=== PATIENT | female | born 1985 | race African-American/Black ===

== ENCOUNTER → 2020-10-03 08:51 | Outpatient (BNVA) | payer OTHER, SELFPAY | PROVIDERS: PCP Pediatrics; Visit Provider Surgery | DX: E66.01 Morbid (severe) obesity due to excess calories (principal); Z68.43 Body mass index [BMI] 50.0-59.9, adult | CPT/HCPCS: 99202 ==

== ENCOUNTER → 2020-10-14 08:06 | Outpatient (BNVA) | payer OTHER, SELFPAY | PROVIDERS: Visit Provider Surgery ==

== ENCOUNTER → 2020-10-30 08:14 | Outpatient (BNVA) | payer OTHER, SELFPAY | PROVIDERS: Visit Provider Dietitian, Registered | DX: E66.01 Morbid (severe) obesity due to excess calories (principal) | CPT/HCPCS: 97802 ==

== ENCOUNTER 2021-09-09 05:29 | Inpatient (IN) | payer OTHER, SELFPAY ==
[2021-09-09 06:00] VITALS: BMI 55.5
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
--- NOTE | 2021-09-09 09:20 | P.CONHOSP_ITS ---
History of Present Illness Data of Consult Service Date: 09/09/21 Primary Care Provider: Unknown Physician HPI Reason for consult: routine medical H&P This is a 36 yo F who is admitted to . Patient is seen and examined with psychology professor present. Pt denies any physical complaints at this time. PMH Denies PSH Wrist surgery for cyst Tonsillectomy as a 4 year old FH DM, CAD, CKD in mother SH Drinks at social events -- every few months; no tobacco or alcohol use [facility] Medical History (Updated 09/09/21 @ 09:25 by Oscar Mesa MD) Back pain Family History Mother Chronic kidney disease Accelerated hypertension Pulmonary hypertension CHF (congestive heart failure) Coronary heart disease Father No problems noted. Brother Leukemia Brother No problems noted. Daughter No problems noted. Surgical History Hx of removal of cyst Social History (Updated 10/03/20 @ 09:38 by Gayathri Arellano MD) Household Members: Family Household Members Other:: MOTHER AND DAUGHTER Housing: House Housing Other:: APARTMENT IN MOTHER'S BASEMENT Do you presently have visiting nurse or other home services: No Alcohol intake: current Alcohol intake frequency: a few times a month Patient Tobacco Use Status: Never used Tobacco Use of substances other than those prescribed or required for medical reasons: Yes Substance Use Type: Marijuana Substance Use Frequency: Occasionally Last Used Substance Other:: 08/18/2021 Currently Displaying Signs/Symptoms of Drug Intoxication Withdrawal: No Any prior treatment program specific to substance use: No Have you been hit, kicked, punched, or otherwise hurt by someone within the past year? If so, by whom?: No Do you feel safe in your current relationship?: No Current Relationship Is there a partner from a previous relationship who is making you feel unsafe now?: No Are you made to feel afraid or neglected: No Advance Directives: No Advance Directives Information Provided: No (declined) Advance Directives on File: No Do you have thoughts of harming others: None Do you have a plan to hurt others: No Plan Recently lost weight without trying: No Eating poorly because of decreased appetite: No Nutrition Risks: No Nutritional Risk Patient : No : No Poor oral hygiene: No Meds Allergies Allergy/AdvReac Type Severity Reaction Status Date / Time No Known Allergies Allergy Verified 10/14/20 11:17 Active Medications: Current Medications Diphenhydramine HCl (Diphenhydramine Hcl 25 Mg Tablet) 50 mg PO Q4H PRN PRN Reason: agitation Haloperidol (Haloperidol 5 Mg Tablet) 5 mg PO Q4H PRN PRN Reason: agitation Hydroxyzine HCl (Hydroxyzine Hcl 25 Mg Tablet) 25 mg PO TID PRN PRN Reason: mild anxiety Ibuprofen (Ibuprofen 600 Mg Tablet) 600 mg PO Q8H PRN PRN Reason: Pain, Mild (Pain Scale 1-3) Lorazepam (Lorazepam 1 Mg Tablet) 2 mg PO Q4H PRN PRN Reason: agitation Nicotine Polacrilex (Nicotine Polacrilex Lozenge 4 Mg Lozenge) 4 mg BUCCAL Q2H PRN PRN Reason: Nicotine Cravings Home Medications Medication Instructions Recorded Confirmed Last Taken Type methocarbamol 500 mg tablet 1,000 mg PO Q8H 09/24/20 10/14/20 Unknown History naproxen 500 mg tablet 500 mg PO BID 09/24/20 10/14/20 Unknown History tramadol 100 mg tablet 100 mg PO Q4H PRN pain 10/03/20 10/14/20 Unknown History Physical Exam Vital Signs and Narrative: Vital Signs: BMI result Body Mass Index 55.5 Const: Other: General - no acute distress, appears comfortable Cardiovascular - regular rate and rhythm, S1-S2 Lungs - normal respiratory effort, clear to auscultation bilaterally, no wheezing Abdomen - soft, nontender, no rebound or guarding Extremities - no edema bilaterally Neuro - awake and alert, no focal deficits; cn2-12 intact b/l Assessment and Plan (1) Routine medical exam: Status: Acute Plan This is a 36 yo F who endorses no significant PMH and is admitted to . Medical consult requested for routine medical H&P. Pt appears to be medically stable at this time. Will sign off. Please reconsult PRN.
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
[2021-09-09 19:30] VITALS: BP 132/67; PULSE 83; RESP 16; TEMP 36.2; O2SAT 98
[2021-09-09] MEDS: Melatonin 3 MG TABLET 9 MG PO (20:34)
[2021-09-09] MEDS: Docusate Sodium 100 MG CAPSULE PO (20:34)
[2021-09-09] MEDS: LORazepam 1 MG TABLET 2 MG PO (20:34)
[2021-09-09] MEDS: QUEtiapine Fumarate 200 MG TABLET PO (20:34)
[2021-09-09] MEDS: cloNIDine HCL 0.1 MG TABLET PO (20:34)
[2021-09-09] MEDS: Magnesium Hydrox/Alum Hydrox 30 ML ORAL.SUSP PO (21:46)
[2021-09-10] MEDS: Omeprazole 20 MG CAPSULE.DR PO (05:15)
[2021-09-10 08:30] VITALS: BP 126/62; PULSE 82; RESP 18; TEMP 37.1; O2SAT 100
[2021-09-10] MEDS: QUEtiapine Fumarate 200 MG TABLET PO ×2 (08:50→21:11)
[2021-09-10] MEDS: Docusate Sodium 100 MG CAPSULE PO ×2 (08:50→21:11)
[2021-09-10] MEDS: cloNIDine HCL 0.1 MG TABLET PO ×2 (08:50→21:11)
--- NOTE | 2021-09-10 18:36 | P.PNPSI_ITS ---
Subjective Subjective Date of Service: 09/10/21 Reason For Visit: Unspecified bipolar disorder Subjective Notes: Conditional Voluntary Healthcare Proxy: No Guardianship: No Medical Problems Affecting Mental Status: No Interim History: Pt discussed needing housing resources as she anticipates homelessness when mother moves. Discussed concerns about taking vitamins to manage higher testosterone levels, however, all vitamins are open at home and we will not be able to provide them due to this-pt understanding of this-discussed her regime SST, Thermal Slim, CLA, Vitex Teas and their efficacy. Reports current regime to be without SE and titrating well with appropriate sx mgt and no excess sedation. Medication Compliance: Yes Side effects from medications: No Attending Groups: Yes Review of Systems Acute medical concerns: No Medical Review of Systems: unchanged Review of Systems Psychiatric: Reports anxiety and Reports other (worry about housing) Mental Status Exam Mental Status Exam Patient Appearance: Appropriate Patient Orientation: Person, Place, Time and Situation Level of Consciousness: Alert Patient Behavior: Appropriate, Talkative, Cooperative and Good Eye Contact Mood Description: Apprehensive Affect Description: Constricted Patient Cognition Impaired: No Ability to Follow Directions: Good Speech Pattern: Spontaneous Speech Memory Description: Intact and Episodic Impaired Hallucinations: None Thought Process: Distracted and Goal Oriented Thought Content: positive for [place], positive for Circumstantial, positive for Goal Oriented, positive for Suicidal Ideation (denies) and positive for Homi cidal Ideation (denies) Depressive Symptoms: Increased Anxiety Judgement: Good Diagnostics Vital Signs (24Hr): Vital Signs - 24 hr 09/09/21 19:30 09/10/21 08:30 Temperature 97.2 F 98.7 F Pulse Rate 83 82 Respiratory Rate 16 18 Blood Pressure 132/67 126/62 Pulse Oximetry 98 100 Oxygen Delivery Method Room Air Room Air BMI result Body Mass Index 55.5 Labs Results: 09/11/21 07:55 Medications Medications Current Medications Acetaminophen (Acetaminophen 325 Mg Tablet) 650 mg PO Q6H PRN PRN Reason: Headache/Pain Mild Scale (1-3) Al Hydroxide/Mg Hydroxide (Magnesium Hydrox/Alum Hydrox 30 Ml Oral.Susp) 30 ml PO Q4H PRN PRN Reason: gerd sx Last Admin: 09/09/21 21:46 Dose: 30 ml Al Hydroxide/Mg Hydroxide (Magnesium Hydrox/Alum Hydrox 30 Ml Oral.Susp) 30 ml PO Q6H PRN PRN Reason: Heartburn/Nausea Calcium Carbonate (Calcium Carbonate 750 Mg Tab.Chew) 750 mg PO Q4H PRN PRN Reason: GI distress Clonidine HCl (Clonidine Hcl 0.1 Mg Tablet) 0.1 mg PO BID [facility]; Protocol Last Admin: 09/10/21 08:50 Dose: 0.1 mg Cyanocobalamin (Cyanocobalamin (Vitamin B-12) 100 Mcg Tablet) 100 mcg PO DAILY [facility] Diphenhydramine HCl (Diphenhydramine Hcl 25 Mg Tablet) 50 mg PO Q4H PRN PRN Reason: agitation Docusate Sodium (Docusate Sodium 100 Mg Capsule) 100 mg PO BID [facility] Last Admin: 09/10/21 08:50 Dose: 100 mg Haloperidol (Haloperidol 5 Mg Tablet) 5 mg PO Q4H PRN PRN Reason: agitation Hydroxyzine HCl (Hydroxyzine Hcl 25 Mg Tablet) 25 mg PO TID PRN PRN Reason: mild anxiety Hydroxyzine HCl (Hydroxyzine Hcl 25 Mg Tablet) 25 mg PO BEDTIME PRN PRN Reason: Anxiety Ibuprofen (Ibuprofen 600 Mg Tablet) 600 mg PO Q8H PRN PRN Reason: Pain, Mild (Pain Scale 1-3) Lorazepam (Lorazepam 1 Mg Tablet) 2 mg PO Q4H PRN PRN Reason: agitation Last Admin: 09/09/21 20:34 Dose: 2 mg Magnesium Hydroxide (Milk Of Magnesia 30 Ml Oral.Susp) 30 ml PO DAILY PRN PRN Reason: Constipation Melatonin (Melatonin 3 Mg Tablet) 9 mg PO BEDTIME [facility] Last Admin: 09/09/21 20:34 Dose: 9 mg Multivitamins/Vitamin C (Multivitamin Tablet) 1 tab PO DAILY [facility] Nicotine Polacrilex (Nicotine Polacrilex Lozenge 4 Mg Lozenge) 4 mg BUCCAL Q2H PRN PRN Reason: Nicotine Cravings Omeprazole (Omeprazole 20 Mg Capsule.Dr) 20 mg PO DAILY@0630 [facility] Last Admin: 09/10/21 05:15 Dose: 20 mg Psyllium Hydrophilic Mucilloid (Psyllium Seed 3.4 Gm Powd.Pack) 3.4 gm PO DAILY PRN PRN Reason: Constipation Last Admin: 09/09/21 20:39 Dose: 3.4 gm Quetiapine Fumarate (Quetiapine Fumarate 200 Mg Tablet) 200 mg PO BID [facility] Last Admin: 09/10/21 08:50 Dose: 200 mg Trazodone HCl (Trazodone Hcl 50 Mg Tablet) 50 mg PO BEDTIME PRN PRN Reason: Insomnia Allergies Allergies Allergy/AdvReac Type Severity Reaction Status Date / Time No Known Allergies Allergy Verified 10/14/20 11:17 Assessment & Plan Assessment & Plan (1) Bipolar disorder: Status: Acute Code(s): F31.9 - Bipolar disorder, unspecified Plan 36 yo female, mother of a 12 yo daughter with a history of bipolar disorder reports difficulty maintaining medication compliance due to inability to obtain refills. Pt reports being treated in June 2021 and establishing a stable regime which has been effective. Recently she has had difficulty obtaining refills, has had to cut back dosing and had breakthrough symptoms which brought her back to the ER for admission for lability of mood with psychotic symptoms. Discussed with pt referrals and a plan of coverage to bridge her to her appointments which she agrees with. Plan: Continue Clonidine, Seroquel XR, Melatonin, Hydroxyzine, Melatonin Discharge planning. 09/10/21: Continue current plan. I spent minutes with the patient and/or on the patient floor today, greater than?50% of which was spent counseling/coordinating care. Patient educated on: therapeutic strategies and other Informed Consent: understands and further education needed Reason for contiued inpatient stay Substantial Risk for: rapid decompensation
[2021-09-10] MEDS: Milk of Magnesia 30 ML ORAL.SUSP PO (21:10)
[2021-09-10] MEDS: Melatonin 3 MG TABLET 9 MG PO (21:11)
[2021-09-10 21:20] VITALS: BP 133/93; PULSE 91; RESP 18; TEMP 37.1
[2021-09-11 06:00] VITALS: BP 118/73; PULSE 84; RESP 16; TEMP 36.3; O2SAT 99
[2021-09-11] MEDS: Omeprazole 20 MG CAPSULE.DR PO (06:59)
[2021-09-11 08:36] LABS: Alanine Aminotransferase 27 U/L (0-31); Alkaline Phosphatase 91 U/L (39-117); Anion Gap 12 (12-20); Aspartate Amino Transferase 22 U/L (5-31); Bilirubin Total 0.5 mg/dL (0.0-1.0); Blood Urea Nitrogen 9 mg/dL (9-16); Calcium 9.4 mg/dL (8.4-10.2); Carbon Dioxide 28 mmol/L (22-29); Chloride 103 mmol/L (96-108); Cholesterol 215 mg/dL; Creatinine Clr Calc Pharmacy 153.5; Estimated Glomerular Filt Rate > 60; Glucose Fasting 108 mg/dL (60-99); HDL Cholesterol 43 mg/dL; LDL Cholesterol Calculated 140 mg/dl; Potassium 4.2 mmol/L (3.3-5.1); Sodium 139 mmol/L (135-145); Total Protein 6.9 g/dL (6.5-8.0); Triglycerides 162 mg/dL
[2021-09-11] MEDS: Multivitamin TABLET 1 TAB PO (09:03)
[2021-09-11] MEDS: cloNIDine HCL 0.1 MG TABLET PO ×2 (09:03→20:36)
[2021-09-11] MEDS: Docusate Sodium 100 MG CAPSULE PO (09:03)
[2021-09-11] MEDS: Cyanocobalamin (Vitamin B-12) 100 MCG TABLET PO (09:03)
[2021-09-11] MEDS: QUEtiapine Fumarate 200 MG TABLET PO ×2 (09:03→20:33)
[2021-09-11] MEDS: Magnesium Citrate 300 ML SOLUTION PO (14:18)
--- NOTE | 2021-09-11 16:27 | P.PNPSI_ITS ---
Subjective Subjective Date of Service: 09/11/21 Reason For Visit: Unspecified bipolar disorder Subjective Notes: Conditional Voluntary Healthcare Proxy: No Guardianship: No Medical Problems Affecting Mental Status: No Interim History: Pt reporting sx of constipation-will trial Magnesium Citrate x 1 and increase Colace to 200 mg bid. Discussed housing resources and concerns about transportation to [facility]. Review of PT-1 and housing resources/supports available in community. Medication Compliance: Yes Side effects from medications: No Attending Groups: Yes Review of Systems Acute medical concerns: No Medical Review of Systems: unchanged Review of Systems Psychiatric: Reports anxiety and Reports other (worry about housing) Mental Status Exam Mental Status Exam Patient Appearance: Appropriate Patient Orientation: Person, Place, Time and Situation Level of Consciousness: Alert Patient Behavior: Appropriate, Talkative, Cooperative and Good Eye Contact Mood Description: Apprehensive Affect Description: Constricted Patient Cognition Impaired: No Ability to Follow Directions: Good Speech Pattern: Spontaneous Speech Memory Description: Intact and Episodic Impaired Hallucinations: None Thought Process: Distracted and Goal Oriented Thought Content: positive for [place], positive for Circumstantial, positive for Goal Oriented, positive for Suicidal Ideation (denies) and positive for Homicidal Ideation (denies) Depressive Symptoms: Increased Anxiety Judgement: Good Diagnostics Vital Signs (24Hr): Vital Signs - 24 hr 09/10/21 21:20 09/11/21 06:00 Temperature 98.7 F 97.4 F Pulse Rate 91 84 Respiratory Rate 18 16 Blood Pressure 133/93 H 118/73 Pulse Oximetry 99 Oxygen Delivery Method Room Air BMI result Body Mass Index 55.5 Labs Results: 09/11/21 07:55 Labs: Laboratory Results - last 48 hr 09/11/21 07:55 Sodium 139 Potassium 4.2 Chloride 103 Carbon Dioxide 28 Anion Gap 12 BUN 9 Creatinine 0.88 Estim Creat Clear Calc 153.5 Estimated GFR > 60 Fasting Glucose 108 H Calcium 9.4 Total Bilirubin 0.5 AST 22 ALT 27 Alkaline Phosphatase 91 Total Protein 6.9 Albumin 4.0 Triglycerides 162 Cholesterol 215 LDL Cholesterol, Calc 140 HDL Cholesterol 43 Medications Medications Current Medications Acetaminophen (Acetaminophen 325 Mg Tablet) 650 mg PO Q6H PRN PRN Reason: Headache/Pain Mild Scale (1-3) Al Hydroxide/Mg Hydroxide (Magnesium Hydrox/Alum Hydrox 30 Ml Oral.Susp) 30 ml PO Q4H PRN PRN Reason: gerd sx Last Admin: 09/09/21 21:46 Dose: 30 ml Al Hydroxide/Mg Hydroxide (Magnesium Hydrox/Alum Hydrox 30 Ml Oral.Susp) 30 ml PO Q6H PRN PRN Reason: Heartburn/Nausea Calcium Carbonate (Calcium Carbonate 750 Mg Tab.Chew) 750 mg PO Q4H PRN PRN Reason: GI distress Clonidine HCl (Clonidine Hcl 0.1 Mg Tablet) 0.1 mg PO BID [facility]; Protocol Last Admin: 09/11/21 09:03 Dose: 0.1 mg Cyanocobalamin (Cyanocobalamin (Vitamin B-12) 100 Mcg Tablet) 100 mcg PO DAILY [facility] Last Admin: 09/11/21 09:03 Dose: 100 mcg Diphenhydramine HCl (Diphenhydramine Hcl 25 Mg Tablet) 50 mg PO Q4H PRN PRN Reason: agitation Docusate Sodium (Docusate Sodium 100 Mg Capsule) 200 mg PO BID [facility] Haloperidol (Haloperidol 5 Mg Tablet) 5 mg PO Q4H PRN PRN Reason: agitation Hydroxyzine HCl (Hydroxyzine Hcl 25 Mg Tablet) 25 mg PO TID PRN PRN Reason: mild anxiety Hydroxyzine HCl (Hydroxyzine Hcl 25 Mg Tablet) 25 mg PO BEDTIME PRN PRN Reason: Anxiety Ibuprofen (Ibuprofen 600 Mg Tablet) 600 mg PO Q8H PRN PRN Reason: Pain, Mild (Pain Scale 1-3) Lorazepam (Lorazepam 1 Mg Tablet) 2 mg PO Q4H PRN PRN Reason: agitation Last Admin: 09/09/21 20:34 Dose: 2 mg Magnesium Hydroxide (Milk Of Magnesia 30 Ml Oral.Susp) 30 ml PO DAILY PRN PRN Reason: Constipation Last Admin: 09/10/21 21:10 Dose: 30 ml Melatonin (Melatonin 3 Mg Tablet) 9 mg PO BEDTIME [facility] Last Admin: 09/10/21 21:11 Dose: 9 mg Multivitamins/Vitamin C (Multivitamin Tablet) 1 tab PO DAILY [facility] Last Admin: 09/11/21 09:03 Dose: 1 tab Nicotine Polacrilex (Nicotine Polacrilex Lozenge 4 Mg Lozenge) 4 mg BUCCAL Q2H PRN PRN Reason: Nicotine Cravings Omeprazole (Omeprazole 20 Mg Capsule.Dr) 20 mg PO DAILY@0630 [facility] Last Admin: 09/11/21 06:59 Dose: 20 mg Psyllium Hydrophilic Mucilloid (Psyllium Seed 3.4 Gm Powd.Pack) 3.4 gm PO DAILY PRN PRN Reason: Constipation Last Admin: 09/10/21 21:10 Dose: 3.4 gm Quetiapine Fumarate (Quetiapine Fumarate 200 Mg Tablet) 200 mg PO BID [facility] Last Admin: 09/11/21 09:03 Dose: 200 mg Trazodone HCl (Trazodone Hcl 50 Mg Tablet) 50 mg PO BEDTIME PRN PRN Reason: Insomnia Allergies Allergies Allergy/AdvReac Type Severity Reaction Status Date / Time No Known Allergies Allergy Verified 10/14/20 11:17 Assessment & Plan Assessment & Plan (1) Bipolar disorder: Status: Acute Code(s): F31.9 - Bipolar disorder, unspecified Plan 36 yo female, mother of a 12 yo daughter with a history of bipolar disorder reports difficulty maintaining medication compliance due to inability to obtain refills. Pt reports being treated in June 2021 and establishing a stable regime which has been effective. Recently she has had difficulty obtaining refills, has had to cut back dosing and had breakthrough symptoms which brought her back to the ER for admission for lability of mood with psychotic symptoms. Discussed with pt referrals and a plan of coverage to bridge her to her appointments which she agrees with. Plan: Continue Clonidine, Seroquel XR, Melatonin, Hydroxyzine, Melatonin Discharge planning. 09/11/21- Continue current plan-Discharge planning as medicines are re- established and pt is able to identify next steps in need to secure housing and supports. I spent minutes with the patient and/or on the patient floor today, greater than?50% of which was spent counseling/coordinating care. Patient educated on: therapeutic strategies Informed Consent: understands and further education needed Reason for contiued inpatient stay Substantial Risk for: inability to function and rapid decompensation
[2021-09-11] MEDS: Milk of Magnesia 30 ML ORAL.SUSP PO (20:33)
[2021-09-11] MEDS: Docusate Sodium 100 MG CAPSULE 200 MG PO (20:35)
[2021-09-11] MEDS: Melatonin 3 MG TABLET 9 MG PO (20:35)
[2021-09-11 20:41] VITALS: BP 147/87; PULSE 98; RESP 18; TEMP 36.8; O2SAT 96
[2021-09-12 09:45] VITALS: BP 120/71; PULSE 100; RESP 16; TEMP 36.6; O2SAT 97
[2021-09-12] MEDS: Multivitamin TABLET 1 TAB PO (09:47)
[2021-09-12] MEDS: Omeprazole 20 MG CAPSULE.DR PO (09:47)
[2021-09-12] MEDS: cloNIDine HCL 0.1 MG TABLET PO ×2 (09:47→21:18)
[2021-09-12] MEDS: Cyanocobalamin (Vitamin B-12) 100 MCG TABLET PO (09:48)
[2021-09-12] MEDS: QUEtiapine Fumarate 200 MG TABLET PO ×2 (09:48→21:21)
[2021-09-12] MEDS: Docusate Sodium 100 MG CAPSULE 200 MG PO ×2 (09:48→21:18)
--- NOTE | 2021-09-12 17:26 | P.PNPSI_ITS ---
Subjective Subjective Date of Service: 09/12/21 Reason For Visit: Unspecified bipolar disorder Interim History: Patient reports that she is doing overall well and says she is pretty good. . She said she is sleeping well and does not feel groggy in the morning. She denies any SI, HI or AVH. Patient has no complaints and no requests. Reports she is tolerating Seroquel. Mental Status Exam Mental Status Exam Narrative: Pt is alert and oriented; behavior is cooperative, friendly and calm; patient is not in distress; dressed in casual attire, hair in shower cap, adequate hygiene; mood is described as pretty good and affect congruent; eye contact appropriate; Speech is normal rate, volume and prosody and not pressured; no psychomotor agitation/retardation present; thought process is organized and goal directed; Thought content is on tx; otherwise pertinent to relevant topics and without any delusional content, paranoid ideations or grandiosity; denies any SI/HI. There is no evidence of perceptual disturbance. Patients insight and judgment appear intact. Diagnostics Vital Signs (24Hr): Vital Signs - 24 hr 09/11/21 20:41 09/12/21 09:45 Temperature 98.3 F 97.9 F Pulse Rate 98 100 Respiratory Rate 18 16 Blood Pressure 147/87 H 120/71 Pulse Oximetry 96 97 Oxygen Delivery Method Room Air Room Air BMI result Body Mass Index 55.5 Labs Results: 09/11/21 07:55 Labs: Laboratory Results - last 48 hr 09/11/21 07:55 Sodium 139 Potassium 4.2 Chloride 103 Carbon Dioxide 28 Anion Gap 12 BUN 9 Creatinine 0.88 Estim Creat Clear Calc 153.5 Estimated GFR > 60 Fasting Glucose 108 H Calcium 9.4 Total Bilirubin 0.5 AST 22 ALT 27 Alkaline Phosphatase 91 Total Protein 6.9 Albumin 4.0 Triglycerides 162 Cholesterol 215 LDL Cholesterol, Calc 140 HDL Cholesterol 43 Medications Medications Current Medications Acetaminophen (Acetaminophen 325 Mg Tablet) 650 mg PO Q6H PRN PRN Reason: Headache/Pain Mild Scale (1-3) Al Hydroxide/Mg Hydroxide (Magnesium Hydrox/Alum Hydrox 30 Ml Oral.Susp) 30 ml PO Q4H PRN PRN Reason: gerd sx Last Admin: 09/09/21 21:46 Dose: 30 ml Al Hydroxide/Mg Hydroxide (Magnesium Hydrox/Alum Hydrox 30 Ml Oral.Susp) 30 ml PO Q6H PRN PRN Reason: Heartburn/Nausea Calcium Carbonate (Calcium Carbonate 750 Mg Tab.Chew) 750 mg PO Q4H PRN PRN Reason: GI distress Clonidine HCl (Clonidine Hcl 0.1 Mg Tablet) 0.1 mg PO BID [facility]; Protocol Last Admin: 09/12/21 09:47 Dose: 0.1 mg Cyanocobalamin (Cyanocobalamin (Vitamin B-12) 100 Mcg Tablet) 100 mcg PO DAILY [facility] Last Admin: 09/12/21 09:48 Dose: 100 mcg Diphenhydramine HCl (Diphenhydramine Hcl 25 Mg Tablet) 50 mg PO Q4H PRN PRN Reason: agitation Docusate Sodium (Docusate Sodium 100 Mg Capsule) 200 mg PO BID [facility] Last Admin: 09/12/21 09:48 Dose: 200 mg Haloperidol (Haloperidol 5 Mg Tablet) 5 mg PO Q4H PRN PRN Reason: agitation Hydroxyzine HCl (Hydroxyzine Hcl 25 Mg Tablet) 25 mg PO TID PRN PRN Reason: mild anxiety Hydroxyzine HCl (Hydroxyzine Hcl 25 Mg Tablet) 25 mg PO BEDTIME PRN PRN Reason: Anxiety Ibuprofen (Ibuprofen 600 Mg Tablet) 600 mg PO Q8H PRN PRN Reason: Pain, Mild (Pain Scale 1-3) Lorazepam (Lorazepam 1 Mg Tablet) 2 mg PO Q4H PRN PRN Reason: agitation Last Admin: 09/09/21 20:34 Dose: 2 mg Magnesium Hydroxide (Milk Of Magnesia 30 Ml Oral.Susp) 30 ml PO DAILY PRN PRN Reason: Constipation Last Admin: 09/11/21 20:33 Dose: 30 ml Melatonin (Melatonin 3 Mg Tablet) 9 mg PO BEDTIME [facility] Last Admin: 09/11/21 20:35 Dose: 9 mg Multivitamins/Vitamin C (Multivitamin Tablet) 1 tab PO DAILY [facility] Last Admin: 09/12/21 09:47 Dose: 1 tab Nicotine Polacrilex (Nicotine Polacrilex Lozenge 4 Mg Lozenge) 4 mg BUCCAL Q2H PRN PRN Reason: Nicotine Cravings Omeprazole (Omeprazole 20 Mg Capsule.Dr) 20 mg PO DAILY@0630 [facility] Last Admin: 09/12/21 09:47 Dose: 20 mg Psyllium Hydrophilic Mucilloid (Psyllium Seed 3.4 Gm Powd.Pack) 3.4 gm PO DAILY PRN PRN Reason: Constipation Last Admin: 09/11/21 20:33 Dose: 3.4 gm Quetiapine Fumarate (Quetiapine Fumarate 200 Mg Tablet) 200 mg PO BID [facility] Last Admin: 09/12/21 09:48 Dose: 200 mg Trazodone HCl (Trazodone Hcl 50 Mg Tablet) 50 mg PO BEDTIME PRN PRN Reason: Insomnia Allergies Allergies Allergy/AdvReac Type Severity Reaction Status Date / Time No Known Allergies Allergy Verified 10/14/20 11:17 Assessment & Plan Assessment & Plan (1) Bipolar disorder: Status: Acute Code(s): F31.9 - Bipolar disorder, unspecified Plan 36 yo female, mother of a 12 yo daughter with a history of bipolar disorder reports difficulty maintaining medication compliance due to inability to obtain refills. Pt reports being treated in June 2021 and establishing a stable regime which has been effective. Recently she has had difficulty obtaining refills, has had to cut back dosing and had breakthrough symptoms which brought her back to the ER for admission for lability of mood with psychotic symptoms. Discussed with pt referrals and a plan of coverage to bridge her to her appointments which she agrees with. Plan: Continue Clonidine, Seroquel XR, Melatonin, Hydroxyzine, Melatonin Discharge planning. 09/11/21- Continue current plan-Discharge planning as medicines are re- established and pt is able to identify next steps in need to secure housing and supports. 09/12/21 pretty good no changes I spent minutes with the patient and/or on the patient floor today, greater than?50% of which was spent counseling/coordinating care. Patient educated on: medication risk/benefits Informed Consent: understands Reason for contiued inpatient stay Substantial Risk for: med/psych decompensation
[2021-09-12 18:00] VITALS: BP 153/81; PULSE 86; RESP 18; TEMP 36.6; O2SAT 98
[2021-09-12] MEDS: hydrOXYzine HCL 25 MG TABLET PO (19:26)
[2021-09-12] MEDS: Melatonin 3 MG TABLET 9 MG PO (21:18)
[2021-09-12] MEDS: Milk of Magnesia 30 ML ORAL.SUSP PO (21:22)
[2021-09-13] MEDS: HaloperidoL 5 MG TABLET PO (01:38)
[2021-09-13] MEDS: LORazepam 1 MG TABLET 2 MG PO (01:38)
[2021-09-13 06:00] VITALS: BP 112/72; PULSE 83; RESP 14; TEMP 37.1; O2SAT 98
[2021-09-13] MEDS: Omeprazole 20 MG CAPSULE.DR PO (06:41)
[2021-09-13] MEDS: Docusate Sodium 100 MG CAPSULE 200 MG PO ×2 (08:05→21:48)
[2021-09-13 08:06] VITALS: BP 125/62; PULSE 85
[2021-09-13] MEDS: Cyanocobalamin (Vitamin B-12) 100 MCG TABLET PO (08:06)
[2021-09-13] MEDS: Multivitamin TABLET 1 TAB PO (08:06)
[2021-09-13] MEDS: cloNIDine HCL 0.1 MG TABLET PO ×2 (08:06→21:48)
[2021-09-13] MEDS: QUEtiapine Fumarate 200 MG TABLET PO ×2 (08:06→21:48)
[2021-09-13 18:00] VITALS: BP 130/90; PULSE 96; RESP 18; TEMP 36.3; O2SAT 100
[2021-09-13] MEDS: Melatonin 3 MG TABLET 9 MG PO (21:49)
[2021-09-14] MEDS: Omeprazole 20 MG CAPSULE.DR PO (05:42)
[2021-09-14 06:00] VITALS: BP 129/79; PULSE 94; RESP 18; TEMP 36.6; O2SAT 100
[2021-09-14] MEDS: QUEtiapine Fumarate 200 MG TABLET PO (08:31)
[2021-09-14] MEDS: Multivitamin TABLET 1 TAB PO (08:31)
[2021-09-14] MEDS: Docusate Sodium 100 MG CAPSULE 200 MG PO (08:31)
[2021-09-14] MEDS: Cyanocobalamin (Vitamin B-12) 100 MCG TABLET PO (08:31)
[2021-09-14] MEDS: cloNIDine HCL 0.1 MG TABLET PO (08:31)
[2021-09-14 08:32] VITALS: BP 148/98; PULSE 80
--- NOTE | 2021-09-14 11:22 | HO.PSYCHPN ---
Subjective Subjective Date of Service: 09/13/21 Reason For Visit: Unspecified bipolar disorder Interim History: Late entry note for patient seen on 09/13 Patient continues to report that she is doing well. She did have some trouble sleeping last night thinking maybe she was a little anxious. She did not want to change medication regimen but would talk to primary provider when she returns on Tuesday. Mental Status Exam Mental Status Exam Narrative: Pt is alert and oriented; behavior is cooperative, friendly and calm; patient is not in distress; dressed in casual attire, hair in shower cap, adequate hygiene; mood is described as good and affect congruent; eye contact appropriate; Speech is normal rate, volume and prosody and not pressured; no psychomotor agitation/retardation present; thought process is organized and goal directed; Thought content is on tx; otherwise pertinent to relevant topics and without any delusional content, paranoid ideations or grandiosity; denies any SI/HI. There is no evidence of perceptual disturbance. Patients insight and judgment appear intact. Diagnostics Vital Signs (24Hr): Vital Signs - 24 hr 09/13/21 18:00 09/14/21 06:00 09/14/21 08:32 Temperature 97.3 F 97.9 F Pulse Rate 96 94 80 Respiratory Rate 18 18 Blood Pressure 130/90 H 129/79 148/98 H Pulse Oximetry 100 100 Oxygen Delivery Method Room Air BMI result Body Mass Index 55.5 Labs Results: 09/11/21 07:55 Medications Medications Current Medications Acetaminophen (Acetaminophen 325 Mg Tablet) 650 mg PO Q6H PRN PRN Reason: Headache/Pain Mild Scale (1-3) Al Hydroxide/Mg Hydroxide (Magnesium Hydrox/Alum Hydrox 30 Ml Oral.Susp) 30 ml PO Q4H PRN PRN Reason: gerd sx Last Admin: 09/09/21 21:46 Dose: 30 ml Al Hydroxide/Mg Hydroxide (Magnesium Hydrox/Alum Hydrox 30 Ml Oral.Susp) 30 ml PO Q6H PRN PRN Reason: Heartburn/Nausea Calcium Carbonate (Calcium Carbonate 750 Mg Tab.Chew) 750 mg PO Q4H PRN PRN Reason: GI distress Clonidine HCl (Clonidine Hcl 0.1 Mg Tablet) 0.1 mg PO BID [facility]; Protocol Last Admin: 09/14/21 08:31 Dose: 0.1 mg Cyanocobalamin (Cyanocobalamin (Vitamin B-12) 100 Mcg Tablet) 100 mcg PO DAILY [facility] Last Admin: 09/14/21 08:31 Dose: 100 mcg Docusate Sodium (Docusate Sodium 100 Mg Capsule) 200 mg PO BID [facility] Last Admin: 09/14/21 08:31 Dose: 200 mg Hydroxyzine HCl (Hydroxyzine Hcl 25 Mg Tablet) 25 mg PO TID PRN PRN Reason: mild anxiety Last Admin: 09/12/21 19:26 Dose: 25 mg Hydroxyzine HCl (Hydroxyzine Hcl 25 Mg Tablet) 25 mg PO BEDTIME PRN PRN Reason: Anxiety Ibuprofen (Ibuprofen 600 Mg Tablet) 600 mg PO Q8H PRN PRN Reason: Pain, Mild (Pain Scale 1-3) Magnesium Hydroxide (Milk Of Magnesia 30 Ml Oral.Susp) 30 ml PO DAILY PRN PRN Reason: Constipation Last Admin: 09/12/21 21:22 Dose: 30 ml Melatonin (Melatonin 3 Mg Tablet) 9 mg PO BEDTIME [facility] Last Admin: 09/13/21 21:49 Dose: 9 mg Multivitamins/Vitamin C (Multivitamin Tablet) 1 tab PO DAILY [facility] Last Admin: 09/14/21 08:31 Dose: 1 tab Nicotine Polacrilex (Nicotine Polacrilex Lozenge 4 Mg Lozenge) 4 mg BUCCAL Q2H PRN PRN Reason: Nicotine Cravings Omeprazole (Omeprazole 20 Mg Capsule.Dr) 20 mg PO DAILY@0630 [facility] Last Admin: 09/14/21 05:42 Dose: 20 mg Psyllium Hydrophilic Mucilloid (Psyllium Seed 3.4 Gm Powd.Pack) 3.4 gm PO DAILY PRN PRN Reason: Constipation Last Admin: 09/13/21 21:50 Dose: 3.4 gm Quetiapine Fumarate (Quetiapine Fumarate 200 Mg Tablet) 200 mg PO BID [facility] Last Admin: 09/14/21 08:31 Dose: 200 mg Trazodone HCl (Trazodone Hcl 50 Mg Tablet) 50 mg PO BEDTIME PRN PRN Reason: Insomnia Allergies Allergies Allergy/AdvReac Type Severity Reaction Status Date / Time No Known Allergies Allergy Verified 10/14/20 11:17 Assessment & Plan Assessment & Plan (1) Bipolar disorder: Status: Acute Code(s): F31.9 - Bipolar disorder, unspecified Plan 36 yo female, mother of a 12 yo daughter with a history of bipolar disorder reports difficulty maintaining medication compliance due to inability to obtain refills. Pt reports being treated in June 2021 and establishing a stable regime which has been effective. Recently she has had difficulty obtaining refills, has had to cut back dosing and had breakthrough symptoms which brought her back to the ER for admission for lability of mood with psychotic symptoms. Discussed with pt referrals and a plan of coverage to bridge her to her appointments which she agrees with. Plan: Continue Clonidine, Seroquel XR, Melatonin, Hydroxyzine, Melatonin Discharge planning. 09/11/21- Continue current plan-Discharge planning as medicines are re-established and pt is able to identify next steps in need to secure housing and supports. 09/12/21 pretty good no changes 09/13/21 no changes I spent minutes with the patient and/or on the patient floor today, greater than?50% of which was spent counseling/coordinating care. Patient educated on: medication risk/benefits Informed Consent: understands Reason for contiued inpatient stay Substantial Risk for: other (seems stable; defer to primary team)
--- NOTE | 2021-09-14 17:04 | P.DS_ITS ---
DS: Providers Provider Date of Service: 09/14/21 Date of admission: 09/09/21 05:29 Date of discharge: 09/14/21 Primary care physician: Unknown Physician Admitting clinician: Shelley Rubio Attending physician on admission: Noe Bradshaw Consults: 09/09/21 02:53 Consult to Hospitalist Routine Consulting Provider: Hospitalist Reason For Exam: admission physical Attending physician on discharge: Noe Bradshaw Discharging clinician: Shelley Rubio DS: Diagnosis Discharge Diagnosis (1) Bipolar disorder: Status: Acute DS: Medications Discharge Medications Home Medications: Previous Rx's Medication Instructions Recorded aluminum-magnesium hydroxide 200 30 ml PO Q4H PRN gerd sx #3,000 mL 09/14/21 mg-200 mg/5 mL oral suspension clonidine HCl 0.1 mg tablet 0.1 mg PO BID #60 tabs 09/14/21 cyanocobalamin (vitamin B-12) 100 100 mcg PO DAILY #30 tabs 09/14/21 mcg tablet (Vitamin B-12) docusate sodium 100 mg capsule 200 mg PO BID #120 caps 09/14/21 hydroxyzine HCl 50 mg tablet 50 mg PO TID PRN anxiety #60 tabs 09/14/21 melatonin 3 mg tablet 9 mg PO BEDTIME #90 tabs 09/14/21 multivitamin (Daily-Kevin) 1 tab PO DAILY #30 tabs 09/14/21 nicotine (polacrilex) 4 mg buccal 4 mg buccal Q2H PRN Nicotine 09/14/21 lozenge Cravings #60 ea omeprazole 20 mg capsule,delayed 20 mg PO DAILY@0630 #30 caps 09/14/21 release psyllium husk (aspartame) 3.4 gram 3.4 g PO DAILY PRN Constipation #1 09/14/21 oral powder packet (Metamucil ea Fiber Singles) quetiapine 200 mg tablet 200 mg PO BID #60 tabs 09/14/21 Mental Status Exam Mental Status Exam Narrative: Pt is alert and oriented; behavior is cooperative, friendly and calm; patient is not in distress; dressed in casual attire, hair in shower cap, adequate hygiene; mood is described as good and affect congruent; eye contact appropriate; Speech is normal rate, volume and prosody and not pressured; no psychomotor agitation/retardation present; thought process is organized and goal directed; Thought content is on tx; otherwise pertinent to relevant topics and without any delusional content, paranoid ideations or grandiosity; denies any SI/HI. There is no evidence of perceptual disturbance. Patients insight and judgment appear intact. Data Data Completed and Pending Completed studies during hospitalization [Text1]: 09/11/21 07:55 Sodium 139 Potassium 4.2 Chloride 103 Carbon Dioxide 28 Anion Gap 12 BUN 9 Creatinine 0.88 Estim Creat Clear Calc 153.5 Estimated GFR > 60 Fasting Glucose 108 H Calcium 9.4 Total Bilirubin 0.5 AST 22 ALT 27 Alkaline Phosphatase 91 Total Protein 6.9 Albumin 4.0 Triglycerides 162 Cholesterol 215 LDL Cholesterol, Calc 140 HDL Cholesterol 43 DS: Summary Hospital Course Hospital Course: Admission to adult psychiatry for exacerbation of symptoms of bipolar disorder. Shelly informed the team of having a stable medication regime and being denied out patient refill requests. As a result, she needed to ration her medications and became unstable. Out patient regime was re-started and Shelly was stabilized on this regime without adverse effects. She utilized the milieu for assistance and was well-engaged and participatory throughout her stay. Outpatient appointments were arranged and [facility] will work with her until this appointment to continue her current regime. Time spent discussing smoking cessation with patient: 3 to 10 minutes Status at Discharge Functional status at discharge: independent ambulation Overall status at discharge: patient is back to baseline Time Spent with Patient Time attestation: Total time spent providing and/or coordinating discharge services: 35 Time spent: Greater than 30 minutes Discharge Plan Discharge Patient Disposition: Home, Self-Care Discharge Diagnosis: Bipolar Disorder Referrals: Dr. Jenny Thompson [Other] - 09/15/21 2:15 pm (New Patient Appt 09/15/21 at 2:15pm.) Community Support Program (CSP): [facility] [Other] - 1 Week (CSP is to help identify and apply for housing resources/financial assistance. Your social work administrator will call you tomorrow with intake appointment.) Therapy & Psychiatry: [facility] ([facility]) [Other] - 1 Week (Your social work administrator will call you with therapy and psych appointments tomorrow. Psych appointments will be virtual and you will be emailed instructions to download the eden they use as well as another email with a link to join the appointment. ) Discharge Medications: New multivitamin [Daily-Kevin] Tablet 1 tab PO DAILY Qty: 30 0RF clonidine HCl 0.1 mg Tablet 0.1 mg PO BID Qty: 60 0RF Protocol: Hold for SBP< HOLD for SBP < : 90 cyanocobalamin (vitamin B-12) [Vitamin B-12] 100 mcg Tablet 100 mcg PO DAILY Qty: 30 0RF quetiapine 200 mg Tablet 200 mg PO BID Qty: 60 0RF melatonin 3 mg Tablet 9 mg PO BEDTIME Qty: 90 0RF docusate sodium 100 mg Capsule 200 mg PO BID Qty: 120 0RF omeprazole 20 mg Capsule,Delayed Release(Dr/Ec) 20 mg PO DAILY@0630 Qty: 30 0RF nicotine (polacrilex) 4 mg Lozenge 4 mg buccal Q2H PRN (Reason: Nicotine Cravings) Qty: 60 0RF Metamucil Fiber Singles 3.4 gram Powder In Packet 3.4 g PO DAILY PRN (Reason: Constipation) Qty: 1 0RF hydroxyzine HCl 50 mg tablet 50 mg PO TID PRN (Reason: anxiety) Qty: 60 0RF aluminum-magnesium hydroxide 200-200 mg/5 mL Suspension 30 ml PO Q4H PRN (Reason: gerd sx) Qty: 3000 0RF quetiapine [Seroquel XR] 400 mg tablet extended release 24 hr 400 mg PO BEDTIME Qty: 30 0RF Discontinued methocarbamol 500 mg tablet 1,000 mg PO Q8H naproxen 500 mg tablet 500 mg PO BID tramadol 100 mg tablet 100 mg PO Q4H PRN (Reason: pain) Rx Instructions: DNExceed 4 doses/24h Discharge Orders: Discharge Order (Routine); Ordered 09/14/21 Ordered By: Shelley Rubio Activity on Discharge: As tolerated Stand Alone Forms: Patient Portal Discharge page, Community Support Care Plan Goals: Work on maintaining stable moods and safe behaviors Take medications as directed Practice the coping skills you have learned while in the hospital Follow up with out patient providers Connect with others to discuss thoughts and feelings Health Concerns: Bipolar Disorder Plan of Treatment: As noted in care plan goals Call [phone] with medication questions prior to your out patient appointment if needed. Assessment: stable mood non-psychotic non-suicidal Discharge Date/Time: 09/14/21 14:36
== END 2021-09-14 14:36 | disposition home or self-care (01) | DRG 753 ==
PROVIDERS: Admitting Provider Psychiatry & Neurology Psychiatry; Visit Provider Clinical Nurse Specialist Psychiatric/Mental Health, Adult
DX: F31.9 Bipolar disorder, unspecified (principal); Z68.43 Body mass index [BMI] 50.0-59.9, adult; E66.01 Morbid (severe) obesity due to excess calories; Z91.14 Patient's other noncompliance with medication regimen; Z79.899 Other long term (current) drug therapy
CPT/HCPCS: 36415; 80053; 80061

== ENCOUNTER 2023-03-05 01:15 | Inpatient (IN) | payer OTHER, SELFPAY ==
--- OUTSIDE RECORDS SUMMARY | 2023-03-05 01:18 | XMS_ITS | Continuity of Care Document ---
Author Name Unknown Organization [facility] Address [address] [place] [address]- Care Team Providers Care Head Mechanic Name Role Phone Magdi DYE WORKER, Latasha F Primary Care Physician Encounter [facility] Date(s): 09/02/21 - 10/02/[address] [address]- Allergies, Adverse Reactions, Alerts No Known Allergies Immunizations Given and Recorded Vaccine Date Status Refusal Reason SARS-CoV-2 (COVID-19) mRNA BNT-162b2 vac 01/14/21 Recorded SARS-CoV-2 (COVID-19) mRNA BNT-162b2 vac 11/25/20 Recorded influenza virus vaccine, inactivated 12/08/19 Osvaldo rded influenza virus vaccine, inactivated 11/29/18 Osvaldo rded influenza virus vaccine, inactivated 12/06/08 Osvaldo rded tetanus/diphtheria/pertussis, acel(Tdap) 01/03/09 Recorded Meningococcal Conjugate Vaccine 03/25/06 Recorded tetanus-diphtheria toxoids (Td) 02/15/02 Recorded Poliovirus Vaccine, Inactivated 02/15/02 Recorded Poliovirus Vaccine, Inactivated 01/15/93 Recorded Poliovirus Vaccine, Inactivated 01/16/88 Recorded Measles/Mumps/Rubella Virus Vaccine 01/15/93 Recor ded Measles/Mumps/Rubella Virus Vaccine 01/16/88 Recor ded Medications cloNIDine 0.1 mg oral tablet 0.1 mg, 1, tablet, By Mouth, 2 times a day, # 14 tablet, Refills 0, Tot. Refills 0, Maintenance, 08/19/21 13:05:00 EDT, Route to Pharmacy Electronically, [facility], Partial fill upon patient request if the prescription is for a schedule... Start Date: 08/19/21 Stop Date: 08/26/21 Status: Ordered cloNIDine 0.1 mg oral tablet 0.1 mg, 1, tablet, By Mouth, 2 times a day, # 6 tablet, Refills 0, Tot. Refills 0, Maintenance, 09/22/21 9:39:00 EDT, Route to Pharmacy Electronically, [facility], Partial fill upon patient request if the prescription is for a schedule I... Start Date: 09/22/21 Stop Date: 09/25/21 Status: Ordered cloNIDine 0.1 mg oral tablet 0.1 mg, 1, tablet, By Mouth, 2 times a day, Take 1 tablet (=0.1mg), 2 times a day, # 60 tablet, Refills 0, Tot. Refills 0, Maintenance, 07/08/21 8:23:00 EDT, Route to Pharmacy Electronically, [facility] [id number], Partial yesica... Start Date: 07/08/21 Stop Date: 08/07/21 Status: Ordered cloNIDine 0.1 mg oral tablet 0.1 mg, 1, tablet, By Mouth, 2 times a day, # 20 tablet, Refills 0, Tot. Refills 0, Maintenance, 09/06/21 12:22:00 EDT, Print Requisition, Partial fill upon patient request if the prescription is fora schedule II opioid drug. Start Date: 09/06/21 Stop Date: 09/16/21 Status: Ordered Colace sodium 100 mg oral capsule 100 mg, 1, capsule, By Mouth, 2 times a day, PRN, # 60 capsule, Refills 0, Tot. Refills 0, Maintenance, for constipation, 07/08/21 8:28:00 EDT, Route to Pharmacy Electronically, [place], [place] - [id number], 173, cm, 07/07/21 22:02:0... Start Date: 07/08/21 Stop Date: 08/07/21 Status: Ordered Colace sodium 100 mg oral capsule 100 mg, 1, capsule, By Mouth, 2 times a day, PRN, # 20 capsule, Refills 0, Tot. Refills 0, Maintenance, for constipation, 09/05/21 20:27:00 EDT, Print Requisition, Partial fill upon patient request if the prescription is for a schedule II opioid drug. Start Date: 09/05/21 Status: Ordered hydrOXYzine pamoate 50 mg oral capsule = 50 mg, By Mouth, 2 times a day, PRN Anxiety, take 1 capsule (=50mg), up to 2 times a day, as needed for anxiety, # 60 capsule, 0 Refills, Maintenance, 07/08/21 8:23:00 EDT, Capsule, [place], [place] - [phone], Partial fill upon p... Start Date: 07/08/21 Stop Date: 08/07/21 Status: Ordered QUEtiapine 400 mg oral tablet, extended release 400 mg, 1, tablet, By Mouth, Daily, # 10 tablet, Refills 0, Tot. Refills 0, Maintenance, 09/06/21 12:22:00 EDT, Print Requisition, Partial fill upon patient request if the prescription is for a schedule II opioid drug. Start Date: 09/06/21 Stop Date: 09/16/21 Status: Ordered SEROquel XR 400 mg oral tablet, extended release 400 mg, 1, tablet, By Mouth, Daily, # 7 tablet, Refills 0, Tot. Refills 0, Maintenance, 08/19/21 13:05:00 EDT, Route to Pharmacy Electronically, [facility], Partial fill upon patient request if the prescription is for a schedule II opioi... Start Date: 08/19/21 Stop Date: 08/26/21 Status: Ordered SEROquel XR 400 mg oral tablet, extended release 400 mg, 1, tablet, By Mouth, Daily in PM, please provide financial waiver for copay, # 7 tablet, Refills 0, Tot. Refills 0, Maintenance, 09/22/21 9:39:00 EDT, Route to Pharmacy Electronically, [facility], Partial fill upon patient reques... Start Date: 09/22/21 Stop Date: 09/29/21 Status: Ordered SEROquel XR 400 mg oral tablet, extended release 400 mg, 1, tablet, By Mouth, Daily at bedtime, Take 1 tablet (=400mg) daily at bedtime, # 30 tablet, Refills 0, Tot. Refills 0, Maintenance, 07/08/21 8:22:00 EDT, Route to Pharmacy Electronically, [facility] - [place], [place] - [phone]... Start Date: 07/08/21 Stop Date: 08/07/21 Status: Ordered Problem List Condition Effective Dates Status Health Status Inform ant Severe obesity(Confirmed) Active Social History Social History Type Response Tobacco Interested in cessat ion: No. No, Other: rarely. Sex
--- OUTSIDE RECORDS SUMMARY | 2023-03-05 01:18 | XMS_ITS | Continuity of Care Document ---
Author Name Unknown Organization [facility] ter Address [address] [place] [address]- Care Team Providers Care Manga Artist Name Role Phone Magdi LOZADA, Latasha Elizondo Primary Care Physician [phone] [place] [facility] [place] 09/05/21 - 09/06/[address] [address]- Encounter Diagnosis Bipolar disorder(Final) - 09/05/21 Discharge Disposition: A-D/C Home Attending Physician: Tylor Guzman MD Admitting Physician: Tylor Guzman MD Referring Physician: Not on Staff, Referring MD Allergies, Adverse Reactions, Alerts No Known Allergies [...] 08/19/21 13:05:00 EDT, Route to Pharmacy Electronically, [facility], Partial fill upon patient request if the prescription is for a schedule... Start Date: 08/19/21 Stop Date: 08/26/21 Status: Ordered cloNIDine 0.1 mg oral tablet 0.1 mg, 1, tablet, By Mouth, 2 times a day, Take 1 tablet (=0.1mg), 2 times a day, # 60 tablet, Refills 0, Tot. Refills 0, Maintenance, 07/08/21 8:23:00 EDT, Route to Pharmacy Electronically, [facility] [id number], Partial yesica... Start Date: 07/08/21 Stop Date: [...] 07/08/21 8:28:00 EDT, Route to Pharmacy Electronically, [facility] [id number], 173, cm, 07/07/21 22:02:0... Start Date: 07/08/21 [...] 0 Refills, Maintenance, 07/08/21 8:23:00 EDT, Capsule, [facility] [id number], Partial fill upon p... Start Date: 07/08/21 [...] 08/19/21 13:05:00 EDT, Route to Pharmacy Electronically, [facility] 3, Partial fill upon patient request [...] 07/08/21 8:22:00 EDT, Route to Pharmacy Electronically, [facility] [id number], Partia... Start Date: 07/08/21 Stop Date: 08/07/21 Status: Ordered Problem List Condition Effective Dates Status Health Status Inform ant Severe obesity(Confirmed) Active Vital Signs Most recent to oldest [Reference Range]: 1 2 3 Oxygen Saturation [94-100 %] 97 % (09/06/21 12:56 AM) 98 % (09/05/21 7:58 PM) 99 % (09/05/21 4:12 PM) Pulse Rate [55-90 bpm] 77 bpm (09/06/21 12:56 AM) 70 bpm (09/05/21 7:58 PM) 74 bpm (09/05/21 4:12 PM) Blood Pressure [90-138/55-84 mm Hg] 116/63mm Hg (09/06/21 1:01 AM) 142/86mm Hg *H* (09/05/21 7:58 PM) 130/81mm Hg (09/05/21 4:12 PM) Respiratory Rate [16-30 br/min] 19 br/min (09/06/21 12:56 AM) 16 br/min (09/05/21 7:58 PM) 18 br/min (09/05/21 4:12 PM) Temperature [96.8-100.4 DegF] 98.1 DegF (09/06/21 12:56 AM) 97.8 DegF (09/05/21 7:58 PM) 97.9 DegF (09/05/21 4:12 PM) Mode of Delivery (Oxygen) Room air (09/06/21 12:56 AM) Room air (09/05/21 7:58 PM) Room air (09/05/21 4:12 PM) Blood pressure sites Arm, right (09/06/21 1:01 AM) Arm, right (09/05/21 7:58 PM) Arm, right (09/05/21 4:12 PM) Temperature Route Oral (09/06/21 12:56 AM) Oral (09/05/21 7:58 PM) Oral (09/05/21 4:12 PM) Social History Social History Type Response Tobacco Interested in cessat ion: No. No, Other: rarely. Sex
--- OUTSIDE RECORDS SUMMARY | 2023-03-05 01:18 | XMS_ITS | Continuity of Care Document ---
Author Name Unknown Organization [facility] ter Address [address] [place] [address]- Care Team Providers Care Locomotive Mechanic Apprentice Name Role Phone Vera Babcock MD Primary Care Physician [phone] [place] [facility] [place](s[place] 05/12/22 - 05/13/[address] [address]- Discharge Disposition: Transfer to [facility] Facility Attending Physician: Emiliana Cazares MD Admitting Physician: Emiliana Cazares MD Referring Physician: Not on Staff, Referring MD Allergies, Adverse Reactions, Alerts No Known Allergies Immunizations Given and Recorded Vaccine Date Status Refusal Reason tetanus/diphtheria/pertussis, acel(Tdap) 03/26/22 Given tetanus/diphtheria/pertussis, acel(Tdap) 01/03/09 Recorded [id number] 12y+ bivalent booster vax 03/26/22 Given influenza virus vaccine, inactivated 03/26/22 Give n influenza virus vaccine, inactivated 12/08/19 Osvaldo rded influenza virus vaccine, inactivated 11/29/18 Osvaldo rded influenza virus vaccine, inactivated 12/06/08 Osvaldo rded SARS-CoV-2 mRNA ([id number]) vax 08/05/21 Recorded SARS-CoV-2 (COVID-19) mRNA BNT-162b2 vac 01/14/21 Recorded SARS-CoV-2 (COVID-19) mRNA BNT-162b2 vac 11/25/20 Recorded Meningococcal Conjugate Vaccine 03/25/06 Recorded tetanus-diphtheria toxoids (Td) 02/15/02 Recorded Poliovirus Vaccine, Inactivated 02/15/02 Recorded Poliovirus Vaccine, Inactivated 01/15/93 Recorded Poliovirus Vaccine, Inactivated 01/16/88 Recorded Measles/Mumps/Rubella Virus Vaccine 01/15/93 Recor ded Measles/Mumps/Rubella Virus Vaccine 01/16/88 Recor ded Medications cloNIDine 0.1 mg oral tablet 0.1 mg, 1, tablet, By Mouth, 2 times a day, # 180 tablet, Refills 0, Maintenance, 05/12/22 23:10:00EST, Partial fill upon patient request if the prescription is for a schedule II opioid drug. Start Date: 05/12/22 Status: Ordered cloNIDine 0.1 mg oral tablet 0.1 mg, By Mouth, 2 times a day, # 60 each, Refills 11, Tot. Refills 11, Maintenance, 03/26/22 14:44:00 EST, Route to Pharmacy Electronically, [facility] [id number], Partial fill upon patient request if the prescription is for... Start Date: 03/26/22 Stop Date: 03/21/23 Status: Ordered cyanocobalamin 50 mcg oral tablet 1 tablet = 50 mcg, By Mouth, Daily, # 30 tablet, 5 Refills, Maintenance, 03/26/22 14:48:00 EST, Tablet, [facility] [id number], Partial fill upon patient request if the prescription is for a schedule II opioid drug., 173, cm, 1... Start Date: 03/26/22 Stop Date: 09/22/22 Status: Ordered docusate sodium 100 mg oral capsule 1 capsule = 100 mg, By Mouth, 2 times a day, PRN as needed for constipation, # 20 capsule, 0 Refills, Maintenance, 05/12/22 23:10:00 EST, Capsule, Partial fill upon patient request if the prescription is for a schedule II opioid drug. Start Date: 05/12/22 Status: Ordered docusate sodium 100 mg oral capsule 1 capsule = 100 mg, By Mouth, 2 times a day, # 60 capsule, 5 Refills, Maintenance, 03/26/22 14:46:00 EST, [facility] [id number], Partial fill upon patient request if the prescription is for a schedule II opioid drug., 173, cm,... Start Date: 03/26/22 Stop Date: 09/22/22 Status: Ordered folic acid 0.8 mg oral tablet 1 tablet = 0.8 mg, By Mouth, Daily, # 30 tablet, 11 Refills, Maintenance, 03/26/22 14:47:00 EST, Tablet, [facility] [id number], Partial fill upon patient request if the prescription is for a schedule II opioid drug., 173, cm,... Start Date: 03/26/22 Stop Date: 03/21/23 Status: Ordered hydrOXYzine pamoate 50 mg oral capsule 1 capsule = 50 mg, By Mouth, 4 times a day, PRN for anxiety, for 30 days, # 50 capsule, 3 Refills, Acute 07/24/22 14:44:00 EDT, 03/26/22 14:44:00 EST, Capsule, [facility] [id number], deliver, 173, cm, 03/26/22 13:47:00 EST, He... Start Date: 03/26/22 Stop Date: 07/24/22 Status: Ordered multivitamin Multiple Vitamins oral tablet 1 tablet, By Mouth, Daily, # 30 tablet, 11 Refills, Maintenance, 03/26/22 14:47:00 EST, Tablet, [facility] [id number], Partial fill upon patient request if the prescription is for a schedule II opioid drug., 1 tablet By Mouth... Start Date: 03/26/22 Stop Date: 03/21/23 Status: Ordered omeprazole 20 mg oral delayed release tablet 1 tablet = 20 mg, By Mouth, Daily, # 30 tablet, 5 Refills, Maintenance, 03/26/22 14:47:00 EST, CR Tablet, [facility] [id number], Partial fill upon patient request if the prescription is for a schedule II opioid drug., 173, cm,... Start Date: 03/26/22 Stop Date: 09/22/22 Status: Ordered omeprazole 20 mg oral enteric coated capsule 1 capsule = 20 mg, By Mouth, Daily, # 30 capsule, 0 Refills, Maintenance, 05/12/22 23:10:00 EST, ECCapsule, Partial fill upon patient request if the prescription is for a schedule II opioid drug. Start Date: 05/12/22 Status: Ordered QUEtiapine 400 mg oral tablet, extended release 400 mg, 1, tablet, By Mouth, Daily in PM, # 30 tablet, Refills 0, Maintenance, 05/12/22 21:48:00 EST, Partial fill upon patient request if the prescription is for a schedule II opioid drug. Start Date: 05/12/22 Status: Ordered SEROquel XR 400 mg oral tablet, extended release 400 mg, 1, tablet, By Mouth, Daily in PM, # 30 tablet, Refills 11, Tot. Refills 11, Maintenance, 03/26/22 14:48:00 EST, Route to Pharmacy Electronically, [facility] [place] - [id number], needs the extended release formulation. regular r... Start Date: 03/26/22 Stop Date: 03/21/23 Status: Ordered Problem List Condition Confirmation Course Effective Dates Status Health St [facility] Informant Bipolar disorder Confirmed Active [facility] health care coordinator Hugo Hamilton [phone] Confirmed Active PTSD (post-traumatic stress disorder) Confirmed Active Severe obesity Confirmed Active Vital Signs Most recent to oldest [Reference Range]: 1 2 3 Height 175 cm (05/13/22 2:47 PM) 175 cm (05/12/22 8:09 PM) Weight 170.9 kg (05/13/22 2:47 PM) 170.9 kg (05/12/22 8:09 PM) Oxygen Saturation [94-100 %] 99 % (05/13/22 2:47 PM) 98 % (05/12/22 11:18 PM) 97 % (05/12/22 8:09 PM) Pulse Rate [55-90 bpm] 84 bpm (05/13/22 2:47 PM) 90 bpm (05/12/22 11:18 PM) 98 bpm *H* (05/12/22 8:09 PM) Body Mass Index [18.5-24.99 kg/m2] 55.8 kg/m2 *>HHI* (05/13/22 2:47 PM) Blood Pressure [90-138/55-84 mm Hg] 150/96mm Hg *H* (05/13/22 2:47 PM) 122/66mm Hg (05/12/22 11:18 PM) 154/106mm Hg *H* (05/12/22 8:09 PM) Respiratory Rate [16-30 br/min] 18 br/min (05/13/22 2:47 PM) 18 br/min (05/12/22 11:18 PM) 20 br/min (05/12/22 8:09 PM) Temperature [96.8-100.4 DegF] 98 DegF (05/12/22 11:18 PM) 98.8 DegF (05/12/22 8:09 PM) Mode of Delivery (Oxygen) Room air (05/13/22 2:47 PM) Room air (05/12/22 11:18 PM) Room air (05/12/22 8:09 PM) Blood pressure sites Arm, right (05/13/22 2:47 PM) Arm, right (05/12/22 8:09 PM) Temperature Route Oral (05/12/22 11:18 PM) Oral (05/12/22 8:09 PM) Dry Weight 170.9 kg (05/13/22 2:47 PM) 170.9 kg (05/12/22 8:09 PM) Weight Obtained Via Patient/family state d (05/12/22 8:09 PM) Dry Weight Obtained Via Patient/family s tated (05/12/22 8:09 PM) Social History Social History Type Response Tobacco Use: 4 or less cigar ettes(less than 1/4 pack)/day in last 30 days. Other: rarely. Sex Patient Care team information Care Team Personnel Name: Jayne Vee RN Position: [facility] RN Member Role: Primary Care Nurse Name: Ruthy Valdes RN Position: [facility] RN Member Role: Primary Care Nurse Name: Jojo Cazares RN Position: [facility] RN Member Role: Primary Care Nurse Name: Vera Babcock MD Position: [facility] Primary Care Physician Member Role: PCP Address: Address: [address] [place] [address]- Name: *[facility], ED Attending Position: [facility] ED Attendings Patient Name: Emiliana Cazares MD Position: [facility] ED Medicine MD Member Role: Admitting Physician Address: Address: [address] [place] [address]- Name: Jesse Cronin RN Position: [facility] ED RN W/OE and Tasks Member Role: Patient Care Provider Care Team Related Persons Name: SKYE EFLDER Address: home [address] [place] [address] Name: LALA HILLS Address: home [address] [place] [id number] Name: KERI BROTHERS Address: home [address] [place] [id number]
--- OUTSIDE RECORDS SUMMARY | 2023-03-05 01:18 | XMS_ITS | Continuity of Care Document ---
Author Name Unknown Organization [facility] Address [address] [place] [address]- Care Team Providers Care Game Advisor Name Role Phone Magdi FEEDER OPERATOR AUTOMATIC, Latasha F Primary Care Physician [phone] Encounter [facility] Date(s): 09/17/21 - 10/17/[address] [address]- Allergies, Adverse Reactions, Alerts No Known Allergies [...] 08/19/21 13:05:00 EDT, Route to Pharmacy Electronically, [facility], Partial fill upon patient request if the prescription is for a schedule... Start Date: 08/19/21 Stop Date: 08/26/21 Status: Ordered cloNIDine 0.1 mg oral tablet 0.1 mg, 1, tablet, By Mouth, 2 times a day, # 6 tablet, Refills 0, Tot. Refills 0, Maintenance, 09/22/21 9:39:00 EDT, Route to Pharmacy Electronically, [facility] 3, Partial fill upon patient request if the prescription is for a schedule I... Start Date: 09/22/21 Stop Date: 09/25/21 Status: Ordered cloNIDine 0.1 mg oral tablet 0.1 mg, 1, tablet, By Mouth, 2 times a day, Take 1 tablet (=0.1mg), 2 times a day, # 60 tablet, Refills 0, Tot. Refills 0, Maintenance, 07/08/21 8:23:00 EDT, Route to Pharmacy Electronically, [facility] [id number], Partial yesica... Start Date: 07/08/21 Stop Date: [...] 07/08/21 8:28:00 EDT, Route to Pharmacy Electronically, [place], [place] - [id number], 173, cm, 07/07/21 22:02:0... Start Date: 07/08/21 [...] 0 Refills, Maintenance, 07/08/21 8:23:00 EDT, Capsule, [place], [place] - [id number], Partial fill upon p... Start Date: 07/08/21 [...] 08/19/21 13:05:00 EDT, Route to Pharmacy Electronically, [facility], Partial fill upon patient [...] 09/22/21 9:39:00 EDT, Route to Pharmacy Electronically, [facility], Partial fill upon patient reques... Start Date: 09/22/21 Stop Date: 09/29/21 Status: Ordered SEROquel XR 400 mg oral tablet, extended release 400 mg, 1, tablet, By Mouth, Daily at bedtime, Take 1 tablet (=400mg) daily at bedtime, # 30 tablet, Refills 0, Tot. Refills 0, Maintenance, 07/08/21 8:22:00 EDT, Route to Pharmacy Electronically, [facility] [place] [place] - [id number], Danuta.Yesica. Start Date: 07/08/21 Stop Date: 08/07/21 Status: Ordered Problem List Condition Effective Dates Status Health Status Inform ant [facility] Car e coordinator Hugo Hamilton [phone](Confirmed) Active Severe obesity(Confirmed) Active Social History Social History Type Response Tobacco Interested in cessat ion: No. No, Other: rarely. Sex
--- OUTSIDE RECORDS SUMMARY | 2023-03-05 01:18 | XMS_ITS | Continuity of Care Document ---
Author Name Unknown Organization [facility] Address [address] [place] [address]- Care Team Providers Care Weatherization Operations Manager Name Role Phone Magdi LOZADA, Latasha F Primary Care Physician [phone] [facility] [place] Date(s): 09/03/21 - 10/15/[address] [address]- Attending Physician: Not on Staff, Attending MD Allergies, Adverse Reactions, Alerts No Known [...] 08/19/21 13:05:00 EDT, Route to Pharmacy Electronically, [facility], Partial fill upon patient request if the prescription is for a schedule... Start Date: 08/19/21 Stop Date: 08/26/21 Status: Ordered cloNIDine 0.1 mg oral tablet 0.1 mg, 1, tablet, By Mouth, 2 times a day, # 6 tablet, Refills 0, Tot. Refills 0, Maintenance, 09/22/21 9:39:00 EDT, Route to Pharmacy Electronically, [facility] 3, Partial fill upon patient request if the prescription is for a schedule I... Start Date: 09/22/21 Stop Date: 09/25/21 Status: Ordered cloNIDine 0.1 mg oral tablet 0.1 mg, 1, tablet, By Mouth, 2 times a day, Take 1 tablet (=0.1mg), 2 times a day, # 60 tablet, Refills 0, Tot. Refills 0, Maintenance, 07/08/21 8:23:00 EDT, Route to Pharmacy Electronically, [place], [place] - [id number], Partial yesica... Start Date: 07/08/21 Stop Date: [...] 07/08/21 8:28:00 EDT, Route to Pharmacy Electronically, [place], [place] - [id number], 173, cm, 07/07/21 22:02:0... Start Date: 07/08/21 [...] 0 Refills, Maintenance, 07/08/21 8:23:00 EDT, Capsule, [place], [place] - [id number], Partial fill upon p... Start Date: 07/08/21 [...] 08/19/21 13:05:00 EDT, Route to Pharmacy Electronically, [facility], Partial fill upon patient request if the prescription is for a schedule II opioi... Start Date: 08/19/21 Stop Date: 08/26/21 Status: Ordered SEROquel XR 400 mg oral tablet, extended release 400 mg, 1, tablet, By Mouth, Daily in PM, please provide financial waiver for copay, # 7 tablet, Refills 0, Tot. Refills 0, Maintenance, 09/22/21 9:39:00 EDT, Route to Pharmacy Electronically, [facility], Partial fill upon patient reques... Start Date: 09/22/21 Stop Date: 09/29/21 Status: Ordered SEROquel XR 400 mg oral tablet, extended release 400 mg, 1, tablet, By Mouth, Daily at bedtime, Take 1 tablet (=400mg) daily at bedtime, # 30 tablet, Refills 0, Tot. Refills 0, Maintenance, 07/08/21 8:22:00 EDT, Route to Pharmacy Electronically, [facility] [place], [place] - [id number], Danuta... Start Date: 07/08/21 Stop Date: 08/07/21 Status: Ordered Problem List Condition Effective Dates Status Health Status Inform ant [facility] care partners Car e coordinator Hugo Hamilton [phone](Confirmed) Active Severe obesity(Confirmed) Active Social History Social History Type Response Tobacco Interested in cessat ion: No. No, Other: rarely. Sex
--- OUTSIDE RECORDS SUMMARY | 2023-03-05 01:18 | XMS_ITS | Continuity of Care Document ---
Author Name Unknown Organization [facility] ter Address [address] [place] [address]- Care Team Providers Care Dump Grader Name Role Phone Magdi LOZADA, Latasha Elizondo Primary Care Physician [phone] [place] [facility] [place]): [place]20[place] - 06/26/[address] [address]- Encounter Diagnosis Paranoia(Final) - 06/26/21 Schizophrenia(Final) - 06/26/21 Discharge Disposition: A-D/C Home Attending Physician: Campbell Gold MD Admitting Physician: Campbell Gold MD Referring Physician: Not on Staff, Referring MD Allergies, Adverse Reactions, Alerts No Known Allergies Medications albuterol CFC free 90 mcg/inh inhalation aerosol 1 puffs, Inhalation, 4 times a day, PRN for wheezing, # 25 Gm, 0 Refills, Maintenance, 06/19/14 14:16:03, Aerosol Start Date: 06/19/14 Status: Ordered Cane See Instructions, # 1 units, Maintenance, use as directed by ED staff, 04/14/14 15:19:19, Compound Start Date: 04/14/14 Status: Ordered Colace sodium 100 mg oral capsule 1 capsule = 100 mg, By Mouth, 2 times a day, PRN for constipation, # 20 capsule, 0 Refills, Maintenance, 04/14/14 15:09:14, Capsule Start Date: 04/14/14 Status: Ordered Naprosyn 500 mg oral tablet 1 tablet = 500 mg, By Mouth, 2 times a day, PRN Pain, # 20 tablet, 0 Refills, Maintenance, 147:52:05, Tablet Start Date: 03/01/14 Status: Ordered Cedar 325 mg-5 mg oral tablet 1 tablet, By Mouth, Every 6 hours, PRN for pain, # 6 tablet, 0 Refills, Maintenance, 03/01/14 7:52:15, Tablet Start Date: 03/01/14 Status: Ordered Percocet-5/325 325 mg-5 mg oral tablet 1 tablet, By Mouth, Every 4 hours, PRN for pain, # 15 tablet, 0 Refills, Maintenance, 04/14/14 15:09:07, Tablet Start Date: 04/14/14 Status: Ordered prednisone 20 mg oral tablet 2 tablet = 40 mg, By Mouth, Daily, # 10 tablet, 0 Refills, Maintenance, 06/19/14 14:12:06, Tablet Start Date: 06/19/14 Status: Ordered SEROquel 50 mg oral tablet 1 tablet = 50 mg, By Mouth, 2 times a day, # 60 tablet, 0 Refills, Maintenance, 06/26/21 16:44:00 EDT, Tablet, [place], [place] - [id number], Partial fill upon patient request if theprescription is for a schedule II opioid drug., 173... Start Date: 06/26/21 Status: Ordered Splint See Instructions, # 1 units, Maintenance, use as needed as directed, 04/14/14 15:09:01, Compound Start Date: 04/14/14 Status: Ordered Results Radiology Reports * Exam Date Time Procedure Performing Provider Status 06/21/21 10:15 AM Knee 1 or 2 Views Right Casie Hoffman; Auth (Verified) Notes: (Knee 1 or 2 Views Right) Reason For Exam: with Pain;Trauma RESULT: Knee 1 or 2 Views Right Knee 1 or 2 Views Right, views Refer to EMR; Hx of Present Illness: Pt from home w anxiety and psychosis. Pt reports she has been off her meds since December. States they are giving me things that I don't need and don't make me feel good . Pt states they're trying to kill me . Pt drank last night, denies other drugs; Reason: Trauma; with Pain; Clinical Question(s): Fracture; Order Comment: Called RN multiple times to bring pat TECHNIQUE: AP and crosstable lateral views. COMPARISON: 01/15/2021 FINDINGS: There is no evidence of acute or healing fracture, dislocation or bone lesion. The lateral joint space measures 7 mm and the medial joint space measures 5 mm, unchanged from prior, without significant narrowing of the medial compartment. Tiny lateral compartment spurring is again noted. No significant patellofemoral arthritis is evident. Small enthesophyte anterior upper patellar pole. No osteochondral defects or intra-articular loose bodies. No evidence of joint effusion. IMPRESSION: No acute findings. Minimal spurring lateral compartment again noted. WSN: [id number] Ordering Physician: Trinidad Lanza Dictated By: Elmer Egan MD Dictated Date/Time: 06/21/21 10:27 a Reviewed By: Elmer Egan MD Signed By: Elmer Egan MD Signed Date/Time: 06/21/21 10:27 am Transcribed By: RADHA Transcribed Date/Time: 06/21/21 10:25 am Vital Signs Most recent to oldest [Reference Range]: 1 2 3 Oxygen Saturation [94-100 %] 99 % (06/26/21 5:04 PM) 97 % (06/26/21 3:01 AM) 96 % (06/25/21 9:22 PM) Pulse Rate [55-90 bpm] 80 bpm (06/26/21 5:04 PM) 87 bpm (06/26/21 3:51 PM) 94 bpm *H* (06/26/21 3:01 AM) Blood Pressure [90-138/55-84 mm Hg] 130/84mm Hg (06/26/21 5:04 PM) 130/85mm Hg (06/26/21 3:51 PM) 142/88mm Hg *H* (06/26/21 3:01 AM) Respiratory Rate [16-30 br/min] 16 br/min (06/26/21 5:04 PM) 16 br/min (06/26/21 3:51 PM) 18 br/min (06/26/21 3:01 AM) Temperature [96.8-100.4 DegF] 98.6 DegF (06/26/21 5:04 PM) 98.1 DegF (06/26/21 3:51 PM) 98.4 DegF (06/26/21 3:01 AM) Liters per Minute 0 L/min (06/20/21 11:53 AM) Mode of Delivery (Oxygen) Room air (06/26/21 5:04 PM) Room air (06/26/21 3:51 PM) Room air (06/26/21 3:01 AM) Blood pressure sites Arm, left (06/26/21 5:04 PM) Arm, right (06/26/21 3:51 PM) Arm, right (06/26/21 3:01 AM) Temperature Route Oral (06/26/21 5:04 PM) Oral (06/26/21 3:51 PM) Oral (06/26/21 3:01 AM) Social History Social History Type Response Smoking Status Never smoker entered on: 03/01/14 Sex Female
--- OUTSIDE RECORDS SUMMARY | 2023-03-05 01:18 | XMS_ITS | Continuity of Care Document ---
Author Name Unknown Organization [facility] ter Address [address] [place] [phone]- Care Team Providers Care Marketing Underwriter Name Role Phone Thalia Machado MD Primary Care Phys[place] [facility] [place] 12/19/[address] [address]- Encounter Diagnosis Homicidal ideation(Final) - 12/12/21 Discharge Disposition: A-D/C Home Attending Physician: Leigha Lopez MD Admitting Physician: Leigha Lopez MD Referring Physician: Not on Staff, Referring [...] Measles/Mumps/Rubella Virus Vaccine 01/16/88 Recor ded Medications aluminum hydroxide/magnesium hydroxide/simethicone 200 mg-200 mg-25 mg oral tablet, chewable 1 tablet, Chew, 4 times a day, PRN for control of stomach acid, # 40 tablet, 0 Refills, Acute 12/25/21 0:00:00 EDT, 12/19/21 14:56:00 EDT, Chew Tablet, [facility] #[id number], Partial fill upon patient request if the prescription is for a schedul... Start Date: 12/19/21 Stop Date: 12/25/21 Status: Ordered cloNIDine 0.1 mg oral tablet 0.1 mg, 1, tablet, By Mouth, 2 times a day, # 14 tablet, Refills 0, Tot. Refills 0, Maintenance, 08/19/21 13:05:00 EDT, Route to Pharmacy Electronically, [facility], Partial fill upon patient request if the prescription is for a schedule... Start Date: 08/19/21 Stop Date: 08/26/21 Status: Ordered cloNIDine 0.1 mg oral tablet 0.1 mg, 1, tablet, By Mouth, 2 times a day, # 6 tablet, Refills 0, Tot. Refills 0, Maintenance, 09/22/21 9:39:00 EDT, Route to Pharmacy Electronically, [facility] 3, Partial fill upon patient request if the prescription is for a schedule I... Start Date: 09/22/21 Stop Date: 09/25/21 Status: Ordered cloNIDine 0.1 mg oral tablet 0.1 mg, 1, tablet, By Mouth, 2 times a day, # 20 tablet, Refills 0, Tot. Refills 0, Maintenance, 11/06/21 17:21:00 EDT, Route to Pharmacy Electronically, [facility] [id number], Partial fill upon patient request if the prescrip... Start Date: 11/06/21 Stop Date: 11/16/21 Status: Ordered cloNIDine 0.1 mg oral tablet 0.1 mg, 1, tablet, By Mouth, 2 times a day, Take 1 tablet (=0.1mg), 2 times a day, # 60 tablet, Refills 0, Tot. Refills 0, Maintenance, 07/08/21 8:23:00 EDT, Route to Pharmacy Electronically, [facility] [id number], Partial yesica... Start Date: 07/08/21 Stop Date: 08/07/21 Status: Ordered Colace sodium 100 mg oral capsule 100 mg, 1, capsule, By Mouth, 2 times a day, PRN, # 60 capsule, Refills 0, Tot. Refills 0, Maintenance, for constipation, 11/06/21 17:21:00 EDT, Route to Pharmacy Electronically, [facility] [phone], 173, cm, 11/06/21 14:25:... Start Date: 11/06/21 Stop Date: 12/06/21 Status: Ordered Colace sodium 100 mg oral capsule 100 mg, 1, capsule, By Mouth, 2 times a day, PRN, # 20 capsule, Refills 0, Tot. Refills 0, Maintenance, for constipation, 09/05/21 20:27:00 EDT, Print Requisition, Partial fill upon patient request if the prescription is for a schedule II opioid drug. Start Date: 09/05/21 Status: Ordered Doculase 100 mg oral capsule 1 capsule = 100 mg, By Mouth, 2 times a day, PRN for constipation, # 20 capsule, 0 Refills, Maintenance, 12/19/21 14:58:00 EDT, Capsule, [facility] #[id number], Partial fill upon patient requestif the prescription is for a schedule II opioid law... Start Date: 12/19/21 Status: Ordered hydrOXYzine pamoate 50 mg oral capsule 1 capsule = 50 mg, By Mouth, 4 times a day, PRN for anxiety, # 40 tablet, 0 Refills, Acute 220:00:00 EDT, 12/19/21 14:48:00 EDT, Capsule, [facility] #[id number], Partial fill upon patientrequest if the prescription is for a schedule II op... Start Date: 12/19/21 Stop Date: 12/28/21 Status: Ordered hydrOXYzine pamoate 50 mg oral capsule = 50 mg, By Mouth, 2 times a day, PRN Anxiety, take 1 capsule (=50mg), up to 2 times a day, as needed for anxiety, # 60 capsule, 0 Refills, Maintenance, 11/06/21 17:21:00 EDT, Capsule, [facility] [phone], Partial fill upon... Start Date: 11/06/21 Stop Date: 12/06/21 Status: Ordered Metamucil 3.4 gm/5.2 gm oral powder for reconstitution = 1.7 Gm, By Mouth, 3 times a day, PRN as needed for constipation, # 283 Gm, 0 Refills, Acute 12/25/21 0:00:00 EDT, 12/19/21 14:57:00 EDT, REC Powder, [facility] #[id number], Partial fill upon patient request if the prescription is for a schedule... Start Date: 12/19/21 Stop Date: 12/25/21 Status: Ordered multivitamin Multiple Vitamins oral tablet 1 tablet, By Mouth, Daily, # 30 tablet, 0 Refills, Maintenance, 12/19/21 14:58:00 EDT, Tablet, [facility] #[id number], Partial fill upon patient request if the prescription is for a schedule II opioid drug., 1 tablet By Mouth Daily, 173, cm, 10/26... Start Date: 12/19/21 Status: Ordered omeprazole 20 mg oral delayed release tablet 1 tablet = 20 mg, By Mouth, Daily, # 30 tablet, 0 Refills, Maintenance, 12/19/21 14:51:00 EDT, CR Tablet, [facility] #[id number], Partial fill upon patient request if the prescription is for a schedule II opioid drug., 173, cm, 11/06/21 14:25:00... Start Date: 12/19/21 Status: Ordered Paxlovid 150 mg-100 mg oral tablet See Instructions, GFR > 60: 300mg nirmatrelvir (two 150mg tablets) with 100 mg ritonavir (one tablet). All 3 tablets taken together twice daily for 5 days, with or without food. Dispense 30 tablets, # 1 pack/packet, 0 Refills, Maintenance, 11/07/21... Start Date: 11/07/21 Status: Ordered QUEtiapine 400 mg oral tablet, extended release 400 mg, 1, tablet, By Mouth, Daily, # 10 tablet, Refills 0, Tot. Refills 0, Maintenance, 09/06/21 12:22:00 EDT, Print Requisition, Partial fill upon patient request if the prescription is for a schedule II opioid drug. Start Date: 09/06/21 Stop Date: 09/16/21 Status: Ordered SEROquel 50 mg oral tablet 1 tablet = 50 mg, By Mouth, 3 times a day, PRN Insomnia, # 30 tablet, 0 Refills, Maintenance, 12/19/21 14:46:00 EDT, [facility] #[id number], Partial fill upon patient request if the prescriptionis for a schedule II opioid drug., 173, cm, ... Start Date: 12/19/21 Status: Ordered SEROquel XR 400 mg oral tablet, extended release 400 mg, 1, tablet, By Mouth, Daily, # 7 tablet, Refills 0, Tot. Refills 0, Maintenance, 08/19/21 13:05:00 EDT, Route to Pharmacy Electronically, [facility], Partial fill upon patient request if the prescription is for a schedule II opioi... Start Date: 08/19/21 Stop Date: 08/26/21 Status: Ordered SEROquel XR 400 mg oral tablet, extended release 400 mg, 1, tablet, By Mouth, Daily in PM, please provide financial waiver for copay, # 7 tablet, Refills 0, Tot. Refills 0, Maintenance, 09/22/21 9:39:00 EDT, Route to Pharmacy Electronically, [facility] 3, Partial fill upon patient reques... Start Date: 09/22/21 Stop Date: 09/29/21 Status: Ordered SEROquel XR 400 mg oral tablet, extended release 400 mg, 1, tablet, By Mouth, Daily in PM, # 30 tablet, Refills 0, Tot. Refills 0, Maintenance, 12/19/21 14:45:00 EDT, Route to Pharmacy Electronically, [facility] #[id number], Partial fill upon patient request if the prescription is for a schedul... Start Date: 12/19/21 Status: Ordered SEROquel XR 400 mg oral tablet, extended release 400 mg, 1, tablet, By Mouth, Daily in PM, # 30 tablet, Refills 0, Tot. Refills 0, Maintenance, 11/06/21 17:23:00 EDT, Route to Pharmacy Electronically, [place], [place] - [phone],Partial fill upon patient request if the prescripti... Start Date: 11/06/21 Status: Ordered SEROquel XR 400 mg oral tablet, extended release 400 mg, 1, tablet, By Mouth, Daily at bedtime, Take 1 tablet (=400mg) daily at bedtime, # 30 tablet, Refills 0, Tot. Refills 0, Maintenance, 07/08/21 8:22:00 EDT, Route to Pharmacy Electronically, [place], [place] - [id number], Danuta... Start Date: 07/08/21 Stop Date: 08/07/21 Status: Ordered Vitamin B12 50 mcg oral tablet 1 tablet = 50 mcg, By Mouth, Daily, # 30 tablet, 0 Refills, Maintenance, 12/19/21 14:58:00 EDT, Tablet, [facility] #[id number], Partial fill upon patient request if the prescription is for a schedule II opioid drug., 173, cm, 11/06/21 14:25:00 ED... Start Date: 12/19/21 Status: Ordered Problem List Condition Effective Dates Status Health Status Inform replaced by [facility] e coordinator Hugo Hamilton [phone](Confirmed) Active Severe obesity(Confirmed) Active Vital Signs Most recent to oldest [Reference Range]: 1 2 3 Oxygen Saturation [94-100 %] 100 % (12/19/21 2:04 PM) 100 % (12/18/21 9:29 PM) 99 % (12/18/21 2:56 PM) Pulse Rate [55-90 bpm] 84 bpm (12/19/21 2:04 PM) 98 bpm *H* (12/18/21 9:29 PM) 102 bpm *H* (12/18/21 2:56 PM) Blood Pressure [90-138/55-84 mm Hg] 149/69mm Hg *H* (12/19/21 2:04 PM) 135/84mm Hg (12/18/21 9:29 PM) 148/86mm Hg *H* (12/18/21 2:56 PM) Respiratory Rate [16-30 br/min] 18 br/min (12/19/21 2:04 PM) 17 br/min (12/18/21 9:29 PM) 16 br/min (12/18/21 2:56 PM) Temperature [96.8-100.4 DegF] 98.5 DegF (12/19/21 2:04 PM) 98.6 DegF (12/18/21 9:29 PM) 98.0 DegF (12/18/21 2:56 PM) Mode of Delivery (Oxygen) Room air (12/19/21 2:04 PM) Room air (12/18/21 9:29 PM) Room air (12/18/21 2:56 PM) Blood pressure sites Arm, right (12/19/21 2:04 PM) Arm, right (12/18/21 9:29 PM) Arm, right (12/18/21 2:56 PM) Temperature Route Oral (12/19/21 2:04 PM) Oral (12/18/21 9:29 PM) Oral (12/18/21 2:56 PM) Social History Social History Type Response Tobacco Interested in cessat ion: No. No, Other: rarely. Sex Care Team Personnel Name: Thalia Machado MD Address: [address] [place] [id number]
--- OUTSIDE RECORDS SUMMARY | 2023-03-05 01:18 | XMS_ITS | Continuity of Care Document ---
Author Name Unknown Organization [facility] ter Address [address] [place] [address]- Care Team Providers Care Global Account Director Name Role Phone Thalia Machado MD Primary Care Physician [place] [facility] [place] - 11/06/[address] [address]- Encounter Diagnosis Depression(Final) - 11/06/21 Discharge Disposition: A-D/C Home Attending Physician: Cheo Callaway MD Admitting Physician: Cheo Callaway MD Referring Physician: Not on Staff, Referring [...] 08/19/21 13:05:00 EDT, Route to Pharmacy Electronically, [facility] 3, Partial fill upon patient request if the prescription is for a schedule... Start Date: 08/19/21 Stop Date: 08/26/21 Status: Ordered cloNIDine 0.1 mg oral tablet 0.1 mg, 1, tablet, By Mouth, 2 times a day, # 6 tablet, Refills 0, Tot. Refills 0, Maintenance, 09/22/21 9:39:00 EDT, Route to Pharmacy Electronically, [facility] 3, Partial fill upon patient request if the prescription is for a schedule I... Start Date: 09/22/21 Stop Date: 09/25/21 Status: Ordered cloNIDine 0.1 mg oral tablet 0.1 mg, 1, tablet, By Mouth, 2 times a day, # 20 tablet, Refills 0, Tot. Refills 0, Maintenance, 11/06/21 17:21:00 EDT, Route to Pharmacy Electronically, [facility] [phone], Partial fill upon patient request if the prescrip... Start Date: 11/06/21 Stop Date: 11/16/21 Status: Ordered cloNIDine 0.1 mg oral tablet 0.1 mg, 1, tablet, By Mouth, 2 times a day, Take 1 tablet (=0.1mg), 2 times a day, # 60 tablet, Refills 0, Tot. Refills 0, Maintenance, 07/08/21 8:23:00 EDT, Route to Pharmacy Electronically, [facility] [id number], Partial yesica... Start Date: 07/08/21 Stop Date: 08/07/21 Status: Ordered Colace sodium 100 mg oral capsule 100 mg, 1, capsule, By Mouth, 2 times a day, PRN, # 60 capsule, Refills 0, Tot. Refills 0, Maintenance, for constipation, 11/06/21 17:21:00 EDT, Route to Pharmacy Electronically, [facility] [id number], 173, cm, 11/06/21 14:25:... Start Date: 11/06/21 [...] 0 Refills, Maintenance, 11/06/21 17:21:00 EDT, Capsule, [facility] [place] [place] - [id number], Partial fill upon... Start Date: 11/06/21 Stop Date: 12/06/21 Status: Ordered QUEtiapine 400 mg oral tablet, [...] 08/19/21 13:05:00 EDT, Route to Pharmacy Electronically, [facility] 3, Partial fill upon patient request if the prescription is for a schedule II opioi... Start Date: 08/19/21 Stop Date: 08/26/21 Status: Ordered SEROquel XR 400 mg oral tablet, extended release 400 mg, 1, tablet, By Mouth, Daily in PM, please provide financial waiver for copay, # 7 tablet, Refills 0, Tot. Refills 0, Maintenance, 09/22/21 9:39:00 EDT, Route to Pharmacy Electronically, [facility] 3, Partial fill upon patient reques... Start Date: 09/22/21 Stop Date: 09/29/21 Status: Ordered SEROquel XR 400 mg oral tablet, extended release 400 mg, 1, tablet, By Mouth, Daily in PM, # 30 tablet, Refills 0, Tot. Refills 0, Maintenance, 11/06/21 17:23:00 EDT, Route to Pharmacy Electronically, [place], [place] - [id number],Partial fill upon patient request if the prescripti... Start Date: 11/06/21 Status: Ordered SEROquel XR 400 mg oral tablet, extended release 400 mg, 1, tablet, By Mouth, Daily at bedtime, Take 1 tablet (=400mg) daily at bedtime, # 30 tablet, Refills 0, Tot. Refills 0, Maintenance, 07/08/21 8:22:00 EDT, Route to Pharmacy Electronically, [place], [place] - [id number], Partia... Start Date: 07/08/21 Stop Date: 08/07/21 Status: Ordered Problem List Condition Effective Dates Status Health Status Inform [facility] e coordinator Hugo Hamilton [phone](Confirmed) Active Severe obesity(Confirmed) Active Vital Signs Most recent to oldest [Reference Range]: 1 2 Height 173 cm (11/06/21 2:25 PM) 173 cm (11/06/21 1:30 PM) Weight 147 kg (11/06/21 1:30 PM) Oxygen Saturation [94-100 %] 97 % (11/06/21 6:00 PM) 98 % (11/06/21 2:25 PM) Pulse Rate [55-90 bpm] 88 bpm (11/06/21 6:00 PM) 91 bpm *H* (11/06/21 2:25 PM) Blood Pressure [90-138/55-84 mm Hg] 127/ 88mm Hg (11/06/21 6:00 PM) 135/90mm Hg (11/06/21 2:25 PM) Respiratory Rate [16-30 br/min] 16 br/mi n (11/06/21 6:00 PM) 18 br/min (11/06/21 2:25 PM) Temperature [96.8-100.4 DegF] 97.7 DegF (11/06/21 6:00 PM) 97.6 DegF (11/06/21 2:25 PM) Temperature Route Oral (11/06/21 6:00 PM) Oral (11/06/21 2:25 PM) Dry Weight 147 kg (11/06/21 1:30 PM) Social History Social History Type Response Tobacco Interested in cessat ion: No. No, Other: rarely. Sex
--- OUTSIDE RECORDS SUMMARY | 2023-03-05 01:18 | XMS_ITS | Continuity of Care Document ---
Author Name Unknown Organization [facility] Address [address] [place] [address]- Care Team Providers Care Hospice Clinical Supervisor Name Role Phone Vera Babcock MD Primary Care Physician Encounter [facility] Date(s): 10/12/22 - 11/11/[address] [address]- Allergies, Adverse Reactions, Alerts No Known Allergies Immunizations Given and Recorded Vaccine Date Status Refusal Reason tetanus/diphtheria/pertussis, acel(Tdap) 03/26/22 Given tetanus/diphtheria/pertussis, acel(Tdap) 01/03/09 Recorded [id number] 12y+ bivalent booster vax 03/26/22 Given influenza virus vaccine, inactivated 03/26/22 Give n influenza virus vaccine, inactivated 12/08/19 Osvaldo rded influenza virus vaccine, inactivated 11/29/18 Osvaldo rded influenza virus vaccine, inactivated 12/06/08 Osvaldo rded SARS-CoV-2 mRNA ([id number]) vax 08/05/21 Recorded SARS-CoV-2 (COVID-19) mRNA BNT-162b2 vac 01/14/21 Recorded SARS-CoV-2 (COVID-19) mRNA BNT-162b2 vac 11/25/20 Recorded Meningococcal Conjugate Vaccine 03/25/06 Recorded tetanus-diphtheria toxoids (Td) 02/15/02 Recorded Poliovirus Vaccine, Inactivated 02/15/02 Recorded Poliovirus Vaccine, Inactivated 01/15/93 Recorded Poliovirus Vaccine, Inactivated 01/16/88 Recorded Measles/Mumps/Rubella Virus Vaccine 01/15/93 Recor ded Measles/Mumps/Rubella Virus Vaccine 01/16/88 Recor ded Medications amLODIPine 5 mg oral tablet 1 tablet = 5 mg, By Mouth, Daily, # 30 tablet, 5 Refills, Maintenance, 06/28/22 10:57:00 EDT, [facility] [id number], Partial fill upon patient request if the prescription is for a schedule II opioid drug., 175, cm, 06/28/22 10... Start Date: 06/28/22 Stop Date: 12/25/22 Status: Ordered ARIPiprazole 15 mg oral tablet Refills 0, Maintenance, 06/28/22 10:58:00 EDT, Partial fill upon patient request if the prescription is for a schedule II opioid drug. Start Date: 06/28/22 Status: Ordered cloNIDine 0.1 mg oral tablet [...] 03/26/22 14:44:00 EST, Route to Pharmacy Electronically, [facility] [id number], Partial fill upon patient request if the prescription is for... Start Date: 03/26/22 Stop Date: 03/21/23 Status: Ordered cyanocobalamin (vit B-12) 100 mcg tablet cyanocobalamin (vit B-12) 100 mcg tablet, 0.5, tablet, By Mouth, Daily, # 15 tablet, 5 Refills, Maintenance, 06/28/22 13:21:00 EDT, 175, cm, 06/28/22 10:32:00 EDT, Height, 170.9, kg, 05/13/22 14:47:00 EST, Dry Weight Start Date: 06/28/22 Status: Ordered cyanocobalamin 50 mcg oral tablet 1 tablet = 50 mcg, By Mouth, Daily, # 30 tablet, 5 Refills, Maintenance, 03/26/22 14:48:00 EST, Tablet, [facility] [id number], Partial fill upon patient request if the prescription is for a schedule II opioid drug., 173, cm, 1... Start Date: 03/26/22 Stop Date: 09/22/22 Status: Ordered docusate sodium 100 mg oral capsule See Instructions, TAKE 1 CAPSULE BY MOUTH two (2) times a day, # 60 each, 5 Refills, Maintenance, 10/05/22 2:04:00 EDT, [facility], 175, cm, 07/02/22 15:31:00 EDT, Height, 170.9, kg, 05/13/22 14:47:00 EST, Dry Weight Start Date: 10/05/22 Status: Ordered folic acid 0.8 mg oral tablet 1 tablet = 0.8 mg, By Mouth, Daily, # 30 tablet, 11 Refills, Maintenance, 03/26/22 14:47:00 EST, Tablet, [facility], [place] - [id number], Partial fill upon patient request if the prescription is for a schedule II opioid drug., 173, cm,... Start Date: 03/26/22 Stop Date: 03/21/23 Status: Ordered hydrochlorothiazide 25 mg oral tablet 25 mg, 1, tablet, By Mouth, Daily, # 30 tablet, Refills 5, Tot. Refills 5, Maintenance, 06/28/22 10:57:00 EDT, Route to Pharmacy Electronically, [facility], [facility] [id number], Partial fill upon patient request if the prescription is f... Start Date: 06/28/22 Stop Date: 12/25/22 Status: Ordered hydrOXYzine pamoate 50 mg oral capsule 1 capsule, By Mouth, 4 times a day, PRN NEEDED FOR ANXIETY, # 50 each, 3 Refills, Maintenance, 07/28/22 13:05:00 EDT, [facility], 175, cm, 07/02/22 15:31:00 EDT, Height, 170.9, kg, 05/13/22 14:47:00 EST, Dry Weight Start Date: 07/28/22 Status: Ordered MetFORMIN (Eqv-Glucophage XR) 500 mg oral tablet, extended release 1 tablet = 500 mg, By Mouth, Daily, # 90 tablet, 3 Refills, Maintenance, 06/28/22 10:51:00 EDT, [facility], [facility] [id number], Partial fill upon patient request if the prescription is for a schedule II opioid drug., 175, cm, 06/28/22... Start Date: 06/28/22 Stop Date: 06/23/23 Status: Ordered multivitamin Multiple Vitamins oral tablet 1 tablet, By Mouth, Daily, # 30 tablet, 11 Refills, Maintenance, 03/26/22 14:47:00 EST, Tablet, [facility], [place] - [id number], Partial fill upon patient request if the prescription is for a schedule II opioid drug., 1 tablet By Mouth... Start Date: 03/26/22 Stop Date: 03/21/23 Status: Ordered omeprazole 20 mg oral enteric coated capsule See Instructions, TAKE 1 CAPSULE BY MOUTH ONCE DAILY, # 30 capsule, 5 Refills, Maintenance, 10/05/22 2:04:00 EDT, [facility], 175, cm, 07/02/22 15:31:00 EDT, Height, 170.9, kg, 05/13/22 14:47:00EST, Dry Weight Start Date: 10/05/22 Status: Ordered QUEtiapine 400 mg oral tablet, [...] 03/26/22 14:48:00 EST, Route to Pharmacy Electronically, [facility], [facility] [id number], needs the extended release formulation. regular r... Start Date: 03/26/22 Stop Date: 03/21/23 Status: Ordered Problem List Condition Confirmation Course Effective Dates Status Health St [facility] Informant Bipolar disorder Confirmed Active [facility] [employer] promotion coordinator Hugo Hamilton [phone] Confirmed Active PTSD (post-traumatic stress disorder) Confirmed Active Severe obesity Confirmed Active Social History Social History Type Response Tobacco Use: 4 or less cigar ettes(less than 1/4 pack)/day in last 30 days. Other: rarely. Sex Patient Care team information Care Team Personnel Name: Jayne Vee RN Position: [facility] RN Member Role: Primary Care Nurse Name: Jojo Cazares RN Position: [facility] RN Member Role: Primary Care Nurse Name: Vera Babcock MD Position: [facility] Physician - Primary Care Member Role: PCP Address: Address: [address] [place] [address]- [place] Care Team Related Persons Name: SKYE FELDER Address: home [address] [place] [address] Name: LALA HILLS Address: home [address] [place] [id number] Name: KERI BROTHERS Address: home [address] [place] [address]
--- OUTSIDE RECORDS SUMMARY | 2023-03-05 01:18 | XMS_ITS | Continuity of Care Document ---
Author Name Unknown Organization [facility] ter Address [address] [place] [address]- Care Team Providers Care Cyber Security Analyst Name Role Phone Thalia Machado MD Primary Care Physician [place] [facility] [place] - 11/17/[address] [address]- Encounter Diagnosis Agitation(Final) - 11/17/21 Discharge Disposition: A-D/C Home Attending Physician: Tylor [...] 08/19/21 13:05:00 EDT, Route to Pharmacy Electronically, [facility], Partial fill upon patient request if the prescription is for a schedule... Start Date: 08/19/21 Stop Date: 08/26/21 Status: Ordered cloNIDine 0.1 mg oral tablet 0.1 mg, 1, tablet, By Mouth, 2 times a day, # 6 tablet, Refills 0, Tot. Refills 0, Maintenance, 09/22/21 9:39:00 EDT, Route to Pharmacy Electronically, [facility], Partial fill upon patient request if the prescription is for a schedule I... Start Date: 09/22/21 Stop Date: 09/25/21 Status: Ordered cloNIDine 0.1 mg oral tablet 0.1 mg, 1, tablet, By Mouth, 2 times a day, # 20 tablet, Refills 0, Tot. Refills 0, Maintenance, 11/06/21 17:21:00 EDT, Route to Pharmacy Electronically, [facility] [id number], Partial fill upon patient request if the prescrip... Start Date: 11/06/21 Stop Date: 11/16/21 Status: Ordered cloNIDine 0.1 mg oral tablet 0.1 mg, 1, tablet, By Mouth, 2 times a day, Take 1 tablet (=0.1mg), 2 times a day, # 60 tablet, Refills 0, Tot. Refills 0, Maintenance, 07/08/21 8:23:00 EDT, Route to Pharmacy Electronically, [facility] [id number], Partial yesica... Start Date: 07/08/21 Stop Date: 08/07/21 Status: Ordered Colace sodium 100 mg oral capsule 100 mg, 1, capsule, By Mouth, 2 times a day, PRN, # 60 capsule, Refills 0, Tot. Refills 0, Maintenance, for constipation, 11/06/21 17:21:00 EDT, Route to Pharmacy Electronically, [facility] [id number], 173, cm, 11/06/21 14:25:... Start Date: 11/06/21 [...] 0 Refills, Maintenance, 11/06/21 17:21:00 EDT, Capsule, [facility] [place] - [id number], Partial fill upon... Start Date: 11/06/21 Stop Date: 12/06/21 Status: Ordered Paxlovid 150 mg-100 mg oral [...] 08/19/21 13:05:00 EDT, Route to Pharmacy Electronically, [facility], Partial fill upon patient request if the prescription is for a schedule II opioi... Start Date: 08/19/21 Stop Date: 08/26/21 Status: Ordered SEROquel XR 400 mg oral tablet, extended release 400 mg, 1, tablet, By Mouth, Daily in PM, please provide financial waiver for copay, # 7 tablet, Refills 0, Tot. Refills 0, Maintenance, 09/22/21 9:39:00 EDT, Route to Pharmacy Electronically, [facility], Partial fill upon patient reques... Start Date: 09/22/21 Stop Date: 09/29/21 Status: Ordered SEROquel XR 400 mg oral tablet, extended release 400 mg, 1, tablet, By Mouth, Daily in PM, # 30 tablet, Refills 0, Tot. Refills 0, Maintenance, 11/06/21 17:23:00 EDT, Route to Pharmacy Electronically, [facility] [id number],Partial fill upon patient request if the prescripti... Start Date: 11/06/21 Status: Ordered SEROquel XR 400 mg oral tablet, extended release 400 mg, 1, tablet, By Mouth, Daily at bedtime, Take 1 tablet (=400mg) daily at bedtime, # 30 tablet, Refills 0, Tot. Refills 0, Maintenance, 07/08/21 8:22:00 EDT, Route to Pharmacy Electronically, [place], [place] - [id number], Partia... Start Date: 07/08/21 Stop Date: 08/07/21 Status: Ordered Problem List Condition Effective Dates Status Health Status Inform count includes the [facility] Car e coordinator Hugo Hamilton [phone](Confirmed) Active Severe obesity(Confirmed) Active Vital Signs Most recent to oldest [Reference Range]: 1 2 Oxygen Saturation [94-100 %] 98 % (11/17/21 5:11 AM) 100 % (11/16/21 11:23 PM) Pulse Rate [55-90 bpm] 78 bpm (11/17/21 5:11 AM) 94 bpm *H* (11/16/21 11:23 PM) Blood Pressure [90-138/55-84 mm Hg] 157/ 87mm Hg *H* (11/17/21 5:11 AM) 140/98mm Hg *H* (11/16/21 11:23 PM) Respiratory Rate [16-30 br/min] 18 br/mi n (11/17/21 5:11 AM) 16 br/min (11/16/21 11:23 PM) Temperature [96.8-100.4 DegF] 98.4 DegF (11/17/21 5:11 AM) 98.5 DegF (11/16/21 11:23 PM) Mode of Delivery (Oxygen) Room air (11/17/21 5:11 AM) Room air (11/16/21 11:23 PM) Blood pressure sites Arm, left (11/17/21 5:11 AM) Arm, left (11/16/21 11:23 PM) Temperature Route Oral (11/17/21 5:11 AM) Oral (11/16/21 11:23 PM) Social History Social History Type Response Tobacco Interested in cessat ion: No. No, Other: rarely. Sex
--- OUTSIDE RECORDS SUMMARY | 2023-03-05 01:18 | XMS_ITS | Continuity of Care Document ---
Author Name Unknown Organization [facility] Address [address] [place] [address]- Care Team Providers Care Lumber Sales Supervisor Name Role Phone Magdi LOZADA, Latasha F Primary Care Physician Encounter [facility] [place] Date(s): 09/14/21 - 10/22/[address] [address]- Attending Physician: Skylar Rangel MD Admitting Physician: Skylar Rangel MD Allergies, Adverse Reactions, Alerts No Known [...] 08/19/21 13:05:00 EDT, Route to Pharmacy Electronically, [facility], Partial fill upon patient request if the prescription is for a schedule... Start Date: 08/19/21 Stop Date: 08/26/21 Status: Ordered cloNIDine 0.1 mg oral tablet 0.1 mg, 1, tablet, By Mouth, 2 times a day, # 6 tablet, Refills 0, Tot. Refills 0, Maintenance, 09/22/21 9:39:00 EDT, Route to Pharmacy Electronically, [facility] 3, Partial fill upon patient request if the prescription is for a schedule I... Start Date: 09/22/21 Stop Date: 09/25/21 Status: Ordered cloNIDine 0.1 mg oral tablet 0.1 mg, 1, tablet, By Mouth, 2 times a day, Take 1 tablet (=0.1mg), 2 times a day, # 60 tablet, Refills 0, Tot. Refills 0, Maintenance, 07/08/21 8:23:00 EDT, Route to Pharmacy Electronically, [facility] [id number], Partial yesica... Start Date: 07/08/21 Stop Date: [...] 07/08/21 8:28:00 EDT, Route to Pharmacy Electronically, [facility] [id number], 173, cm, 07/07/21 22:02:0... Start Date: 07/08/21 [...] 0 Refills, Maintenance, 07/08/21 8:23:00 EDT, Capsule, [place], [place] - [id number], Partial fill upon p... Start Date: 07/08/21 [...] 08/19/21 13:05:00 EDT, Route to Pharmacy Electronically, [facility], Partial fill upon patient request if the prescription is for a schedule II opioi... Start Date: 08/19/21 Stop Date: 08/26/21 Status: Ordered SEROquel XR 400 mg oral tablet, extended release 400 mg, 1, tablet, By Mouth, Daily in PM, please provide financial waiver for copay, # 7 tablet, Refills 0, Tot. Refills 0, Maintenance, 09/22/21 9:39:00 EDT, Route to Pharmacy Electronically, [facility], Partial fill upon patient reques... Start Date: 09/22/21 Stop Date: 09/29/21 Status: Ordered SEROquel XR 400 mg oral tablet, extended release 400 mg, 1, tablet, By Mouth, Daily at bedtime, Take 1 tablet (=400mg) daily at bedtime, # 30 tablet, Refills 0, Tot. Refills 0, Maintenance, 07/08/21 8:22:00 EDT, Route to Pharmacy Electronically, [facility] [place], [place] - [id number], Danuta... Start Date: 07/08/21 Stop Date: 08/07/21 Status: Ordered Problem List Condition Effective Dates Status Health Status Inform ant [facility] Car e coordinator Hugo Hamilton [phone](Confirmed) Active Severe obesity(Confirmed) Active Social History Social History Type Response Tobacco Interested in cessat ion: No. No, Other: rarely. Sex
--- OUTSIDE RECORDS SUMMARY | 2023-03-05 01:18 | XMS_ITS | Continuity of Care Document ---
Author Name Unknown Organization [facility] Address [address] [place] [address]- Care Team Providers Care Professional Fighter Name Role Phone Vera Babcock MD Primary Care Physician Encounter [facility] Date(s): 05/26/22 - 07/08/[address] [address]- Attending Physician: Not on Staff, Attending MD Allergies, Adverse Reactions, Alerts No Known Allergies Immunizations Given and Recorded Vaccine Date Status Refusal Reason tetanus/diphtheria/pertussis, acel(Tdap) 03/26/22 Given tetanus/diphtheria/pertussis, acel(Tdap) 01/03/09 Recorded [id number] 12y+ bivalent booster vax 03/26/22 Given influenza virus vaccine, inactivated 03/26/22 Give n influenza virus vaccine, inactivated 12/08/19 Osvaldo rded influenza virus vaccine, inactivated 11/29/18 Osvaldo rded influenza virus vaccine, inactivated 12/06/08 Osvaldo rded SARS-CoV-2 mRNA ([id number]) vax 08/05/21 Recorded SARS-CoV-2 (COVID-19) mRNA [id number]-[id number] [...] tablet, 5 Refills, Maintenance, 06/28/22 10:57:00 EDT, [place] [id number], Partial fill upon patient request if the [...] 03/26/22 14:44:00 EST, Route to Pharmacy Electronically, [place] [id number], Partial fill upon patient request if the [...] 5 Refills, Maintenance, 03/26/22 14:48:00 EST, Tablet, [place] [id number], Partial fill upon patient request if the [...] capsule, 5 Refills, Maintenance, 03/26/22 14:46:00 EST, [facility] [id number], Partial fill upon patient request if the prescription is for a schedule II opioid drug., 173, cm,... Start Date: 03/26/22 Stop Date: 09/22/22 Status: Ordered folic acid 0.8 mg oral tablet 1 tablet = 0.8 mg, By Mouth, Daily, # 30 tablet, 11 Refills, Maintenance, 03/26/22 14:47:00 EST, Tablet, [facility], [facility] [id number], Partial fill upon patient request if the prescription is for a schedule II opioid drug., 173, cm,... Start Date: 03/26/22 Stop Date: 03/21/23 Status: Ordered hydrochlorothiazide 25 mg oral tablet 25 mg, 1, tablet, By Mouth, Daily, # 30 tablet, Refills 5, Tot. Refills 5, Maintenance, 06/28/22 10:57:00 EDT, Route to Pharmacy Electronically, [facility], [facility] [id number], Partial fill upon patient request if the prescription is f... Start Date: 06/28/22 Stop Date: 12/25/22 Status: Ordered hydrOXYzine pamoate 50 mg oral capsule 1 capsule = 50 mg, By Mouth, 4 times a day, PRN for anxiety, for 30 days, # 50 capsule, 3 Refills, Acute 07/24/22 14:44:00 EDT, 03/26/22 14:44:00 EST, Capsule, [facility] [id number], deliver, 173, cm, 03/26/22 13:47:00 EST, He... Start Date: 03/26/22 Stop Date: 07/24/22 Status: Ordered MetFORMIN (Eqv-Glucophage XR) 500 mg oral tablet, extended release 1 tablet = 500 mg, By Mouth, Daily, # 90 tablet, 3 Refills, Maintenance, 06/28/22 10:51:00 EDT, [facility] [id number], Partial fill upon patient request if the prescription is for a schedule II opioid drug., 175, cm, 06/28/22... Start Date: 06/28/22 Stop Date: 06/23/23 Status: Ordered multivitamin Multiple Vitamins oral tablet 1 tablet, By Mouth, Daily, # 30 tablet, 11 Refills, Maintenance, 03/26/22 14:47:00 EST, Tablet, [facility] [id number], Partial fill upon patient request if the prescription is for a schedule II opioid drug., 1 tablet By Mouth... Start Date: 03/26/22 Stop Date: 03/21/23 Status: Ordered omeprazole 20 mg oral delayed release tablet 1 tablet = 20 mg, By Mouth, Daily, # 30 tablet, 5 Refills, Maintenance, 03/26/22 14:47:00 EST, CR Tablet, [facility] [id number], Partial fill upon patient request if the [...] 03/26/22 14:48:00 EST, Route to Pharmacy Electronically, [facility] [place] [place] - [id number], needs the extended release formulation. regular r... Start Date: 03/26/22 Stop Date: 03/21/23 Status: Ordered Problem List Condition Confirmation Course Effective Dates Status Health [facility] Informant Bipolar disorder Confirmed Active [facility] substance abuse prevention coordinator Hugo Hamilton [phone] Confirmed Active PTSD (post-traumatic stress disorder) Confirmed Active Severe obesity Confirmed Active Social History Social History Type Response Tobacco Use: 4 or less cigar ettes(less than 1/4 pack)/day in last 30 days. Other: rarely. Sex Patient Care team information Care Team Personnel Name: Jayne Vee RN Position: [facility] RN Member Role: Primary Care Nurse Name: Ruthy Valdes RN Position: [facility] RN Member Role: Primary Care Nurse Name: Jojo Cazares RN Position: [facility] RN Member Role: Primary Care Nurse Name: Vera Babcock MD Position: [facility] Primary Care Physician Member Role: PCP Address: Address: [address] [place] [address]- Care Team Related Persons Name: SKYE FELDER Address: home [address] [place] [address] Name: LALA HILLS Address: home [address] [place] [id number] Name: KERI BROTHERS Address: home [address] [place] [address]
--- OUTSIDE RECORDS SUMMARY | 2023-03-05 01:18 | XMS_ITS | Continuity of Care Document ---
Author Name Unknown Organization [facility] ter Address [address] [place] [address]- Care Team Providers Care Telephone Triage Nurse Name Role Phone Not on Staff, PCP Primary Care Physician Unavail able Encounter [facility] Date(s): 08/16/21 - 08/16/[address] [address]- Discharge Disposition: A-D/C Walkout Attending Physician: Not on Staff, Attending MD Admitting Physician: Not on Staff, Admitting MD Referring Physician: Not on Staff, Referring [...] 07/08/21 8:23:00 EDT, Route to Pharmacy Electronically, [facility] [id number], Partial yesica... Start Date: 07/08/21 Stop Date: 08/07/21 Status: Ordered Colace sodium 100 mg oral capsule 100 mg, 1, capsule, By Mouth, 2 times a day, PRN, # 60 capsule, Refills 0, Tot. Refills 0, Maintenance, for constipation, 07/08/21 8:28:00 EDT, Route to Pharmacy Electronically, [facility] [id number], 173, cm, 07/07/21 22:02:0... Start Date: 07/08/21 Stop Date: 08/07/21 Status: Ordered hydrOXYzine pamoate 50 mg oral capsule = 50 mg, By Mouth, 2 times a day, PRN Anxiety, take 1 capsule (=50mg), up to 2 times a day, as needed for anxiety, # 60 capsule, 0 Refills, Maintenance, 07/08/21 8:23:00 EDT, Capsule, [facility] [id number], Partial fill upon p... Start Date: 07/08/21 Stop Date: 08/07/21 Status: Ordered SEROquel XR 400 mg oral tablet, extended release 400 mg, 1, tablet, By Mouth, Daily at bedtime, Take 1 tablet (=400mg) daily at bedtime, # 30 tablet, Refills 0, Tot. Refills 0, Maintenance, 07/08/21 8:22:00 EDT, Route to Pharmacy Electronically, [facility] [id number], Partia... Start Date: 07/08/21 Stop Date: 08/07/21 Status: Ordered Problem List Condition Effective Dates Status Health Status Inform ant Severe obesity(Confirmed) Active Vital Signs Most recent to oldest [Reference Range]: 1 Oxygen Saturation [94-100 %] 99 % (08/16/21 1:54 PM) Pulse Rate [55-90 bpm] 98 bpm *H* (08/16/21 1:54 PM) Respiratory Rate [16-30 br/min] 18 br/mi n (08/16/21 1:54 PM) Mode of Delivery (Oxygen) Room air (08/16/21 1:54 PM) Social History Social History Type Response Tobacco Interested in cessat ion: No. No, Other: rarely. Sex
--- OUTSIDE RECORDS SUMMARY | 2023-03-05 01:18 | XMS_ITS | Continuity of Care Document ---
Author Name Unknown Organization [facility] ter Address [address] [place] [address]- Care Team Providers Care Head Of History Name Role Phone Not on Staff, PCP Primary Care Physician Unavail able Encounter [facility] Date(s): 09/20/21 - 09/20/[address] [address]- Encounter Diagnosis Medication refill(Final) - 09/20/21 Discharge Disposition: A-D/C Home Attending Physician: Jarrod Kwong MD Admitting Physician: Jarrod Kwong MD Referring Physician: Not on Staff, Referring [...] 08/19/21 13:05:00 EDT, Route to Pharmacy Electronically, [facility], Partial fill upon patient request if the prescription is for a schedule... Start Date: 08/19/21 Stop Date: 08/26/21 Status: Ordered cloNIDine 0.1 mg oral tablet 0.1 mg, 1, tablet, By Mouth, 2 times a day, Take 1 tablet (=0.1mg), 2 times a day, # 60 tablet, Refills 0, Tot. Refills 0, Maintenance, 07/08/21 8:23:00 EDT, Route to Pharmacy Electronically, [facility] [id number], Partial yesica... Start Date: 07/08/21 Stop Date: 08/07/21 Status: Ordered cloNIDine 0.1 mg oral tablet 0.1 mg, 1, tablet, By Mouth, 2 times a day, # 6 tablet, Refills 0, Tot. Refills 0, Maintenance, 09/20/21 12:57:00 EDT, Route to Pharmacy Electronically, [facility] [id number], Partial fill upon patient request if the prescript... Start Date: 09/20/21 Stop Date: 09/23/21 Status: Ordered cloNIDine 0.1 mg oral tablet [...] 07/08/21 8:28:00 EDT, Route to Pharmacy Electronically, [facility] [id number], 173, cm, 07/07/21 22:02:0... Start Date: 07/08/21 [...] drug. Start Date: 09/05/21 Status: Ordered hydrOXYzine hydrochloride 50 mg oral tablet 1 tablet = 50 mg, By Mouth, Daily at bedtime, for 3 days, # 3 tablet, 0 Refills, Acute 09/23/21 12:58:00 EDT, 09/20/21 12:58:00 EDT, Tablet, [place], [place] - [id number], Partial fill upon patient request if the prescription is for a... Start Date: 09/20/21 Stop Date: 09/23/21 Status: Ordered hydrOXYzine pamoate 50 mg oral capsule = 50 mg, By Mouth, 2 times a day, PRN Anxiety, take 1 capsule (=50mg), up to 2 times a day, as needed for anxiety, # 60 capsule, 0 Refills, Maintenance, 07/08/21 8:23:00 EDT, Capsule, [place], [place] - [id number], Partial fill upon p... Start Date: 07/08/21 [...] 08/19/21 13:05:00 EDT, Route to Pharmacy Electronically, [facility] 3, Partial fill upon patient request [...] 07/08/21 8:22:00 EDT, Route to Pharmacy Electronically, [facility] [id number], Partia... Start Date: 07/08/21 Stop Date: 08/07/21 Status: Ordered SEROquel XR 400 mg oral tablet, extended release 400 mg, 1, tablet, By Mouth, Daily in PM, # 7 tablet, Refills 0, Tot. Refills 0, Maintenance, 09/20/21 12:57:00 EDT, Route to Pharmacy Electronically, [place], [place] - [id number], Partial fill upon patient request if the prescriptio... Start Date: 09/20/21 Stop Date: 09/27/21 Status: Ordered Problem List Condition Effective Dates Status Health Status Inform ant Severe obesity(Confirmed) Active Vital Signs Most recent to oldest [Reference Range]: 1 2 Oxygen Saturation [94-100 %] 98 % (09/20/21 4:27 PM) 100 % (09/20/21 10:37 AM) Pulse Rate [55-90 bpm] 113 bpm *H* (09/20/21 4:27 PM) 109 bpm *H* (09/20/21 10:37 AM) Blood Pressure [90-138/55-84 mm Hg] 108/ 84mm Hg (09/20/21 4:27 PM) 134/56mm Hg (09/20/21 10:37 AM) Respiratory Rate [16-30 br/min] 18 br/mi n (09/20/21 4:27 PM) 18 br/min (09/20/21 10:37 AM) Temperature [96.8-100.4 DegF] 98.1 DegF (09/20/21 4:27 PM) 98.6 DegF (09/20/21 10:37 AM) Mode of Delivery (Oxygen) Room air (09/20/21 4:27 PM) Room air (09/20/21 10:37 AM) Blood pressure sites Arm, right (09/20/21 4:27 PM) Arm, right (09/20/21 10:37 AM) Temperature Route Oral (09/20/21 4:27 PM) Oral (09/20/21 10:37 AM) Social History Social History Type Response Tobacco Interested in cessat ion: No. No, Other: rarely. Sex
--- OUTSIDE RECORDS SUMMARY | 2023-03-05 01:18 | XMS_ITS | Continuity of Care Document ---
Author Name Unknown Organization [facility] Address [address] [place] [address]- Care Team Providers Care Geothermal Operating Engineer Name Role Phone Yoko JENKINS, Vera Primary Care Physician Encounter [facility] Date(s): 01/05/23 - 02/04/[address] [address]- Allergies, Adverse Reactions, Alerts No Known Allergies Immunizations Given and Recorded Vaccine Date Status Refusal Reason tetanus/diphtheria/pertussis, acel(Tdap) 03/26/22 Given tetanus/diphtheria/pertussis, acel(Tdap) 01/03/09 Recorded [id number] 12y+ bivalent booster vax 03/26/22 Given influenza virus vaccine, inactivated 03/26/22 Give n influenza virus vaccine, inactivated 12/08/19 Osvaldo rded influenza virus vaccine, inactivated 11/29/18 Osvaldo rded influenza virus vaccine, inactivated 12/06/08 Osvaldo rded SARS-CoV-2 mRNA ([id number]) vax 08/05/21 Recorded SARS-CoV-2 (COVID-19) mRNA BNT-162b2 vac 01/14/21 Recorded SARS-CoV-2 (COVID-19) mRNA BNT-162b2 vac 11/25/20 Recorded Meningococcal Conjugate Vaccine 03/25/06 Recorded tetanus-diphtheria toxoids (Td) 02/15/02 Recorded Poliovirus Vaccine, Inactivated 02/15/02 Recorded Poliovirus Vaccine, Inactivated 01/15/93 Recorded Poliovirus Vaccine, Inactivated 01/16/88 Recorded Measles/Mumps/Rubella Virus Vaccine 01/15/93 Recor ded Measles/Mumps/Rubella Virus Vaccine 01/16/88 Recor ded Medications amLODIPine 5 mg oral tablet See Instructions, TAKE 1 TABLET BY MOUTH ONCE DAILY, # 30 tablet, 5 Refills, Maintenance, 01/05/23 10:03:00 EDT, [place], [place] - [id number], 175, cm, 12/09/22 13:29:00 EDT, Height, 161.2, kg, 11/26/22 13:41:00 EDT, Dry Weight Start Date: 01/05/23 Status: Ordered ARIPiprazole 15 mg oral tablet [...] 03/26/22 14:44:00 EST, Route to Pharmacy Electronically, [place], [place] - [id number], Partial fill upon patient request if the prescription is for... Start Date: 03/26/22 Stop Date: 03/21/23 Status: Ordered cyanocobalamin (vit B-12) 100 mcg tablet cyanocobalamin (vit B-12) 100 mcg tablet, 0.5, tablet, By Mouth, Daily, # 15 tablet, 5 Refills, Maintenance, 06/28/22 13:21:00 EDT, 175, cm, 06/28/22 10:32:00 EDT, Height, 170.9, kg, 05/13/22 14:47:00 EST, Dry Weight Start Date: 06/28/22 Status: Ordered cyanocobalamin (vit B-12) 100 mcg tablet cyanocobalamin (vit B-12) 100 mcg tablet, 0.5, tablet, By Mouth, Daily, # 15 tablet, 5 Refills, Maintenance, 01/06/23 8:34:00 EDT, 175, cm, 12/09/22 13:29:00 EDT, Height, 161.2, kg, 11/26/22 13:41:00EDT, Dry Weight Start Date: 01/06/23 Status: Ordered cyanocobalamin 50 mcg oral tablet 1 tablet = 50 mcg, By Mouth, Daily, # 30 tablet, 5 Refills, Maintenance, 03/26/22 14:48:00 EST, Tablet, [facility], [facility] [id number], Partial fill upon patient request if the prescription is for a schedule II opioid drug., 173, cm, 1... Start Date: 03/26/22 Stop Date: 09/22/22 Status: Ordered docusate sodium 100 mg oral capsule See Instructions, TAKE 1 CAPSULE BY MOUTH two (2) times a day, # 60 each, 5 Refills, Maintenance, 10/05/22 2:04:00 EDT, [facility], 175, cm, 07/02/22 15:31:00 EDT, Height, 170.9, kg, 05/13/22 14:47:00 EST, Dry Weight Start Date: 10/05/22 Status: Ordered folic acid 0.8 mg oral tablet 1 tablet = 0.8 mg, By Mouth, Daily, # 30 tablet, 11 Refills, Maintenance, 03/26/22 14:47:00 EST, Tablet, [facility], [facility] [id number], Partial fill upon patient request if the prescription is for a schedule II opioid drug., 173, cm,... Start Date: 03/26/22 Stop Date: 03/21/23 Status: Ordered hydrochlorothiazide 25 mg oral tablet See Instructions, TAKE 1 TABLET BY MOUTH ONCE DAILY, # 30 tablet, Refills 5, Tot. Refills 5, Maintenance, 01/05/23 10:03:00 EDT, Instructions Replace Required Details, Route to Pharmacy Electronically, [facility], [facility] [id number], 1... Start Date: 01/05/23 Status: Ordered hydrOXYzine pamoate 50 mg oral capsule 1 capsule, By Mouth, 4 times a day, PRN NEEDED FOR ANXIETY, # 50 each, 3 Refills, Maintenance, 07/28/22 13:05:00 EDT, [facility], 175, cm, 07/02/22 15:31:00 EDT, Height, 170.9, kg, 05/13/22 14:47:00 EST, Dry Weight Start Date: 07/28/22 Status: Ordered MetFORMIN (Eqv-Glucophage XR) 500 mg oral tablet, extended release 1 tablet = 500 mg, By Mouth, Daily, # 90 tablet, 3 Refills, Maintenance, 06/28/22 10:51:00 EDT, [facility] [id number], Partial fill upon patient request if the prescription is for a schedule II opioid drug., 175, cm, 06/28/22... Start Date: 06/28/22 Stop Date: 06/23/23 Status: Ordered multivitamin Multiple Vitamins oral tablet 1 tablet, By Mouth, Daily, # 30 tablet, 11 Refills, Maintenance, 03/26/22 14:47:00 EST, Tablet, [facility] [id number], Partial fill upon patient request if the prescription is for a schedule II opioid drug., 1 tablet By Mouth... Start Date: 03/26/22 Stop Date: 03/21/23 Status: Ordered omeprazole 20 mg oral enteric coated capsule See Instructions, TAKE 1 CAPSULE BY MOUTH ONCE DAILY, # 30 capsule, 5 Refills, Maintenance, 10/05/22 2:04:00 EDT, [facility], 175, cm, 07/02/22 15:31:00 EDT, Height, 170.9, [...] 03/26/22 14:48:00 EST, Route to Pharmacy Electronically, [facility] [place], [place] - [id number], needs the extended release formulation. regular r... Start Date: 03/26/22 Stop Date: 03/21/23 Status: Ordered Problem List Condition Confirmation Course Effective Dates Status Health [facility] Informant ASCUS HPV+/ neg 16/18/45 1 Confirmed Active Bipolar disorder Confirmed Active [facility] online program coordinator Hugo Hamilton [phone] Confirmed Active PTSD (post-traumatic stress disorder) Confirmed Active Severe obesity Confirmed Active 1Unable to fully visualize cervix with speculum available. Unable to complete colposcopy procedure. will refer to [facility] Social History Social History Type Response Tobacco Use: 4 or less cigar ettes(less than 1/4 pack)/day in last 30 days. Other: rarely. Sex Patient Care team information Care Team Personnel Name: Jayne Vee RN Position: [facility] RN Member Role: Primary Care Nurse Name: Jojo Cazares RN Position: [facility] RN Member Role: Primary Care Nurse Name: Vera Babcock MD Position: [facility] Physician - Primary Care Member Role: PCP Address: Address: [address] [place] [address]- Care Team Related Persons Name: SKYE FELDER Address: [address] [place] [address] Name: LALA HILLS Address: home [address] [place] [id number] Name: KERI BROTHERS Address: home [address] [place] [id number]
--- OUTSIDE RECORDS SUMMARY | 2023-03-05 01:18 | XMS_ITS | Continuity of Care Document ---
Author Name Unknown Organization [facility] Address [address] [place] [address]- Care Team Providers Care Roll Finisher Name Role Phone Not on Staff, PCP Primary Care Physician Unavail able Encounter [facility] Date(s): 01/28/22 - 03/17/[address] [address]- Attending Physician: Not on Staff, Attending MD [...] 13:05:00 EDT, Route to Pharmacy Electronically, [facility], Partial fill upon patient request if the prescription is for a schedule... Start Date: 08/19/21 Stop Date: 08/26/21 Status: Ordered cloNIDine 0.1 mg oral tablet 0.1 mg, 1, tablet, By Mouth, 2 times a day, # 6 tablet, Refills 0, Tot. Refills 0, Maintenance, 09/22/21 9:39:00 EDT, Route to Pharmacy Electronically, [facility], Partial fill upon patient request if the prescription is for a schedule I... Start Date: 09/22/21 Stop Date: 09/25/21 Status: Ordered cloNIDine 0.1 mg oral tablet 0.1 mg, 1, tablet, By Mouth, 2 times a day, # 30 tablet, Refills 0, Tot. Refills 0, Maintenance, 03/09/22 20:08:00 EST, Route to Pharmacy Electronically, [facility] #[id number], Partial fill upon patient request if the prescription is for a sched... Start Date: 03/09/22 Status: Ordered cloNIDine 0.1 mg oral tablet 0.1 mg, 1, tablet, By Mouth, 2 times a day, # 20 tablet, Refills 0, Tot. Refills 0, Maintenance, 11/06/21 17:21:00 EDT, Route to Pharmacy Electronically, [facility] [id number], Partial fill upon patient request if the prescrip... Start Date: 11/06/21 Stop Date: 11/16/21 Status: Ordered cloNIDine 0.1 mg oral tablet 0.1 mg, 1, tablet, By Mouth, 2 times a day, Take 1 tablet (=0.1mg), 2 times a day, # 60 tablet, Refills 0, Tot. Refills 0, Maintenance, 07/08/21 8:23:00 EDT, Route to Pharmacy Electronically, [facility] [id number], Partial yesica... Start Date: 07/08/21 Stop Date: 08/07/21 Status: Ordered Colace sodium 100 mg oral capsule 100 mg, 1, capsule, By Mouth, 2 times a day, PRN, # 60 capsule, Refills 0, Tot. Refills 0, Maintenance, for constipation, 11/06/21 17:21:00 EDT, Route to Pharmacy Electronically, [place], [place] - [id number], 173, cm, 11/06/21 14:25:... Start Date: 11/06/21 [...] 0 Refills, Maintenance, 12/19/21 14:58:00 EDT, Capsule, [facility] #[id number], Partial fill upon patient requestif the prescription is for a schedule II opioid law... Start Date: 12/19/21 Status: Ordered docusate sodium 100 mg oral tablet 2 tablet = 200 mg, By Mouth, 2 times a day, PRN for constipation, # 60 tablet, 0 Refills, Maintenance, 03/09/22 19:41:00 EST, Tablet, [facility] #[id number], Partial fill upon patient request ifthe prescription is for a schedule II opioid drug.,... Start Date: 03/09/22 Status: Ordered folic acid 0.8 mg oral tablet 1 tablet = 0.8 mg, By Mouth, Daily, # 100 tablet, 0 Refills, Maintenance, 03/09/22 19:40:00 EST, Tablet, [facility] #[id number], Partial fill upon patient request if the prescription is for a schedule II opioid drug., 173, cm, 03/09/22 17:57:00 E... Start Date: 03/09/22 Status: Ordered hydrOXYzine pamoate 50 mg oral capsule = 50 mg, By Mouth, 2 times a day, PRN Anxiety, take 1 capsule (=50mg), up to 2 times a day, as needed for anxiety, # 60 capsule, 0 Refills, Maintenance, 11/06/21 17:21:00 EDT, Capsule, [facility] [id number], Partial fill upon... Start Date: 11/06/21 Stop Date: 12/06/21 Status: Ordered multivitamin Multiple Vitamins oral capsule 1 capsule, By Mouth, Daily, # 90 capsule, 0 Refills, Maintenance, 03/09/22 19:41:00 EST, Capsule, [facility] #[id number], Partial fill upon patient request if the prescription is for a schedule II opioid drug., 1 capsule By Mouth Daily, 173, cm,... Start Date: 03/09/22 Status: Ordered multivitamin Multiple Vitamins oral tablet 1 tablet, By Mouth, Daily, # 30 tablet, 0 Refills, Maintenance, 12/19/21 14:58:00 EDT, Tablet, [facility] #[id number], Partial fill upon patient request if the prescription is for a schedule II opioid drug., 1 tablet By Mouth Daily, 173, cm, 10/26... Start Date: 12/19/21 Status: Ordered omeprazole 20 mg oral delayed release tablet 1 tablet = 20 mg, By Mouth, Daily, # 30 tablet, 0 Refills, Maintenance, 03/09/22 20:09:00 EST, [facility] #[id number], Partial fill upon patient request if the prescription is for a schedule II opioid drug., 173, cm, 03/09/22 17:57:00 EST, Height... Start Date: 03/09/22 Status: Ordered omeprazole 20 mg oral delayed release tablet 1 tablet = 20 mg, By Mouth, Daily, # 30 tablet, 0 Refills, Maintenance, 12/19/21 14:51:00 EDT, CR Tablet, [facility] #[id number], Partial fill upon patient request if the [...] tablet, 0 Refills, Maintenance, 12/19/21 14:46:00 EDT, [facility] #[id number], Partial fill upon patient request if the prescriptionis for a schedule II opioid drug., 173, cm, ... Start Date: 12/19/21 Status: Ordered SEROquel XR 400 mg oral tablet, extended release 400 mg, 1, tablet, By Mouth, Daily, # 7 tablet, Refills 0, Tot. Refills 0, Maintenance, 08/19/21 13:05:00 EDT, Route to Pharmacy Electronically, [facility], Partial fill upon patient request [...] 9:39:00 EDT, Route to Pharmacy Electronically, [facility], Partial fill upon patient reques... Start Date: 09/22/21 Stop Date: 09/29/21 Status: Ordered SEROquel XR 400 mg oral tablet, extended release 400 mg, 1, tablet, By Mouth, Daily in PM, # 30 tablet, Refills 0, Tot. Refills 0, Maintenance, 03/09/22 19:40:00 EST, Route to Pharmacy Electronically, [facility] #[id number], Partial fill upon patient request if the prescription is for a schedul... Start Date: 03/09/22 Status: Ordered SEROquel XR 400 mg oral tablet, extended release 400 mg, 1, tablet, By Mouth, Daily in PM, # 30 tablet, Refills 0, Tot. Refills 0, Maintenance, 12/19/21 14:45:00 EDT, Route to Pharmacy Electronically, [facility] #[id number], Partial fill upon patient request if the prescription is for a schedul... Start Date: 12/19/21 Status: Ordered SEROquel XR 400 mg oral tablet, extended release 400 mg, 1, tablet, By Mouth, Daily in PM, # 30 tablet, Refills 0, Tot. Refills 0, Maintenance, 11/06/21 17:23:00 EDT, Route to Pharmacy Electronically, [place], [place] - [id number],Partial fill upon patient request if the prescripti... Start Date: 11/06/21 Status: Ordered SEROquel XR 400 mg oral tablet, extended release 400 mg, 1, tablet, By Mouth, Daily at bedtime, Take 1 tablet (=400mg) daily at bedtime, # 30 tablet, Refills 0, Tot. Refills 0, Maintenance, 07/08/21 8:22:00 EDT, Route to Pharmacy Electronically, [place], [place] - [id number], Partia... Start Date: 07/08/21 Stop Date: 08/07/21 Status: Ordered Vistaril pamoate 50 mg oral capsule 1 capsule = 50 mg, By Mouth, 4 times a day, PRN for anxiety, # 40 capsule, 0 Refills, Acute 03/26/22 15:00:00 EST, 03/09/22 19:40:00 EST, Capsule, [facility] #[id number], Partial fill upon patient request if the prescription is for a schedule II... Start Date: 03/09/22 Stop Date: 03/26/22 Status: Ordered Vitamin B12 50 mcg oral tablet 1 tablet = 50 mcg, By Mouth, Daily, # 30 tablet, 0 Refills, Maintenance, 12/19/21 14:58:00 EDT, Tablet, [facility] #[id number], Partial fill upon patient request if the prescription is for a schedule II opioid drug., 173, cm, 11/06/21 14:25:00 ED... Start Date: 12/19/21 Status: Ordered Problem List Condition Confirmation Course Effective Dates Status Health [facility] Informant [facility] import coordinator Hugo Hamilton [phone] Confirmed Active Severe obesity Confirmed Active Social History Social History Type Response Tobacco Interested in cessat ion: No. No, Other: rarely. Sex Patient Care team information Care Team Personnel Name: Jayne Vee RN Position: [facility] RN Member Role: Primary Care Nurse Name: Not on Staff, PCP Position: [facility] Physician (General Medicine) Member Role: PCP Name: Lyric Marquez RN Position: [facility] RN Member Role: Primary Care Nurse Name: Ruthy Valdes RN Position: [facility] RN Member Role: Primary Care Nurse Name: Jojo Cazares RN Position: [facility] RN Member Role: Primary Care Nurse Care Team Related Persons Name: FELDERSKYE Address: [address] [place] [address] Name: LALA HILLS Address: home [address] [place] [id number]
--- OUTSIDE RECORDS SUMMARY | 2023-03-05 01:18 | XMS_ITS | Continuity of Care Document ---
Author Name Unknown Organization [facility] Address [address] [place] [address]- Care Team Providers Care Mine Car Dispatcher Name Role Phone Not on Staff, PCP Primary Care Physician Unavail able Encounter [facility] Date(s): 11/11/21 - 12/11/[address] [address]- Allergies, Adverse Reactions, Alerts No Known Allergies [...] 08/19/21 13:05:00 EDT, Route to Pharmacy Electronically, [facility], Partial fill upon patient request if the prescription is for a schedule... Start Date: 08/19/21 Stop Date: 08/26/21 Status: Ordered cloNIDine 0.1 mg oral tablet 0.1 mg, 1, tablet, By Mouth, 2 times a day, # 6 tablet, Refills 0, Tot. Refills 0, Maintenance, 09/22/21 9:39:00 EDT, Route to Pharmacy Electronically, [facility], Partial fill upon patient request if the prescription is for a schedule I... Start Date: 09/22/21 Stop Date: 09/25/21 Status: Ordered cloNIDine 0.1 mg oral tablet 0.1 mg, 1, tablet, By Mouth, 2 times a day, # 20 tablet, Refills 0, Tot. Refills 0, Maintenance, 11/06/21 17:21:00 EDT, Route to Pharmacy Electronically, [facility] [id number], Partial fill upon patient request if the prescrip... Start Date: 11/06/21 Stop Date: 11/16/21 Status: Ordered cloNIDine 0.1 mg oral tablet 0.1 mg, 1, tablet, By Mouth, 2 times a day, Take 1 tablet (=0.1mg), 2 times a day, # 60 tablet, Refills 0, Tot. Refills 0, Maintenance, 07/08/21 8:23:00 EDT, Route to Pharmacy Electronically, [facility] [id number], Partial yesica... Start Date: 07/08/21 Stop Date: 08/07/21 Status: Ordered Colace sodium 100 mg oral capsule 100 mg, 1, capsule, By Mouth, 2 times a day, PRN, # 60 capsule, Refills 0, Tot. Refills 0, Maintenance, for constipation, 11/06/21 17:21:00 EDT, Route to Pharmacy Electronically, [facility] [id number], 173, cm, 11/06/21 14:25:... Start Date: 11/06/21 [...] 0 Refills, Maintenance, 11/06/21 17:21:00 EDT, Capsule, [place], [place] - [id number], Partial fill upon... Start Date: 11/06/21 Stop [...] 08/19/21 13:05:00 EDT, Route to Pharmacy Electronically, [facility], Partial fill upon patient request if the prescription is for a schedule II opioi... Start Date: 08/19/21 Stop Date: 08/26/21 Status: Ordered SEROquel XR 400 mg oral tablet, extended release 400 mg, 1, tablet, By Mouth, Daily in PM, please provide financial waiver for copay, # 7 tablet, Refills 0, Tot. Refills 0, Maintenance, 09/22/21 9:39:00 EDT, Route to Pharmacy Electronically, [facility], Partial fill upon patient reques... Start Date: 09/22/21 Stop Date: 09/29/21 Status: Ordered SEROquel XR 400 mg oral tablet, extended release 400 mg, 1, tablet, By Mouth, Daily in PM, # 30 tablet, Refills 0, Tot. Refills 0, Maintenance, 11/06/21 17:23:00 EDT, Route to Pharmacy Electronically, [facility] [id number],Partial fill upon patient request if the prescripti... Start Date: 11/06/21 Status: Ordered SEROquel XR 400 mg oral tablet, extended release 400 mg, 1, tablet, By Mouth, Daily at bedtime, Take 1 tablet (=400mg) daily at bedtime, # 30 tablet, Refills 0, Tot. Refills 0, Maintenance, 07/08/21 8:22:00 EDT, Route to Pharmacy Electronically, [facility] [id number], Partia... Start Date: 07/08/21 Stop Date: 08/07/21 Status: Ordered Problem List Condition Effective Dates Status Health Status Inform [facility] [employer] Car e coordinator Hugo Hamilton [phone](Confirmed) Active Severe obesity(Confirmed) Active Social History Social History Type Response Tobacco Interested in cessat ion: No. No, Other: rarely. Sex Care Team Personnel Name: Not on Staff, PCP
--- OUTSIDE RECORDS SUMMARY | 2023-03-05 01:18 | XMS_ITS | Continuity of Care Document ---
Author Name Unknown Organization [facility] Address [address] [place] [address]- Care Team Providers Care Car Rental Clerk Name Role Phone Not on Staff, PCP Primary Care Physician Unavail able Encounter [facility] Date(s): 03/07/21 - 03/14/[address] [facility] [address] [place] [address]- Attending Physician: Mary Guillen DO Allergies, Adverse Reactions, Alerts Substance Reaction Severity Status NKA Active Medications albuterol CFC free 90 mcg/inh inhalation [...] 147:52:05, Tablet Start Date: 03/01/14 Status: Ordered [place] 325 mg-5 mg oral tablet 1 tablet, [...] 14:12:06, Tablet Start Date: 06/19/14 Status: Ordered Splint See Instructions, # 1 units, Maintenance, use as needed as directed, 04/14/14 15:09:01, Compound Start Date: 04/14/14 Status: Ordered Social History Social History Type Response Smoking Status Never smoker entered on: 03/01/14 Sex Female
--- OUTSIDE RECORDS SUMMARY | 2023-03-05 01:18 | XMS_ITS | Continuity of Care Document ---
Author Name Unknown Organization [facility] Address [address] [place] [address]- Care Team Providers Care Application Security Architect Name Role Phone Not on Staff, PCP Primary Care Physician Unavail able [facility] Date[facility]): 12/22/21 - 01/21/[address] [address]- Allergies, Adverse Reactions, Alerts No Known Allergies [...] 08/19/21 13:05:00 EDT, Route to Pharmacy Electronically, [facility], Partial fill upon patient request if the prescription is for a schedule... Start Date: 08/19/21 Stop Date: 08/26/21 Status: Ordered cloNIDine 0.1 mg oral tablet 0.1 mg, 1, tablet, By Mouth, 2 times a day, # 6 tablet, Refills 0, Tot. Refills 0, Maintenance, 09/22/21 9:39:00 EDT, Route to Pharmacy Electronically, [facility], Partial fill upon patient request if the prescription is for a schedule I... Start Date: 09/22/21 Stop Date: 09/25/21 Status: Ordered cloNIDine 0.1 mg oral tablet 0.1 mg, 1, tablet, By Mouth, 2 times a day, # 20 tablet, Refills 0, Tot. Refills 0, Maintenance, 11/06/21 17:21:00 EDT, Route to Pharmacy Electronically, [facility] [id number], Partial fill upon patient request if the prescrip... Start Date: 11/06/21 Stop Date: 11/16/21 Status: Ordered cloNIDine 0.1 mg oral tablet 0.1 mg, 1, tablet, By Mouth, 2 times a day, Take 1 tablet (=0.1mg), 2 times a day, # 60 tablet, Refills 0, Tot. Refills 0, Maintenance, 07/08/21 8:23:00 EDT, Route to Pharmacy Electronically, [facility] [id number], Partial yesica... Start Date: 07/08/21 Stop Date: 08/07/21 Status: Ordered Colace sodium 100 mg oral capsule 100 mg, 1, capsule, By Mouth, 2 times a day, PRN, # 60 capsule, Refills 0, Tot. Refills 0, Maintenance, for constipation, 11/06/21 17:21:00 EDT, Route to Pharmacy Electronically, [facility] [id number], 173, cm, 11/06/21 14:25:... Start Date: 11/06/21 [...] 0 Refills, Maintenance, 12/19/21 14:58:00 EDT, Capsule, [facility] #[id number], Partial fill upon patient requestif the prescription is for a schedule II opioid law... Start Date: 12/19/21 Status: Ordered hydrOXYzine pamoate 50 mg oral capsule = 50 mg, By Mouth, 2 times a day, PRN Anxiety, take 1 capsule (=50mg), up to 2 times a day, as needed for anxiety, # 60 capsule, 0 Refills, Maintenance, 11/06/21 17:21:00 EDT, Capsule, [place], [place] - [id number], Partial fill upon... Start Date: 11/06/21 Stop Date: 12/06/21 Status: Ordered multivitamin Multiple Vitamins oral tablet 1 tablet, By Mouth, Daily, # 30 tablet, 0 Refills, Maintenance, 12/19/21 14:58:00 EDT, Tablet, [facility] #[id number], Partial fill upon patient request if the prescription is for a schedule II opioid drug., 1 tablet By Mouth Daily, 173, cm, 10/26... Start Date: 12/19/21 Status: Ordered omeprazole 20 mg oral delayed release tablet 1 tablet = 20 mg, By Mouth, Daily, # 30 tablet, 0 Refills, Maintenance, 12/19/21 14:51:00 EDT, CR Tablet, [facility] #[id number], Partial fill upon patient request if the [...] tablet, 0 Refills, Maintenance, 12/19/21 14:46:00 EDT, [facility] #[id number], Partial fill upon patient request if the prescriptionis for a schedule II opioid drug., 173, cm, ... Start Date: 12/19/21 Status: Ordered SEROquel XR 400 mg oral tablet, extended release 400 mg, 1, tablet, By Mouth, Daily, # 7 tablet, Refills 0, Tot. Refills 0, Maintenance, 08/19/21 13:05:00 EDT, Route to Pharmacy Electronically, [facility], Partial fill upon [...] 09/22/21 9:39:00 EDT, Route to Pharmacy Electronically, [facility], Partial fill upon patient reques... Start Date: 09/22/21 Stop Date: 09/29/21 Status: Ordered SEROquel XR 400 mg oral tablet, extended release 400 mg, 1, tablet, By Mouth, Daily in PM, # 30 tablet, Refills 0, Tot. Refills 0, Maintenance, 12/19/21 14:45:00 EDT, Route to Pharmacy Electronically, [facility] #[id number], Partial fill upon patient request if the prescription is for a schedul... Start Date: 12/19/21 Status: Ordered SEROquel XR 400 mg oral tablet, extended release 400 mg, 1, tablet, By Mouth, Daily in PM, # 30 tablet, Refills 0, Tot. Refills 0, Maintenance, 11/06/21 17:23:00 EDT, Route to Pharmacy Electronically, [place], [place] - [id number],Partial fill upon patient request if the prescripti... Start Date: 11/06/21 Status: Ordered SEROquel XR 400 mg oral tablet, extended release 400 mg, 1, tablet, By Mouth, Daily at bedtime, Take 1 tablet (=400mg) daily at bedtime, # 30 tablet, Refills 0, Tot. Refills 0, Maintenance, 07/08/21 8:22:00 EDT, Route to Pharmacy Electronically, [facility] [id number], [place]... Start Date: 07/08/21 Stop Date: 08/07/21 Status: Ordered Vitamin B12 50 mcg oral tablet 1 tablet = 50 mcg, By Mouth, Daily, # 30 tablet, 0 Refills, Maintenance, 12/19/21 14:58:00 EDT, Tablet, [facility] #[id number], Partial fill upon patient request if the prescription is for a schedule II opioid drug., 173, cm, 11/06/21 14:25:00 ED... Start Date: 12/19/21 Status: Ordered Problem List Condition Confirmation Course Effective Dates Status [facility] Informant [facility] phlebotomy coordinator Hugo Alfonso [phone] Confirmed Active Severe obesity Confirmed Active Social History Social History Type Response Tobacco Interested in cessat ion: No. No, Other: rarely. Sex Patient Care team information Personnel Name: Not on Staff, PCP
--- OUTSIDE RECORDS SUMMARY | 2023-03-05 01:18 | XMS_ITS | Continuity of Care Document ---
Author Name Unknown Organization [facility] Address [address] [place] [address]- Care Team Providers Care Air Grinder Name Role Phone Yoko JENKINS, Vera Primary Care Physician [facility] Date(s): 10/27/22 - 11/26/[address] [address]- Allergies, Adverse Reactions, Alerts No Known Allergies Immunizations Given and Recorded Vaccine Date Status Refusal Reason tetanus/diphtheria/pertussis, acel(Tdap) 03/26/22 Given tetanus/diphtheria/pertussis, acel(Tdap) 01/03/09 Recorded [id number] 12y+ bivalent booster vax 03/26/22 Given influenza virus vaccine, inactivated 03/26/22 Give n influenza virus vaccine, inactivated 12/08/19 Osvaldo rded influenza virus vaccine, inactivated 11/29/18 Osvaldo rded influenza virus vaccine, inactivated 12/06/08 Osvaldo rded SARS-CoV-2 mRNA ([id number]) vax 08/05/21 Recorded SARS-CoV-2 (COVID-19) mRNA BNT-162b2 [...] tablet, 5 Refills, Maintenance, 06/28/22 10:57:00 EDT, [place], [place] - [id number], Partial fill upon patient request if the [...] 03/26/22 14:44:00 EST, Route to Pharmacy Electronically, [place], [place] - [id number], Partial fill upon patient request if the [...] 5 Refills, Maintenance, 03/26/22 14:48:00 EST, Tablet, [place], [place] - [id number], Partial fill upon patient request if the prescription is for a schedule II opioid drug., 173, cm, 1... Start Date: 03/26/22 Stop Date: 09/22/22 Status: Ordered docusate sodium 100 mg oral capsule See Instructions, TAKE 1 CAPSULE BY MOUTH two (2) times a day, # 60 each, 5 Refills, Maintenance, 10/05/22 2:04:00 EDT, [facility], 175, cm, 07/02/22 15:31:00 EDT, Height, 170.9, kg, 05/13/22 14:47:00 EST, Dry Weight Start Date: 10/05/22 Status: Ordered folic acid 0.8 mg oral tablet 1 tablet = 0.8 mg, By Mouth, Daily, # 30 tablet, 11 Refills, Maintenance, 03/26/22 14:47:00 EST, Tablet, [place], [place] - [id number], Partial fill upon patient request if the prescription is for a schedule II opioid drug., 173, cm,... Start Date: 03/26/22 Stop Date: 03/21/23 Status: Ordered hydrochlorothiazide 25 mg oral tablet 25 mg, 1, tablet, By Mouth, Daily, # 30 tablet, Refills 5, Tot. Refills 5, Maintenance, 06/28/22 10:57:00 EDT, Route to Pharmacy Electronically, [facility], [place] - [id number], Partial fill upon patient request if the prescription is f... Start Date: 06/28/22 Stop Date: 12/25/22 Status: Ordered hydrOXYzine pamoate 50 mg oral capsule 1 capsule, By Mouth, 4 times a day, PRN NEEDED FOR ANXIETY, # 50 each, 3 Refills, Maintenance, 07/28/22 13:05:00 EDT, [facility], 175, cm, 07/02/22 15:31:00 EDT, Height, 170.9, kg, 05/13/22 14:47:00 EST, Dry Weight Start Date: 07/28/22 Status: Ordered MetFORMIN (Eqv-Glucophage XR) 500 mg oral tablet, extended release 1 tablet = 500 mg, By Mouth, Daily, # 90 tablet, 3 Refills, Maintenance, 06/28/22 10:51:00 EDT, [facility], [place] - [id number], Partial fill upon patient request if the prescription is for a schedule II opioid drug., 175, cm, 06/28/22... Start Date: 06/28/22 Stop Date: 06/23/23 Status: Ordered multivitamin Multiple Vitamins oral tablet 1 tablet, By Mouth, Daily, # 30 tablet, 11 Refills, Maintenance, 03/26/22 14:47:00 EST, Tablet, [place], [place] - [id number], Partial fill upon patient request if the prescription is for a schedule II opioid drug., 1 tablet By Mouth... Start Date: 03/26/22 Stop Date: 03/21/23 Status: Ordered omeprazole 20 mg oral enteric coated capsule See Instructions, TAKE 1 CAPSULE BY MOUTH ONCE DAILY, # 30 capsule, 5 Refills, Maintenance, 10/05/22 2:04:00 EDT, [facility], 175, cm, 07/02/22 15:31:00 EDT, Height, [...] 03/26/22 14:48:00 EST, Route to Pharmacy Electronically, [place], [place] - [id number], needs the extended release formulation. regular r... Start Date: 03/26/22 Stop Date: 03/21/23 Status: Ordered Problem List Condition Confirmation Course Effective Dates Status Health [facility] Informant Bipolar disorder Confirmed Active [facility] film sound coordinator Hugo Hamilton [phone] Confirmed Active PTSD (post-traumatic stress disorder) Confirmed Active Severe obesity Confirmed Active Social History Social History Type Response Tobacco Use: 4 or less cigar ettes(less than 1/4 pack)/day in last 30 days. Other: rarely. Sex Patient Care team information Care Team Personnel Name: aJyne Vee RN Position: [facility] RN Member Role: Primary Care Nurse Name: Jojo Cazares RN Position: [facility] RN Member Role: Primary Care Nurse Name: Vera Babcock MD Position: [facility] Physician - Primary Care Member Role: PCP Address: Address: [address] [place] [address]- [place] Care Team Related Persons Name: SKYE FELDER Address: [address] [place] [address] Name: LALA HILLS Address: home [address] [place] [address] Name: KERI BROTHERS Address: home [address] [place] [address]
--- OUTSIDE RECORDS SUMMARY | 2023-03-05 01:19 | XMS_ITS | Continuity of Care Document ---
Author Name Unknown Organization [facility] Address [address] [place] [address]- Care Team Providers Care Sole Cementer Name Role Phone Vera Babcock MD Primary Care Physician [facility] Date[facility]s): 05/17/22 - 06/16/[address] [address]- Allergies, Adverse Reactions, Alerts No Known Allergies Immunizations Given and Recorded Vaccine Date Status Refusal Reason tetanus/diphtheria/pertussis, acel(Tdap) 03/26/22 Given tetanus/diphtheria/pertussis, acel(Tdap) 01/03/09 Recorded [id number] 12y+ bivalent booster vax 03/26/22 Given influenza virus vaccine, inactivated 03/26/22 Give n influenza virus vaccine, inactivated 12/08/19 Osvaldo rded influenza virus vaccine, inactivated 11/29/18 Osvaldo rded influenza virus vaccine, inactivated 12/06/08 Osvaldo rded SARS-CoV-2 mRNA ([id number]) vax 08/05/21 Recorded SARS-CoV-2 (COVID-19) mRNA BNT-162b2 [...] 14:44:00 EST, Route to Pharmacy Electronically, [place] [id number], Partial fill upon patient request if the prescription is for... Start Date: 03/26/22 Stop Date: 03/21/23 Status: Ordered cyanocobalamin 50 mcg oral tablet 1 tablet = 50 mcg, By Mouth, Daily, # 30 tablet, 5 Refills, Maintenance, 03/26/22 14:48:00 EST, Tablet, [place] [id number], Partial fill upon patient request if the [...] 5 Refills, Maintenance, 03/26/22 14:46:00 EST, [place] [id number], Partial fill upon patient request if the prescription is for a schedule II opioid drug., 173, cm,... Start Date: 03/26/22 Stop Date: 09/22/22 Status: Ordered folic acid 0.8 mg oral tablet 1 tablet = 0.8 mg, By Mouth, Daily, # 30 tablet, 11 Refills, Maintenance, 03/26/22 14:47:00 EST, Tablet, [place] [id number], Partial fill upon patient request if the prescription is for a schedule II opioid drug., 173, cm,... Start Date: 03/26/22 Stop Date: 03/21/23 Status: Ordered hydrOXYzine pamoate 50 mg oral capsule 1 capsule = 50 mg, By Mouth, 4 times a day, PRN for anxiety, for 30 days, # 50 capsule, 3 Refills, Acute 07/24/22 14:44:00 EDT, 03/26/22 14:44:00 EST, Capsule, [facility], [facility] [id number], deliver, 173, cm, 03/26/22 13:47:00 EST, He... Start Date: 03/26/22 Stop Date: 07/24/22 Status: Ordered multivitamin Multiple Vitamins oral tablet 1 tablet, By Mouth, Daily, # 30 tablet, 11 Refills, Maintenance, 03/26/22 14:47:00 EST, Tablet, [place] [id number], Partial fill upon patient request if the prescription is for a schedule II opioid drug., 1 tablet By Mouth... Start Date: 03/26/22 Stop Date: 03/21/23 Status: Ordered omeprazole 20 mg oral delayed release tablet 1 tablet = 20 mg, By Mouth, Daily, # 30 tablet, 5 Refills, Maintenance, 03/26/22 14:47:00 EST, CR Tablet, [place] [id number], Partial fill upon patient request if the [...] 03/26/22 14:48:00 EST, Route to Pharmacy Electronically, [facility] [place] [place] - [id number], needs the extended release formulation. regular r... Start Date: 03/26/22 Stop Date: 03/21/23 Status: Ordered Problem List Condition Confirmation Course Effective Dates Status Health [facility] Informant Bipolar disorder Confirmed Active [facility] maintenance coordinator Hugo Hamilton [phone] Confirmed Active PTSD (post-traumatic stress disorder) Confirmed Active Severe obesity Confirmed Active Social History Social History Type Response Tobacco Use: 4 or less cigar ettes(less than 1/4 pack)/day in last 30 days. Other: rarely. Sex Patient Care team information Care Team Personnel Name: Jayne Vee RN Position: [facility] RN Member Role: Primary Care Nurse Name: Ruthy Valdes RN Position: [facility] RN Member Role: Primary Care Nurse Name: Jojo Cazares RN Position: [facility] RN Member Role: Primary Care Nurse Name: Vera Babcock MD Position: [facility] Primary Care Physician Member Role: PCP Address: Address: [address] [place] [address]- Care Team Related Persons Name: SKYE FELDER Address: home [address] [place] [address] Name: LALA HILLS Address: home [address] [place] [address] Name: KERI BROTHERS Address: home [address] [place] [id number]
--- OUTSIDE RECORDS SUMMARY | 2023-03-05 01:19 | XMS_ITS | Continuity of Care Document ---
Author Name Unknown Organization [facility] Address [address] [place] [address]- Care Team Providers Care Steam And Power Supervisor Name Role Phone Magdi [facility] CENT[facility] MANAGER, Latasha F Primary Care Physician Encounter [facility] Date(s): 09/22/21 - 10/22/[address] [address]- Attending Physician: Admtr, Charles8 Admitting Physician: Admtr, Ar8 Referring Physician: Admtr, Ar8 Allergies, Adverse Reactions, Alerts No Known Allergies [...] 08/19/21 13:05:00 EDT, Route to Pharmacy Electronically, [facility], Partial fill upon patient request if the prescription is for a schedule... Start Date: 08/19/21 Stop Date: 08/26/21 Status: Ordered cloNIDine 0.1 mg oral tablet 0.1 mg, 1, tablet, By Mouth, 2 times a day, # 6 tablet, Refills 0, Tot. Refills 0, Maintenance, 09/22/21 9:39:00 EDT, Route to Pharmacy Electronically, [facility], Partial fill upon patient request if the prescription is for a schedule I... Start Date: 09/22/21 Stop Date: 09/25/21 Status: Ordered cloNIDine 0.1 mg oral tablet 0.1 mg, 1, tablet, By Mouth, 2 times a day, Take 1 tablet (=0.1mg), 2 times a day, # 60 tablet, Refills 0, Tot. Refills 0, Maintenance, 07/08/21 8:23:00 EDT, Route to Pharmacy Electronically, [facility] [id number], Partial yesica... Start Date: 07/08/21 Stop Date: [...] 07/08/21 8:28:00 EDT, Route to Pharmacy Electronically, [place], [place] - [id number], 173, cm, 07/07/21 22:02:0... Start Date: 07/08/21 [...] 0 Refills, Maintenance, 07/08/21 8:23:00 EDT, Capsule, [place], [place] - [id number], Partial fill upon p... Start Date: 07/08/21 [...] 08/19/21 13:05:00 EDT, Route to Pharmacy Electronically, [facility], Partial fill upon patient request [...] 9:39:00 EDT, Route to Pharmacy Electronically, [facility], Partial fill upon patient reques... Start Date: 09/22/21 Stop Date: 09/29/21 Status: Ordered SEROquel XR 400 mg oral tablet, extended release 400 mg, 1, tablet, By Mouth, Daily at bedtime, Take 1 tablet (=400mg) daily at bedtime, # 30 tablet, Refills 0, Tot. Refills 0, Maintenance, 07/08/21 8:22:00 EDT, Route to Pharmacy Electronically, [facility] [place] [place] - [id number], Danuta... Start Date: 07/08/21 Stop Date: 08/07/21 Status: Ordered Problem List Condition Effective Dates Status Health Status Inform [facility] Car e coordinator Hugo Hamilton [phone](Confirmed) Active Severe obesity(Confirmed) Active Social History Social History Type Response Tobacco Interested in cessat ion: No. No, Other: rarely. Sex
--- OUTSIDE RECORDS SUMMARY | 2023-03-05 01:19 | XMS_ITS | Continuity of Care Document ---
Author Name Unknown Organization [facility] Address [address] [place] [address]- Care Team Providers Care Die Maintenance Name Role Phone Vera Babcock MD Primary Care Physician Encounter [facility] Date(s): 01/19/23 - 02/18/[address] [address] Allergies, Adverse Reactions, Alerts No Known Allergies Immunizations Given and Recorded Vaccine Date Status Refusal Reason tetanus/diphtheria/pertussis, acel(Tdap) 03/26/22 Given tetanus/diphtheria/pertussis, acel(Tdap) 01/03/09 Recorded [id number] 12y+ bivalent booster vax 03/26/22 Given influenza virus vaccine, inactivated 03/26/22 Give n influenza virus vaccine, inactivated 12/08/19 Osvaldo rded influenza virus vaccine, inactivated 11/29/18 Osvaldo rded influenza virus vaccine, inactivated 12/06/08 Osvaldo rded SARS-CoV-2 mRNA ([id number]) vax 08/05/21 Recorded SARS-CoV-2 (COVID-19) mRNA BNT-162b2 [...] tablet, 5 Refills, Maintenance, 01/05/23 10:03:00 EDT, [place], [place] - [id number], 175, cm, 12/09/22 13:29:00 EDT, Height, 161.2, [...] 03/26/22 14:44:00 EST, Route to Pharmacy Electronically, [place], [place] - [id number], Partial fill upon patient request if the [...] 5 Refills, Maintenance, 03/26/22 14:48:00 EST, Tablet, [facility] [id number], Partial fill upon patient request if the prescription is for a schedule II opioid drug., 173, cm, 1... Start Date: 03/26/22 Stop Date: 09/22/22 Status: Ordered docusate sodium 100 mg oral capsule See Instructions, TAKE 1 CAPSULE BY MOUTH two (2) times a day, # 60 each, 5 Refills, Maintenance, 10/05/22 2:04:00 EDT, [facility], 175, cm, 07/02/22 15:31:00 EDT, Height, 170.9, kg, 05/13/22 14:47:00 EST, Dry Weight Start Date: 10/05/22 Status: Ordered folic acid 0.8 mg oral tablet 1 tablet = 0.8 mg, By Mouth, Daily, # 30 tablet, 11 Refills, Maintenance, 03/26/22 14:47:00 EST, Tablet, [facility] [id number], Partial fill upon patient request if the prescription is for a schedule II opioid drug., 173, cm,... Start Date: 03/26/22 Stop Date: 03/21/23 Status: Ordered hydrochlorothiazide 25 mg oral tablet See Instructions, TAKE 1 TABLET BY MOUTH ONCE DAILY, # 30 tablet, Refills 5, Tot. Refills 5, Maintenance, 01/05/23 10:03:00 EDT, Instructions Replace Required Details, Route to Pharmacy Electronically, [facility] [id number], 1... Start Date: 01/05/23 Status: Ordered hydrOXYzine pamoate 50 mg oral capsule 1 capsule, By Mouth, 4 times a day, PRN NEEDED FOR ANXIETY, # 50 each, 3 Refills, Maintenance, 07/28/22 13:05:00 EDT, [facility], 175, cm, 07/02/22 15:31:00 EDT, Height, 170.9, kg, 05/13/22 14:47:00 EST, Dry Weight Start Date: 07/28/22 Status: Ordered MetFORMIN (Eqv-Glucophage XR) 500 mg oral tablet, extended release 1 tablet = 500 mg, By Mouth, Daily, # 90 tablet, 3 Refills, Maintenance, 06/28/22 10:51:00 EDT, [place], [place] - [id number], Partial fill upon patient request if the prescription is for a schedule II opioid drug., 175, cm, 06/28/22... Start Date: 06/28/22 Stop Date: 06/23/23 Status: Ordered multivitamin Multiple Vitamins oral tablet 1 tablet, By Mouth, Daily, # 30 tablet, 11 Refills, Maintenance, 03/26/22 14:47:00 EST, Tablet, [place], [place] - [id number], Partial fill upon patient request if the prescription is for a schedule II opioid drug., 1 tablet By Mouth... Start Date: 03/26/22 Stop Date: 03/21/23 Status: Ordered omeprazole 20 mg oral enteric coated capsule See Instructions, TAKE 1 CAPSULE BY MOUTH ONCE DAILY, # 30 capsule, 5 Refills, Maintenance, 10/05/22 2:04:00 EDT, [facility], 175, cm, 07/02/22 15:31:00 EDT, Height, [...] 03/26/22 14:48:00 EST, Route to Pharmacy Electronically, [facility] [place], [place] - [id number], needs the extended release formulation. regular r... Start Date: 03/26/22 Stop Date: 03/21/23 Status: Ordered Problem List Condition Confirmation Course Effective Dates Status Health [facility] Informant ASCUS HPV+/ neg 16/18/45 1 Confirmed Active Bipolar disorder Confirmed Active [facility] tutor coordinator Hugo Hamilton [phone] Confirmed Active PTSD (post-traumatic stress disorder) Confirmed Active Severe obesity Confirmed Active 1Unable to fully visualize cervix with speculum available. Unable to complete colposcopy procedure. will refer to [facility] Social History Social History Type Response Tobacco Use: 4 or less cigar ettes(less than 1/4 pack)/day in last 30 days. Other: rarely. Sex Patient Care team information Care Team Personnel Name: Jayne Vee RN Position: [facility] RN Member Role: Primary Care Nurse Name: Jojo Cazares RN Position: [facility] RN Member Role: Primary Care Nurse Name: Vera Babcock MD Position: [facility] Physician - Primary Care Member Role: PCP Address: Address: [address] [place] [address]- Care Team Related Persons Name: SKYE FELDER Address: home [address] [place] [address] Name: LALA HILLS Address: [address] [address] Name: KERI BROTHERS Address: [address] [address]
--- OUTSIDE RECORDS SUMMARY | 2023-03-05 01:19 | XMS_ITS | Continuity of Care Document ---
Author Name Unknown Organization [facility] ter Address [address] [place] [address]- Care Team Providers Care Accounts Payable Bookkeeper Name Role Phone Magdi LOZADA, Latasha Elizondo Primary Care Physician Encounter [facility] Date(s): 08/18/21 - 08/19/[address] [address]- Encounter Diagnosis Psychiatric problem(Final) - 08/18/21 Bipolar disorder(Final) - 08/18/21 Discharge Disposition: A-D/C Home Attending Physician: Juanito Faulkner MD Admitting Physician: Juanito Faulkner MD Referring Physician: Not on Staff, Referring [...] 08/19/21 13:05:00 EDT, Route to Pharmacy Electronically, [facility] 3, Partial fill upon patient request if the prescription is for a schedule... Start Date: 08/19/21 Stop Date: 08/26/21 Status: Ordered cloNIDine 0.1 mg oral tablet 0.1 mg, 1, tablet, By Mouth, 2 times a day, Take 1 tablet (=0.1mg), 2 times a day, # 60 tablet, Refills 0, Tot. Refills 0, Maintenance, 07/08/21 8:23:00 EDT, Route to Pharmacy Electronically, [facility] [id number], Partial yesica... Start Date: 07/08/21 Stop Date: 08/07/21 Status: Ordered Colace sodium 100 mg oral capsule 100 mg, 1, capsule, By Mouth, 2 times a day, PRN, # 60 capsule, Refills 0, Tot. Refills 0, Maintenance, for constipation, 07/08/21 8:28:00 EDT, Route to Pharmacy Electronically, [facility] [id number], 173, cm, 07/07/21 22:02:0... Start Date: 07/08/21 Stop Date: 08/07/21 Status: Ordered hydrOXYzine pamoate 50 mg oral capsule = 50 mg, By Mouth, 2 times a day, PRN Anxiety, take 1 capsule (=50mg), up to 2 times a day, as needed for anxiety, # 60 capsule, 0 Refills, Maintenance, 07/08/21 8:23:00 EDT, Capsule, [facility] [id number], Partial fill upon p... Start Date: 07/08/21 Stop Date: 08/07/21 Status: Ordered melatonin 3 mg oral tablet = 9 mg, By Mouth, Daily at bedtime, PRN Sleep, for 7 days, # 21 tablet, 0 Refills, Acute 08/26/21 13:05:00 EDT, 08/19/21 13:05:00 EDT, Tablet, [facility] 3, Partial fill upon patient request if the prescription is for a schedule II opioid... Start Date: 08/19/21 Stop Date: 08/26/21 Status: Ordered SEROquel XR 400 mg oral tablet, extended release 400 mg, 1, tablet, By Mouth, Daily, # 7 tablet, Refills 0, Tot. Refills 0, Maintenance, 08/19/21 13:05:00 EDT, Route to Pharmacy Electronically, [facility], Partial fill upon patient request [...] 07/08/21 8:22:00 EDT, Route to Pharmacy Electronically, [facility] [place] [place] - [id number], [place]... Start Date: 07/08/21 Stop Date: 08/07/21 Status: Ordered Problem List Condition Effective Dates Status Health Status Inform ant Severe obesity(Confirmed) Active Vital Signs Most recent to oldest [Reference Range]: 1 2 3 Oxygen Saturation [94-100 %] 95 % (08/19/21 8:38 AM) 98 % (08/19/21 5:01 AM) 100 % (08/18/21 8:05 PM) Pulse Rate [55-90 bpm] 91 bpm *H* (08/19/21 8:38 AM) 99 bpm *H* (08/19/21 5:01 AM) 87 bpm (08/18/21 8:05 PM) Blood Pressure [90-138/55-84 mm Hg] 97/52mm Hg (08/19/21 8:38 AM) 110/70mm Hg (08/19/21 5:01 AM) 115/97mm Hg (08/18/21 8:05 PM) Respiratory Rate [16-30 br/min] 18 br/min (08/19/21 8:38 AM) 18 br/min (08/19/21 5:01 AM) 16 br/min (08/18/21 8:05 PM) Temperature [96.8-100.4 DegF] 98.2 DegF (08/19/21 8:38 AM) 98 DegF (08/19/21 5:01 AM) 98.5 DegF (08/18/21 8:05 PM) Mode of Delivery (Oxygen) Room air (08/19/21 8:38 AM) Room air (08/19/21 5:01 AM) Room air (08/18/21 8:05 PM) Blood pressure sites Arm, right (08/19/21 8:38 AM) Arm, right (08/19/21 5:01 AM) Arm, right (08/18/21 8:05 PM) Temperature Route Oral (08/19/21 8:38 AM) Oral (08/19/21 5:01 AM) Oral (08/18/21 8:05 PM) Social History Social History Type Response Tobacco Interested in cessat ion: No. No, Other: rarely. Sex
--- OUTSIDE RECORDS SUMMARY | 2023-03-05 01:19 | XMS_ITS | Continuity of Care Document ---
Author Name Unknown Organization [facility] Address [address] [place] [address]- Care Team Providers Care Patient Relations Coordinator Name Role Phone Not on Staff, PCP Primary Care Physician Unavail able Encounter [facility] Date(s): 12/04/21 - 01/31/[address] [address]- Attending Physician: Not on Staff, Attending MD [...] 08/19/21 13:05:00 EDT, Route to Pharmacy Electronically, [facility] 3, Partial fill upon patient request if the prescription is for a schedule... Start Date: 08/19/21 Stop Date: 08/26/21 Status: Ordered cloNIDine 0.1 mg oral tablet 0.1 mg, 1, tablet, By Mouth, 2 times a day, # 6 tablet, Refills 0, Tot. Refills 0, Maintenance, 09/22/21 9:39:00 EDT, Route to Pharmacy Electronically, [facility] 3, Partial fill upon patient request if the prescription is for a schedule I... Start Date: 09/22/21 Stop Date: 09/25/21 Status: Ordered cloNIDine 0.1 mg oral tablet 0.1 mg, 1, tablet, By Mouth, 2 times a day, # 20 tablet, Refills 0, Tot. Refills 0, Maintenance, 11/06/21 17:21:00 EDT, Route to Pharmacy Electronically, [facility] [id number], Partial fill upon patient request if the prescrip... Start Date: 11/06/21 Stop Date: 11/16/21 Status: Ordered cloNIDine 0.1 mg oral tablet 0.1 mg, 1, tablet, By Mouth, 2 times a day, Take 1 tablet (=0.1mg), 2 times a day, # 60 tablet, Refills 0, Tot. Refills 0, Maintenance, 07/08/21 8:23:00 EDT, Route to Pharmacy Electronically, [facility] [phone], Partial yesica... Start Date: 07/08/21 Stop Date: 08/07/21 Status: Ordered Colace sodium 100 mg oral capsule 100 mg, 1, capsule, By Mouth, 2 times a day, PRN, # 60 capsule, Refills 0, Tot. Refills 0, Maintenance, for constipation, 11/06/21 17:21:00 EDT, Route to Pharmacy Electronically, [facility] [id number], 173, cm, 11/06/21 14:25:... Start Date: 11/06/21 [...] 0 Refills, Maintenance, 12/19/21 14:58:00 EDT, Capsule, [facility] #[id number], Partial fill upon patient requestif the prescription is for a schedule II opioid law... Start Date: 12/19/21 Status: Ordered hydrOXYzine pamoate 50 mg oral capsule = 50 mg, By Mouth, 2 times a day, PRN Anxiety, take 1 capsule (=50mg), up to 2 times a day, as needed for anxiety, # 60 capsule, 0 Refills, Maintenance, 11/06/21 17:21:00 EDT, Capsule, [place], [place] - [id number], Partial fill upon... Start Date: 11/06/21 Stop Date: 12/06/21 Status: Ordered multivitamin Multiple Vitamins oral tablet 1 tablet, By Mouth, Daily, # 30 tablet, 0 Refills, Maintenance, 12/19/21 14:58:00 EDT, Tablet, [facility] #[id number], Partial fill upon patient request if the prescription is for a schedule II opioid drug., 1 tablet By Mouth Daily, 173, cm, 10/26... Start Date: 12/19/21 Status: Ordered omeprazole 20 mg oral delayed release tablet 1 tablet = 20 mg, By Mouth, Daily, # 30 tablet, 0 Refills, Maintenance, 12/19/21 14:51:00 EDT, CR Tablet, [facility] #[id number], Partial fill upon patient request if the [...] tablet, 0 Refills, Maintenance, 12/19/21 14:46:00 EDT, [facility] #[id number], Partial fill upon patient request if the prescriptionis for a schedule II opioid drug., 173, cm, ... Start Date: 12/19/21 Status: Ordered SEROquel XR 400 mg oral tablet, extended release 400 mg, 1, tablet, By Mouth, Daily, # 7 tablet, Refills 0, Tot. Refills 0, Maintenance, 08/19/21 13:05:00 EDT, Route to Pharmacy Electronically, [facility] 3, Partial fill upon patient request [...] 9:39:00 EDT, Route to Pharmacy Electronically, [facility], Partial fill upon patient reques... Start Date: 09/22/21 Stop Date: 09/29/21 Status: Ordered SEROquel XR 400 mg oral tablet, extended release 400 mg, 1, tablet, By Mouth, Daily in PM, # 30 tablet, Refills 0, Tot. Refills 0, Maintenance, 12/19/21 14:45:00 EDT, Route to Pharmacy Electronically, [facility] #[id number], Partial fill upon patient request if the prescription is for a schedul... Start Date: 12/19/21 Status: Ordered SEROquel XR 400 mg oral tablet, extended release 400 mg, 1, tablet, By Mouth, Daily in PM, # 30 tablet, Refills 0, Tot. Refills 0, Maintenance, 11/06/21 17:23:00 EDT, Route to Pharmacy Electronically, [place], [place] - [id number],Partial fill upon patient request if the prescripti... Start Date: 11/06/21 Status: Ordered SEROquel XR 400 mg oral tablet, extended release 400 mg, 1, tablet, By Mouth, Daily at bedtime, Take 1 tablet (=400mg) daily at bedtime, # 30 tablet, Refills 0, Tot. Refills 0, Maintenance, 07/08/21 8:22:00 EDT, Route to Pharmacy Electronically, [place], [place] - [id number], Part[place]... Start Date: 07/08/21 Stop Date: 08/07/21 Status: Ordered Vitamin B12 50 mcg oral tablet 1 tablet = 50 mcg, By Mouth, Daily, # 30 tablet, 0 Refills, Maintenance, 12/19/21 14:58:00 EDT, Tablet, [facility] #[id number], Partial fill upon patient request if the prescription is for a schedule II opioid drug., 173, cm, 11/06/21 14:25:00 ED... Start Date: 12/19/21 Status: Ordered Problem List Condition Confirmation Course Effective Dates Status [facility] Inform[facility] implementation project coordinator Hugo Alfonso [phone] Confirmed Active Severe obesity Confirmed Active Social History Social History Type Response Tobacco Interested in cessat ion: No. No, Other: rarely. Sex Patient Care team information Personnel Name: Not on Staff, PCP
--- OUTSIDE RECORDS SUMMARY | 2023-03-05 01:19 | XMS_ITS | Continuity of Care Document ---
Author Name Unknown Organization [facility] Address [address] [place] [address]- Care Team Providers Care Fruit Buyer Name Role Phone Vera Babcock MD Primary Care Physician Encounter [facility] Date(s): 11/04/22 - 12/04/[address] [address]- Allergies, Adverse Reactions, Alerts No Known Allergies Immunizations Given and Recorded Vaccine Date Status Refusal Reason tetanus/diphtheria/pertussis, acel(Tdap) 03/26/22 Given tetanus/diphtheria/pertussis, acel(Tdap) 01/03/09 Recorded [id number] 12y+ bivalent booster vax 03/26/22 Given influenza virus vaccine, inactivated 03/26/22 Give n influenza virus vaccine, inactivated 12/08/19 Osvaldo rded influenza virus vaccine, inactivated 11/29/18 Osvaldo rded influenza virus vaccine, inactivated 12/06/08 Osvaldo rded SARS-CoV-2 mRNA ([id number]) vax 08/05/21 Recorded SARS-CoV-2 (COVID-19) mRNA BNT-162b2 [...] tablet, 5 Refills, Maintenance, 06/28/22 10:57:00 EDT, [facility] [id number], Partial fill upon patient request if the [...] 03/26/22 14:44:00 EST, Route to Pharmacy Electronically, [facility] [id number], Partial fill upon patient request if the [...] 5 Refills, Maintenance, 03/26/22 14:48:00 EST, Tablet, [facility] [id number], Partial fill upon patient request if the prescription is for a schedule II opioid drug., 173, cm, 1... Start Date: 03/26/22 Stop Date: 09/22/22 Status: Ordered docusate sodium 100 mg oral capsule See Instructions, TAKE 1 CAPSULE BY MOUTH two (2) times a day, # 60 each, 5 Refills, Maintenance, 10/05/22 2:04:00 EDT, [facility], 175, cm, 07/02/22 15:31:00 EDT, Height, 170.9, kg, 05/13/22 14:47:00 EST, Dry Weight Start Date: 10/05/22 Status: Ordered folic acid 0.8 mg oral tablet 1 tablet = 0.8 mg, By Mouth, Daily, # 30 tablet, 11 Refills, Maintenance, 03/26/22 14:47:00 EST, Tablet, [facility], [place] - [id number], Partial fill upon patient request if the prescription is for a schedule II opioid drug., 173, cm,... Start Date: 03/26/22 Stop Date: 03/21/23 Status: Ordered hydrochlorothiazide 25 mg oral tablet 25 mg, 1, tablet, By Mouth, Daily, # 30 tablet, Refills 5, Tot. Refills 5, Maintenance, 06/28/22 10:57:00 EDT, Route to Pharmacy Electronically, [facility], [facility] [id number], Partial fill upon patient request if the prescription is f... Start Date: 06/28/22 Stop Date: 12/25/22 Status: Ordered hydrOXYzine pamoate 50 mg oral capsule 1 capsule, By Mouth, 4 times a day, PRN NEEDED FOR ANXIETY, # 50 each, 3 Refills, Maintenance, 07/28/22 13:05:00 EDT, [facility], 175, cm, 07/02/22 15:31:00 EDT, Height, 170.9, kg, 05/13/22 14:47:00 EST, Dry Weight Start Date: 07/28/22 Status: Ordered MetFORMIN (Eqv-Glucophage XR) 500 mg oral tablet, extended release 1 tablet = 500 mg, By Mouth, Daily, # 90 tablet, 3 Refills, Maintenance, 06/28/22 10:51:00 EDT, [facility] [id number], Partial fill upon patient request if the prescription is for a schedule II opioid drug., 175, cm, 06/28/22... Start Date: 06/28/22 Stop Date: 06/23/23 Status: Ordered multivitamin Multiple Vitamins oral tablet 1 tablet, By Mouth, Daily, # 30 tablet, 11 Refills, Maintenance, 03/26/22 14:47:00 EST, Tablet, [facility], [place] - [id number], Partial fill upon patient request if the prescription is for a schedule II opioid drug., 1 tablet By Mouth... Start Date: 03/26/22 Stop Date: 03/21/23 Status: Ordered omeprazole 20 mg oral enteric coated capsule See Instructions, TAKE 1 CAPSULE BY MOUTH ONCE DAILY, # 30 capsule, 5 Refills, Maintenance, 10/05/22 2:04:00 EDT, [facility], 175, cm, 07/02/22 15:31:00 EDT, [...] 03/26/22 14:48:00 EST, Route to Pharmacy Electronically, [facility], [place] - [id number], needs the extended release formulation. regular r... Start Date: 03/26/22 Stop Date: 03/21/23 Status: Ordered Problem List Condition Confirmation Course Effective Dates Status Health [facility] Informant Bipolar disorder Confirmed Active [facility] recruiter coordinator Hugo Hamilton [phone] Confirmed Active PTSD (post-traumatic stress disorder) Confirmed Active Severe obesity Confirmed Active Social History Social History Type Response Tobacco Use: 4 or less cigar ettes(less than 1/4 pack)/day in last 30 days. Other: rarely. Sex Patient Care team information Care Team Personnel Name: Jayne Vee RN Position: S RN Member Role: Primary Care Nurse Name: Jojo Cazares RN Position: [facility] RN Member Role: Primary Care Nurse Name: Vera Babcock MD Position: [facility] Physician - Primary Care Member Role: PCP Address: Address: [address] [place] [address]- [place] Care Team Related Persons Name: SKYE FELDER Address: home [address] [place] [address] Name: LALA HILLS Address: home [address] [place] [id number] Name: KERI BROTHERS Address: home [address] [place] [address]
--- OUTSIDE RECORDS SUMMARY | 2023-03-05 01:19 | XMS_ITS | Continuity of Care Document ---
Author Name Unknown Organization [facility] Address [address] [address]- Care Team Providers Care Manager Aerospace Name Role Phone Vera Babcock MD Primary Care Physician [phone] Encounter [facility] Date(s): 01/18/23 - 02/17/23 [facility] [address] [address] Allergies, Adverse Reactions, Alerts No Known Allergies Immunizations Given and Recorded Vaccine Date Status Refusal Reason tetanus/diphtheria/pertussis, acel(Tdap) 03/26/22 Given tetanus/diphtheria/pertussis, acel(Tdap) 01/03/09 Recorded [id number] 12y+ bivalent booster vax 03/26/22 Given influenza virus vaccine, inactivated 03/26/22 Give n influenza virus vaccine, inactivated 12/08/19 Osvaldo rded influenza virus vaccine, inactivated 11/29/18 Osvaldo rded influenza virus vaccine, inactivated 12/06/08 Osvaldo rded SARS-CoV-2 mRNA ([id number]) vax 08/05/21 Recorded SARS-CoV-2 (COVID-19) mRNA BNT-162b2 [...] tablet, 5 Refills, Maintenance, 01/05/23 10:03:00 EDT, [place], [place] - [id number], 175, cm, 12/09/22 13:29:00 EDT, Height, 161.2, [...] 03/26/22 14:44:00 EST, Route to Pharmacy Electronically, [place], [place] - [id number], Partial fill upon patient request if the [...] 5 Refills, Maintenance, 03/26/22 14:48:00 EST, Tablet, [facility] [id number], Partial fill upon patient request if the prescription is for a schedule II opioid drug., 173, cm, 1... Start Date: 03/26/22 Stop Date: 09/22/22 Status: Ordered docusate sodium 100 mg oral capsule See Instructions, TAKE 1 CAPSULE BY MOUTH two (2) times a day, # 60 each, 5 Refills, Maintenance, 10/05/22 2:04:00 EDT, [facility], 175, cm, 07/02/22 15:31:00 EDT, Height, 170.9, kg, 05/13/22 14:47:00 EST, Dry Weight Start Date: 10/05/22 Status: Ordered folic acid 0.8 mg oral tablet 1 tablet = 0.8 mg, By Mouth, Daily, # 30 tablet, 11 Refills, Maintenance, 03/26/22 14:47:00 EST, Tablet, [facility] [id number], Partial fill upon patient request if the prescription is for a schedule II opioid drug., 173, cm,... Start Date: 03/26/22 Stop Date: 03/21/23 Status: Ordered hydrochlorothiazide 25 mg oral tablet See Instructions, TAKE 1 TABLET BY MOUTH ONCE DAILY, # 30 tablet, Refills 5, Tot. Refills 5, Maintenance, 01/05/23 10:03:00 EDT, Instructions Replace Required Details, Route to Pharmacy Electronically, [facility] [id number], 1... Start Date: 01/05/23 Status: Ordered hydrOXYzine pamoate 50 mg oral capsule 1 capsule, By Mouth, 4 times a day, PRN NEEDED FOR ANXIETY, # 50 each, 3 Refills, Maintenance, 07/28/22 13:05:00 EDT, [facility], 175, cm, 07/02/22 15:31:00 EDT, Height, 170.9, kg, 05/13/22 14:47:00 EST, Dry Weight Start Date: 07/28/22 Status: Ordered MetFORMIN (Eqv-Glucophage XR) 500 mg oral tablet, extended release 1 tablet = 500 mg, By Mouth, Daily, # 90 tablet, 3 Refills, Maintenance, 06/28/22 10:51:00 EDT, [place], [place] - [id number], Partial fill upon patient request if the prescription is for a schedule II opioid drug., 175, cm, 06/28/22... Start Date: 06/28/22 Stop Date: 06/23/23 Status: Ordered multivitamin Multiple Vitamins oral tablet 1 tablet, By Mouth, Daily, # 30 tablet, 11 Refills, Maintenance, 03/26/22 14:47:00 EST, Tablet, [place], [place] - [id number], Partial fill upon patient request if the prescription is for a schedule II opioid drug., 1 tablet By Mouth... Start Date: 03/26/22 Stop Date: 03/21/23 Status: Ordered omeprazole 20 mg oral enteric coated capsule See Instructions, TAKE 1 CAPSULE BY MOUTH ONCE DAILY, # 30 capsule, 5 Refills, Maintenance, 10/05/22 2:04:00 EDT, [facility], 175, cm, 07/02/22 15:31:00 EDT, Height, 170.9, [...] 03/26/22 14:48:00 EST, Route to Pharmacy Electronically, [facility] [place], [place] - [id number], needs the extended release formulation. regular r... Start Date: 03/26/22 Stop Date: 03/21/23 Status: Ordered Problem List Condition Confirmation Course Effective Dates Status Health [facility] Informant ASCUS HPV+/ neg 16/18/45 1 Confirmed Active Bipolar disorder Confirmed Active [facility] web marketing coordinator Hugo Hamilton [phone] Confirmed Active PTSD (post-traumatic stress disorder) Confirmed Active Severe obesity Confirmed Active 1Unable to fully visualize cervix with speculum available. Unable to complete colposcopy procedure. will refer to [facility] Social History Social History Type Response Tobacco Use: 4 or less cigar ettes(less than 1/4 pack)/day in last 30 days. Other: rarely. Sex Patient Care team information Care Team Personnel Name: Jayne Vee RN Position: [facility] RN Member Role: Primary Care Nurse Name: Jojo Cazares RN Position: [facility] RN Member Role: Primary Care Nurse Name: Vera Babcock MD Position: [facility] Physician - Primary Care Member Role: PCP Address: Address: [address] [place] [address]- Care Team Related Persons Name: SKYE FELDER Address: home [address] [place] [address] Name: LALA HILLS Address: [address] [address] Name: KERI BROTHERS Address: [address] [address]
--- OUTSIDE RECORDS SUMMARY | 2023-03-05 01:19 | XMS_ITS | Continuity of Care Document ---
Author Name Unknown Organization [facility] Address [address] [place] [address]- Care Team Providers Care Last Remodeler Repairer Name Role Phone Vera Babcock MD Primary Care Physician [facility] Date[facility]): [facility]/18/22 - 06/17/[address] [address] Allergies, Adverse Reactions, Alerts No Known Allergies Immunizations Given and Recorded Vaccine Date Status Refusal Reason tetanus/diphtheria/pertussis, acel(Tdap) 03/26/22 Given tetanus/diphtheria/pertussis, acel(Tdap) 01/03/09 Recorded [id number] 12y+ bivalent booster vax 03/26/22 Given influenza virus vaccine, inactivated 03/26/22 Give n influenza virus vaccine, inactivated 12/08/19 Osvaldo rded influenza virus vaccine, inactivated 11/29/18 Osvaldo rded influenza virus vaccine, inactivated 12/06/08 Osvaldo rded SARS-CoV-2 mRNA ([id number]) vax 08/05/21 Recorded SARS-CoV-2 (COVID-19) mRNA BNT-162b2 [...] 03/26/22 14:44:00 EST, Route to Pharmacy Electronically, [facility] [id number], Partial fill upon patient request if the prescription is for... Start Date: 03/26/22 Stop Date: 03/21/23 Status: Ordered cyanocobalamin 50 mcg oral tablet 1 tablet = 50 mcg, By Mouth, Daily, # 30 tablet, 5 Refills, Maintenance, 03/26/22 14:48:00 EST, Tablet, [facility] [id number], Partial fill upon patient request if the [...] capsule, 5 Refills, Maintenance, 03/26/22 14:46:00 EST, [facility] [id number], Partial fill upon patient request if the prescription is for a schedule II opioid drug., 173, cm,... Start Date: 03/26/22 Stop Date: 09/22/22 Status: Ordered folic acid 0.8 mg oral tablet 1 tablet = 0.8 mg, By Mouth, Daily, # 30 tablet, 11 Refills, Maintenance, 03/26/22 14:47:00 EST, Tablet, [facility] [id number], Partial fill upon patient request if the prescription is for a schedule II opioid drug., 173, cm,... Start Date: 03/26/22 Stop Date: 03/21/23 Status: Ordered hydrOXYzine pamoate 50 mg oral capsule 1 capsule = 50 mg, By Mouth, 4 times a day, PRN for anxiety, for 30 days, # 50 capsule, 3 Refills, Acute 07/24/22 14:44:00 EDT, 03/26/22 14:44:00 EST, Capsule, [facility] [id number], deliver, 173, cm, 03/26/22 13:47:00 EST, He... Start Date: 03/26/22 Stop Date: 07/24/22 Status: Ordered multivitamin Multiple Vitamins oral tablet 1 tablet, By Mouth, Daily, # 30 tablet, 11 Refills, Maintenance, 03/26/22 14:47:00 EST, Tablet, [facility] [id number], Partial fill upon patient request if the prescription is for a schedule II opioid drug., 1 tablet By Mouth... Start Date: 03/26/22 Stop Date: 03/21/23 Status: Ordered omeprazole 20 mg oral delayed release tablet 1 tablet = 20 mg, By Mouth, Daily, # 30 tablet, 5 Refills, Maintenance, 03/26/22 14:47:00 EST, CR Tablet, [facility] [id number], Partial fill upon patient request if the [...] 03/26/22 14:48:00 EST, Route to Pharmacy Electronically, [facility] [place], [place] - [id number], needs the extended release formulation. regular r... Start Date: 03/26/22 Stop Date: 03/21/23 Status: Ordered Problem List Condition Confirmation Course Effective Dates Status Health St [facility] Informant Bipolar disorder Confirmed Active [facility] customer supply coordinator Hugo Hamilton [phone] Confirmed Active PTSD (post-traumatic stress disorder) Confirmed Active Severe obesity Confirmed Active Social History Social History Type Response Tobacco Use: 4 or less cigar ettes(less than 1/4 pack)/day in last 30 days. Other: rarely. Sex Patient Care team information Care Team Personnel Name: Jayne Vee RN Position: [facility] RN Member Role: Primary Care Nurse Name: Ruthy Valdes RN Position: [facility] RN Member Role: Primary Care Nurse Name: Jojo Cazares RN Position: [facility] RN Member Role: Primary Care Nurse Name: Vera Babcock MD Position: [facility] Primary Care Physician Member Role: PCP Address: Address: [address] [place] [address]- Care Team Related Persons Name: SKYE FELDER Address: home [address] [place] [address] Name: LALA HILLS Address: home [address] [place] [id number] Name: KERI BROTHERS Address: home [address] [place] [address]
--- OUTSIDE RECORDS SUMMARY | 2023-03-05 01:19 | XMS_ITS | Continuity of Care Document ---
Author Name Unknown Organization [facility] ter Address [address] [place] [address]- Care Team Providers Care Remediation Project Engineer Name Role Phone Not on Staff, PCP Primary Care Physician Unavail able [facility] Date(s): 03/09/22 - 03/09/[address] [address]- Encounter Diagnosis Medication refill(Final) - 03/09/22 Discharge Disposition: A-D/C Home Attending Physician: Matt Linton MD Admitting Physician: Matt Linton MD Referring Physician: Not on Staff, Referring [...] 08/19/21 13:05:00 EDT, Route to Pharmacy Electronically, [facility], Partial fill upon patient request if the prescription is for a schedule... Start Date: 08/19/21 Stop Date: 08/26/21 Status: Ordered cloNIDine 0.1 mg oral tablet 0.1 mg, 1, tablet, By Mouth, 2 times a day, # 6 tablet, Refills 0, Tot. Refills 0, Maintenance, 09/22/21 9:39:00 EDT, Route to Pharmacy Electronically, [facility], Partial fill upon patient request if the prescription is for a schedule I... Start Date: 09/22/21 Stop Date: 09/25/21 Status: Ordered cloNIDine 0.1 mg oral tablet 0.1 mg, 1, tablet, By Mouth, 2 times a day, # 30 tablet, Refills 0, Tot. Refills 0, Maintenance, 03/09/22 20:08:00 EST, Route to Pharmacy Electronically, [facility] #[id number], Partial fill upon patient request if the prescription is for a sched... Start Date: 03/09/22 Status: Ordered cloNIDine 0.1 mg oral tablet 0.1 mg, 1, tablet, By Mouth, 2 times a day, # 20 tablet, Refills 0, Tot. Refills 0, Maintenance, 11/06/21 17:21:00 EDT, Route to Pharmacy Electronically, [facility] [id number], Partial fill upon patient request if the prescrip... Start Date: 11/06/21 Stop Date: 11/16/21 Status: Ordered cloNIDine 0.1 mg oral tablet 0.1 mg, 1, tablet, By Mouth, 2 times a day, Take 1 tablet (=0.1mg), 2 times a day, # 60 tablet, Refills 0, Tot. Refills 0, Maintenance, 07/08/21 8:23:00 EDT, Route to Pharmacy Electronically, [facility] [id number], Partial yesica... Start Date: 07/08/21 Stop Date: 08/07/21 Status: Ordered Colace sodium 100 mg oral capsule 100 mg, 1, capsule, By Mouth, 2 times a day, PRN, # 60 capsule, Refills 0, Tot. Refills 0, Maintenance, for constipation, 11/06/21 17:21:00 EDT, Route to Pharmacy Electronically, [place], [place] - [id number], ruben Johnson, 11/06/21 14:25:... Start Date: 11/06/21 Stop Date: [...] 0 Refills, Maintenance, 12/19/21 14:58:00 EDT, Capsule, [facility] #[id number], Partial fill upon patient requestif the prescription is for a schedule II opioid lwa... Start Date: 12/19/21 Status: Ordered docusate sodium 100 mg oral tablet 2 tablet = 200 mg, By Mouth, 2 times a day, PRN for constipation, # 60 tablet, 0 Refills, Maintenance, 03/09/22 19:41:00 EST, Tablet, [facility] #[id number], Partial fill upon patient request ifthe prescription is for a schedule II opioid drug.,... Start Date: 03/09/22 Status: Ordered folic acid 0.8 mg oral tablet 1 tablet = 0.8 mg, By Mouth, Daily, # 100 tablet, 0 Refills, Maintenance, 03/09/22 19:40:00 EST, Tablet, [facility] #[id number], Partial fill upon patient request if the [...] 0 Refills, Maintenance, 11/06/21 17:21:00 EDT, Capsule, [place], [place] - [id number], Partial fill upon... Start Date: 11/06/21 Stop Date: 12/06/21 Status: Ordered multivitamin Multiple Vitamins oral capsule 1 capsule, By Mouth, Daily, # 90 capsule, 0 Refills, Maintenance, 03/09/22 19:41:00 EST, Capsule, [facility] #[id number], Partial fill upon patient request if the prescription is for a schedule II opioid drug., 1 capsule By Mouth Daily, 173, cm,... Start Date: 03/09/22 Status: Ordered multivitamin Multiple Vitamins oral tablet 1 tablet, By Mouth, Daily, # 30 tablet, 0 Refills, Maintenance, 12/19/21 14:58:00 EDT, Tablet, [facility] #[id number], Partial fill upon patient request if the prescription is for a schedule II opioid drug., 1 tablet By Mouth Daily, 173, cm, 10/26... Start Date: 12/19/21 Status: Ordered omeprazole 20 mg oral delayed release tablet 1 tablet = 20 mg, By Mouth, Daily, # 30 tablet, 0 Refills, Maintenance, 03/09/22 20:09:00 EST, [facility] #[id number], Partial fill upon patient request if the prescription is for a schedule II opioid drug., 173, cm, 03/09/22 17:57:00 EST, Height... Start Date: 03/09/22 Status: Ordered omeprazole 20 mg oral delayed release tablet 1 tablet = 20 mg, By Mouth, Daily, # 30 tablet, 0 Refills, Maintenance, 12/19/21 14:51:00 EDT, CR Tablet, [facility] #[id number], Partial fill upon patient request if the [...] tablet, 0 Refills, Maintenance, 12/19/21 14:46:00 EDT, [facility] #[id number], Partial fill upon patient request if the prescriptionis for a schedule II opioid drug., 173, cm, ... Start Date: 12/19/21 Status: Ordered SEROquel XR 400 mg oral tablet, extended release 400 mg, 1, tablet, By Mouth, Daily, # 7 tablet, Refills 0, Tot. Refills 0, Maintenance, 08/19/21 13:05:00 EDT, Route to Pharmacy Electronically, [facility], Partial fill upon patient [...] Route to Pharmacy Electronically, [facility], Partial fill upon patient reques... Start Date: 09/22/21 Stop Date: 09/29/21 Status: Ordered SEROquel XR 400 mg oral tablet, extended release 400 mg, 1, tablet, By Mouth, Daily in PM, # 30 tablet, Refills 0, Tot. Refills 0, Maintenance, 03/09/22 19:40:00 EST, Route to Pharmacy Electronically, [facility] #[id number], Partial fill upon patient request if the prescription is for a schedul... Start Date: 03/09/22 Status: Ordered SEROquel XR 400 mg oral tablet, extended release 400 mg, 1, tablet, By Mouth, Daily in PM, # 30 tablet, Refills 0, Tot. Refills 0, Maintenance, 12/19/21 14:45:00 EDT, Route to Pharmacy Electronically, [facility] #[id number], Partial fill upon patient request if the prescription is for a schedul... Start Date: 12/19/21 Status: Ordered SEROquel XR 400 mg oral tablet, extended release 400 mg, 1, tablet, By Mouth, Daily in PM, # 30 tablet, Refills 0, Tot. Refills 0, Maintenance, 11/06/21 17:23:00 EDT, Route to Pharmacy Electronically, [facility] [id number],Partial fill upon patient request if the prescripti... Start Date: 11/06/21 Status: Ordered SEROquel XR 400 mg oral tablet, extended release 400 mg, 1, tablet, By Mouth, Daily at bedtime, Take 1 tablet (=400mg) daily at bedtime, # 30 tablet, Refills 0, Tot. Refills 0, Maintenance, 07/08/21 8:22:00 EDT, Route to Pharmacy Electronically, [facility] [id number], Partia... Start Date: 07/08/21 Stop Date: 08/07/21 Status: Ordered Vistaril pamoate 50 mg oral capsule 1 capsule = 50 mg, By Mouth, 4 times a day, PRN for anxiety, # 40 capsule, 0 Refills, Acute 03/26/22 15:00:00 EST, 03/09/22 19:40:00 EST, Capsule, [facility] #[id number], Partial fill upon patient request if the prescription is for a schedule II... Start Date: 03/09/22 Stop Date: 03/26/22 Status: Ordered Vitamin B12 50 mcg oral tablet 1 tablet = 50 mcg, By Mouth, Daily, # 30 tablet, 0 Refills, Maintenance, 12/19/21 14:58:00 EDT, Tablet, [facility] #[id number], Partial fill upon patient request if the prescription is for a schedule II opioid drug., 173, cm, 11/06/21 14:25:00 ED... Start Date: 12/19/21 Status: Ordered Problem List Condition Confirmation Course Effective Dates Status Health [facility] Informant [facility] recovery coordinator Hugo Hamilton [phone] Confirmed Active Severe obesity Confirmed Active Vital Signs Most recent to oldest [Reference Range]: 1 2 Height 173 cm (03/09/22 8:16 PM) 173 cm (03/09/22 5:57 PM) Weight 173 kg (03/09/22 8:16 PM) 173 kg (03/09/22 5:57 PM) Oxygen Saturation [94-100 %] 99 % (03/09/22 8:16 PM) 100 % (03/09/22 5:57 PM) Pulse Rate [55-90 bpm] 86 bpm (03/09/22 8:16 PM) 98 bpm *H* (03/09/22 5:57 PM) Body Mass Index [18.5-24.99 kg/m2] 57.8 kg/m2 *>HHI* (03/09/22 8:16 PM) 57.8 kg/m2 *>HHI* (03/09/22 5:57 PM) Blood Pressure [90-138/55-84 mm Hg] 179/ 80mm Hg *H* (03/09/22 8:16 PM) 128/86mm Hg (03/09/22 5:57 PM) Respiratory Rate [16-30 br/min] 17 br/mi n (03/09/22 8:16 PM) 18 br/min (03/09/22 5:57 PM) Temperature [96.8-100.4 DegF] 98.3 DegF (03/09/22 8:16 PM) 97.3 DegF (03/09/22 5:57 PM) Mode of Delivery (Oxygen) Room air (03/09/22 5:57 PM) Blood pressure sites Arm, right (03/09/22 5:57 PM) Temperature Route Oral (03/09/22 8:16 PM) Oral (03/09/22 5:57 PM) Dry Weight 173 kg (03/09/22 8:16 PM) 173 kg (03/09/22 5:57 PM) Weight Obtained Via Standing scale (03/09/22 5:57 PM) Dry Weight Obtained Via Standing scale (03/09/22 5:57 PM) Social History Social History Type Response Tobacco Interested in cessat ion: No. No, Other: rarely. Sex Patient Care team information Care Team Personnel Name: Jayne Vee RN Position: [facility] RN Member Role: Primary Care Nurse Name: Not on Staff, PCP Position: [facility] Physician (General Medicine) Member Role: PCP Name: Lyric Marquez RN Position: [facility] RN Member Role: Primary Care Nurse Name: Ruthy Valdes RN Position: [facility] RN Member Role: Primary Care Nurse Name: Jojo Cazares RN Position: [facility] RN Member Role: Primary Care Nurse Name: Bhanu Mart MD Position: [facility] Resident Member Role: ED Resident Address: Address: [address] [place] [address] Name: Matt Linton MD Position: [facility] ED Medicine MD Member Role: Admitting Physician Address: Address: [address] [place] [address] Name: Franchesca Neville Position: [facility] ED TA [facility] Name: Joseluis Meyers RN Position: [facility] ED RN W/OE and Tasks Member Role: Patient Care Provider Care Team Related Persons Name: SKYE FELDER Address: home [address] [place] [address] Name: LALA HILLS Address: home [address] [place] [address]
--- OUTSIDE RECORDS SUMMARY | 2023-03-05 01:19 | XMS_ITS | Continuity of Care Document ---
Author Name Unknown Organization [facility] ter Address [address] [place] [address]- Care Team Providers Care Wedger And Gluer Name Role Phone Magdi LOZADA, Latasha Elizondo Primary Care Physician [phone] [place] [facility] Date[facility]s[place] 09/21/21 - 09/22/[address] [address]- Discharge Disposition: A-D/C Home Attending Physician: Jarrod [...] 13:05:00 EDT, Route to Pharmacy Electronically, [facility], Partial fill upon patient request if the prescription is for a schedule... Start Date: 08/19/21 Stop Date: 08/26/21 Status: Ordered cloNIDine 0.1 mg oral tablet 0.1 mg, 1, tablet, By Mouth, 2 times a day, # 6 tablet, Refills 0, Tot. Refills 0, Maintenance, 09/22/21 9:39:00 EDT, Route to Pharmacy Electronically, [facility], Partial fill upon patient request if the prescription is for a schedule I... Start Date: 09/22/21 Stop Date: 09/25/21 Status: Ordered cloNIDine 0.1 mg oral tablet 0.1 mg, 1, tablet, By Mouth, 2 times a day, Take 1 tablet (=0.1mg), 2 times a day, # 60 tablet, Refills 0, Tot. Refills 0, Maintenance, 07/08/21 8:23:00 EDT, Route to Pharmacy Electronically, [place], [place] - [id number], Partial yesica... Start Date: 07/08/21 Stop Date: [...] 07/08/21 8:28:00 EDT, Route to Pharmacy Electronically, [facility] [id number], 173, cm, 07/07/21 22:02:0... Start Date: 07/08/21 [...] days, # 3 tablet, 0 Refills, Acute 09/25/21 9:39:00 EDT, 09/22/21 9:39:00 EDT, Tablet, [facility], Partial fill upon patient request if the prescription is for a schedule II opioid drug... Start Date: 09/22/21 Stop Date: 09/25/21 Status: Ordered hydrOXYzine pamoate 50 mg oral capsule = 50 mg, By Mouth, 2 times a day, PRN Anxiety, take 1 capsule (=50mg), up to 2 times a day, as needed for anxiety, # 60 capsule, 0 Refills, Maintenance, 07/08/21 8:23:00 EDT, Capsule, [place], [place] - [id number], Partial fill upon p... Start Date: 07/08/21 [...] 13:05:00 EDT, Route to Pharmacy Electronically, [facility], Partial fill upon patient request if the prescription is for a schedule II opioi... Start Date: 08/19/21 Stop Date: 08/26/21 Status: Ordered SEROquel XR 400 mg oral tablet, extended release 400 mg, 1, tablet, By Mouth, Daily in PM, please provide financial waiver for copay, # 7 tablet, Refills 0, Tot. Refills 0, Maintenance, 09/22/21 9:39:00 EDT, Route to Pharmacy Electronically, [facility], Partial fill upon patient reques... Start Date: 09/22/21 Stop Date: 09/29/21 Status: Ordered SEROquel XR 400 mg oral tablet, extended release 400 mg, 1, tablet, By Mouth, Daily at bedtime, Take 1 tablet (=400mg) daily at bedtime, # 30 tablet, Refills 0, Tot. Refills 0, Maintenance, 07/08/21 8:22:00 EDT, Route to Pharmacy Electronically, [facility] [place], [place] - [id number], Danuta... Start Date: 07/08/21 Stop Date: 08/07/21 Status: Ordered Problem List Condition Effective Dates Status Health Status Inform ant Severe obesity(Confirmed) Active Vital Signs Most recent to oldest [Reference Range]: 1 2 3 Oxygen Saturation [94-100 %] 100 % (09/22/21 11:52 AM) 99 % (09/22/21 2:44 AM) 97 % (09/22/21 12:04 AM) Pulse Rate [55-90 bpm] 71 bpm (09/22/21 11:52 AM) 75 bpm (09/22/21 2:44 AM) 97 bpm *H* (09/22/21 12:04 AM) Blood Pressure [90-138/55-84 mm Hg] 120/71mm Hg (09/22/21 11:52 AM) 127/74mm Hg (09/22/21 2:44 AM) 139/88mm Hg *H* (09/22/21 12:04 AM) Respiratory Rate [16-30 br/min] 16 br/min (09/22/21 11:52 AM) 18 br/min (09/22/21 2:44 AM) 18 br/min (09/22/21 12:04 AM) Temperature [96.8-100.4 DegF] 97.9 DegF (09/22/21 12:04 AM) Mode of Delivery (Oxygen) Room air (09/22/21 11:52 AM) Room air (09/22/21 2:44 AM) Room air (09/22/21 12:04 AM) Temperature Route Oral (09/22/21 12:04 AM) Social History Social History Type Response Tobacco Interested in cessat ion: No. No, Other: rarely. Sex
--- OUTSIDE RECORDS SUMMARY | 2023-03-05 01:19 | XMS_ITS | Continuity of Care Document ---
Author Name Unknown Organization [facility] Address [address] [place] [address]- Care Team Providers Care Auditor Internal Name Role Phone Vera Babcock MD Primary Care Physician [facility] Date[facility] 04[facility]22 - 05/01/[address] [address] Allergies, Adverse Reactions, Alerts No Known Allergies Immunizations Given and Recorded Vaccine Date Status Refusal Reason tetanus/diphtheria/pertussis, acel(Tdap) 03/26/22 Given tetanus/diphtheria/pertussis, acel(Tdap) 01/03/09 Recorded [id number] 12y+ bivalent booster vax 03/26/22 Given influenza virus vaccine, inactivated 03/26/22 Give n influenza virus vaccine, inactivated 12/08/19 Osvaldo rded influenza virus vaccine, inactivated 11/29/18 Osvaldo rded influenza virus vaccine, inactivated 12/06/08 Osvaldo rded SARS-CoV-2 mRNA ([id number]) vax 08/05/21 Recorded SARS-CoV-2 (COVID-19) mRNA BNT-162b2 [...] 03/26/22 14:44:00 EST, Route to Pharmacy Electronically, [facility] [id number], Partial fill upon patient request if the prescription is for... Start Date: 03/26/22 Stop Date: 03/21/23 Status: Ordered cyanocobalamin 50 mcg oral tablet 1 tablet = 50 mcg, By Mouth, Daily, # 30 tablet, 5 Refills, Maintenance, 03/26/22 14:48:00 EST, Tablet, [facility] [id number], Partial fill upon patient request if the prescription is for a schedule II opioid drug., 173, cm, 1... Start Date: 03/26/22 Stop Date: 09/22/22 Status: Ordered docusate sodium 100 mg oral capsule 1 capsule = 100 mg, By Mouth, 2 times a day, # 60 capsule, 5 Refills, Maintenance, 03/26/22 14:46:00 EST, [facility] [id number], Partial fill upon patient request if the prescription is for a schedule II opioid drug., 173, cm,... Start Date: 03/26/22 Stop Date: 09/22/22 Status: Ordered folic acid 0.8 mg oral tablet 1 tablet = 0.8 mg, By Mouth, Daily, # 30 tablet, 11 Refills, Maintenance, 03/26/22 14:47:00 EST, Tablet, [facility] [id number], Partial fill upon patient request if the prescription is for a schedule II opioid drug., 173, cm,... Start Date: 03/26/22 Stop Date: 03/21/23 Status: Ordered hydrOXYzine pamoate 50 mg oral capsule 1 capsule = 50 mg, By Mouth, 4 times a day, PRN for anxiety, for 30 days, # 50 capsule, 3 Refills, Acute 07/24/22 14:44:00 EDT, 03/26/22 14:44:00 EST, Capsule, [facility] [id number], deliver, 173, cm, 03/26/22 13:47:00 EST, He... Start Date: 03/26/22 Stop Date: 07/24/22 Status: Ordered multivitamin Multiple Vitamins oral tablet 1 tablet, By Mouth, Daily, # 30 tablet, 11 Refills, Maintenance, 03/26/22 14:47:00 EST, Tablet, [facility] [id number], Partial fill upon patient request if the prescription is for a schedule II opioid drug., 1 tablet By Mouth... Start Date: 03/26/22 Stop Date: 03/21/23 Status: Ordered omeprazole 20 mg oral delayed release tablet 1 tablet = 20 mg, By Mouth, Daily, # 30 tablet, 5 Refills, Maintenance, 03/26/22 14:47:00 EST, CR Tablet, [facility] [id number], Partial fill upon patient request if the prescription is for a schedule II opioid drug., 173, cm,... Start Date: 03/26/22 Stop Date: 09/22/22 Status: Ordered SEROquel XR 400 mg oral tablet, extended release 400 mg, 1, tablet, By Mouth, Daily in PM, # 30 tablet, Refills 11, Tot. Refills 11, Maintenance, 03/26/22 14:48:00 EST, Route to Pharmacy Electronically, [facility] [id number], needs the extended release formulation. regular r... Start Date: 03/26/22 Stop Date: 03/21/23 Status: Ordered Problem List Condition Confirmation Course Effective Dates Status Health St [facility] Informant Bipolar disorder Confirmed Active [facility] on site coordinator Hugoamberly Hamilton [phone] Confirmed Active PTSD (post-traumatic stress disorder) Confirmed Active Severe obesity Confirmed Active Social History Social History Type Response Tobacco Interested in cessat ion: No. No, Other: rarely. Sex Patient Care team information Care Team Personnel Name: Jayne Vee RN Position: [facility] RN Member Role: Primary Care Nurse Name: Lyric Marquez RN Position: [facility] RN Member Role: Primary Care Nurse Name: Ruthy Valdes RN Position: S RN Member Role: Primary Care Nurse Name: Jojo Cazares RN Position: [facility] RN Member Role: Primary Care Nurse Name: Vera Babcock MD Position: [facility] Primary Care Physician Member Role: PCP Address: Address: [address] [place] [address]- Care Team Related Persons Name: SKYE FELDER Address: home [address] [place] [address] Name: LALA HILLS Address: [address] [address] Name: KERI BROTHERS Address: home [address] [place] [address]
--- OUTSIDE RECORDS SUMMARY | 2023-03-05 01:19 | XMS_ITS | Continuity of Care Document ---
Author Name Unknown Organization [facility] Address [address] [place] [address]- Care Team Providers Care Cushion Installer Name Role Phone Vera Babcock MD Primary Care Physician [place] [facility] [place] - 07/28/[address] [address]- Attending Physician: Edith Mendoza Admitting Physician: AdmtrEdith Referring Physician: Admtr, Ar8 Allergies, Adverse Reactions, Alerts No Known Allergies Immunizations Given and Recorded Vaccine Date Status Refusal Reason tetanus/diphtheria/pertussis, acel(Tdap) 03/26/22 Given tetanus/diphtheria/pertussis, acel(Tdap) 01/03/09 Recorded [id number] 12y+ bivalent booster vax 03/26/22 Given influenza virus vaccine, inactivated 03/26/22 Give n influenza virus vaccine, inactivated 12/08/19 Osvaldo rded influenza virus vaccine, inactivated 11/29/18 Osvaldo rded influenza virus vaccine, inactivated 12/06/08 Osvaldo rded SARS-CoV-2 mRNA ([id number]) vax 08/05/21 Recorded SARS-CoV-2 (COVID-19) mRNA BNT-162b2 [...] tablet, 5 Refills, Maintenance, 06/28/22 10:57:00 EDT, [place], [place] - [id number], Partial fill upon patient request if the [...] 03/26/22 14:44:00 EST, Route to Pharmacy Electronically, [place], [place] - [id number], Partial fill upon patient request if the [...] Maintenance, 03/26/22 14:48:00 EST, Tablet, [facility] [id number], Partial fill upon patient request if the [...] capsule, 5 Refills, Maintenance, 03/26/22 14:46:00 EST, [facility] [id number], Partial fill upon patient request if the prescription is for a schedule II opioid drug., 173, cm,... Start Date: 03/26/22 Stop Date: 09/22/22 Status: Ordered folic acid 0.8 mg oral tablet 1 tablet = 0.8 mg, By Mouth, Daily, # 30 tablet, 11 Refills, Maintenance, 03/26/22 14:47:00 EST, Tablet, [facility] [id number], Partial fill upon patient request if the prescription is for a schedule II opioid drug., 173, cm,... Start Date: 03/26/22 Stop Date: 03/21/23 Status: Ordered hydrochlorothiazide 25 mg oral tablet 25 mg, 1, tablet, By Mouth, Daily, # 30 tablet, Refills 5, Tot. Refills 5, Maintenance, 06/28/22 10:57:00 EDT, Route to Pharmacy Electronically, [facility] [id number], Partial fill upon patient request if the prescription is f... Start Date: 06/28/22 Stop Date: 12/25/22 Status: Ordered hydrOXYzine pamoate 50 mg oral capsule 1 capsule, By Mouth, 4 times a day, PRN NEEDED FOR ANXIETY, # 50 each, 3 Refills, Maintenance, 07/28/22 13:05:00 EDT, [facility], 175, cm, 07/02/22 15:31:00 EDT, Height, 170.9, kg, 05/13/22 14:47:00 EST, Dry Weight Start Date: 07/28/22 Status: Ordered MetFORMIN (Eqv-Glucophage XR) 500 mg oral tablet, extended release 1 tablet = 500 mg, By Mouth, Daily, # 90 tablet, 3 Refills, Maintenance, 06/28/22 10:51:00 EDT, [facility] [id number], Partial fill upon patient request if the prescription is for a schedule II opioid drug., 175, cm, 06/28/22... Start Date: 06/28/22 Stop Date: 06/23/23 Status: Ordered multivitamin Multiple Vitamins oral tablet 1 tablet, By Mouth, Daily, # 30 tablet, 11 Refills, Maintenance, 03/26/22 14:47:00 EST, Tablet, [facility], [place] - [id number], Partial fill upon patient request if the prescription is for a schedule II opioid drug., 1 tablet By Mouth... Start Date: 03/26/22 Stop Date: 03/21/23 Status: Ordered omeprazole 20 mg oral delayed release tablet 1 tablet = 20 mg, By Mouth, Daily, # 30 tablet, 5 Refills, Maintenance, 03/26/22 14:47:00 EST, CR Tablet, [facility] [id number], Partial fill upon patient request if the [...] 03/26/22 14:48:00 EST, Route to Pharmacy Electronically, [facility] - [place], [place] - [id number], needs the extended release formulation. regular r... Start Date: 03/26/22 Stop Date: 03/21/23 Status: Ordered Problem List Condition Confirmation Course Effective Dates Status Health St atus Informant Bipolar disorder Confirmed Active [facility] emergency medical service coordinator Hugo Hamilton [phone] Confirmed Active PTSD (post-traumatic stress disorder) Confirmed Active Severe obesity Confirmed Active Social History Social History Type Response Tobacco Use: 4 or less cigar ettes(less than 1/4 pack)/day in last 30 days. Other: rarely. Sex Patient Care team information Care Team Personnel Name: Jayne Vee RN Position: [facility] RN Member Role: Primary Care Nurse Name: Jojo Cazares RN Position: [facility] RN Member Role: Primary Care Nurse Name: Vera Babcock MD Position: [facility] Primary Care Physician Member Role: PCP Address: Address: [address] [place] [address]- Care Team Related Persons Name: SKYE FELDER Address: home [address] [place] [address] Name: LALA HILLS Address: home [address] [place] [id number] Name: KERI BROTHERS Address: [address] [place] [address]
--- OUTSIDE RECORDS SUMMARY | 2023-03-05 01:19 | XMS_ITS | Continuity of Care Document ---
Author Name Unknown Organization [facility] Address [address] [place] [address]- Care Team Providers Care Special Forces Officer Name Role Phone Magdi LOZADA, Latasha Elizondo Primary Care Physician [phone] Encounter [facility] [place] Date(s): 09/06/21 - 09/09/[address] [address]- Encounter Diagnosis Sanjana(Final) - 09/06/21 Discharge Disposition: Disch/Trans to a [facility] Attending Physician: Roshan Fair MD Admitting Physician: Roshan Fair MD Referring Physician: Not on Staff, Referring [...] 13:05:00 EDT, Route to Pharmacy Electronically, [facility], Partial fill upon patient request if the prescription is for a schedule... Start Date: 08/19/21 Stop Date: 08/26/21 Status: Ordered cloNIDine 0.1 mg oral tablet 0.1 mg, 1, tablet, By Mouth, 2 times a day, Take 1 tablet (=0.1mg), 2 times a day, # 60 tablet, Refills 0, Tot. Refills 0, Maintenance, 07/08/21 8:23:00 EDT, Route to Pharmacy Electronically, [facility] [id number], Partial yesica... Start Date: 07/08/21 Stop Date: [...] 07/08/21 8:28:00 EDT, Route to Pharmacy Electronically, [facility] [id number], 173, cm, 07/07/21 22:02:0... Start Date: 07/08/21 [...] 0 Refills, Maintenance, 07/08/21 8:23:00 EDT, Capsule, [facility] [id number], Partial fill upon p... Start Date: 07/08/21 [...] 08/19/21 13:05:00 EDT, Route to Pharmacy Electronically, [facility] 3, Partial fill upon patient request [...] 07/08/21 8:22:00 EDT, Route to Pharmacy Electronically, [facility] [id number], Partia... Start Date: 07/08/21 Stop Date: 08/07/21 Status: Ordered Problem List Condition Effective Dates Status Health Status Inform ant Severe obesity(Confirmed) Active Vital Signs Most recent to oldest [Reference Range]: 1 2 3 Oxygen Saturation [94-100 %] 98 % (09/08/21 11:45 PM) 100 % (09/08/21 5:16 PM) 100 % (09/08/21 10:22 AM) Pulse Rate [55-90 bpm] 77 bpm (09/08/21 11:45 PM) 61 bpm (09/08/21 5:16 PM) 80 bpm (09/08/21 10:22 AM) Blood Pressure [90-138/55-84 mm Hg] 145/76mm Hg *H* (09/08/21 11:45 PM) 119/57mm Hg (09/08/21 5:16 PM) 140/69mm Hg *H* (09/08/21 10:22 AM) Respiratory Rate [16-30 br/min] 18 br/min (09/08/21 11:45 PM) 14 br/min *L* (09/08/21 5:16 PM) 18 br/min (09/08/21 10:22 AM) Temperature [96.8-100.4 DegF] 98.1 DegF (09/08/21 11:45 PM) 97.4 DegF (09/08/21 5:16 PM) 98.0 DegF (09/08/21 10:22 AM) Mode of Delivery (Oxygen) Room air (09/08/21 11:45 PM) Room air (09/08/21 5:16 PM) Room air (09/08/21 10:22 AM) Blood pressure sites Arm, left (09/08/21 11:45 PM) Arm, right (09/08/21 5:16 PM) Arm, right (09/08/21 10:22 AM) Temperature Route Oral (09/08/21 11:45 PM) Oral (09/08/21 5:16 PM) Oral (09/08/21 10:22 AM) Social History Social History Type Response Tobacco Interested in cessat ion: No. No, Other: rarely. Sex
--- OUTSIDE RECORDS SUMMARY | 2023-03-05 01:19 | XMS_ITS | Continuity of Care Document ---
Author Name Unknown Organization [facility] Address [address] [place] [address]- Care Team Providers Care Speech Language Specialist Name Role Phone Not on Staff, PCP Primary Care Physician Unavail able [place] [facility] [place] 03/25[place]21 - 04/24/21 [facility] [address] [place] [address]- Attending Physician: Edith Mendoza Admitting Physician: AdmtrEdith [...] 147:52:05, Tablet Start Date: 03/01/14 Status: Ordered Clinton 325 mg-5 mg oral tablet 1 tablet, By Mouth, Every 6 hours, PRN for pain, # 6 tablet, 0 Refills, Maintenance, 03/01/14 7:52:15, Tablet Start Date: 12/5/14 Status: Ordered Percocet-5/325 325 mg-5 mg oral [...]
--- OUTSIDE RECORDS SUMMARY | 2023-03-05 01:19 | XMS_ITS | Continuity of Care Document ---
Author Name Unknown Organization [facility] Address [address] [place] [address]- Care Team Providers Care Human Projectile Name Role Phone Vera Babcock MD Primary Care Physician Encounter [facility] [place] Date(s): 07/27/22 - 08/26/[address] [address]- Allergies, Adverse Reactions, Alerts No Known Allergies Immunizations Given and Recorded Vaccine Date Status Refusal Reason tetanus/diphtheria/pertussis, acel(Tdap) 03/26/22 Given tetanus/diphtheria/pertussis, acel(Tdap) 01/03/09 Recorded [id number] 12y+ bivalent booster vax 03/26/22 Given influenza virus vaccine, inactivated 03/26/22 Give n influenza virus vaccine, inactivated 12/08/19 Osvaldo rded influenza virus vaccine, inactivated 11/29/18 Osvaldo rded influenza virus vaccine, inactivated 12/06/08 Osvaldo rded SARS-CoV-2 mRNA ([id number]) vax 08/05/21 Recorded SARS-CoV-2 (COVID-19) mRNA BNT-162b2 [...] tablet, 5 Refills, Maintenance, 06/28/22 10:57:00 EDT, [facility] [id number], Partial fill upon patient request if the [...] 03/26/22 14:44:00 EST, Route to Pharmacy Electronically, [facility] [id number], Partial fill upon patient request if the [...] 5 Refills, Maintenance, 03/26/22 14:48:00 EST, Tablet, [facility] [id number], Partial fill upon patient request if the [...] capsule, 5 Refills, Maintenance, 03/26/22 14:46:00 EST, [facility] [id number], Partial fill upon patient request if the prescription is for a schedule II opioid drug., 173, cm,... Start Date: 03/26/22 Stop Date: 09/22/22 Status: Ordered folic acid 0.8 mg oral tablet 1 tablet = 0.8 mg, By Mouth, Daily, # 30 tablet, 11 Refills, Maintenance, 03/26/22 14:47:00 EST, Tablet, [facility], [place] - [id number], Partial fill upon patient request if the prescription is for a schedule II opioid drug., 173, cm,... Start Date: 03/26/22 Stop Date: 03/21/23 Status: Ordered hydrochlorothiazide 25 mg oral tablet 25 mg, 1, tablet, By Mouth, Daily, # 30 tablet, Refills 5, Tot. Refills 5, Maintenance, 06/28/22 10:57:00 EDT, Route to Pharmacy Electronically, [facility], [facility] [id number], Partial fill upon patient request if the prescription is f... Start Date: 06/28/22 Stop Date: 12/25/22 Status: Ordered hydrOXYzine pamoate 50 mg oral capsule 1 capsule, By Mouth, 4 times a day, PRN NEEDED FOR ANXIETY, # 50 each, 3 Refills, Maintenance, 07/28/22 13:05:00 EDT, [facility], 175, cm, 07/02/22 15:31:00 EDT, Height, 170.9, kg, 05/13/22 14:47:00 EST, Dry Weight Start Date: 07/28/22 Status: Ordered MetFORMIN (Eqv-Glucophage XR) 500 mg oral tablet, extended release 1 tablet = 500 mg, By Mouth, Daily, # 90 tablet, 3 Refills, Maintenance, 06/28/22 10:51:00 EDT, [facility] [id number], Partial fill upon patient request if the prescription is for a schedule II opioid drug., 175, cm, 06/28/22... Start Date: 06/28/22 Stop Date: 06/23/23 Status: Ordered multivitamin Multiple Vitamins oral tablet 1 tablet, By Mouth, Daily, # 30 tablet, 11 Refills, Maintenance, 03/26/22 14:47:00 EST, Tablet, [facility] [id number], Partial fill upon patient request if the prescription is for a schedule II opioid drug., 1 tablet By Mouth... Start Date: 03/26/22 Stop Date: 03/21/23 Status: Ordered omeprazole 20 mg oral delayed release tablet 1 tablet = 20 mg, By Mouth, Daily, # 30 tablet, 5 Refills, Maintenance, 03/26/22 14:47:00 EST, CR Tablet, [facility] [id number], Partial fill upon patient request if the [...] 03/26/22 14:48:00 EST, Route to Pharmacy Electronically, [facility] - [place], [place] - [id number], needs the extended release formulation. regular r... Start Date: 03/26/22 Stop Date: 03/21/23 Status: Ordered Problem List Condition Confirmation Course Effective Dates Status Health St atus Informant Bipolar disorder Confirmed Active [facility] product inspection coordinator Hugo Hamilton [phone] Confirmed Active PTSD (post-traumatic stress disorder) Confirmed Active Severe obesity Confirmed Active Social History Social History Type Response Tobacco Use: 4 or less cigar ettes(less than 1/4 pack)/day in last 30 days. Other: rarely. Sex Patient Care team information Care Team Personnel Name: Jayne Vee RN Position: [facility] RN Member Role: Primary Care Nurse Name: Jojo Cazares RN Position: [facility] RN Member Role: Primary Care Nurse Name: Vera Babcock MD Position: [facility] Physician - Primary Care Member Role: PCP Address: Address: [address] [place] [address]- Care Team Related Persons Name: SKYE FELDER Address: home [address] [place] [address] Name: LALA HILLS Address: [address] [address] Name: KERI BROTHERS Address: [place] [address]
--- OUTSIDE RECORDS SUMMARY | 2023-03-05 01:19 | XMS_ITS | Continuity of Care Document ---
Author Name Unknown Organization [facility] Address [address] [place] [address]- Care Team Providers Care Uc Architect Name Role Phone Not on Staff, PCP Primary Care Physician Unavail able Encounter [facility] Date(s): 11/04/21 - 02/10/[address] [address]- Attending Physician: Not on Staff, Attending MD [...] 08/19/21 13:05:00 EDT, Route to Pharmacy Electronically, [facility] 3, Partial fill upon patient request if the prescription is for a schedule... Start Date: 08/19/21 Stop Date: 08/26/21 Status: Ordered cloNIDine 0.1 mg oral tablet 0.1 mg, 1, tablet, By Mouth, 2 times a day, # 6 tablet, Refills 0, Tot. Refills 0, Maintenance, 09/22/21 9:39:00 EDT, Route to Pharmacy Electronically, [facility] 3, Partial fill upon patient request if the prescription is for a schedule I... Start Date: 09/22/21 Stop Date: 09/25/21 Status: Ordered cloNIDine 0.1 mg oral tablet 0.1 mg, 1, tablet, By Mouth, 2 times a day, # 20 tablet, Refills 0, Tot. Refills 0, Maintenance, 11/06/21 17:21:00 EDT, Route to Pharmacy Electronically, [facility] [id number], Partial fill upon patient request if the prescrip... Start Date: 11/06/21 Stop Date: 11/16/21 Status: Ordered cloNIDine 0.1 mg oral tablet 0.1 mg, 1, tablet, By Mouth, 2 times a day, Take 1 tablet (=0.1mg), 2 times a day, # 60 tablet, Refills 0, Tot. Refills 0, Maintenance, 07/08/21 8:23:00 EDT, Route to Pharmacy Electronically, [facility] [id number], Partial yesica... Start Date: 07/08/21 Stop Date: 08/07/21 Status: Ordered Colace sodium 100 mg oral capsule 100 mg, 1, capsule, By Mouth, 2 times a day, PRN, # 60 capsule, Refills 0, Tot. Refills 0, Maintenance, for constipation, 11/06/21 17:21:00 EDT, Route to Pharmacy Electronically, [facility] [id number], 173, cm, 11/06/21 14:25:... Start Date: 11/06/21 [...] 0 Refills, Maintenance, 12/19/21 14:58:00 EDT, Capsule, [facility] #[id number], Partial fill upon patient requestif the prescription is for a schedule II opioid law... Start Date: 12/19/21 Status: Ordered hydrOXYzine pamoate 50 mg oral capsule = 50 mg, By Mouth, 2 times a day, PRN Anxiety, take 1 capsule (=50mg), up to 2 times a day, as needed for anxiety, # 60 capsule, 0 Refills, Maintenance, 11/06/21 17:21:00 EDT, Capsule, [place], [place] - [id number], Partial fill upon... Start Date: 11/06/21 Stop Date: 12/06/21 Status: Ordered multivitamin Multiple Vitamins oral tablet 1 tablet, By Mouth, Daily, # 30 tablet, 0 Refills, Maintenance, 12/19/21 14:58:00 EDT, Tablet, [facility] #[id number], Partial fill upon patient request if the prescription is for a schedule II opioid drug., 1 tablet By Mouth Daily, 173, cm, 10/26... Start Date: 12/19/21 Status: Ordered omeprazole 20 mg oral delayed release tablet 1 tablet = 20 mg, By Mouth, Daily, # 30 tablet, 0 Refills, Maintenance, 12/19/21 14:51:00 EDT, CR Tablet, [facility] #[id number], Partial fill upon patient request if the [...] tablet, 0 Refills, Maintenance, 12/19/21 14:46:00 EDT, [facility] #[id number], Partial fill upon patient request if the prescriptionis for a schedule II opioid drug., 173, cm, ... Start Date: 12/19/21 Status: Ordered SEROquel XR 400 mg oral tablet, extended release 400 mg, 1, tablet, By Mouth, Daily, # 7 tablet, Refills 0, Tot. Refills 0, Maintenance, 08/19/21 13:05:00 EDT, Route to Pharmacy Electronically, [facility], Partial fill upon patient request if the prescription is for a schedule II opioi... Start Date: 08/19/21 Stop Date: 08/26/21 Status: Ordered SEROquel XR 400 mg oral tablet, extended release 400 mg, 1, tablet, By Mouth, Daily in PM, please provide financial waiver for copay, # 7 tablet, Refills 0, Tot. Refills 0, Maintenance, 09/22/21 9:39:00 EDT, Route to Pharmacy Electronically, [facility], Partial fill upon patient reques... Start Date: 09/22/21 Stop Date: 09/29/21 Status: Ordered SEROquel XR 400 mg oral tablet, extended release 400 mg, 1, tablet, By Mouth, Daily in PM, # 30 tablet, Refills 0, Tot. Refills 0, Maintenance, 12/19/21 14:45:00 EDT, Route to Pharmacy Electronically, [facility] #[id number], Partial fill upon patient request if the prescription is for a schedul... Start Date: 12/19/21 Status: Ordered SEROquel XR 400 mg oral tablet, extended release 400 mg, 1, tablet, By Mouth, Daily in PM, # 30 tablet, Refills 0, Tot. Refills 0, Maintenance, 11/06/21 17:23:00 EDT, Route to Pharmacy Electronically, [place], [place] - [id number],Partial fill upon patient request if the prescripti... Start Date: 11/06/21 Status: Ordered SEROquel XR 400 mg oral tablet, extended release 400 mg, 1, tablet, By Mouth, Daily at bedtime, Take 1 tablet (=400mg) daily at bedtime, # 30 tablet, Refills 0, Tot. Refills 0, Maintenance, 07/08/21 8:22:00 EDT, Route to Pharmacy Electronically, [place], [place] - [id number], Partia... Start Date: 07/08/21 Stop Date: 08/07/21 Status: Ordered Vitamin B12 50 mcg oral tablet 1 tablet = 50 mcg, By Mouth, Daily, # 30 tablet, 0 Refills, Maintenance, 12/19/21 14:58:00 EDT, Tablet, [facility] #[id number], Partial fill upon patient request if the prescription is for a schedule II opioid drug., 173, cm, 11/06/21 14:25:00 ED... Start Date: 12/19/21 Status: Ordered Problem List Condition Confirmation Course Effective Dates Status Health [facility] Informant [facility] patient assessment coordinator Hugo Hamilton [phone] Confirmed Active Severe obesity Confirmed Active Social History Social History Type Response Tobacco Interested in cessat ion: No. No, Other: rarely. Sex Patient Care team information Care Team Personnel Name: Jayne Vee RN Position: S RN Member Role: Primary Care Nurse Name: Not on Staff, PCP Position: S Physician (General Medicine) Member Role: PCP Name: Lyric Marquez RN Position: S RN Member Role: Primary Care Nurse Name: Ruthy Valdes RN Position: S RN Member Role: Primary Care Nurse Name: Jojo Cazares RN Position: S RN Member Role: Primary Care Nurse Care Team Related Persons Name: SKYE FELDER Address: home [address] [place] [address] Name: LALA HILLS Address: [address] [address]
--- OUTSIDE RECORDS SUMMARY | 2023-03-05 01:19 | XMS_ITS | Continuity of Care Document ---
Author Name Unknown Organization [facility] Address [address] [place] [address]- Care Team Providers Care Direct Support Specialist Name Role Phone Vera Babcock MD Primary Care Physician [phone] Encounter [facility] Date(s): 03/03/22 - 04/02/[address] [id number] Allergies, Adverse Reactions, Alerts No Known Allergies Immunizations Given and Recorded Vaccine Date Status Refusal Reason tetanus/diphtheria/pertussis, acel(Tdap) 03/26/22 Given tetanus/diphtheria/pertussis, acel(Tdap) 01/03/09 Recorded [id number] 12y+ bivalent booster vax 03/26/22 Given influenza virus vaccine, inactivated 03/26/22 Give n influenza virus vaccine, inactivated 12/08/19 Osvaldo rded influenza virus vaccine, inactivated 11/29/18 Osvaldo rded influenza virus vaccine, inactivated 12/06/08 Osvaldo rded SARS-CoV-2 mRNA ([id number]) vax 08/05/21 Recorded SARS-CoV-2 (COVID-19) mRNA BNT-162b2 [...] 03/26/22 14:44:00 EST, Route to Pharmacy Electronically, [facility] [id number], Partial fill upon patient request if the prescription is for... Start Date: 03/26/22 Stop Date: 03/21/23 Status: Ordered cyanocobalamin 50 mcg oral tablet 1 tablet = 50 mcg, By Mouth, Daily, # 30 tablet, 5 Refills, Maintenance, 03/26/22 14:48:00 EST, Tablet, [facility] [id number], Partial fill upon patient request if the prescription is for a schedule II opioid drug., 173, cm, 1... Start Date: 03/26/22 Stop Date: 09/22/22 Status: Ordered docusate sodium 100 mg oral capsule 1 capsule = 100 mg, By Mouth, 2 times a day, # 60 capsule, 5 Refills, Maintenance, 03/26/22 14:46:00 EST, [facility] [id number], Partial fill upon patient request if the prescription is for a schedule II opioid drug., 173, cm,... Start Date: 03/26/22 Stop Date: 09/22/22 Status: Ordered folic acid 0.8 mg oral tablet 1 tablet = 0.8 mg, By Mouth, Daily, # 30 tablet, 11 Refills, Maintenance, 03/26/22 14:47:00 EST, Tablet, [facility] [id number], Partial fill upon patient request if the prescription is for a schedule II opioid drug., 173, cm,... Start Date: 03/26/22 Stop Date: 03/21/23 Status: Ordered hydrOXYzine pamoate 50 mg oral capsule 1 capsule = 50 mg, By Mouth, 4 times a day, PRN for anxiety, for 30 days, # 50 capsule, 3 Refills, Acute 07/24/22 14:44:00 EDT, 03/26/22 14:44:00 EST, Capsule, [facility] [id number], deliver, 173, cm, 03/26/22 13:47:00 EST, He... Start Date: 03/26/22 Stop Date: 07/24/22 Status: Ordered multivitamin Multiple Vitamins oral tablet 1 tablet, By Mouth, Daily, # 30 tablet, 11 Refills, Maintenance, 03/26/22 14:47:00 EST, Tablet, [facility] [id number], Partial fill upon patient request if the prescription is for a schedule II opioid drug., 1 tablet By Mouth... Start Date: 03/26/22 Stop Date: 03/21/23 Status: Ordered omeprazole 20 mg oral delayed release tablet 1 tablet = 20 mg, By Mouth, Daily, # 30 tablet, 5 Refills, Maintenance, 03/26/22 14:47:00 EST, CR Tablet, [facility] [id number], Partial fill upon patient request if the prescription is for a schedule II opioid drug., 173, cm,... Start Date: 03/26/22 Stop Date: 09/22/22 Status: Ordered SEROquel XR 400 mg oral tablet, extended release 400 mg, 1, tablet, By Mouth, Daily in PM, # 30 tablet, Refills 11, Tot. Refills 11, Maintenance, 03/26/22 14:48:00 EST, Route to Pharmacy Electronically, [facility] [id number], needs the extended release formulation. regular r... Start Date: 03/26/22 Stop Date: 03/21/23 Status: Ordered Problem List Condition Confirmation Course Effective Dates Status [facility] Informant [facility] student life coordinator Hugo Hamilton [phone] Confirmed Active Severe obesity Confirmed Active Social History Social History Type Response Tobacco Interested in cessat ion: No. No, Other: rarely. Sex Patient Care team information Care Team Personnel Name: Jayne Vee RN Position: [facility] RN Member Role: Primary Care Nurse Name: Lyric Marquez RN Position: [facility] RN Member Role: Primary Care Nurse Name: Ruthy Valdes RN Position: [facility] RN Member Role: Primary Care Nurse Name: Jojo Cazares RN Position: [facility] RN Member Role: Primary Care Nurse Name: Vera Babcock MD Position: [facility] Primary Care Physician Member Role: PCP Address: Address: [address] [place] [id number]- [place] Care Team Related Persons Name: SKYE FELDER Address: home [address] [place] [address] Name: LALA HILLS Address: [address] [address] Name: KERI BROTHERS Address: [address] [address]
--- OUTSIDE RECORDS SUMMARY | 2023-03-05 01:19 | XMS_ITS | Continuity of Care Document ---
Author Name Unknown Organization [facility] Address [address] [place] [address]- Care Team Providers Care Welder Shielded Metal Arc Name Role Phone Not on Staff, PCP Primary Care Physician Unavail able Encounter [facility] Date(s): 03/25/21 - 04/01/21 [facility] [address] [place] [address]- Encounter Diagnosis Glass foreign body in skin(Discharge Diagnosis) - 03/25/21 Attending Physician: Brigitte Hallman MD Allergies, Adverse Reactions, Alerts Substance Reaction Severity [...] 147:52:05, Tablet Start Date: 03/01/14 Status: Ordered Bartlett 325 mg-5 mg oral tablet 1 tablet, [...] 15:09:01, Compound Start Date: 04/14/14 Status: Ordered Problem List Diagnosis Diagnosis Type Effective Dates Health Status Cl inical Service Informant Glass foreign body in skin Discharge Diagnosis 03/25/21 Vital Signs Most recent to oldest [Reference Range]: 1 Height 173 cm (03/25/21 5:59 PM) Oxygen Saturation [94-100 %] 99 % (03/25/21 5:59 PM) Pulse Rate [55-90 bpm] 74 bpm (03/25/21 5:59 PM) Blood Pressure [90-138/55-84 mm Hg] 146/ 84mm Hg *H* (03/25/21 5:59 PM) Respiratory Rate [16-30 br/min] 16 br/mi n (03/25/21 5:59 PM) Temperature [96.8-100.4 DegF] 98.5 DegF (03/25/21 5:59 PM) Mode of Delivery (Oxygen) Room air (03/25/21 5:59 PM) Blood pressure sites Arm, right (03/25/21 5:59 PM) Temperature Route Temporal (03/25/21 5:59 PM) Social History Social History Type Response Smoking Status Never smoker entered on: 03/01/14 Sex Female
[2023-03-05 01:35] VITALS: BP 141/97; PULSE 82; RESP 18; TEMP 36.2; O2SAT 97
--- NOTE | 2023-03-05 02:43 | PC.ADMIT ---
Shelly is a 37 year old female admitted on a CV following a transfer from [facility] for bipolar disorder with psychotic features and aggression with vague Homicidal ideation towards the world . per crisis report the patient was aggressive at home as well as being aggressive and uncooperative in the [facility] ER. Upon admission to [facility] she was calm and cooperative with the admission process. Shelly is alert and oriented X's 3 she denies depression, suicidal ideation and visual hallucinations. she endorses anxiety, auditory hallucinations that are not command in nature, and homicidal ideation towards the world . patient oriented to the unit, treatment plan initiated, monitor for safety
[2023-03-05 06:21] VITALS: BMI 54.7
--- NOTE | 2023-03-05 12:21 | HO.PM.IMCN ---
History of Present Illness Data of Consult Service Date: 03/05/23 Requesting physician: Luis Manuel Young Primary Care Provider: Unknown Physician HPI Reason for consult: medical H&P 37-year-old female with history of bipolar disorder, PTSD, hypertension, zfu-[id number]-farzhxlwv type 2 diabetes who is morbidly obese with BMI greater than 54 admitted to Psychiatry with consult placed to hospitalist service for medical H&P. The patient is not agreeable to participation in exam. She is sleeping in bed. On review of ED chart, hematology studies unremarkable. Renal function and electrolyte levels normal though potassium was noted to be hemolyzed. TSH within normal limits. U tox negative. There does not appear to be any acute medical issues. Review of Systems Review of Systems: Yes Other (pt not agreeable to exam) [facility] Medical History (Updated 03/05/23 @ 12:24 by TERESITA Godinez) Hypertension Type 2 diabetes mellitus Back pain Morbid obesity due to excess calories Family History Mother Chronic kidney disease Accelerated hypertension Pulmonary hypertension CHF (congestive heart failure) Coronary heart disease Father No problems noted. Brother Leukemia Brother No problems noted. Daughter No problems noted. Surgical History Hx of removal of cyst Social History (Updated 10/03/20 @ 09:38 by Gayathri Arellano MD) Household Members: Family and Children Household Members Other:: MOTHER AND DAUGHTER Housing: Apartment Housing Other:: APARTMENT IN MOTHER'S BASEMENT Do you presently have visiting nurse or other home services: No Alcohol intake: current Alcohol intake frequency: a few times a month Patient Tobacco Use Status: Never used Tobacco Smoked in Last 30 Days: No Patient Interested in Nicotine Replacement: No Use of substances other than those prescribed or required for medical reasons: Yes Substance Use Type: Crack/Cocaine Substance Use Frequency: Daily Last Used Substance: Days (ago) Currently Displaying Signs/Symptoms of Drug Intoxication Withdrawal: No Any prior treatment program specific to substance use: No Have you been hit, kicked, punched, or otherwise hurt by someone within the past year? If so, by whom?: No Do you feel safe in your current relationship?: No Current Relationship Is there a partner from a previous relationship who is making you feel unsafe now?: No Are you made to feel afraid or neglected: No Advance Directives: No Advance Directives Information Provided: No Do you have thoughts of harming others: Constant Do you have a plan to hurt others: Clear Recently lost weight without trying: No Eating poorly because of decreased appetite: No Nutrition Risks: No Nutritional Risk Patient : No : No Poor oral hygiene: No service: No Sexual orientation: Straight/Heterosexual Meds Allergies Allergy/AdvReac Type Severity Reaction Status Date / Time No Known Allergies Allergy Verified 10/14/20 11:17 Active Medications: Current Medications Acetaminophen (Acetaminophen 325 Mg Tablet) 650 mg PO Q6H PRN PRN Reason: Headache/Pain Mild Scale (1-3) Al Hydroxide/Mg Hydroxide (Magnesium Hydrox/Alum Hydrox 30 Ml Oral.Susp) 30 ml PO Q6H PRN PRN Reason: Heartburn/Nausea Amlodipine Besylate (Amlodipine Besylate 5 Mg Tablet) 5 mg PO DAILY [facility] Clonidine HCl (Clonidine Hcl 0.1 Mg Tablet) 0.1 mg PO BID [facility]; Protocol Cyanocobalamin (Cyanocobalamin (Vitamin B-12) 100 Mcg Tablet) 50 mcg PO DAILY [facility] Docusate Sodium (Docusate Sodium 100 Mg Capsule) 100 mg PO BID [facility] Folic Acid (Folic Acid 1 Mg Tablet) 1 mg PO DAILY [facility] Hydrochlorothiazide (Hydrochlorothiazide 25 Mg Tablet) 25 mg PO DAILY [facility]; Protocol Hydroxyzine HCl (Hydroxyzine Hcl 25 Mg Tablet) 25 mg PO Q6H PRN PRN Reason: Anxiety Hydroxyzine HCl (Hydroxyzine Hcl 50 Mg Tablet) 50 mg PO QID PRN PRN Reason: anxiety Magnesium Hydroxide (Milk Of Magnesia 30 Ml Oral.Susp) 30 ml PO DAILY PRN PRN Reason: Constipation Melatonin (Melatonin 3 Mg Tablet) 9 mg PO BEDTIME [facility] Metformin HCl (Metformin Hcl Er 500 Mg Tab.Er.24h) 500 mg PO DAILY [facility] Multivitamins/Vitamin C (Multivitamin Tablet) 1 tab PO DAILY [facility] Omeprazole (Omeprazole 20 Mg Capsule.Dr) 20 mg PO DAILY@0630 [facility] Quetiapine Fumarate (Quetiapine Fumarate 50 Mg Tablet) 50 mg PO BID PRN PRN Reason: Anxiety/agitation Quetiapine Fumarate (Quetiapine Fumarate 200 Mg Tablet) 200 mg PO BID [facility] Trazodone HCl (Trazodone Hcl 50 Mg Tablet) 50 mg PO BEDTIME MRX1 PRN PRN Reason: Insomnia Home Medications Medication Instructions Recorded Confirmed Last Taken Type Daily-Kevin (with folic acid) 1 tab PO DAILY 03/05/23 03/05/23 Unknown History amlodipine 5 mg PO DAILY 03/05/23 03/05/23 Unknown History cyanocobalamin (vitamin B-12) 100 50 mcg PO DAILY 03/05/23 03/05/23 Unknown History mcg tablet (Vitamin B-12) docusate sodium 100 mg capsule 100 mg PO BID 03/05/23 03/05/23 Unknown History folic acid 0.8 mg capsule 0.8 mg PO DAILY 03/05/23 03/05/23 Unknown History hydrochlorothiazide 25 mg tablet 25 mg PO DAILY 03/05/23 03/05/23 Unknown History hydroxyzine HCl 50 mg tablet 50 mg PO QID PRN anxiety 03/05/23 03/05/23 Unknown History metformin 500 mg tablet,extended 500 mg PO DAILY 03/05/23 03/05/23 Unknown History release 24 hr quetiapine 50 mg tablet 50 mg PO BID PRN Anxiety/agitation 03/05/23 03/05/23 Unknown History Physical Exam Vital Signs and Narrative: Vital Signs: Last Vital Signs Temp 97.1 F 03/05/23 01:35 Pulse 82 03/05/23 01:35 Resp 18 03/05/23 01:35 BP 141/97 H 03/05/23 01:35 Pulse Ox 97 03/05/23 01:35 O2 Del Method Room Air 03/05/23 01:35 BMI result Body Mass Index 54.7 Pt not agreeable to exam. Does not appear to be in any acute distress Assessment and Plan (1) Routine medical exam: Status: Acute Plan 37-year-old female with history of bipolar disorder, PTSD, hypertension, [id number] type 2 diabetes who is morbidly obese with BMI greater than 54 admitted to Psychiatry with consult placed to hospitalist service for medical H&P. #Mood disorder -plan per psychiatry #HTN -continue hctz -monitor bp #NIDDM -continue metformin -poc glucose -diabetic diet if agreeable -add ssi prn for hypertension if needed #Morbid obesity -recommend weight loss efforts Thank you for allowing me to participate in this consult. Signing off at this time. Please do not hesitate to call for further questions or for any acute medical issues
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
[2023-03-05 20:45] VITALS: BP 154/74; PULSE 86; RESP 18; TEMP 36.7; O2SAT 98
[2023-03-05] MEDS: Docusate Sodium 100 MG CAPSULE PO (21:54)
[2023-03-05] MEDS: Melatonin 3 MG TABLET 9 MG PO (21:54)
[2023-03-05] MEDS: QUEtiapine Fumarate 200 MG TABLET PO (21:54)
[2023-03-05] MEDS: cloNIDine HCL 0.1 MG TABLET PO (21:54)
--- NOTE | 2023-03-05 22:13 | PC.NURSE ---
Addendum entered by Lyric Marquez RN 03/05/23 22:47: continue to reassure as needed, monitor for safety, continue Plan of Care Original Note: Shelly is noted to be isolating in her room throughout the evening. she was pleasant and cooperated during assessment by this physician underwriter. she endorsed pain 1/10 but declined Tylenol when offered. she endorsed auditory hallucinations in the background and visual hallucinations of chemicals swirling she endorsed mild anxiety and denies depression. she denies suicidal ideation but continues to endorse vague generalized homicidal ideation. At approximately 2130 the patient came to this physician underwriter and accused her of using the N. word when referring to her when speaking to another patient. Did you call me the N word? She said you called me the N. word when she was in the bathroom. Did you call me the N. word , cause she said you did patient reassure that this physician underwriter did not use that word . Another RN confirmed that this physician underwriter had not used the word as she had been in the room assisting this physician underwriter to administer medication to her room mate and had witnessed the entire interaction. patient did not make any further complaints however her demeanor with this physician underwriter has changed. Before the comments by her roommate.Shelly was active and engaged with this physician underwriter, after she was crying and would not look at this physician underwriter. Additionally she declined everything this physician underwriter offered her including the snack items she had requested a few minutes earlier
[2023-03-06 10:19] LABS: Alanine Aminotransferase 16 U/L (0-31); Albumin Level 3.8 g/dL (3.5-5.0); Alkaline Phosphatase 79 U/L (39-117); Anion Gap 14 (12-20); Aspartate Amino Transferase 13 U/L (5-31); Bilirubin Total 0.4 mg/dL (0.0-1.0); Blood Urea Nitrogen 10 mg/dL (9-16); Calcium 9.2 mg/dL (8.4-10.2); Carbon Dioxide 24 mmol/L (22-29); Chloride 107 mmol/L (96-108); Cholesterol 226 mg/dL (<200); Creatinine Clr Calc Pharmacy 173.7; Estimated Glomerular Filt Rate > 60; Glucose Fasting 113 mg/dL (60-99); HDL Cholesterol 44 mg/dL (>40); LDL Cholesterol Calculated 155 mg/dL (<100); Potassium 4.1 mmol/L (3.3-5.1); Sodium 141 mmol/L (135-145); Total Protein 7.1 g/dL (6.5-8.0); Triglycerides 136 mg/dL (<150)
[2023-03-06] MEDS: Cyanocobalamin (Vitamin B-12) 100 MCG TABLET 50 MCG PO (11:51)
[2023-03-06] MEDS: cloNIDine HCL 0.1 MG TABLET PO ×2 (11:51→20:49)
[2023-03-06] MEDS: QUEtiapine Fumarate 200 MG TABLET PO ×2 (11:52→20:49)
[2023-03-06] MEDS: Folic Acid 1 MG TABLET PO (11:52)
[2023-03-06] MEDS: metFORMIN HCl ER 500 MG TAB.ER.24H PO (11:52)
[2023-03-06] MEDS: Multivitamin TABLET 1 TAB PO (11:52)
[2023-03-06] MEDS: Omeprazole 20 MG CAPSULE.DR PO (11:52)
[2023-03-06] MEDS: Docusate Sodium 100 MG CAPSULE PO ×2 (11:54→20:49)
[2023-03-06] MEDS: Acetaminophen 325 MG TABLET 650 MG PO (12:13)
[2023-03-06] MEDS: Psyllium seed 3.7 GM PACKET PO (12:16)
--- NOTE | 2023-03-06 13:53 | HO.PSYCHPN ---
Subjective Subjective Date of Service: 03/06/23 Reason For Visit: Bipolar disorder with psychotic features Subjective Notes: Conditional Voluntary Interim History: The nursing staff reported the patient have not taking her medications in the morning, she took a shower, she refused the assessment of the hospitalist and the IM staff. Last night she was very pleased to see the nurse that did intake yesterday but she was upset because her roommate stated that she used the N word it was not by that. She slept 7 hours. On interview the patient denies new symptoms she was isolative in her room. Mental Status Exam Mental Status Exam Patient Appearance: Appropriate Patient Orientation: Person and Situation Level of Consciousness: Sedated Patient Behavior: Guarded and Passive Mood Description: Withdrawn and Constricted Affect Description: Constricted Patient Cognition Impaired: Yes Ability to Follow Directions: Good Speech Pattern: Clear Hallucinations: None Delusions: Paranoid Ideation Thought Process: Slowed Thinking Thought Content: positive for [place] and positive for Poverty of Content Judgement: Poor Diagnostics Vital Signs (24Hr): Vital Signs - 24 hr 03/05/23 20:45 Temperature 98.0 F Pulse Rate 86 Respiratory Rate 18 Blood Pressure 154/74 H Pulse Oximetry 98 Oxygen Delivery Method Room Air BMI result Body Mass Index 54.7 Labs 03/06/23 09:32 Labs: Laboratory Results - last 48 hr 03/06/23 09:32 Sodium 141 Potassium 4.1 Chloride 107 Carbon Dioxide 24 Anion Gap 14 BUN 10 Creatinine 0.75 Estim Creat Clear Calc 173.7 Estimated GFR > 60 Fasting Glucose 113 H Calcium 9.2 Total Bilirubin 0.4 AST 13 ALT 16 Alkaline Phosphatase 79 Total Protein 7.1 Albumin 3.8 Triglycerides 136 Cholesterol 226 H LDL Cholesterol, Calc 155 H HDL Cholesterol 44 Medications Medications Current Medications Acetaminophen (Acetaminophen 325 Mg Tablet) 650 mg PO Q6H PRN PRN Reason: Headache/Pain Mild Scale (1-3) Last Admin: 03/06/23 12:13 Dose: 650 mg Al Hydroxide/Mg Hydroxide (Magnesium Hydrox/Alum Hydrox 30 Ml Oral.Susp) 30 ml PO Q6H PRN PRN Reason: Heartburn/Nausea Amlodipine Besylate (Amlodipine Besylate 5 Mg Tablet) 5 mg PO DAILY [facility] Last Admin: 03/06/23 11:55 Dose: Not Given Clonidine HCl (Clonidine Hcl 0.1 Mg Tablet) 0.1 mg PO BID [facility]; Protocol Last Admin: 03/06/23 11:51 Dose: 0.1 mg Cyanocobalamin (Cyanocobalamin (Vitamin B-12) 100 Mcg Tablet) 50 mcg PO DAILY [facility] Last Admin: 03/06/23 11:51 Dose: 50 mcg Docusate Sodium (Docusate Sodium 100 Mg Capsule) 100 mg PO BID [facility] Last Admin: 03/06/23 11:54 Dose: 100 mg Folic Acid (Folic Acid 1 Mg Tablet) 1 mg PO DAILY [facility] Last Admin: 03/06/23 11:52 Dose: 1 mg Hydrochlorothiazide (Hydrochlorothiazide 25 Mg Tablet) 25 mg PO DAILY [facility]; Protocol Last Admin: 03/06/23 11:55 Dose: Not Given Hydroxyzine HCl (Hydroxyzine Hcl 25 Mg Tablet) 25 mg PO Q6H PRN PRN Reason: Anxiety Hydroxyzine HCl (Hydroxyzine Hcl 50 Mg Tablet) 50 mg PO QID PRN PRN Reason: anxiety Magnesium Hydroxide (Milk Of Magnesia 30 Ml Oral.Susp) 30 ml PO DAILY PRN PRN Reason: Constipation Melatonin (Melatonin 3 Mg Tablet) 9 mg PO BEDTIME [facility] Last Admin: 03/05/23 21:54 Dose: 9 mg Metformin HCl (Metformin Hcl Er 500 Mg Tab.Er.24h) 500 mg PO DAILY [facility] Last Admin: 03/06/23 11:52 Dose: 500 mg Multivitamins/Vitamin C (Multivitamin Tablet) 1 tab PO DAILY [facility] Last Admin: 03/06/23 11:52 Dose: 1 tab Omeprazole (Omeprazole 20 Mg Capsule.Dr) 20 mg PO DAILY@0630 [facility] Last Admin: 03/06/23 11:52 Dose: 20 mg Psyllium Hydrophilic Mucilloid (Psyllium Seed 3.7 Gm Packet) 3.7 gm PO DAILY [facility] Last Admin: 03/06/23 12:16 Dose: 3.7 gm Quetiapine Fumarate (Quetiapine Fumarate 50 Mg Tablet) 50 mg PO BID PRN PRN Reason: Anxiety/agitation Quetiapine Fumarate (Quetiapine Fumarate 200 Mg Tablet) 200 mg PO BID [facility] Last Admin: 03/06/23 11:52 Dose: 200 mg Trazodone HCl (Trazodone Hcl 50 Mg Tablet) 50 mg PO BEDTIME MRX1 PRN PRN Reason: Insomnia Allergies Allergies Allergy/AdvReac Type Severity Reaction Status Date / Time No Known Allergies Allergy Verified 10/14/20 11:17 Assessment & Plan Assessment & Plan (1) Bipolar disorder: Status: Acute Code(s): F31.9 - Bipolar disorder, unspecified (2) Cocaine abuse: Status: Acute Code(s): F14.10 - Cocaine abuse, uncomplicated Plan The patient is an adult female with a past history of bipolar disorder with prior admissions into the hospital for psychotic decompensation with yves, transferred from another emergency room since her family brought her there due to increased aggressiveness, suicidal ideation and disorganized behavior. She had been on compliant with medications for an at noon time. I tried to interview the patient but she was refusing any interaction. According to the assessment of the nurses, the patient admitted abuse of cocaine recently Plan 1. Gather collateral information at this moment the patient is a very poor historian, she sign a CV. 2. Medication reconciliation form we will try to gather information from other providers regarding previews medication treatment line 3. One-to-one for safety. 4. Referral to Medicine and blood work. 5. Reassessment with results Reason for continued inpatient stay Substantial Risk for: inability to function, rapid decompensation and med/psych decompensation Time Spent With Patient Time: Total time managing care of this patient today __20__ minutes.
[2023-03-06 19:45] VITALS: BP 116/77; PULSE 100; RESP 16; TEMP 35.7; O2SAT 98
[2023-03-06] MEDS: Melatonin 3 MG TABLET 9 MG PO (20:49)
[2023-03-07] MEDS: Psyllium seed 3.7 GM PACKET PO (10:35)
[2023-03-07] MEDS: Cyanocobalamin (Vitamin B-12) 100 MCG TABLET 50 MCG PO (10:35)
[2023-03-07] MEDS: Omeprazole 20 MG CAPSULE.DR PO (10:36)
[2023-03-07] MEDS: QUEtiapine Fumarate 200 MG TABLET PO (10:36)
[2023-03-07] MEDS: Folic Acid 1 MG TABLET PO (10:36)
[2023-03-07] MEDS: metFORMIN HCl ER 500 MG TAB.ER.24H PO (10:36)
[2023-03-07] MEDS: Multivitamin TABLET 1 TAB PO (10:37)
[2023-03-07] MEDS: cloNIDine HCL 0.1 MG TABLET PO ×2 (10:37→20:49)
[2023-03-07] MEDS: Docusate Sodium 100 MG CAPSULE PO ×2 (10:37→20:50)
[2023-03-07 10:44] LABS: Glucose, Whole Blood 229 mg/dL (60-115)
[2023-03-07] MEDS: carBAMazepine ER 200 MG TAB.ER.12H PO ×2 (11:52→20:50)
[2023-03-07 12:54] LABS: Glucose, Whole Blood 115 mg/dL (60-115)
--- NOTE | 2023-03-07 15:47 | P.PNPSI_ITS ---
Subjective Subjective Date of Service: 03/07/23 Reason For Visit: Bipolar disorder with psychotic features Interim History: agreeable to start tegretol: R/B discussed. same for prolixin in place of seroquel. no SI, MRE 2 days ago. no HI. per staff, +AH. anxious. isolative. guarded. slept about 7 hours. not attending groups. taking meds. Mental Status Exam Mental Status Exam Narrative: dressed in scrubs, adequately groomed. cooperative. no PMA/PMR. speech decr rate, amount. nml loudness. incr latency. thoughts linear and logical. affect constricted, normo-intense, non-labile. mood not assessed. no denies SI/HI. no AVH expressed. Diagnostics Vital Signs (24Hr): Vital Signs - 24 hr 03/06/23 19:45 Temperature 96.2 F L Pulse Rate 100 Respiratory Rate 16 Blood Pressure 116/77 Pulse Oximetry 98 Oxygen Delivery Method Room Air BMI result Body Mass Index 54.7 Labs 03/06/23 09:32 Labs: Laboratory Results - last 48 hr 03/06/23 03/07/23 03/07/23 09:32 10:39 12:48 Sodium 141 Potassium 4.1 Chloride 107 Carbon Dioxide 24 Anion Gap 14 BUN 10 Creatinine 0.75 Estim Creat Clear Calc 173.7 Estimated GFR > 60 POC Glucose 229 H 115 Fasting Glucose 113 H Calcium 9.2 Total Bilirubin 0.4 AST 13 ALT 16 Alkaline Phosphatase 79 Total Protein 7.1 Albumin 3.8 Triglycerides 136 Cholesterol 226 H LDL Cholesterol, Calc 155 H HDL Cholesterol 44 Medications Medications Current Medications Acetaminophen (Acetaminophen 325 Mg Tablet) 650 mg PO Q6H PRN PRN Reason: Headache/Pain Mild Scale (1-3) Last Admin: 03/06/23 12:13 Dose: 650 mg Al Hydroxide/Mg Hydroxide (Magnesium Hydrox/Alum Hydrox 30 Ml Oral.Susp) 30 ml PO Q6H PRN PRN Reason: Heartburn/Nausea Amlodipine Besylate (Amlodipine Besylate 5 Mg Tablet) 5 mg PO DAILY [facility] Last Admin: 03/07/23 10:39 Dose: Not Given Carbamazepine (Carbamazepine Er 200 Mg Tab.Er.12h) 200 mg PO BID [facility] Last Admin: 03/07/23 11:52 Dose: 200 mg Clonidine HCl (Clonidine Hcl 0.1 Mg Tablet) 0.1 mg PO BID [facility]; Protocol Last Admin: 03/07/23 10:37 Dose: 0.1 mg Cyanocobalamin (Cyanocobalamin (Vitamin B-12) 100 Mcg Tablet) 50 mcg PO DAILY [facility] Last Admin: 03/07/23 10:35 Dose: 50 mcg Docusate Sodium (Docusate Sodium 100 Mg Capsule) 100 mg PO BID [facility] Last Admin: 03/07/23 10:37 Dose: 100 mg Fluphenazine HCl (Fluphenazine Hcl 5 Mg Tablet) 5 mg PO BID [facility] Fluphenazine HCl (Fluphenazine Hcl 2.5 Mg Tablet) 2.5 mg PO Q4H PRN PRN Reason: agitation Folic Acid (Folic Acid 1 Mg Tablet) 1 mg PO DAILY [facility] Last Admin: 03/07/23 10:36 Dose: 1 mg Hydrochlorothiazide (Hydrochlorothiazide 25 Mg Tablet) 25 mg PO DAILY [facility]; Protocol Last Admin: 03/07/23 10:39 Dose: Not Given Hydroxyzine HCl (Hydroxyzine Hcl 25 Mg Tablet) 25 mg PO Q6H PRN PRN Reason: Anxiety Hydroxyzine HCl (Hydroxyzine Hcl 50 Mg Tablet) 50 mg PO QID PRN PRN Reason: anxiety Magnesium Hydroxide (Milk Of Magnesia 30 Ml Oral.Susp) 30 ml PO DAILY PRN PRN Reason: Constipation Melatonin (Melatonin 3 Mg Tablet) 9 mg PO BEDTIME [facility] Last Admin: 03/06/23 20:49 Dose: 9 mg Metformin HCl (Metformin Hcl Er 500 Mg Tab.Er.24h) 500 mg PO DAILY [facility] Last Admin: 03/07/23 10:36 Dose: 500 mg Multivitamins/Vitamin C (Multivitamin Tablet) 1 tab PO DAILY [facility] Last Admin: 03/07/23 10:37 Dose: 1 tab Omeprazole (Omeprazole 20 Mg Capsule.Dr) 20 mg PO DAILY@0630 [facility] Last Admin: 03/07/23 10:36 Dose: 20 mg Psyllium Hydrophilic Mucilloid (Psyllium Seed 3.7 Gm Packet) 3.7 gm PO DAILY [facility] Last Admin: 03/07/23 10:35 Dose: 3.7 gm Trazodone HCl (Trazodone Hcl 50 Mg Tablet) 50 mg PO BEDTIME MRX1 PRN PRN Reason: Insomnia Allergies Allergies Allergy/AdvReac Type Severity Reaction Status Date / Time No Known Allergies Allergy Verified 10/14/20 11:17 Assessment & Plan Assessment & Plan (1) Bipolar disorder: Status: Acute Code(s): F31.9 - Bipolar disorder, unspecified (2) Cocaine abuse: Status: Acute Code(s): F14.10 - Cocaine abuse, uncomplicated Plan The patient is an adult female with a past history of bipolar disorder with prior admissions into the hospital for psychotic decompensation with yves, transferred from another emergency room since her family brought her there due to increased aggressiveness, suicidal ideation and disorganized behavior. She had been on compliant with medications for an at noon time. I tried to interview the patient but she was refusing any interaction. According to the assessment of the nurses, the patient admitted abuse of cocaine recently Plan 1. Gather collateral information at this moment the patient is a very poor historian, she sign a CV. 2. Medication reconciliation form we will try to gather information from other providers regarding previews medication treatment line 3. One-to-one for safety. 4. Referral to Medicine and blood work. 5. Reassessment with results 03/07: DC seroquel 200 BID in favor of prolixin 5 BID, per pt preference. start tegretol 200 BID. appears to be in behavioral control today, some GRAY only. Reason for continued inpatient stay Substantial Risk for: inability to function and rapid decompensation Time Spent With Patient Time: Total time managing care of this patient today __35__ minutes.
[2023-03-07] MEDS: Acetaminophen 325 MG TABLET 650 MG PO (20:49)
[2023-03-07] MEDS: Melatonin 3 MG TABLET 9 MG PO (20:49)
[2023-03-07] MEDS: fluPHENAZine HCl 5 MG TABLET PO (20:50)
[2023-03-07 20:54] VITALS: BP 132/91; PULSE 106; RESP 16; TEMP 37.3; O2SAT 99
[2023-03-08 08:47] VITALS: BP 140/86; PULSE 94; O2SAT 98
[2023-03-08] MEDS: carBAMazepine ER 200 MG TAB.ER.12H PO ×2 (08:48→21:12)
[2023-03-08] MEDS: Docusate Sodium 100 MG CAPSULE PO ×2 (08:48→21:15)
[2023-03-08] MEDS: Multivitamin TABLET 1 TAB PO (08:48)
[2023-03-08] MEDS: metFORMIN HCl ER 500 MG TAB.ER.24H PO (08:48)
[2023-03-08] MEDS: Cyanocobalamin (Vitamin B-12) 100 MCG TABLET 50 MCG PO (08:48)
[2023-03-08] MEDS: fluPHENAZine HCl 5 MG TABLET PO ×2 (08:48→21:14)
[2023-03-08] MEDS: Folic Acid 1 MG TABLET PO (08:49)
[2023-03-08] MEDS: cloNIDine HCL 0.1 MG TABLET PO ×2 (08:49→21:14)
[2023-03-08] MEDS: Omeprazole 20 MG CAPSULE.DR PO (08:49)
[2023-03-08] MEDS: Acetaminophen 325 MG TABLET 650 MG PO (09:50)
--- NOTE | 2023-03-08 11:33 | PC.NURSE ---
Patient submitted 3 day notice.
--- NOTE | 2023-03-08 15:27 | P.PNPSI_ITS ---
Subjective Subjective Date of Service: 03/08/23 Reason For Visit: Bipolar disorder with psychotic features Interim History: calm, cooperative. faster responses. says the meds are helping her feel better. states she no longer has HI, she is not distracted, sleep is good, not as angry. discuss increasing tegretol tomorrow. 3-day submitted, planning to discharge on tuesday. explains when she is home she doesn't take any anti- hypertensives and her BP is good, so she prefers not to take them here. per staff, some agitation re food mistakes. started tegretol. slept 7+ hours. Mental Status Exam Mental Status Exam Narrative: dressed in scrubs, adequately groomed. cooperative. no PMA/PMR. speech nml rate, decr amount. nml loudness. nml latency. thoughts linear and logical. affect constricted, normo-intense, non-labile. mood not as angry. denies HI. no SI/AVH expressed. Diagnostics Vital Signs (24Hr): Vital Signs - 24 hr 03/07/23 20:54 03/08/23 08:47 Temperature 99.2 F Pulse Rate 106 H 94 Respiratory Rate 16 Blood Pressure 132/91 H 140/86 H Pulse Oximetry 99 98 Oxygen Delivery Method Room Air Room Air BMI result Body Mass Index 54.7 Labs 03/06/23 09:32 Labs: Laboratory Results - last 48 hr 03/07/23 03/07/23 10:39 12:48 POC Glucose 229 H 115 Medications Medications Current Medications Acetaminophen (Acetaminophen 325 Mg Tablet) 650 mg PO Q6H PRN PRN Reason: Headache/Pain Mild Scale (1-3) Last Admin: 03/08/23 09:50 Dose: 650 mg Al Hydroxide/Mg Hydroxide (Magnesium Hydrox/Alum Hydrox 30 Ml Oral.Susp) 30 ml PO Q6H PRN PRN Reason: Heartburn/Nausea Amlodipine Besylate (Amlodipine Besylate 5 Mg Tablet) 5 mg PO DAILY [facility] Last Admin: 03/08/23 08:58 Dose: Not Given Carbamazepine (Carbamazepine Er 200 Mg Tab.Er.12h) 200 mg PO BID [facility] Last Admin: 03/08/23 08:48 Dose: 200 mg Clonidine HCl (Clonidine Hcl 0.1 Mg Tablet) 0.1 mg PO BID [facility]; Protocol Last Admin: 03/08/23 08:49 Dose: 0.1 mg Cyanocobalamin (Cyanocobalamin (Vitamin B-12) 100 Mcg Tablet) 50 mcg PO DAILY [facility] Last Admin: 03/08/23 08:48 Dose: 50 mcg Docusate Sodium (Docusate Sodium 100 Mg Capsule) 100 mg PO BID [facility] Last Admin: 03/08/23 08:48 Dose: 100 mg Fluphenazine HCl (Fluphenazine Hcl 5 Mg Tablet) 5 mg PO BID [facility] Last Admin: 03/08/23 08:48 Dose: 5 mg Fluphenazine HCl (Fluphenazine Hcl 2.5 Mg Tablet) 2.5 mg PO Q4H PRN PRN Reason: agitation Folic Acid (Folic Acid 1 Mg Tablet) 1 mg PO DAILY [facility] Last Admin: 03/08/23 08:49 Dose: 1 mg Hydrochlorothiazide (Hydrochlorothiazide 25 Mg Tablet) 25 mg PO DAILY [facility]; Protocol Last Admin: 03/08/23 08:59 Dose: Not Given Hydroxyzine HCl (Hydroxyzine Hcl 25 Mg Tablet) 25 mg PO Q6H PRN PRN Reason: Anxiety Hydroxyzine HCl (Hydroxyzine Hcl 50 Mg Tablet) 50 mg PO QID PRN PRN Reason: anxiety Magnesium Hydroxide (Milk Of Magnesia 30 Ml Oral.Susp) 30 ml PO DAILY PRN PRN Reason: Constipation Melatonin (Melatonin 3 Mg Tablet) 9 mg PO BEDTIME [facility] Last Admin: 03/07/23 20:49 Dose: 9 mg Metformin HCl (Metformin Hcl Er 500 Mg Tab.Er.24h) 500 mg PO DAILY [facility] Last Admin: 03/08/23 08:48 Dose: 500 mg Multivitamins/Vitamin C (Multivitamin Tablet) 1 tab PO DAILY [facility] Last Admin: 03/08/23 08:48 Dose: 1 tab Omeprazole (Omeprazole 20 Mg Capsule.Dr) 20 mg PO DAILY@0630 [facility] Last Admin: 03/08/23 08:49 Dose: 20 mg Psyllium Hydrophilic Mucilloid (Psyllium Seed 3.7 Gm Packet) 3.7 gm PO DAILY [facility] Last Admin: 03/08/23 08:58 Dose: Not Given Trazodone HCl (Trazodone Hcl 50 Mg Tablet) 50 mg PO BEDTIME MRX1 PRN PRN Reason: Insomnia Allergies Allergies Allergy/AdvReac Type Severity Reaction Status Date / Time No Known Allergies Allergy Verified 10/14/20 11:17 Assessment & Plan Assessment & Plan (1) Bipolar disorder: Status: Acute Code(s): F31.9 - Bipolar disorder, unspecified (2) Cocaine abuse: Status: Acute Code(s): F14.10 - Cocaine abuse, uncomplicated Plan The patient is an adult female with a past history of bipolar disorder with prior admissions into the hospital for psychotic decompensation with yves, transferred from another emergency room since her family brought her there due to increased aggressiveness, suicidal ideation and disorganized behavior. She had been on compliant with medications for an at noon time. I tried to interview the patient but she was refusing any interaction. According to the assessment of the nurses, the patient admitted abuse of cocaine recently Plan 1. Gather collateral information at this moment the patient is a very poor historian, she sign a CV. 2. Medication reconciliation form we will try to gather information from other providers regarding previews medication treatment line 3. One-to-one for safety. 4. Referral to Medicine and blood work. 5. Reassessment with results 03/07: DC seroquel 200 BID in favor of prolixin 5 BID, per pt preference. start tegretol 200 BID. appears to be in behavioral control today, some GRAY only. 03/08: feels well on current regimen. planning to increase tegretol to 300 BID as of tomorrow. 3-day notice submitted, will discharge on tuesday. Reason for continued inpatient stay Substantial Risk for: harm to self, harm to others, inability to function and rapid decompensation Time Spent With Patient Time: Total time managing care of this patient today __25__ minutes.
[2023-03-08 19:55] VITALS: BP 137/79; PULSE 78; RESP 14; TEMP 36.4; O2SAT 98
[2023-03-08] MEDS: Melatonin 3 MG TABLET 9 MG PO (21:13)
[2023-03-09] MEDS: Omeprazole 20 MG CAPSULE.DR PO (06:52)
[2023-03-09 08:40] VITALS: BP 133/80; PULSE 85; RESP 18; TEMP 36.6; O2SAT 97
[2023-03-09 08:42] LABS: Glucose, Whole Blood 126 mg/dL (60-115)
[2023-03-09] MEDS: carBAMazepine ER 200 MG TAB.ER.12H PO (08:48)
[2023-03-09] MEDS: cloNIDine HCL 0.1 MG TABLET PO ×2 (08:48→21:40)
[2023-03-09] MEDS: fluPHENAZine HCl 5 MG TABLET PO ×2 (08:48→21:38)
[2023-03-09] MEDS: Folic Acid 1 MG TABLET PO (08:48)
[2023-03-09] MEDS: Docusate Sodium 100 MG CAPSULE PO ×2 (08:48→21:40)
[2023-03-09] MEDS: metFORMIN HCl ER 500 MG TAB.ER.24H PO (08:48)
[2023-03-09] MEDS: Multivitamin TABLET 1 TAB PO (08:48)
[2023-03-09] MEDS: Cyanocobalamin (Vitamin B-12) 100 MCG TABLET 50 MCG PO (08:49)
--- NOTE | 2023-03-09 13:41 | HO.PSYCHPN ---
Subjective Subjective Date of Service: 03/09/23 Reason For Visit: Bipolar disorder with psychotic features Interim History: increase tegretol to 300 BID. mood gradually improving. discuss [place], pt declines. per staff, 3-day notice up tuesday. denies depression. blunted affect. feeling safe. isolative, withdrawn. refusing BP meds. slept about 8 hours. Mental Status Exam Mental Status Exam Narrative: dressed in scrubs, adequately groomed. cooperative. no PMA/PMR. speech nml rate, decr amount. nml loudness. nml latency. thoughts linear and logical. affect constricted, normo-intense, non-labile. mood a little better than yesterday. no SI/HI/AVH expressed. Diagnostics Vital Signs (24Hr): Vital Signs - 24 hr 03/08/23 19:55 03/09/23 08:40 Temperature 97.6 F 97.9 F Pulse Rate 78 85 Respiratory Rate 14 18 Blood Pressure 137/79 133/80 Pulse Oximetry 98 97 Oxygen Delivery Method Room Air Room Air BMI result Body Mass Index 54.7 Labs 03/06/23 09:32 Labs: Laboratory Results - last 48 hr 03/09/23 08:34 POC Glucose 126 H Medications Medications Current Medications Acetaminophen (Acetaminophen 325 Mg Tablet) 650 mg PO Q6H PRN PRN Reason: Headache/Pain Mild Scale (1-3) Last Admin: 03/08/23 09:50 Dose: 650 mg Al Hydroxide/Mg Hydroxide (Magnesium Hydrox/Alum Hydrox 30 Ml Oral.Susp) 30 ml PO Q6H PRN PRN Reason: Heartburn/Nausea Amlodipine Besylate (Amlodipine Besylate 5 Mg Tablet) 5 mg PO DAILY [facility] Last Admin: 03/09/23 08:51 Dose: Not Given Carbamazepine (Carbamazepine Er 100 Mg Tab.Er.12h) 300 mg PO BID [facility] Clonidine HCl (Clonidine Hcl 0.1 Mg Tablet) 0.1 mg PO BID [facility]; Protocol Last Admin: 03/09/23 08:48 Dose: 0.1 mg Cyanocobalamin (Cyanocobalamin (Vitamin B-12) 100 Mcg Tablet) 50 mcg PO DAILY [facility] Last Admin: 03/09/23 08:49 Dose: 50 mcg Docusate Sodium (Docusate Sodium 100 Mg Capsule) 100 mg PO BID [facility] Last Admin: 03/09/23 08:48 Dose: 100 mg Fluphenazine HCl (Fluphenazine Hcl 5 Mg Tablet) 5 mg PO BID [facility] Last Admin: 03/09/23 08:48 Dose: 5 mg Fluphenazine HCl (Fluphenazine Hcl 2.5 Mg Tablet) 2.5 mg PO Q4H PRN PRN Reason: agitation Folic Acid (Folic Acid 1 Mg Tablet) 1 mg PO DAILY [facility] Last Admin: 03/09/23 08:48 Dose: 1 mg Hydrochlorothiazide (Hydrochlorothiazide 25 Mg Tablet) 25 mg PO DAILY [facility]; Protocol Last Admin: 03/09/23 08:51 Dose: Not Given Hydroxyzine HCl (Hydroxyzine Hcl 25 Mg Tablet) 25 mg PO Q6H PRN PRN Reason: Anxiety Hydroxyzine HCl (Hydroxyzine Hcl 50 Mg Tablet) 50 mg PO QID PRN PRN Reason: anxiety Magnesium Hydroxide (Milk Of Magnesia 30 Ml Oral.Susp) 30 ml PO DAILY PRN PRN Reason: Constipation Melatonin (Melatonin 3 Mg Tablet) 9 mg PO BEDTIME [facility] Last Admin: 03/08/23 21:13 Dose: 9 mg Metformin HCl (Metformin Hcl Er 500 Mg Tab.Er.24h) 500 mg PO DAILY [facility] Last Admin: 03/09/23 08:48 Dose: 500 mg Multivitamins/Vitamin C (Multivitamin Tablet) 1 tab PO DAILY [facility] Last Admin: 03/09/23 08:48 Dose: 1 tab Omeprazole (Omeprazole 20 Mg Capsule.Dr) 20 mg PO DAILY@0630 [facility] Last Admin: 03/09/23 06:52 Dose: 20 mg Psyllium Hydrophilic Mucilloid (Psyllium Seed 3.7 Gm Packet) 3.7 gm PO DAILY [facility] Last Admin: 03/09/23 08:51 Dose: Not Given Trazodone HCl (Trazodone Hcl 50 Mg Tablet) 50 mg PO BEDTIME MRX1 PRN PRN Reason: Insomnia Allergies Allergies Allergy/AdvReac Type Severity Reaction Status Date / Time No Known Allergies Allergy Verified 10/14/20 11:17 Assessment & Plan Assessment & Plan (1) Bipolar disorder: Status: Acute Code(s): F31.9 - Bipolar disorder, unspecified (2) Cocaine abuse: Status: Acute Code(s): F14.10 - Cocaine abuse, uncomplicated Plan The patient is an adult female with a past history of bipolar disorder with prior admissions into the hospital for psychotic decompensation with yves, transferred from another emergency room since her family brought her there due to increased aggressiveness, suicidal ideation and disorganized behavior. She had been on compliant with medications for an at noon time. I tried to interview the patient but she was refusing any interaction. According to the assessment of the nurses, the patient admitted abuse of cocaine recently Plan 1. Gather collateral information at this moment the patient is a very poor historian, she sign a CV. 2. Medication reconciliation form we will try to gather information from other providers regarding previews medication treatment line 3. One-to-one for safety. 4. Referral to Medicine and blood work. 5. Reassessment with results 03/07: DC seroquel 200 BID in favor of prolixin 5 BID, per pt preference. start tegretol 200 BID. appears to be in behavioral control today, some GRAY only. 03/08: feels well on current regimen. planning to increase tegretol to 300 BID as of tomorrow. 3-day notice submitted, will discharge on tuesday. 03/09: calm, cooperative. mood slightly better today than yesterday. agrees to increase tegretol to 300 BID. Reason for continued inpatient stay Substantial Risk for: harm to self, harm to others, inability to function and rapid decompensation Time Spent With Patient Time: Total time managing care of this patient today __25__ minutes.
[2023-03-09 20:00] VITALS: BP 130/86; PULSE 88; RESP 18; TEMP 36.6; O2SAT 98
[2023-03-09] MEDS: carBAMazepine ER 100 MG TAB.ER.12H 300 MG PO (21:38)
[2023-03-09] MEDS: Melatonin 3 MG TABLET 9 MG PO (21:40)
[2023-03-10] MEDS: Omeprazole 20 MG CAPSULE.DR PO (06:42)
[2023-03-10 07:00] VITALS: BMI 54.5
[2023-03-10 08:00] VITALS: BP 135/81; PULSE 89; RESP 18; TEMP 36.9; O2SAT 96
[2023-03-10 08:26] LABS: Glucose, Whole Blood 119 mg/dL (60-115)
[2023-03-10] MEDS: Folic Acid 1 MG TABLET PO (09:47)
[2023-03-10] MEDS: carBAMazepine ER 100 MG TAB.ER.12H 300 MG PO ×2 (09:47→21:10)
[2023-03-10] MEDS: fluPHENAZine HCl 5 MG TABLET PO ×2 (09:48→21:10)
[2023-03-10] MEDS: cloNIDine HCL 0.1 MG TABLET PO ×2 (09:48→21:11)
[2023-03-10] MEDS: Docusate Sodium 100 MG CAPSULE PO ×2 (09:48→21:10)
[2023-03-10] MEDS: Multivitamin TABLET 1 TAB PO (09:48)
[2023-03-10] MEDS: metFORMIN HCl ER 500 MG TAB.ER.24H PO (09:48)
[2023-03-10] MEDS: Cyanocobalamin (Vitamin B-12) 100 MCG TABLET 50 MCG PO (09:48)
--- NOTE | 2023-03-10 10:30 | PM.PSYDC ---
DS: Providers Provider Date of Service: 03/10/23 Date of admission: 03/05/23 01:15 Primary care physician: Unknown Physician Consults: 03/05/23 02:44 Consult to Hospitalist Routine Comment: Consulting Provider: Hospitalist Reason For Exam: Direct admission DS: Diagnosis Discharge Diagnosis (1) Bipolar disorder: Status: Acute (2) Cocaine abuse: Status: Acute DS: Medications Discharge Medications Home Medications: Home Medications Medication Instructions Recorded Confirmed Daily-Kevin (with folic acid) 1 tab PO DAILY 03/05/23 03/05/23 amlodipine 5 mg PO DAILY 03/05/23 03/05/23 cyanocobalamin (vitamin B-12) 100 50 mcg PO DAILY 03/05/23 03/05/23 mcg tablet (Vitamin B-12) docusate sodium 100 mg capsule 100 mg PO BID 03/05/23 03/05/23 folic acid 0.8 mg capsule 0.8 mg PO DAILY 03/05/23 03/05/23 hydrochlorothiazide 25 mg tablet 25 mg PO DAILY 03/05/23 03/05/23 hydroxyzine HCl 50 mg tablet 50 mg PO QID PRN anxiety 03/05/23 03/05/23 metformin 500 mg tablet,extended 500 mg PO DAILY 03/05/23 03/05/23 release 24 hr Previous Rx's Medication Instructions Recorded clonidine HCl 0.1 mg tablet 0.1 mg PO BID #60 tabs 09/14/21 melatonin 3 mg tablet 9 mg (3 x 3 mg) PO BEDTIME #90 tabs 09/14/21 omeprazole 20 mg capsule,delayed 20 mg PO DAILY@0630 #30 caps 09/14/21 release carbamazepine 100 mg 300 mg (3 x 100 mg) PO BID 30 days 03/10/23 tablet,extended release,12 hr #180 tabs (Tegretol XR) fluphenazine HCl 5 mg tablet 5 mg PO BID 30 days #60 tabs 03/10/23 Mental Status Exam Mental Status Exam Narrative: dressed in scrubs, adequately groomed. cooperative. general PMR. speech decr rate, amount, loudness, prosody. incr latency. thoughts linear and logical. affect constricted, normo-intense, non-labile. mood good. stable. no SI/SIBI/HI/AVH. Data Data Completed and Pending Completed studies during hospitalization [Text1]: 03/06/23 03/07/23 03/07/23 09:32 10:39 12:48 Sodium 141 Potassium 4.1 Chloride 107 Carbon Dioxide 24 Anion Gap 14 BUN 10 Creatinine 0.75 Estim Creat Clear Calc 173.7 Estimated GFR > 60 POC Glucose 229 H 115 Fasting Glucose 113 H Calcium 9.2 Total Bilirubin 0.4 AST 13 ALT 16 Alkaline Phosphatase 79 Total Protein 7.1 Albumin 3.8 Triglycerides 136 Cholesterol 226 H LDL Cholesterol, Calc 155 H HDL Cholesterol 44 03/09/23 03/10/23 08:34 08:02 Sodium Potassium Chloride Carbon Dioxide Anion Gap BUN Creatinine Estim Creat Clear Calc Estimated GFR POC Glucose 126 H 119 H Fasting Glucose Calcium Total Bilirubin AST ALT Alkaline Phosphatase Total Protein Albumin Triglycerides Cholesterol LDL Cholesterol, Calc HDL Cholesterol DS: Summary Time Spent with Patient Time attestation: Total time managing care of this patient today ____ minutes. Discharge Plan Discharge Anticipated Discharge Date/Time: 03/11/23 10:28 Patient Disposition: Home, Self-Care Discharge Diagnosis: Bipolar I Disorder, MRE Mixed Referrals: Physician,Unknown J [Primary Care Provider] - 1 Week Discharge Medications: New carbamazepine [Tegretol XR] 100 mg Tablet Extended Release 12 Hr 300 mg PO BID 30 Days Qty: 180 0RF fluphenazine HCl 5 mg Tablet 5 mg PO BID 30 Days Qty: 60 0RF Continued clonidine HCl 0.1 mg Tablet 0.1 mg PO BID Qty: 60 0RF Protocol: Hold for SBP< HOLD for SBP < : 90 melatonin 3 mg Tablet 9 mg PO BEDTIME Qty: 90 0RF omeprazole 20 mg Capsule,Delayed Release(Dr/Ec) 20 mg PO DAILY@0630 Qty: 30 0RF cyanocobalamin (vitamin B-12) [Vitamin B-12] 100 mcg tablet 50 mcg PO DAILY hydroxyzine HCl 50 mg tablet 50 mg PO QID PRN (Reason: anxiety) docusate sodium 100 mg capsule 100 mg PO BID hydrochlorothiazide 25 mg Tablet 25 mg PO DAILY metformin 500 mg Tablet Extended Release 24 Hr 500 mg PO DAILY folic acid 0.8 mg Capsule 0.8 mg PO DAILY amlodipine 5 mg PO DAILY Daily-Kevin (with folic acid) 1 tab PO DAILY Discontinued quetiapine [Seroquel XR] 400 mg tablet extended release 24 hr 400 mg PO BEDTIME Qty: 30 0RF quetiapine 50 mg Tablet 50 mg PO BID PRN (Reason: Anxiety/agitation) Discharge Orders: Discharge Order (Routine); Ordered 03/11/23 Ordered By: Luis Manuel Young Diet: Advance to usual diet Activity on Discharge: As tolerated Stand Alone Forms: Patient Portal Discharge page Care Plan Goals: remain safe, stable, and sober in the outpatient treatment setting Health Concerns: obesity Plan of Treatment: take medications as prescribed, attend appointments as scheduled Assessment: not at imminent risk of harm to self or others
[2023-03-10 11:10] LABS: MANUAL DIFF FLAG NO
[2023-03-10 11:13] LABS: Basophils Percent Auto 0.5 % (0-2); Eosinophils Absolute Auto 0.1 X10*3/uL (0.0-0.4); Eosinophils Percent Auto 2.1 % (0-4); Hematocrit 37.1 % (37.0-47.0); Hemoglobin 12.6 g/dl (12.0-16.0); Imm Gran Abs Auto 0.02 X10*3/uL (0.00-0.03); Imm Gran Pct Auto 0.3 % (0.0-0.4); Lymphocytes Absolute Auto 1.6 X10*3/uL (1.2-4.9); Lymphocytes Percent Auto 25.9 % (20-40); Mean Corpuscular Hemoglobin 30.3 pg (27.0-33.0); Mean Corpuscular Volume 89.2 fL (80.0-98.0); Mean Platelet Volume 10.5 fL (9.4-12.3); Monocytes Absolute Auto 0.3 X10*3/uL (0.1-1.2); Monocytes Percent Auto 4.1 % (2-11); Neutrophils Absolute Auto 4.1 x10*3/uL (2.0-8.3); Neutrophils Percent Auto 67.1 % (45-73); Platelet Count 199 X10*3/uL (160-400); Red Blood Count 4.16 X10*6/uL (4.20-5.50); White Blood Count 6.1 X10*3/uL (4.8-10.8)
[2023-03-10 11:29] LABS: Alanine Aminotransferase 14 U/L (0-31); Alkaline Phosphatase 79 U/L (39-117); Anion Gap 14 (12-20); Aspartate Amino Transferase 15 U/L (5-31); Bilirubin Direct 0.2 mg/dL (0.0-0.5); Bilirubin Total 0.5 mg/dL (0.0-1.0); Blood Urea Nitrogen 12 mg/dL (9-16); Calcium 9.4 mg/dL (8.4-10.2); Carbamazepine Tegretol 5.2 mcg/mL (5.0-12.0); Carbon Dioxide 23 mmol/L (22-29); Chloride 103 mmol/L (96-108); Creatinine Clr Calc Pharmacy 151.5; Estimated Glomerular Filt Rate > 60; Glucose Random 163 mg/dL (60-115); Potassium 3.7 mmol/L (3.3-5.1); Sodium 136 mmol/L (135-145); Total Protein 7.3 g/dL (6.5-8.0)
[2023-03-10 11:32] LABS: Estimated Average Glucose 117 mg/dL; Hemoglobin A1c % 5.7 % (<6.0)
[2023-03-10 11:50] LABS: TSH reflex Free T4 1.59 uIU/mL (0.32-4.0)
[2023-03-10 12:05] LABS: Folate > 20.0 ng/mL (> or = 4.0); Vitamin B12 584 pg/mL (200-900)
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
[2023-03-10 20:45] VITALS: BP 133/83; PULSE 84; RESP 18; TEMP 36.1; O2SAT 94
[2023-03-10] MEDS: Melatonin 3 MG TABLET 9 MG PO (21:10)
[2023-03-11 07:50] VITALS: BP 146/84; PULSE 71; RESP 16; TEMP 36.6; O2SAT 99
[2023-03-11] MEDS: Omeprazole 20 MG CAPSULE.DR PO (09:11)
[2023-03-11] MEDS: metFORMIN HCl ER 500 MG TAB.ER.24H PO (09:11)
[2023-03-11] MEDS: carBAMazepine ER 100 MG TAB.ER.12H 300 MG PO (09:11)
[2023-03-11] MEDS: Folic Acid 1 MG TABLET PO (09:11)
[2023-03-11] MEDS: fluPHENAZine HCl 5 MG TABLET PO (09:12)
[2023-03-11] MEDS: Docusate Sodium 100 MG CAPSULE PO (09:12)
[2023-03-11] MEDS: cloNIDine HCL 0.1 MG TABLET PO (09:12)
[2023-03-11] MEDS: Cyanocobalamin (Vitamin B-12) 100 MCG TABLET 50 MCG PO (09:12)
[2023-03-11] MEDS: Multivitamin TABLET 1 TAB PO (09:16)
== END 2023-03-11 10:05 | disposition home or self-care (01) | DRG 753 ==
PROVIDERS: Psychiatry & Neurology Psychiatry; Admitting Provider Psychiatry & Neurology Psychiatry; Visit Provider Psychiatry & Neurology Psychiatry
DX: F31.60 Bipolar disorder, current episode mixed, unspecified (principal); Z68.43 Body mass index [BMI] 50.0-59.9, adult; F14.10 Cocaine abuse, uncomplicated; F43.10 Post-traumatic stress disorder, unspecified; I10 Essential (primary) hypertension; E11.9 Type 2 diabetes mellitus without complications; E66.01 Morbid (severe) obesity due to excess calories; Z91.148 Patient's other noncompliance with medication regimen for other reason; Z79.84 Long term (current) use of oral hypoglycemic drugs; Z79.899 Other long term (current) drug therapy
CPT/HCPCS: 36415; 80048; 80053; 80061; 80076; 80156; 82607; 82746; 82947; 83036; 84443; 85025

== ENCOUNTER → 2023-03-05 01:15 | Outpatient (BNV) | payer OTHER, SELFPAY | PROVIDERS: Admitting Provider Psychiatry & Neurology Psychiatry; Visit Provider Psychiatry & Neurology Psychiatry | DX: F31.2 Bipolar disorder, current episode manic severe with psychotic features (principal); F14.10 Cocaine abuse, uncomplicated | CPT/HCPCS: 99231; 99232 ==

== ENCOUNTER → 2023-03-05 01:15 | Outpatient (BNV) | payer OTHER, SELFPAY | PROVIDERS: Admitting Provider Psychiatry & Neurology Psychiatry; Visit Provider Physician Assistant | DX: Z02.2 Encounter for examination for admission to residential institution (principal) | CPT/HCPCS: 99429 ==

== ENCOUNTER 2023-05-12 22:41 | Inpatient (IN) | payer OTHER, SELFPAY ==
--- OUTSIDE RECORDS SUMMARY | 2023-05-12 22:47 | XMS_ITS | Continuity of Care Document ---
Author Name Unknown Organization [facility] Address [address] [place] [address]- Care Team Providers Care Digital Media Strategist Name Role Phone Vera Babcock MD Primary Care Physician Encounter [facility] Date(s): 03/16/23 - 04/15/[address] [address]- Attending Physician: Eidth Mendoza Admitting Physician: AdmEdith camarena Referring Physician: Admtr, ArIfeanyi Allergies, Adverse Reactions, Alerts No Known Allergies Immunizations Given and Recorded Vaccine Date Status Refusal Reason [id number] 12y+ bivalent booster vax 03/16/23 Given [id number] 12y+ bivalent booster vax 03/26/22 Given influenza virus vaccine, inactivated 03/16/23 Give n influenza virus vaccine, inactivated 03/26/22 Give n influenza virus vaccine, inactivated 12/08/19 Osvaldo rded influenza virus vaccine, inactivated 11/29/18 Osvaldo rded influenza virus vaccine, inactivated 12/06/08 Osvaldo rded tetanus/diphtheria/pertussis, acel(Tdap) 03/26/22 Given tetanus/diphtheria/pertussis, acel(Tdap) 01/03/09 Recorded SARS-CoV-2 mRNA ([id number]) vax 08/05/21 Recorded SARS-CoV-2 (COVID-19) mRNA BNT-162b2 [...] 03/26/22 14:44:00 EST, Route to Pharmacy Electronically, [place], [place] - [id number], Partial fill upon patient request if the prescription is for... Start Date: 03/26/22 Stop Date: 03/21/23 Status: Ordered cyanocobalamin (vit B-12) 100 mcg tablet cyanocobalamin (vit B-12) 100 mcg tablet, 0.5, tablet, By Mouth, Daily, # 15 tablet, 5 Refills, Maintenance, 01/06/23 8:34:00 EDT, 175, cm, 12/09/22 13:29:00 EDT, Height, 161.2, kg, 11/26/22 13:41:00EDT, Dry Weight Start Date: 01/06/23 Status: Ordered docusate sodium 100 mg oral capsule See Instructions, TAKE 1 CAPSULE BY MOUTH two (2) times a day, # 60 each, 5 Refills, Maintenance, 10/05/22 2:04:00 EDT, [facility], 175, cm, 07/02/22 15:31:00 EDT, Height, 170.9, kg, 05/13/22 14:47:00 EST, Dry Weight Start Date: 10/05/22 Status: Ordered folic acid 0.8 mg oral tablet 1 tablet = 0.8 mg, By Mouth, Daily, # 30 tablet, 5 Refills, Maintenance, 03/16/23 8:59:00 EST, Tablet, [place], [place] - [id number], Partial fill upon patient request if the prescription is for a schedule II opioid drug., 175, cm, 12... Start Date: 03/16/23 Stop Date: 09/12/23 Status: Ordered MetFORMIN (Eqv-Glucophage XR) 500 mg oral tablet, extended release 1 tablet = 500 mg, By Mouth, Daily, # 90 tablet, 3 Refills, Maintenance, 06/28/22 10:51:00 EDT, [facility] [id number], Partial fill upon patient request if the prescription is for a schedule II opioid drug., 175, cm, 06/28/22... Start Date: 06/28/22 Stop Date: 06/23/23 Status: Ordered multivitamin Multiple Vitamins oral tablet 1 tablet, By Mouth, Daily, # 30 tablet, 11 Refills, Maintenance, 03/26/22 14:47:00 EST, Tablet, [facility] [id number], Partial fill upon patient request if the prescription is for a schedule II opioid drug., 1 tablet By Mouth... Start Date: 03/26/22 Stop Date: 03/21/23 Status: Ordered omeprazole 20 mg oral enteric coated capsule See Instructions, TAKE 1 CAPSULE BY MOUTH ONCE DAILY, # 30 capsule, 5 Refills, Maintenance, 03/16/23 8:59:00 EST, [facility] [phone], 175, cm, 03/16/23 8:34:00 EST, Height, 161.2, kg, 11/26/22 13:41:00 EDT, Dry Weight Start Date: 03/16/23 Status: Ordered Prolixin Tablet Rx'd per Psych, Refills 0, Maintenance, 04/03/23 10:28:00 EST, Partial fill upon patient request ifthe prescription is for a schedule II opioid drug. Start Date: 04/03/23 Status: Ordered TEGretol XR 100 mg oral tablet, extended release 100 mg, 1, tablet, By Mouth, 2 times a day, Rx'd per Psych, # 60 tablet, Refills 5, Maintenance, 04/03/23 10:28:00 EST, Partial fill upon patient request if the prescription is for a schedule II opioid drug. Start Date: 04/03/23 Status: Ordered Problem List Condition Confirmation Course Effective Dates Status Health St [facility] Informant ASCUS HPV+/ neg 16/18/45 1 Confirmed Active Bipolar disorder Confirmed Active [facility] traffic coordinator Hugo Hamilton [phone] Confirmed Active PTSD (post-traumatic stress disorder) Confirmed Active Severe obesity Confirmed Active 1Unable to fully visualize cervix with speculum available. Unable to complete colposcopy procedure. will refer to [facility] Social History Social History Type Response Tobacco Use: 4 or less cigar ettes(less than 1/4 pack)/day in last 30 days. Other: rarely. Sex Patient Care team information Care Team Personnel Name: Jayne Vee RN Position: [facility] RN Member Role: Primary Care Nurse Name: Jojo Cazares RN Position: [facility] RN Member Role: Primary Care Nurse Name: Vera Babcock MD Position: [facility] Physician - Primary Care Member Role: PCP Address: Address: [address] [place] [address]- Care Team Related Persons Name: SKYE FELDER Address: home [address] [place] [address] Name: LALA HILLS Address: home [address] [place] [id number] Name: KERI BROTHERS Address: home [address] [place] [address]
--- OUTSIDE RECORDS SUMMARY | 2023-05-12 22:47 | XMS_ITS | Continuity of Care Document ---
Author Name Unknown Organization [facility] Address [address] [place] [address]- Care Team Providers Care Automobile Service Writer Name Role Phone Vera Babcock MD Primary Care Physician Encounter [facility] Date(s): 01/24/23 - 03/23/23 [facility] [address] [address]- Attending Physician: Not on Staff, Attending MD Allergies, Adverse Reactions, Alerts No Known Allergies Immunizations Given and Recorded Vaccine Date Status Refusal Reason [id number] 12y+ bivalent booster vax 03/16/23 Given [id number] 12y+ bivalent booster vax 03/26/22 Given influenza virus vaccine, inactivated 03/16/23 Give n influenza virus vaccine, inactivated 03/26/22 Give n influenza virus vaccine, inactivated 12/08/19 Osvaldo rded influenza virus vaccine, inactivated 11/29/18 Osvaldo rded influenza virus vaccine, inactivated 12/06/08 Osvaldo rded tetanus/diphtheria/pertussis, acel(Tdap) 03/26/22 Given tetanus/diphtheria/pertussis, acel(Tdap) 01/03/09 Recorded SARS-CoV-2 mRNA ([id number]) vax 08/05/21 Recorded SARS-CoV-2 (COVID-19) mRNA BNT-162b2 [...] 03/26/22 14:44:00 EST, Route to Pharmacy Electronically, [place], [place] - [id number], Partial fill upon patient request if the [...] each, 5 Refills, Maintenance, 10/05/22 2:04:00 EDT, [facility], 175, cm, 07/02/22 15:31:00 EDT, Height, 170.9, kg, 05/13/22 14:47:00 EST, Dry Weight Start Date: 10/05/22 Status: Ordered folic acid 0.8 mg oral tablet 1 tablet = 0.8 mg, By Mouth, Daily, # 30 tablet, 5 Refills, Maintenance, 03/16/23 8:59:00 EST, Tablet, [place], [place] - [phone], Partial fill upon patient request if the prescription is for a schedule II opioid drug., 175, cm, 12... Start Date: 03/16/23 Stop Date: 09/12/23 Status: Ordered MetFORMIN (Eqv-Glucophage XR) 500 mg oral tablet, extended release 1 tablet = 500 mg, By Mouth, Daily, # 90 tablet, 3 Refills, Maintenance, 06/28/22 10:51:00 EDT, [place], [place] - [phone], Partial fill upon patient request if the prescription is for a schedule II opioid drug., 175, cm, 06/28/22... Start Date: 06/28/22 Stop Date: 06/23/23 Status: Ordered multivitamin Multiple Vitamins oral tablet 1 tablet, By Mouth, Daily, # 30 tablet, 11 Refills, Maintenance, 03/26/22 14:47:00 EST, Tablet, [facility] [id number], Partial fill upon patient request if the prescription is for a schedule II opioid drug., 1 tablet By Mouth... Start Date: 03/26/22 Stop Date: 03/21/23 Status: Ordered omeprazole 20 mg oral enteric coated capsule See Instructions, TAKE 1 CAPSULE BY MOUTH ONCE DAILY, # 30 capsule, 5 Refills, Maintenance, 03/16/23 8:59:00 EST, [facility] [id number], 175, cm, 03/16/23 8:34:00 EST, Height, 161.2, kg, 11/26/22 13:41:00 EDT, Dry Weight Start Date: 03/16/23 Status: Ordered Problem List Condition Confirmation Course Effective Dates Status Health St atus Informant ASCUS HPV+/ neg 16/18/45 1 Confirmed Active Bipolar disorder Confirmed Active [facility] program coordinator executive education Hugo Hamilton [phone] Confirmed Active PTSD (post-traumatic stress disorder) Confirmed Active Severe obesity Confirmed Active 1Unable to fully visualize cervix with speculum available. Unable to complete colposcopy procedure. will refer to [facility] Social History Social History Type Response Tobacco Use: 4 or less cigar ettes(less than 1/4 pack)/day in last 30 days. Other: rarely. Sex Patient Care team information Care Team Personnel Name: Jayne Vee RN Position: [facility] RN Member Role: Primary Care Nurse Name: Jojo Cazares RN Position: [facility] RN Member Role: Primary Care Nurse Name: Vera Babcock MD Position: [facility] Physician - Primary Care Member Role: PCP Address: Address: [address] [place] [address]- Care Team Related Persons Name: FELDERSKYE Address: home [address] [place] [id number] Name: LALA HILLS Address: [address] [address] Name: KERI BROTHERS Address: [address] [address]
--- OUTSIDE RECORDS SUMMARY | 2023-05-12 22:47 | XMS_ITS | Continuity of Care Document ---
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 g/dL (03/04/23) MCV: 87.8 femtoliters (03/04/23) [place] %: 7.3 % (03/04/23) MPV: 10.8 femtoliters (03/04/23) Neut %: 60 % (03/04/23) Nucleated RBC (Automated): 0 #/100 WBC'S (03/04/23) Platelet Count: 204 k/mm3 (03/04/23) Potassium: HEMOLYZED (03/04/23) Serum Qual: NEGATIVE (03/04/23) Protein, Total: 6.5 Gm/dL (03/04/23) RBC: 4.5 m/mm3 (03/04/23) RDW-SD: 41.5 femtoliters (03/04/23) RSV PCR: NEGATIVE (03/04/23) Sodium: 139 mmol/L (03/04/23) TSH: 2.12 uIU/mL (03/04/23) WBC: 7 k/mm3 (03/04/23) Patient Care team information Care Team Personnel Name: Jayne Vee RN Position: [facility] RN Member Role: Primary Care Nurse Name: Jojo Cazares RN Position: [facility] RN Member Role: Primary Care Nurse Name: Vera Babcock MD Position: [facility] Physician - Primary Care Member Role: PCP Address: Address: [address] [place] [address]- Name: *[facility], ED Attending Position: [facility] ED Attendings Patient Name: Parvez Gandhi Position: [facility] ED TA [facility] Name: Jesse Cronin RN Position: [facility] ED RN W/OE and Tasks Member Role: Patient Care Provider Name: Parker Hoffman MD Position: [facility] Resident Member Role: ED Attending Physician Address: Address: [address] [place] [address] [place] [address]- Care Team Related Persons Name: ROB COLONYL Address: home [address] [place] [address] Name: LALA HILLS Address: home [address] [place] [id number] Name: KERI BROTHERS Address: home [address] [place] [address]
--- OUTSIDE RECORDS SUMMARY | 2023-05-12 22:48 | XMS_ITS | Continuity of Care Document ---
Author Name Unknown Organization [facility] Address [address] [place] [address]- Care Team Providers Care Fish Hatchery Manager Name Role Phone Vera Babcock MD Primary Care Physician Encounter [facility] Date(s): 03/16/23 - 04/15/[address] [address]- Attending Physician: Ziggy Mann MD Admitting Physician: Ziggy Mann MD Allergies, Adverse Reactions, Alerts No Known Allergies Immunizations Given and Recorded Vaccine Date Status Refusal Reason [id number] 12y+ bivalent booster vax 03/16/23 Given [id number] 12y+ bivalent booster vax 03/26/22 Given influenza virus vaccine, inactivated 03/16/23 Give n influenza virus vaccine, inactivated 03/26/22 Give n influenza virus vaccine, inactivated 12/08/19 Osvaldo rded influenza virus vaccine, inactivated 11/29/18 Osvaldo rded influenza virus vaccine, inactivated 12/06/08 Osvadlo rded tetanus/diphtheria/pertussis, acel(Tdap) 03/26/22 Given tetanus/diphtheria/pertussis, acel(Tdap) 01/03/09 Recorded SARS-CoV-2 mRNA ([id number]) vax 08/05/21 Recorded SARS-CoV-2 (COVID-19) mRNA BNT-162b2 [...] 03/26/22 14:44:00 EST, Route to Pharmacy Electronically, [place], [place] - [phone], Partial fill upon patient request if the [...] each, 5 Refills, Maintenance, 10/05/22 2:04:00 EDT, [facility], 175, cm, 07/02/22 15:31:00 EDT, Height, 170.9, kg, 05/13/22 14:47:00 EST, Dry Weight Start Date: 10/05/22 Status: Ordered folic acid 0.8 mg oral tablet 1 tablet = 0.8 mg, By Mouth, Daily, # 30 tablet, 5 Refills, Maintenance, 03/16/23 8:59:00 EST, Tablet, [place], [place] - [phone], Partial fill upon patient request if the prescription is for a schedule II opioid drug., 175, cm, 12... Start Date: 03/16/23 Stop Date: 09/12/23 Status: Ordered MetFORMIN (Eqv-Glucophage XR) 500 mg oral tablet, extended release 1 tablet = 500 mg, By Mouth, Daily, # 90 tablet, 3 Refills, Maintenance, 06/28/22 10:51:00 EDT, [facility] [id number], Partial fill upon patient request if the prescription is for a schedule II opioid drug., 175, cm, 06/28/22... Start Date: 06/28/22 Stop Date: 06/23/23 Status: Ordered multivitamin Multiple Vitamins oral tablet 1 tablet, By Mouth, Daily, # 30 tablet, 11 Refills, Maintenance, 03/26/22 14:47:00 EST, Tablet, [facility] [id number], Partial fill upon patient request if the prescription is for a schedule II opioid drug., 1 tablet By Mouth... Start Date: 03/26/22 Stop Date: 03/21/23 Status: Ordered omeprazole 20 mg oral enteric coated capsule See Instructions, TAKE 1 CAPSULE BY MOUTH ONCE DAILY, # 30 capsule, 5 Refills, Maintenance, 03/16/23 8:59:00 EST, [facility] [phone], 175, cm, 03/16/23 8:34:00 EST, Height, 161.2, [...] 1 Confirmed Active Bipolar disorder Confirmed Active [facility] partners social services coordinator Hugo Hamilton [phone] Confirmed Active PTSD (post-traumatic stress disorder) Confirmed Active Severe obesity Confirmed Active 1Unable to fully visualize cervix with speculum available. Unable to complete colposcopy procedure. will refer to [facility] Social History Social History Type Response Tobacco Use: 4 or less cigar ettes(less than 1/4 pack)/day in last 30 days. Other: rarely. Sex Patient Care team information Care Team Personnel Name: Jayne Vee RN Position: [facility] RN Member Role: Primary Care Nurse Name: Jojo Cazares RN Position: [facility] RN Member Role: Primary Care Nurse Name: Vera Babcock MD Position: [facility] Physician - Primary Care Member Role: PCP Address: Address: [address] [place] [address]- Care Team Related Persons Name: SKYE FELDER Address: home [address] [place] [address] Name: LALA HILLS Address: home [address] [place] [id number] Name: KERI BROTHERS Address: home [address] [place] [id number]
[2023-05-13] LABS: Glucose, Whole Blood 136 mg/dL (60-115)
[2023-05-13 00:23] VITALS: BMI 54.7
[2023-05-13 01:02] VITALS: BP 124/75; PULSE 101; RESP 18; TEMP 36.8; O2SAT 98
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
[2023-05-13 10:00] VITALS: BP 132/80; PULSE 84; RESP 18; TEMP 36.9; O2SAT 97
[2023-05-13] MEDS: Magnesium Hydrox/Alum Hydrox 30 ML ORAL.SUSP PO (11:20)
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
[2023-05-13] MEDS: Omeprazole 20 MG CAPSULE.DR PO (12:43)
[2023-05-13] MEDS: cloNIDine HCL 0.1 MG TABLET PO ×2 (12:44→20:17)
[2023-05-13] MEDS: carBAMazepine ER 100 MG TAB.ER.12H 300 MG PO ×2 (12:44→20:17)
[2023-05-13] MEDS: metFORMIN HCl 500 MG TABLET PO (12:44)
[2023-05-13] MEDS: Docusate Sodium 100 MG CAPSULE PO ×2 (12:44→20:17)
[2023-05-13] MEDS: Folic Acid 1 MG TABLET PO (12:44)
[2023-05-13] MEDS: fluPHENAZine HCl 5 MG TABLET PO ×2 (12:44→20:17)
[2023-05-13] MEDS: Multivitamin TABLET 1 TAB PO (12:44)
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
[2023-05-13 20:00] VITALS: BP 131/75; PULSE 71; TEMP 36.3; O2SAT 97
[2023-05-14] MEDS: Omeprazole 20 MG CAPSULE.DR PO (06:17)
[2023-05-14 08:43] VITALS: BP 134/85; PULSE 78; RESP 15; TEMP 36.3; O2SAT 97
[2023-05-14] MEDS: cloNIDine HCL 0.1 MG TABLET PO ×2 (08:44→20:13)
[2023-05-14] MEDS: Multivitamin TABLET 1 TAB PO (08:45)
[2023-05-14] MEDS: Docusate Sodium 100 MG CAPSULE PO ×2 (08:45→20:13)
[2023-05-14] MEDS: fluPHENAZine HCl 5 MG TABLET PO ×2 (08:45→20:13)
[2023-05-14] MEDS: metFORMIN HCl 500 MG TABLET PO (08:45)
[2023-05-14] MEDS: Folic Acid 1 MG TABLET PO (08:45)
[2023-05-14] MEDS: Cyanocobalamin (Vitamin B-12) 100 MCG TABLET PO (09:02)
[2023-05-14 09:14] LABS: Alanine Aminotransferase 19 U/L (0-31); Albumin Level 3.9 g/dL (3.5-5.0); Alkaline Phosphatase 82 U/L (39-117); Anion Gap 10 (12-20); Aspartate Amino Transferase 15 U/L (5-31); Bilirubin Total 0.4 mg/dL (0.0-1.0); Blood Urea Nitrogen 10 mg/dL (9-16); Calcium 9.2 mg/dL (8.4-10.2); Carbon Dioxide 28 mmol/L (22-29); Chloride 106 mmol/L (96-108); Cholesterol 244 mg/dL (<200); Creatinine Clr Calc Pharmacy 160.6; Estimated Glomerular Filt Rate > 60; Glucose Fasting 114 mg/dL (60-99); HDL Cholesterol 44 mg/dL (>40); LDL Cholesterol Calculated 180 mg/dL (<100); Potassium 3.9 mmol/L (3.3-5.1); Sodium 140 mmol/L (135-145); Triglycerides 101 mg/dL (<150)
[2023-05-14 09:18] LABS: Estimated Average Glucose 105 mg/dL; Hemoglobin A1c % 5.3 % (<6.0)
[2023-05-14 09:29] LABS: Free T4 (Free Thyroxine) 0.93 ng/dL (0.71-1.85); Thyroid Stimulating Hormone 1.78 uIU/mL (0.32-4.0)
[2023-05-14 09:42] LABS: Folate 13.9 ng/mL (> or = 4.0); Vitamin B12 608 pg/mL (200-900)
[2023-05-14] MEDS: carBAMazepine ER 100 MG TAB.ER.12H 300 MG PO ×2 (09:51→20:13)
--- NOTE | 2023-05-14 11:27 | HO.PSYCHPN ---
Subjective Subjective Date of Service: 05/14/23 Reason For Visit: unspecified Schizophrenia and other psych disorder Subjective Notes: Conditional Voluntary and 3 Day Interim History: Patient was seen and discussed in rounds today. Records and plans were reviewed. She is doing better. She is tolerating the increase Tegretol with no side effects. She continues to be flattened somewhat guarded with low-level of depression. There is thought blocking reported. Eating and sleeping adequately. She had questions about her vaginal secretion panel that was ordered for infections and she wanted to know whether chlamydia was ordered which it has been. No changes were made today Review of Systems Review of Systems Vaginal infection Yes all other systems are reviewed and are negative Mental Status Exam Mental Status Exam Patient Appearance: Fatigued Patient Orientation: Person Level of Consciousness: Alert Patient Behavior: Guarded, Suspicious, Fearful, Avoidant, Distractible and Good Eye Contact Mood Description: Anxious and Apprehensive Affect Description: Anxious and Apprehensive Ability to Follow Directions: Fair Speech Pattern: Impoverished, Spontaneous Speech and Soft-Spoken Delusions: Present Thought Process: Rumination Thought Content: positive for Preoccupation Judgement: Poor Diagnostics Vital Signs (24Hr): Vital Signs - 24 hr 05/13/23 20:00 05/14/23 08:43 Temperature 97.3 F 97.4 F Pulse Rate 71 78 Respiratory Rate 15 Blood Pressure 131/75 134/85 Pulse Oximetry 97 97 Oxygen Delivery Method Room Air Room Air BMI result Body Mass Index 54.7 Labs 05/14/23 08:42 Labs: Laboratory Results - last 48 hr 05/12/23 05/14/23 23:21 08:42 Sodium 140 Potassium 3.9 Chloride 106 Carbon Dioxide 28 Anion Gap 10 L BUN 10 Creatinine 0.80 Estim Creat Clear Calc 160.6 Estimated GFR > 60 POC Glucose 136 H Fasting Glucose 114 H Estimat Average Glucose 105 Hemoglobin A1c % 5.3 Calcium 9.2 Total Bilirubin 0.4 AST 15 ALT 19 Alkaline Phosphatase 82 Total Protein 7.0 Albumin 3.9 Triglycerides 101 Cholesterol 244 H LDL Cholesterol, Calc 180 H HDL Cholesterol 44 Vitamin B12 608 Folate 13.9 TSH 1.78 Free T4 0.93 Medications Medications Current Medications Acetaminophen (Acetaminophen 325 Mg Tablet) 650 mg PO Q6H PRN PRN Reason: Headache/Pain Mild Scale (1-3) Al Hydroxide/Mg Hydroxide (Magnesium Hydrox/Alum Hydrox 30 Ml Oral.Susp) 30 ml PO Q6H PRN PRN Reason: Heartburn/Nausea Last Admin: 05/13/23 11:20 Dose: 30 ml Carbamazepine (Carbamazepine Er 100 Mg Tab.Er.12h) 300 mg PO BID [facility] Last Admin: 05/14/23 09:51 Dose: 300 mg Clonidine HCl (Clonidine Hcl 0.1 Mg Tablet) 0.1 mg PO BID [facility]; Protocol Last Admin: 05/14/23 08:44 Dose: 0.1 mg Cyanocobalamin (Cyanocobalamin (Vitamin B-12) 100 Mcg Tablet) 100 mcg PO DAILY [facility] Last Admin: 05/14/23 09:02 Dose: 100 mcg Docusate Sodium (Docusate Sodium 100 Mg Capsule) 100 mg PO BID [facility] Last Admin: 05/14/23 08:45 Dose: 100 mg Fluphenazine HCl (Fluphenazine Hcl 5 Mg Tablet) 5 mg PO BID [facility] Last Admin: 05/14/23 08:45 Dose: 5 mg Folic Acid (Folic Acid 1 Mg Tablet) 1 mg PO DAILY [facility] Last Admin: 05/14/23 08:45 Dose: 1 mg Hydroxyzine HCl (Hydroxyzine Hcl 25 Mg Tablet) 25 mg PO Q6H PRN PRN Reason: Anxiety Magnesium Hydroxide (Milk Of Magnesia 30 Ml Oral.Susp) 30 ml PO DAILY PRN PRN Reason: Constipation Metformin HCl (Metformin Hcl 500 Mg Tablet) 500 mg PO DAILY@0900 [facility] Last Admin: 05/14/23 08:45 Dose: 500 mg Multivitamins/Vitamin C (Multivitamin Tablet) 1 tab PO DAILY [facility] Last Admin: 05/14/23 08:45 Dose: 1 tab Nicotine Polacrilex (Nicotine Polacrilex 2 Mg Gum) 4 mg BUCCAL Q2H PRN PRN Reason: Nicotine Cravings Omeprazole (Omeprazole 20 Mg Capsule.Dr) 20 mg PO DAILY@0630 [facility] Last Admin: 05/14/23 06:17 Dose: 20 mg Ondansetron HCl (Ondansetron Odt 4 Mg Tab.Rapdis) 4 mg TRANSLINGU Q8H PRN PRN Reason: Nausea Trazodone HCl (Trazodone Hcl 50 Mg Tablet) 50 mg PO BEDTIME MRX1 PRN PRN Reason: Insomnia Allergies Allergies Allergy/AdvReac Type Severity Reaction Status Date / Time No Known Allergies Allergy Verified 10/14/20 11:17 Assessment & Plan Assessment & Plan (1) Medical clearance for psychiatric admission: Status: Acute Code(s): Z00.8 - Encounter for other general examination Plan Pt is a 37-year-old female with a PMH significant for?[id number] diabetes type 2, GERD, PTSD, schizophrenia, and bipolar disorder who is admitted to [facility] psychiatry unit for disorganized behavior. She apparently has been noncompliant with her medications at home and presented to a restaurant in the community behaving erratically. Medical consult for admission H&P. Mood disorder Plan as per psychiatry Nausea Pt states secondary to starting Wegovy Ondansetron prn Recent BV and chlamydia infections Tested positive x2 and treated x2 Reports only mild symptoms the first time Currently asymptomatic but worried about still being positive Pt can self-swab for repeat testing Treat as indicated by testing GERD Continue PPI Thank you for allowing us to participate in the care of this patient. Signing off at this time. Please re-consult if any acute complaints or issues arise. 05/14: Continue current regimen and plans Reason for continued inpatient stay Substantial Risk for: med/psych decompensation Time Spent With Patient Time: Total time managing care of this patient today ____ minutes.
[2023-05-14 18:52] VITALS: BP 144/90; PULSE 67; RESP 15; TEMP 36.6; O2SAT 98
[2023-05-15] MEDS: Omeprazole 20 MG CAPSULE.DR PO (06:08)
[2023-05-15 09:00] VITALS: BP 127/58; PULSE 74; RESP 15; TEMP 36.7; O2SAT 96
[2023-05-15] MEDS: metFORMIN HCl 500 MG TABLET PO (09:01)
[2023-05-15] MEDS: Docusate Sodium 100 MG CAPSULE PO ×2 (09:01→21:39)
[2023-05-15] MEDS: fluPHENAZine HCl 5 MG TABLET PO ×2 (09:01→21:38)
[2023-05-15] MEDS: Folic Acid 1 MG TABLET PO (09:01)
[2023-05-15] MEDS: carBAMazepine ER 100 MG TAB.ER.12H 300 MG PO ×2 (09:01→21:39)
[2023-05-15] MEDS: cloNIDine HCL 0.1 MG TABLET PO ×2 (09:01→21:38)
[2023-05-15] MEDS: Multivitamin TABLET 1 TAB PO (09:01)
[2023-05-15] MEDS: Cyanocobalamin (Vitamin B-12) 100 MCG TABLET PO (09:01)
--- NOTE | 2023-05-15 10:09 | HO.PSYCHPN ---
Subjective Subjective Date of Service: 05/15/23 Reason For Visit: unspecified Schizophrenia and other psych disorder Subjective Notes: Conditional Voluntary and 3 Day Interim History: Patient was seen and discussed in rounds today. Records and plans were reviewed. She has been fairly stable. She is isolative. She is medication and meals compliant. Yesterday vaginal samples for infections were taken. She does have a 3 day notice in that expires on 05/18. No changes were made today Review of Systems Review of Systems Vaginal infection Yes all other systems are reviewed and are negative Mental Status Exam Mental Status Exam Patient Appearance: Fatigued Patient Orientation: Person Level of Consciousness: Alert Patient Behavior: Guarded, Suspicious, Fearful, Avoidant, Distractible and Good Eye Contact Mood Description: Anxious and Apprehensive Affect Description: Anxious and Apprehensive Ability to Follow Directions: Fair Speech Pattern: Impoverished, Spontaneous Speech and Soft-Spoken Delusions: Present Thought Process: Rumination Thought Content: positive for Preoccupation Judgement: Poor Diagnostics Vital Signs (24Hr): Vital Signs - 24 hr 05/14/23 18:52 05/15/23 09:00 Temperature 97.9 F 98.0 F Pulse Rate 67 74 Respiratory Rate 15 15 Blood Pressure 144/90 H 127/58 L Pulse Oximetry 98 96 Oxygen Delivery Method Room Air Room Air BMI result Body Mass Index 54.7 Labs 05/14/23 08:42 Labs: Laboratory Results - last 48 hr 05/14/23 08:42 Sodium 140 Potassium 3.9 Chloride 106 Carbon Dioxide 28 Anion Gap 10 L BUN 10 Creatinine 0.80 Estim Creat Clear Calc 160.6 Estimated GFR > 60 Fasting Glucose 114 H Estimat Average Glucose 105 Hemoglobin A1c % 5.3 Calcium 9.2 Total Bilirubin 0.4 AST 15 ALT 19 Alkaline Phosphatase 82 Total Protein 7.0 Albumin 3.9 Triglycerides 101 Cholesterol 244 H LDL Cholesterol, Calc 180 H HDL Cholesterol 44 Vitamin B12 608 Folate 13.9 TSH 1.78 Free T4 0.93 Medications Medications Current Medications Acetaminophen (Acetaminophen 325 Mg Tablet) 650 mg PO Q6H PRN PRN Reason: Headache/Pain Mild Scale (1-3) Al Hydroxide/Mg Hydroxide (Magnesium Hydrox/Alum Hydrox 30 Ml Oral.Susp) 30 ml PO Q6H PRN PRN Reason: Heartburn/Nausea Last Admin: 05/13/23 11:20 Dose: 30 ml Carbamazepine (Carbamazepine Er 100 Mg Tab.Er.12h) 300 mg PO BID [facility] Last Admin: 05/15/23 09:01 Dose: 300 mg Clonidine HCl (Clonidine Hcl 0.1 Mg Tablet) 0.1 mg PO BID [facility]; Protocol Last Admin: 05/15/23 09:01 Dose: 0.1 mg Cyanocobalamin (Cyanocobalamin (Vitamin B-12) 100 Mcg Tablet) 100 mcg PO DAILY [facility] Last Admin: 05/15/23 09:01 Dose: 100 mcg Docusate Sodium (Docusate Sodium 100 Mg Capsule) 100 mg PO BID [facility] Last Admin: 05/15/23 09:01 Dose: 100 mg Fluphenazine HCl (Fluphenazine Hcl 5 Mg Tablet) 5 mg PO BID [facility] Last Admin: 05/15/23 09:01 Dose: 5 mg Folic Acid (Folic Acid 1 Mg Tablet) 1 mg PO DAILY [facility] Last Admin: 05/15/23 09:01 Dose: 1 mg Hydroxyzine HCl (Hydroxyzine Hcl 25 Mg Tablet) 25 mg PO Q6H PRN PRN Reason: Anxiety Magnesium Hydroxide (Milk Of Magnesia 30 Ml Oral.Susp) 30 ml PO DAILY PRN PRN Reason: Constipation Metformin HCl (Metformin Hcl 500 Mg Tablet) 500 mg PO DAILY@0900 [facility] Last Admin: 05/15/23 09:01 Dose: 500 mg Multivitamins/Vitamin C (Multivitamin Tablet) 1 tab PO DAILY [facility] Last Admin: 05/15/23 09:01 Dose: 1 tab Nicotine Polacrilex (Nicotine Polacrilex 2 Mg Gum) 4 mg BUCCAL Q2H PRN PRN Reason: Nicotine Cravings Omeprazole (Omeprazole 20 Mg Capsule.Dr) 20 mg PO DAILY@0630 [facility] Last Admin: 05/15/23 06:08 Dose: 20 mg Ondansetron HCl (Ondansetron Odt 4 Mg Tab.Rapdis) 4 mg TRANSLINGU Q8H PRN PRN Reason: Nausea Trazodone HCl (Trazodone Hcl 50 Mg Tablet) 50 mg PO BEDTIME MRX1 PRN PRN Reason: Insomnia Allergies Allergies Allergy/AdvReac Type Severity Reaction Status Date / Time No Known Allergies Allergy Verified 10/14/20 11:17 Assessment & Plan Assessment & Plan (1) Medical clearance for psychiatric admission: Status: Acute Code(s): Z00.8 - Encounter for other general examination Plan Pt is a 37-year-old female with a PMH significant for?[id number] diabetes type 2, GERD, PTSD, schizophrenia, and bipolar disorder who is admitted to [facility] psychiatry unit for disorganized behavior. She apparently has been noncompliant with her medications at home and presented to a restaurant in the community behaving erratically. Medical consult for admission H&P. Mood disorder Plan as per psychiatry Nausea Pt states secondary to starting Wegovy Ondansetron prn Recent BV and chlamydia infections Tested positive x2 and treated x2 Reports only mild symptoms the first time Currently asymptomatic but worried about still being positive Pt can self-swab for repeat testing Treat as indicated by testing GERD Continue PPI Thank you for allowing us to participate in the care of this patient. Signing off at this time. Please re-consult if any acute complaints or issues arise. 05/14: Continue current regimen and plans 05/15: Continue current regimen and plans Reason for continued inpatient stay Substantial Risk for: med/psych decompensation Time Spent With Patient Time: Total time managing care of this patient today ____ minutes.
[2023-05-15] MEDS: Magnesium Hydrox/Alum Hydrox 30 ML ORAL.SUSP PO (20:13)
[2023-05-15 21:36] VITALS: BP 127/92; PULSE 64; TEMP 36.7
[2023-05-16] MEDS: Omeprazole 20 MG CAPSULE.DR PO (06:18)
[2023-05-16 07:59] VITALS: BP 147/80; PULSE 66; RESP 16; TEMP 36.3; O2SAT 96
[2023-05-16] MEDS: fluPHENAZine HCl 5 MG TABLET PO ×2 (08:55→21:24)
[2023-05-16] MEDS: Docusate Sodium 100 MG CAPSULE PO ×2 (08:55→21:24)
[2023-05-16] MEDS: metFORMIN HCl 500 MG TABLET PO (08:55)
[2023-05-16] MEDS: cloNIDine HCL 0.1 MG TABLET PO ×2 (08:55→21:22)
[2023-05-16] MEDS: Folic Acid 1 MG TABLET PO (08:55)
[2023-05-16] MEDS: carBAMazepine ER 100 MG TAB.ER.12H 300 MG PO ×2 (08:55→21:23)
[2023-05-16] MEDS: Multivitamin TABLET 1 TAB PO (08:55)
[2023-05-16] MEDS: Cyanocobalamin (Vitamin B-12) 100 MCG TABLET PO (08:55)
[2023-05-16] MEDS: Acetaminophen 325 MG TABLET 650 MG PO (09:05)
--- NOTE | 2023-05-16 13:15 | HO.PSYCHPN ---
Subjective Subjective Date of Service: 05/16/23 Reason For Visit: unspecified Schizophrenia and other psych disorder Subjective Notes: Conditional Voluntary and 3 Day Interim History: Patient was seen and discussed in rounds today. Records and plans were reviewed. She continues to be mostly isolative but is pleasant and cooperative. She is hoping for discharge on 05/17. There was a mess up with her vaginal cultures. They were reordered. She is more organized and generally improved. No changes were Review of Systems Review of Systems Vaginal infection Yes all other systems are reviewed and are negative Mental Status Exam Mental Status Exam Patient Appearance: Fatigued Patient Orientation: Person Level of Consciousness: Alert Patient Behavior: Guarded, Suspicious, Fearful, Avoidant, Distractible and Good Eye Contact Mood Description: Anxious and Apprehensive Affect Description: Anxious and Apprehensive Ability to Follow Directions: Fair Speech Pattern: Impoverished, Spontaneous Speech and Soft-Spoken Delusions: Present Thought Process: Rumination Thought Content: positive for Preoccupation Judgement: Poor Diagnostics Vital Signs (24Hr): Vital Signs - 24 hr 05/15/23 21:36 05/16/23 07:59 Temperature 98.1 F 97.3 F Pulse Rate 64 66 Respiratory Rate 16 Blood Pressure 127/92 H 147/80 H Pulse Oximetry 96 Oxygen Delivery Method Room Air BMI result Body Mass Index 54.7 Labs 05/14/23 08:42 Medications Medications Current Medications Acetaminophen (Acetaminophen 325 Mg Tablet) 650 mg PO Q6H PRN PRN Reason: Headache/Pain Mild Scale (1-3) Last Admin: 05/16/23 09:05 Dose: 650 mg Al Hydroxide/Mg Hydroxide (Magnesium Hydrox/Alum Hydrox 30 Ml Oral.Susp) 30 ml PO Q6H PRN PRN Reason: Heartburn/Nausea Last Admin: 05/15/23 20:13 Dose: 30 ml Carbamazepine (Carbamazepine Er 100 Mg Tab.Er.12h) 300 mg PO BID [facility] Last Admin: 05/16/23 08:55 Dose: 300 mg Clonidine HCl (Clonidine Hcl 0.1 Mg Tablet) 0.1 mg PO BID [facility]; Protocol Last Admin: 05/16/23 08:55 Dose: 0.1 mg Cyanocobalamin (Cyanocobalamin (Vitamin B-12) 100 Mcg Tablet) 100 mcg PO DAILY [facility] Last Admin: 05/16/23 08:55 Dose: 100 mcg Docusate Sodium (Docusate Sodium 100 Mg Capsule) 100 mg PO BID [facility] Last Admin: 05/16/23 08:55 Dose: 100 mg Fluphenazine HCl (Fluphenazine Hcl 5 Mg Tablet) 5 mg PO BID [facility] Last Admin: 05/16/23 08:55 Dose: 5 mg Folic Acid (Folic Acid 1 Mg Tablet) 1 mg PO DAILY [facility] Last Admin: 05/16/23 08:55 Dose: 1 mg Hydroxyzine HCl (Hydroxyzine Hcl 25 Mg Tablet) 25 mg PO Q6H PRN PRN Reason: Anxiety Magnesium Hydroxide (Milk Of Magnesia 30 Ml Oral.Susp) 30 ml PO DAILY PRN PRN Reason: Constipation Metformin HCl (Metformin Hcl 500 Mg Tablet) 500 mg PO DAILY@0900 [facility] Last Admin: 05/16/23 08:55 Dose: 500 mg Multivitamins/Vitamin C (Multivitamin Tablet) 1 tab PO DAILY [facility] Last Admin: 05/16/23 08:55 Dose: 1 tab Nicotine Polacrilex (Nicotine Polacrilex 2 Mg Gum) 4 mg BUCCAL Q2H PRN PRN Reason: Nicotine Cravings Omeprazole (Omeprazole 20 Mg Capsule.Dr) 20 mg PO DAILY@0630 [facility] Last Admin: 05/16/23 06:18 Dose: 20 mg Ondansetron HCl (Ondansetron Odt 4 Mg Tab.Rapdis) 4 mg TRANSLINGU Q8H PRN PRN Reason: Nausea Trazodone HCl (Trazodone Hcl 50 Mg Tablet) 50 mg PO BEDTIME MRX1 PRN PRN Reason: Insomnia Allergies Allergies Allergy/AdvReac Type Severity Reaction Status Date / Time No Known Allergies Allergy Verified 10/14/20 11:17 Assessment & Plan Assessment & Plan (1) Medical clearance for psychiatric admission: Status: Acute Code(s): Z00.8 - Encounter for other general examination Plan Pt is a 37-year-old female with a PMH significant for?[id number] diabetes type 2, GERD, PTSD, schizophrenia, and bipolar disorder who is admitted to [facility] psychiat[facility] unit for disorganized behavior. She apparently has been noncompliant with her medications at home and presented to a restaurant in the community behaving erratically. Medical consult for admission H&P. Mood disorder Plan as per psychiatry Nausea Pt states secondary to starting Wegovy Ondansetron prn Recent BV and chlamydia infections Tested positive x2 and treated x2 Reports only mild symptoms the first time Currently asymptomatic but worried about still being positive Pt can self-swab for repeat testing Treat as indicated by testing GERD Continue PPI Thank you for allowing us to participate in the care of this patient. Signing off at this time. Please re-consult if any acute complaints or issues arise. 05/14: Continue current regimen and plans 05/15: Continue current regimen and plans 05/16: Continue current plans and regimen Reason for continued inpatient stay Substantial Risk for: med/psych decompensation Time Spent With Patient Time: Total time managing care of this patient today ____ minutes.
[2023-05-16 16:39] LABS: CT PCR NOT DETECTED (Not Detect.); NG PCR NOT DETECTED (Not Detect.)
[2023-05-16 21:10] VITALS: BP 133/70; PULSE 66; TEMP 36.2
[2023-05-17] MEDS: Omeprazole 20 MG CAPSULE.DR PO (06:37)
[2023-05-17 08:18] VITALS: BP 135/86; PULSE 73; RESP 18; TEMP 36.8; O2SAT 100
[2023-05-17] MEDS: metFORMIN HCl 500 MG TABLET PO (08:48)
[2023-05-17] MEDS: Multivitamin TABLET 1 TAB PO (08:48)
[2023-05-17] MEDS: carBAMazepine ER 100 MG TAB.ER.12H 300 MG PO ×2 (08:48→20:57)
[2023-05-17] MEDS: fluPHENAZine HCl 5 MG TABLET PO ×2 (08:48→20:57)
[2023-05-17] MEDS: Cyanocobalamin (Vitamin B-12) 100 MCG TABLET PO (08:48)
[2023-05-17] MEDS: Folic Acid 1 MG TABLET PO (08:49)
[2023-05-17] MEDS: Docusate Sodium 100 MG CAPSULE PO ×2 (08:49→20:57)
[2023-05-17] MEDS: cloNIDine HCL 0.1 MG TABLET PO ×2 (08:49→20:57)
[2023-05-17 13:15] LABS: BV Int Neg Control Negative (Negative); BV Int Pos Control Positive (Positive)
[2023-05-17] MEDS: hydrOXYzine HCL 25 MG TABLET PO ×2 (14:28→20:57)
--- NOTE | 2023-05-17 16:30 | HO.PSYCHPN ---
Subjective Subjective Date of Service: 05/17/23 Reason For Visit: unspecified Schizophrenia and other psych disorder Subjective Notes: Conditional Voluntary and 3 Day Healthcare Proxy: No Guardianship: No Medical Problems Affecting Mental Status: No Interim History: Pt making discharge plans for 05/20. Plans to retract TDN. has informed her of a court date on 05/23. Until then she is unable to go near to her home, so is planning based on this restriction. Reviewed with Chintan DAMON restrictions auncalvin informed team of Discussed her thoughts on what occurred prior to admission. Medication Compliance: Yes Side effects from medications: No Attending Groups: Intermittent Review of Systems Acute medical concerns: No Medical Review of Systems: unchanged Review of Systems Review of Systems Yes all other systems are reviewed and are negative Mental Status Exam Mental Status Exam Patient Appearance: Fatigued Patient Orientation: Person Level of Consciousness: Alert Patient Behavior: Guarded, Suspicious, Fearful, Avoidant, Distractible and Good Eye Contact Mood Description: Anxious and Apprehensive Affect Description: Anxious and Apprehensive Ability to Follow Directions: Fair Speech Pattern: Impoverished, Spontaneous Speech and Soft-Spoken Delusions: Present Thought Process: Rumination Thought Content: positive for Preoccupation Judgement: Poor Diagnostics Vital Signs (24Hr): Vital Signs - 24 hr 05/16/23 21:10 05/17/23 08:18 Temperature 97.2 F 98.2 F Pulse Rate 66 73 Respiratory Rate 18 Blood Pressure 133/70 135/86 Pulse Oximetry 100 Oxygen Delivery Method Room Air BMI result Body Mass Index 54.7 Labs 05/14/23 08:42 Labs: Laboratory Results - last 48 hr 05/16/23 14:47 Lain species DNA Positive A Chlam trachomat DNA PCR NOT DETECTED Gardnerella DNA Probe Negative N.gonorrhoeae DNA (PCR) NOT DETECTED Trichomonas DNA Probe Negative Medications Medications Current Medications Acetaminophen (Acetaminophen 325 Mg Tablet) 650 mg PO Q6H PRN PRN Reason: Headache/Pain Mild Scale (1-3) Last Admin: 05/16/23 09:05 Dose: 650 mg Al Hydroxide/Mg Hydroxide (Magnesium Hydrox/Alum Hydrox 30 Ml Oral.Susp) 30 ml PO Q6H PRN PRN Reason: Heartburn/Nausea Last Admin: 05/15/23 20:13 Dose: 30 ml Carbamazepine (Carbamazepine Er 100 Mg Tab.Er.12h) 300 mg PO BID [facility] Last Admin: 05/17/23 08:48 Dose: 300 mg Clonidine HCl (Clonidine Hcl 0.1 Mg Tablet) 0.1 mg PO BID [facility]; Protocol Last Admin: 05/17/23 08:49 Dose: 0.1 mg Cyanocobalamin (Cyanocobalamin (Vitamin B-12) 100 Mcg Tablet) 100 mcg PO DAILY [facility] Last Admin: 05/17/23 08:48 Dose: 100 mcg Docusate Sodium (Docusate Sodium 100 Mg Capsule) 100 mg PO BID [facility] Last Admin: 05/17/23 08:49 Dose: 100 mg Fluphenazine HCl (Fluphenazine Hcl 5 Mg Tablet) 5 mg PO BID [facility] Last Admin: 05/17/23 08:48 Dose: 5 mg Folic Acid (Folic Acid 1 Mg Tablet) 1 mg PO DAILY [facility] Last Admin: 05/17/23 08:49 Dose: 1 mg Hydroxyzine HCl (Hydroxyzine Hcl 25 Mg Tablet) 25 mg PO Q6H PRN PRN Reason: Anxiety Last Admin: 05/17/23 14:28 Dose: 25 mg Magnesium Hydroxide (Milk Of Magnesia 30 Ml Oral.Susp) 30 ml PO DAILY PRN PRN Reason: Constipation Metformin HCl (Metformin Hcl 500 Mg Tablet) 500 mg PO DAILY@0900 [facility] Last Admin: 05/17/23 08:48 Dose: 500 mg Multivitamins/Vitamin C (Multivitamin Tablet) 1 tab PO DAILY [facility] Last Admin: 05/17/23 08:48 Dose: 1 tab Nicotine Polacrilex (Nicotine Polacrilex 2 Mg Gum) 4 mg BUCCAL Q2H PRN PRN Reason: Nicotine Cravings Omeprazole (Omeprazole 20 Mg Capsule.Dr) 20 mg PO DAILY@0630 [facility] Last Admin: 05/17/23 06:37 Dose: 20 mg Ondansetron HCl (Ondansetron Odt 4 Mg Tab.Rapdis) 4 mg TRANSLINGU Q8H PRN PRN Reason: Nausea Trazodone HCl (Trazodone Hcl 50 Mg Tablet) 50 mg PO BEDTIME MRX1 PRN PRN Reason: Insomnia Allergies Allergies Allergy/AdvReac Type Severity Reaction Status Date / Time No Known Allergies Allergy Verified 10/14/20 11:17 Assessment & Plan Assessment & Plan (1) Medical clearance for psychiatric admission: Status: Acute Code(s): Z00.8 - Encounter for other general examination Plan Pt is a 37-year-old female with a PMH significant for?[id number]-bmwuafhya diabetes type 2, GERD, PTSD, schizophrenia, and bipolar disorder who is admitted to [facility] psychiatry unit for disorganized behavior. She apparently has been noncompliant with her medications at home and presented to a restaurant in the community behaving erratically. Medical consult for admission H&P. Mood disorder Plan as per psychiatry Nausea Pt states secondary to starting Wegovy Ondansetron prn Recent BV and chlamydia infections Tested positive x2 and treated x2 Reports only mild symptoms the first time Currently asymptomatic but worried about still being positive Pt can self-swab for repeat testing Treat as indicated by testing GERD Continue PPI Thank you for allowing us to participate in the care of this patient. Signing off at this time. Please re-consult if any acute complaints or issues arise. 05/14: Continue current regimen and plans 05/15: Continue current regimen and plans 05/16: Continue current plans and regimen 05/17/23: Pt will retract TDN and work with team on discharge planning as she has a court date 05/23 after incidents occurred prior to admission. Informed Consent: understands Reason for continued inpatient stay Substantial Risk for: rapid decompensation Time Spent With Patient Time: Total time managing care of this patient today ____ minutes.
[2023-05-17 20:30] VITALS: BP 132/68; PULSE 68; RESP 16; TEMP 36.9; O2SAT 98
[2023-05-18] MEDS: Omeprazole 20 MG CAPSULE.DR PO (06:48)
[2023-05-18 08:53] VITALS: BP 143/91; PULSE 84; RESP 18; TEMP 36.8; O2SAT 100
[2023-05-18] MEDS: metFORMIN HCl 500 MG TABLET PO (08:57)
[2023-05-18] MEDS: Multivitamin TABLET 1 TAB PO (08:57)
[2023-05-18] MEDS: cloNIDine HCL 0.1 MG TABLET PO (08:57)
[2023-05-18] MEDS: Cyanocobalamin (Vitamin B-12) 100 MCG TABLET PO (08:58)
[2023-05-18] MEDS: Folic Acid 1 MG TABLET PO (08:58)
[2023-05-18] MEDS: Docusate Sodium 100 MG CAPSULE PO (08:58)
[2023-05-18] MEDS: carBAMazepine ER 100 MG TAB.ER.12H 300 MG PO (08:58)
[2023-05-18] MEDS: Acetaminophen 325 MG TABLET 650 MG PO (08:59)
[2023-05-18] MEDS: fluPHENAZine HCl 5 MG TABLET PO (08:59)
[2023-05-18] MEDS: Fluconazole 150 MG TABLET PO (12:50)
--- NOTE | 2023-05-18 18:57 | P.DS_ITS ---
DS: Providers Provider Date of Service: 05/18/23 Date of admission: 05/12/23 22:41 Date of discharge: 05/18/23 Primary care physician: Vera Babcock MD Admitting clinician: Shelley Rubio Attending physician on admission: Noe Bradshaw Consults: 05/12/23 23:18 Consult to Hospitalist Routine Comment: Consulting Provider: Hospitalist Reason For Exam: OSH admission Attending physician on discharge: Noe Bradshaw Discharging clinician: Shelley Rubio DS: Diagnosis Discharge Diagnosis (1) Medical clearance for psychiatric admission: Status: Deleted DS: Medications Discharge Medications Home Medications: Home Medications Medication Instructions Recorded Confirmed Daily-Kevin (with folic acid) 1 tab PO DAILY 03/05/23 05/12/23 cyanocobalamin (vitamin B-12) 100 50 mcg PO DAILY 03/05/23 05/12/23 mcg tablet (Vitamin B-12) docusate sodium 100 mg capsule 100 mg PO BID 03/05/23 05/12/23 folic acid 0.8 mg capsule 0.8 mg PO DAILY 03/05/23 05/13/23 metformin 500 mg tablet,extended 500 mg PO DAILY 03/05/23 05/13/23 release 24 hr Previous Rx's Medication Instructions Recorded omeprazole 20 mg capsule,delayed 20 mg PO DAILY@0630 #30 caps 09/14/21 release carbamazepine 100 mg 300 mg (3 x 100 mg) PO BID 30 days 05/18/23 tablet,extended release,12 hr #180 tabs (Tegretol XR) clonidine HCl 0.1 mg tablet 0.1 mg PO BID #60 tabs 05/18/23 fluphenazine HCl 5 mg tablet 5 mg PO TID #90 tabs 05/18/23 hydroxyzine HCl 50 mg tablet 50 mg PO QID PRN anxiety #30 tabs 05/18/23 Mental Status Exam Mental Status Exam Patient Appearance: Appropriate Patient Orientation: Person, Place, Time and Situation Level of Consciousness: Alert Patient Behavior: Talkative and Good Eye Contact Mood Description: Apprehensive Affect Description: Apprehensive Patient Cognition Impaired: No Ability to Follow Directions: Good Speech Pattern: Spontaneous Speech and Soft-Spoken Memory Description: Episodic Impaired Hallucinations: None Delusions: Not Present Thought Process: Goal Oriented Thought Content: positive for Goal Oriented Judgement: Good Data Data Completed and Pending Completed studies during hospitalization [Text1]: 05/12/23 05/14/23 05/16/23 23:21 08:42 14:47 Sodium 140 Potassium 3.9 Chloride 106 Carbon Dioxide 28 Anion Gap 10 L BUN 10 Creatinine 0.80 Estim Creat Clear Calc 160.6 Estimated GFR > 60 POC Glucose 136 H Fasting Glucose 114 H Estimat Average Glucose 105 Hemoglobin A1c % 5.3 Calcium 9.2 Total Bilirubin 0.4 AST 15 ALT 19 Alkaline Phosphatase 82 Total Protein 7.0 Albumin 3.9 Triglycerides 101 Cholesterol 244 H LDL Cholesterol, Calc 180 H HDL Cholesterol 44 Vitamin B12 608 Folate 13.9 TSH 1.78 Free T4 0.93 Lian species DNA Positive A C. pneumoniae IgG Ab Pending C. pneumoniae IgA Ab Pending C. pneumoniae IgM Ab Pending C. pneumoniae Ab Interp Pending C. trachomatis IgG Ab Pending C. trachomatis IgA Ab Pending C. trachomatis IgM Ab Pending C.trachomatis Ab Interp Pending C. psittaci IgG Ab Pending C. psittaci IgA Ab Pending C. psittaci IgM Ab Pending C. psittaci Ab Interp Pending Chlam trachomat DNA PCR NOT DETECTED Gardnerella DNA Probe Negative N.gonorrhoeae DNA (PCR) NOT DETECTED Trichomonas DNA Probe Negative DS: Summary Hospital Course Hospital Course: Admission to adult psychiatry for exacerbation of schizoaffective disorder. Pt presenting with disorganized, erratic behaviors, telling team she is eight months which is inaccurate, responding to internal stimuli, and reportedly having an incident with her mother precipitating mother's community care team to file a no contact order with upcoming court date. Pt has been off her medications per report. Regime was evaluated and re-established. Pt tolerated this and compensated. She discharged to attend a court date concerning custody of her daughter and will attend court next week to review the no contact order for her mother. Pt's aunt was helpful in assisting her with housing until court and pt will return to her out patient treatment team. Status at Discharge Functional status at discharge: independent ambulation Overall status at discharge: patient is progressing back to baseline Time Spent with Patient Time attestation: Total time managing care of this patient today ____ minutes. Time spent: Less than 30 minutes Discharge Plan Discharge Anticipated Discharge Date/Time: 05/18/23 15:28 Patient Disposition: Xfer Other Discharge Diagnosis: Schizoaffective Disorder Referrals: [facility] (psychiatry and therapy) [Other] - 1 Week (Patient reported that she will follow-up with her psychiatry and therapy providers through [facility] and has scheduled appointments in place.) Vera Babcock MD [Primary Care Provider] - 1 Week (office will call pt. with follow-up appointment.) Discharge Medications: New fluphenazine HCl 5 mg tablet 5 mg PO TID Qty: 90 0RF Continued omeprazole 20 mg Capsule,Delayed Release(Dr/Ec) 20 mg PO DAILY@0630 Qty: 30 0RF cyanocobalamin (vitamin B-12) [Vitamin B-12] 100 mcg tablet 50 mcg PO DAILY docusate sodium 100 mg capsule 100 mg PO BID metformin 500 mg Tablet Extended Release 24 Hr 500 mg PO DAILY folic acid 0.8 mg Capsule 0.8 mg PO DAILY Daily-Kevin (with folic acid) 1 tab PO DAILY clonidine HCl 0.1 mg Tablet 0.1 mg PO BID Qty: 60 0RF Protocol: Hold for SBP< HOLD for SBP < : 90 carbamazepine [Tegretol XR] 100 mg Tablet Extended Release 12 Hr 300 mg PO BID 30 Days Qty: 180 0RF hydroxyzine HCl 50 mg tablet 50 mg PO QID PRN (Reason: anxiety) Qty: 30 0RF Discontinued fluphenazine HCl 5 mg Tablet 5 mg PO BID 30 Days Qty: 60 0RF No Action Wegovy 0.25 mg/0.5 mL pen injector subcut Discharge Orders: Discharge Order (Routine); Ordered 05/18/23 Ordered By: Shelley Rubio Diet: Advance to usual diet Activity on Discharge: As tolerated Stand Alone Forms: Patient Portal Discharge page, Community Support Care Plan Goals: Mood and Behavioral Stabilization Health Concerns: Mood and Behavioral Stabilization Plan of Treatment: Attend scheduled appointments Take medications as directed Pt discharges to attend court on 05/19/23. She plans to stay at a hotel from 05/18 to 05/[address] another [address] date to review her return to her home. [facility] Scott has your Tegretol prescription waiting. [facility], [place], has your Fluphenazine prescription waiting. Assessment: Pt interviewed prior to discharge and found to be fully oriented and without SI/HI. Pt has insight and demonstrates good judgment in terms of wanting to pursue treatment. Pt is not in imminent risk of harm to self or others and has a safety plan that includes presenting to the closest ER or calling 911 if feeling unsafe. Pt has been observed closely by nursing and unit staff throughout admission. Pt has not engaged in any behaviors that suggest dangerousness to self or others and has demonstrated appropriate behaviors and impulse control. Discharge Date/Time: 05/18/23 15:42
[2023-05-20 18:43] LABS: Chlamydia Pneumoniae IgA <1:16 titer (<1:16); Chlamydia Pneumoniae IgG <1:64 titer (<1:64); Chlamydia Pneumoniae IgM <1:10 titer (<1:10); Chlamydia Psittaci IgA <1:16 titer (<1:16); Chlamydia Psittaci IgG <1:64 titer (<1:64); Chlamydia Psittaci IgM <1:10 titer (<1:10); Chlamydia Trachomatis IgA <1:16 titer (<1:16); Chlamydia Trachomatis IgG <1:64 titer (<1:64); Chlamydia Trachomatis IgM <1:10 titer (<1:10)
== END 2023-05-18 15:42 | disposition other institution (70) | DRG 750 ==
PROVIDERS: Psychiatry & Neurology Psychiatry; Student in an Organized Health Care Education/Training Program; Admitting Provider Psychiatry & Neurology Psychiatry; PCP Internal Medicine; Visit Provider Clinical Nurse Specialist Psychiatric/Mental Health, Adult
DX: F25.9 Schizoaffective disorder, unspecified (principal); K21.9 Gastro-esophageal reflux disease without esophagitis; Z79.84 Long term (current) use of oral hypoglycemic drugs; Z79.899 Other long term (current) drug therapy
CPT/HCPCS: 0353U; 36415; 80053; 80061; 82607; 82746; 82947; 83036; 84439; 84443; 86631; 86632; 87480; 87510; 87660

== ENCOUNTER → 2023-05-12 22:41 | Outpatient (BNV) | payer OTHER, SELFPAY | PROVIDERS: Admitting Provider Psychiatry & Neurology Psychiatry; PCP Internal Medicine; Visit Provider Student in an Organized Health Care Education/Training Program | DX: Z00.8 Encounter for other general examination (principal) | CPT/HCPCS: 99499 ==

== ENCOUNTER → 2023-05-12 22:41 | Outpatient (BNV) | payer OTHER, SELFPAY | PROVIDERS: Admitting Provider Psychiatry & Neurology Psychiatry; PCP Internal Medicine; Visit Provider Psychiatry & Neurology Psychiatry | DX: F20.1 Disorganized schizophrenia (principal) | CPT/HCPCS: 99231; 99232 ==

== ENCOUNTER → 2023-05-25 11:07 | Outpatient (BNVA) | payer OTHER, SELFPAY | PROVIDERS: PCP Internal Medicine; Visit Provider Surgery ==

== ENCOUNTER 2023-06-27 08:02 | Outpatient (AMB) | payer OTHER, SELFPAY ==
--- OUTSIDE RECORDS SUMMARY | 2023-06-27 08:04 | XMS_ITS | Continuity of Care Document ---
Author Name Unknown Organization [facility] Address [address] [place] [address]- Care Team Providers Care Naprapath Name Role Phone Vera Babcock MD Primary Care Physician [place] [facility] [place] 05/03/23 - 06/02/[address] [address]- Allergies, Adverse Reactions, Alerts No Known Allergies Immunizations Given and Recorded Vaccine Date Status Refusal Reason [id number] 12y+ bivalent booster vax 03/16/23 Given [id number] 12y+ bivalent booster vax 03/26/22 Given influenza virus vaccine, inactivated 03/16/23 Give n influenza virus vaccine, inactivated 03/26/22 Give n influenza virus vaccine, inactivated 12/08/19 Osvaldo rded influenza virus vaccine, inactivated 11/29/18 Osvaldo rded influenza virus vaccine, inactivated 12/06/08 Osvaldo rded tetanus/diphtheria/pertussis, acel(Tdap) 03/26/22 Given tetanus/diphtheria/pertussis, acel(Tdap) 01/03/09 Recorded SARS-CoV-2 mRNA ([id number]) vax 08/05/21 Recorded SARS-CoV-2 (COVID-19) mRNA BNT-162b2 [...] 03/26/22 14:44:00 EST, Route to Pharmacy Electronically, [facility] [id number], Partial fill upon patient request if the prescription is for... Start Date: 03/26/22 Stop Date: 03/21/23 Status: Ordered cyanocobalamin (vit B-12) 100 mcg tablet cyanocobalamin (vit B-12) 100 mcg tablet, 0.5, tablet, By Mouth, Daily, # 15 tablet, 5 Refills, Maintenance, 01/06/23 8:34:00 EDT, 175, cm, 12/09/22 13:29:00 EDT, Height, 161.2, kg, 11/26/22 13:41:00EDT, Dry Weight Start Date: 01/06/23 Status: Ordered Daily Kevin oral tablet 1 tablet, By Mouth, Daily, # 30 tablet, 11 Refills, Maintenance, 05/05/23 10:29:00 EST, [facility], 30, TAKE 1 TABLET BY MOUTH ONCE DAILY, 175, cm, 04/29/23 10:03:00 EST, Height, 161.2, kg, 11/26/22 13:41:00 EDT, Dry Weight Start Date: 05/05/23 Status: Ordered docusate sodium 100 mg oral capsule 1 capsule, By Mouth, 2 times a day, # 60 each, 5 Refills, Maintenance, 05/05/23 10:29:00 EST, [facility], 175, cm, 04/29/23 10:03:00 EST, Height, 161.2, kg, 11/26/22 13:41:00 EDT, Dry Weight Start Date: 05/05/23 Status: Ordered folic acid 0.8 mg oral tablet 1 tablet = 0.8 mg, By Mouth, Daily, # 30 tablet, 5 Refills, Maintenance, 03/16/23 8:59:00 EST, Tablet, [place], [place] - [id number], Partial fill upon patient request if the prescription is for a schedule II opioid drug., 175, cm, 12... Start Date: 03/16/23 Stop Date: 09/12/23 Status: Ordered MetFORMIN (Eqv-Glucophage XR) 500 mg oral tablet, extended release 1 tablet = 500 mg, By Mouth, Daily, # 90 tablet, 3 Refills, Maintenance, 06/28/22 10:51:00 EDT, [facility] [id number], Partial fill upon patient request if the prescription is for a schedule II opioid drug., 175, cm, 06/28/22... Start Date: 06/28/22 Stop Date: 06/23/23 Status: Ordered omeprazole 20 mg oral enteric coated capsule See Instructions, TAKE 1 CAPSULE BY MOUTH ONCE DAILY, # 30 capsule, 5 Refills, Maintenance, 03/16/23 8:59:00 EST, [facility] [id number], 175, cm, 03/16/23 8:34:00 EST, Height, 161.2, kg, 11/26/22 13:41:00 EDT, Dry Weight Start Date: 03/16/23 Status: Ordered Prolixin Tablet Rx'd per Psych, Refills 0, Maintenance, 04/03/23 10:28:00 EST, Partial fill upon patient request ifthe prescription is for a schedule II opioid drug. Start Date: 04/03/23 Status: Ordered semaglutide 0.5 mg/0.5 mL (0.5 mg dose) subcutaneous solution = 0.5 mg, Subcutaneous Injection, Every week, for 4 week(s), in the abdomen, thigh, or upper arm, #2 mL, 0 Refills, Acute 06/27/23 17:50:00 EDT, 05/30/23 17:50:00 EST, Solution, [id number], Partial fill upon patient request if the pr... Start Date: 05/30/23 Stop Date: 06/27/23 Status: Ordered TEGretol XR 100 mg oral [...] 1 Confirmed Active Bipolar disorder Confirmed Active [facility] graphic coordinator Hugo Hamilton [phone] Confirmed Active PTSD (post-traumatic stress disorder) Confirmed Active Severe obesity Confirmed Active 1Unable to fully visualize cervix with speculum available. Unable to complete colposcopy procedure. will refer to [facility] Social History Social History Type Response Tobacco Use: 4 or less cigar ettes(less than 1/4 pack)/day in last 30 days. Other: rarely. Sex Patient Care team information Care Team Personnel Name: Jayne Vee RN Position: [facility] RN Member Role: Primary Care Nurse Name: Jojo Cazares RN Position: [facility] RN Member Role: Primary Care Nurse Name: Vera Babcock MD Position: [facility] Physician - Primary Care Member Role: PCP Address: Address: [address] [place] [address]- Care Team Related Persons Name: SKYE FELDER Address: home [address] [place] [address] Name: MONIQUE SIMPSON Name: LALA HILLS Address: home [address] [place] [id number] Name: KERI BROTHERS Address: home [address] [place] [address]
--- OUTSIDE RECORDS SUMMARY | 2023-06-27 08:05 | XMS_ITS | Continuity of Care Document ---
Author Name Unknown Organization [facility] Address [address] [place] [address]- Care Team Providers Care Econometrics Professor Name Role Phone Vera Babcock MD Primary Care Physician Encounter [facility] [place] Date(s): 04/14/23 - 05/14/[address] [address]- Allergies, Adverse Reactions, Alerts No Known Allergies Immunizations Given and Recorded Vaccine Date Status Refusal Reason [id number] 12y+ bivalent booster vax 03/16/23 Given [id number] 12y+ bivalent booster vax 03/26/22 Given influenza virus vaccine, inactivated 03/16/23 Give n influenza virus vaccine, inactivated 03/26/22 Give n influenza virus vaccine, inactivated 12/08/19 Osvaldo rded influenza virus vaccine, inactivated 11/29/18 Osvaldo rded influenza virus vaccine, inactivated 12/06/08 Osvaldo rded tetanus/diphtheria/pertussis, acel(Tdap) 03/26/22 Given tetanus/diphtheria/pertussis, acel(Tdap) 01/03/09 Recorded SARS-CoV-2 mRNA ([id number]) vax 08/05/21 Recorded SARS-CoV-2 (COVID-19) mRNA BNT-162b2 [...] 03/26/22 14:44:00 EST, Route to Pharmacy Electronically, [facility] [place] [place] - [id number], Partial fill upon patient request if the [...] tablet, 11 Refills, Maintenance, 05/05/23 10:29:00 EST, [facility], 30, TAKE 1 TABLET BY MOUTH ONCE DAILY, 175, cm, 04/29/23 10:03:00 EST, Height, 161.2, kg, 11/26/22 13:41:00 EDT, Dry Weight Start Date: 05/05/23 Status: Ordered docusate sodium 100 mg oral capsule 1 capsule, By Mouth, 2 times a day, # 60 each, 5 Refills, Maintenance, 05/05/23 10:29:00 EST, [facility], 175, cm, 04/29/23 10:03:00 EST, Height, 161.2, kg, 11/26/22 13:41:00 EDT, Dry Weight Start Date: 05/05/23 Status: Ordered doxycycline hyclate 100 mg oral capsule 1 capsule = 100 mg, By Mouth, 2 times a day, for 14 days, # 28 capsule, 0 Refills, Acute 05/18/23 17:19:00 EST, 05/04/23 17:19:00 EST, Capsule, [facility], [place] - [id number], Partialfill upon patient request if the prescription is fo... Start Date: 05/04/23 Stop Date: 05/18/23 Status: Ordered folic acid 0.8 mg oral tablet 1 tablet = 0.8 mg, By Mouth, Daily, # 30 tablet, 5 Refills, Maintenance, 03/16/23 8:59:00 EST, Tablet, [facility] [id number], Partial fill upon patient request if the prescription is for a schedule II opioid drug., 175, cm, 12... Start Date: 03/16/23 Stop Date: 09/12/23 Status: Ordered MetFORMIN (Eqv-Glucophage XR) 500 mg oral tablet, extended release 1 tablet = 500 mg, By Mouth, Daily, # 90 tablet, 3 Refills, Maintenance, 06/28/22 10:51:00 EDT, [facility] [id number], Partial fill upon patient request if the prescription is for a schedule II opioid drug., 175, cm, 06/28/22... Start Date: 06/28/22 Stop Date: 06/23/23 Status: Ordered omeprazole 20 mg oral enteric coated capsule See Instructions, TAKE 1 CAPSULE BY MOUTH ONCE DAILY, # 30 capsule, 5 Refills, Maintenance, 03/16/23 8:59:00 EST, [facility], [place] - [id number], 175, cm, 03/16/23 8:34:00 EST, Height, 161.2, kg, 11/26/22 13:41:00 EDT, Dry Weight Start Date: 03/16/23 Status: Ordered Prolixin Tablet Rx'd per Psych, Refills 0, Maintenance, 04/03/23 10:28:00 EST, Partial fill upon patient request ifthe prescription is for a schedule II opioid drug. Start Date: 04/03/23 Status: Ordered semaglutide 0.25 mg/0.5 mL (0.25 mg dose) subcutaneous solution = 0.25 mg, Subcutaneous Injection, Every week, for 4 week(s), in the abdomen, thigh, or upper arm, # 2 mL, 0 Refills, Acute 05/31/23 15:45:00 EST, 05/03/23 15:45:00 EST, Solution, [place], [place] - [id number], Partial fill upon patie... Start Date: 05/03/23 Stop Date: 05/31/23 Status: Ordered TEGretol XR 100 mg oral tablet, extended release 100 mg, 1, tablet, By Mouth, 2 times a day, Rx'd per Psych, # 60 tablet, Refills 5, Maintenance, 04/03/23 10:28:00 EST, Partial fill upon patient request if the prescription is for a schedule II opioid drug. Start Date: 04/03/23 Status: Ordered Wegovy (0.25 mg dose) subcutaneous solution = 0.25 mg, Subcutaneous Injection, Every week, for 4 week(s), in the abdomen, thigh, or upper arm, # 2 mL, 0 Refills, Acute 06/02/23 10:58:00 EST, 05/05/23 10:58:00 EST, Solution, [facility] #[id number], Partial fill upon patient request if the p... Start Date: 05/05/23 Stop Date: 06/02/23 Status: Ordered Problem List Condition Confirmation Course Effective Dates Status Health St [facility] Informant ASCUS HPV+/ neg 16/18/45 1 Confirmed Active Bipolar disorder Confirmed Active [facility] hse coordinator Hugo Alfonso [phone] Confirmed Active PTSD (post-traumatic stress disorder) Confirmed Active Severe obesity Confirmed Active 1Unable to fully visualize cervix with speculum available. Unable to complete colposcopy procedure. will refer to [facility] Social History Social History Type Response Tobacco Use: 4 or less cigar ettes(less than 1/4 pack)/day in last 30 days. Other: rarely. Sex Patient Care team information Care Team Personnel Name: Jayne Vee RN Position: [facility] RN Member Role: Primary Care Nurse Name: Jojo Cazares RN Position: S RN Member Role: Primary Care Nurse Name: Vera Babcock MD Position: S Physician - Primary Care Member Role: PCP Address: Address: [address] [place] [address]- Care Team Related Persons Name: SKYE FELDER Address: home [address] [place] [address] Name: MONIQUE SIMPSON Name: LALA HILLS Address: home [address] [place] [address] Name: KERI BROTHERS Address: home [address] [place] [address]
--- OUTSIDE RECORDS SUMMARY | 2023-06-27 08:05 | XMS_ITS | Continuity of Care Document ---
Author Name Unknown Organization [facility] Address [address] [place] [address]- Care Team Providers Care Centrifuge Separator Operator Name Role Phone Vera Babcock MD Primary Care Physician [place] [facility] [place](s): 05/05/23 - 06/04/[address] [address]- Allergies, Adverse Reactions, Alerts No Known Allergies Immunizations Given and Recorded Vaccine Date Status Refusal Reason [id number] 12y+ bivalent booster vax 03/16/23 Given [id number] 12y+ bivalent booster vax 03/26/22 Given influenza virus vaccine, inactivated 03/16/23 Give n influenza virus vaccine, inactivated 03/26/22 Give n influenza virus vaccine, inactivated 12/08/19 Osvaldo rded influenza virus vaccine, inactivated 11/29/18 Osvaldo rded influenza virus vaccine, inactivated 12/06/08 Osvaldo rded tetanus/diphtheria/pertussis, acel(Tdap) 03/26/22 Given tetanus/diphtheria/pertussis, acel(Tdap) 01/03/09 Recorded SARS-CoV-2 mRNA ([id number]) vax 08/05/21 Recorded SARS-CoV-2 (COVID-19) mRNA BNT-162b2 [...] 03/26/22 14:44:00 EST, Route to Pharmacy Electronically, [facility] [id number], Partial fill upon patient request if the [...] tablet, 11 Refills, Maintenance, 05/05/23 10:29:00 EST, [facility], 30, TAKE 1 TABLET BY MOUTH ONCE DAILY, 175, cm, 04/29/23 10:03:00 EST, Height, 161.2, kg, 11/26/22 13:41:00 EDT, Dry Weight Start Date: 05/05/23 Status: Ordered docusate sodium 100 mg oral capsule 1 capsule, By Mouth, 2 times a day, # 60 each, 5 Refills, Maintenance, 05/05/23 10:29:00 EST, [facility], 175, cm, 04/29/23 10:03:00 EST, Height, 161.2, kg, 11/26/22 13:41:00 EDT, Dry Weight Start Date: 05/05/23 Status: Ordered folic acid 0.8 mg oral tablet 1 tablet = 0.8 mg, By Mouth, Daily, # 30 tablet, 5 Refills, Maintenance, 03/16/23 8:59:00 EST, Tablet, [place], [place] - [id number], Partial fill upon patient request if the prescription is for a schedule II opioid drug., 175, cm, 12... Start Date: 03/16/23 Stop Date: 09/12/23 Status: Ordered MetFORMIN (Eqv-Glucophage XR) 500 mg oral tablet, extended release 1 tablet = 500 mg, By Mouth, Daily, # 90 tablet, 3 Refills, Maintenance, 06/28/22 10:51:00 EDT, [facility] [id number], Partial fill upon patient request if the prescription is for a schedule II opioid drug., 175, cm, 06/28/22... Start Date: 06/28/22 Stop Date: 06/23/23 Status: Ordered omeprazole 20 mg oral enteric coated capsule See Instructions, TAKE 1 CAPSULE BY MOUTH ONCE DAILY, # 30 capsule, 5 Refills, Maintenance, 03/16/23 8:59:00 EST, [facility] [id number], 175, cm, 03/16/23 8:34:00 EST, Height, 161.2, [...] 06/27/23 17:50:00 EDT, 05/30/23 17:50:00 EST, Solution, [email or web address][id number], Partial fill upon patient request if the [...] Bipolar disorder Confirmed Active [facility] project coordinator rn Hugo Hamilton [phone] Confirmed Active PTSD (post-traumatic stress disorder) Confirmed Active Severe obesity Confirmed Active 1Unable to fully visualize cervix with speculum available. Unable to complete colposcopy procedure. will refer to [facility] Social History Social History Type Response Tobacco Use: 4 or less cigar ettes(less than 1/4 pack)/day in last 30 days. Other: rarely. Sex Patient Care team information Care Team Personnel Name: Jayne Vee RN Position: [facility] RN Member Role: Primary Care Nurse Name: Jojo Cazares RN Position: [facility] RN Member Role: Primary Care Nurse Name: Vera Babcock MD Position: [facility] Physician - Primary Care Member Role: PCP Address: Address: [address] [place] [address]- Care Team Related Persons Name: SKYE FELDER Address: home [address] [place] [address] Name: MONIQUE SIMPSON Name: LALA HILLS Address: home [address] [place] [id number] Name: KERI BROTHERS Address: home [address] [place] [address]
--- OUTSIDE RECORDS SUMMARY | 2023-06-27 08:05 | XMS_ITS | Continuity of Care Document ---
Author Name Unknown Organization [facility] Address [address] [place] [address]- Care Team Providers Care Featheredger And Reducer Machine Name Role Phone Vera Babcock MD Primary Care Physician [place] [facility] [place] 05/06/23 - 06/05/[address] [address]- Allergies, Adverse Reactions, Alerts No Known Allergies Immunizations Given and Recorded Vaccine Date Status Refusal Reason [id number] 12y+ bivalent booster vax 03/16/23 Given [id number] 12y+ bivalent booster vax 03/26/22 Given influenza virus vaccine, inactivated 03/16/23 Give n influenza virus vaccine, inactivated 03/26/22 Give n influenza virus vaccine, inactivated 12/08/19 Osvaldo rded influenza virus vaccine, inactivated 11/29/18 Osvaldo rded influenza virus vaccine, inactivated 12/06/08 Osvaldo rded tetanus/diphtheria/pertussis, acel(Tdap) 03/26/22 Given tetanus/diphtheria/pertussis, acel(Tdap) 01/03/09 Recorded SARS-CoV-2 mRNA (ognemit-gkqf-ufquo) vax 08/05/21 Recorded SARS-CoV-2 (COVID-19) mRNA BNT-162b2 [...] 03/26/22 14:44:00 EST, Route to Pharmacy Electronically, [facility] [id number], Partial fill upon patient request if the [...] tablet, 11 Refills, Maintenance, 05/05/23 10:29:00 EST, [facility], 30, TAKE 1 TABLET BY MOUTH ONCE DAILY, 175, cm, 04/29/23 10:03:00 EST, Height, 161.2, kg, 11/26/22 13:41:00 EDT, Dry Weight Start Date: 05/05/23 Status: Ordered docusate sodium 100 mg oral capsule 1 capsule, By Mouth, 2 times a day, # 60 each, 5 Refills, Maintenance, 05/05/23 10:29:00 EST, [facility], 175, cm, 04/29/23 10:03:00 EST, Height, 161.2, kg, 11/26/22 13:41:00 EDT, Dry Weight Start Date: 05/05/23 Status: Ordered folic acid 0.8 mg oral tablet 1 tablet = 0.8 mg, By Mouth, Daily, # 30 tablet, 5 Refills, Maintenance, 03/16/23 8:59:00 EST, Tablet, [place], [place] - [id number], Partial fill upon patient request if the prescription is for a schedule II opioid drug., 175, cm, 12... Start Date: 03/16/23 Stop Date: 09/12/23 Status: Ordered MetFORMIN (Eqv-Glucophage XR) 500 mg oral tablet, extended release 1 tablet = 500 mg, By Mouth, Daily, # 90 tablet, 3 Refills, Maintenance, 06/28/22 10:51:00 EDT, [facility] [id number], Partial fill upon patient request if the prescription is for a schedule II opioid drug., 175, cm, 06/28/22... Start Date: 06/28/22 Stop Date: 06/23/23 Status: Ordered omeprazole 20 mg oral enteric coated capsule See Instructions, TAKE 1 CAPSULE BY MOUTH ONCE DAILY, # 30 capsule, 5 Refills, Maintenance, 03/16/23 8:59:00 EST, [facility] [id number], 175, cm, 03/16/23 8:34:00 EST, Height, 161.2, [...] 06/27/23 17:50:00 EDT, 05/30/23 17:50:00 EST, Solution, [id number], Partial fill upon patient request if the [...] 1 Confirmed Active Bipolar disorder Confirmed Active [facility] community education coordinator Hugo Hamilton [phone] Confirmed Active PTSD (post-traumatic stress disorder) Confirmed Active Severe obesity Confirmed Active 1Unable to fully visualize cervix with speculum available. Unable to complete colposcopy procedure. will refer to [facility] Social History Social History Type Response Tobacco Use: 4 or less cigar ettes(less than 1/4 pack)/day in last 30 days. Other: rarely. Sex Patient Care team information Care Team Personnel Name: Jayne Vee RN Position: [facility] RN Member Role: Primary Care Nurse Name: Jojo Cazares RN Position: [facility] RN Member Role: Primary Care Nurse Name: Vera Babcock MD Position: [facility] Physician - Primary Care Member Role: PCP Address: Address: [address] [place] [address]- Care Team Related Persons Name: SKYE FELDER Address: home [address] [place] [address] Name: MONIQUE SIMPSON Name: LALA HILLS Address: home [address] [place] [phone] Name: KERI BROTHERS Address: home [address] [place] [id number]
--- OUTSIDE RECORDS SUMMARY | 2023-06-27 08:05 | XMS_ITS | Continuity of Care Document ---
Author Name Unknown Organization [facility] Address [address] [place] [address]- Care Team Providers Care Warehouse Supervisor Name Role Phone Vera Babcock MD Primary Care Physician Encounter [facility] [place] Date(s): 04/29/23 - 05/29/[address] [address]- Allergies, Adverse Reactions, Alerts No Known Allergies Immunizations Given and Recorded Vaccine Date Status Refusal Reason [id number] 12y+ bivalent booster vax 03/16/23 Given [id number] 12y+ bivalent booster vax 03/26/22 Given influenza virus vaccine, inactivated 03/16/23 Give n influenza virus vaccine, inactivated 03/26/22 Give n influenza virus vaccine, inactivated 12/08/19 Osvaldo rded influenza virus vaccine, inactivated 11/29/18 Osvaldo rded influenza virus vaccine, inactivated 12/06/08 Osvaldo rded tetanus/diphtheria/pertussis, acel(Tdap) 03/26/22 Given tetanus/diphtheria/pertussis, acel(Tdap) 01/03/09 Recorded SARS-CoV-2 mRNA (iitvfqh-emza-gknnm) vax 08/05/21 Recorded SARS-CoV-2 (COVID-19) mRNA BNT-162b2 [...] 03/26/22 14:44:00 EST, Route to Pharmacy Electronically, [facility] [id number], Partial fill upon patient request if the [...] tablet, 11 Refills, Maintenance, 05/05/23 10:29:00 EST, [facility], 30, TAKE 1 TABLET BY MOUTH ONCE DAILY, 175, cm, 04/29/23 10:03:00 EST, Height, 161.2, kg, 11/26/22 13:41:00 EDT, Dry Weight Start Date: 05/05/23 Status: Ordered docusate sodium 100 mg oral capsule 1 capsule, By Mouth, 2 times a day, # 60 each, 5 Refills, Maintenance, 05/05/23 10:29:00 EST, [facility], 175, cm, 04/29/23 10:03:00 EST, Height, 161.2, kg, 11/26/22 13:41:00 EDT, Dry Weight Start Date: 05/05/23 Status: Ordered folic acid 0.8 mg oral tablet 1 tablet = 0.8 mg, By Mouth, Daily, # 30 tablet, 5 Refills, Maintenance, 03/16/23 8:59:00 EST, Tablet, [place], [place] - [id number], Partial fill upon patient request if the prescription is for a schedule II opioid drug., 175, cm, 12... Start Date: 03/16/23 Stop Date: 09/12/23 Status: Ordered MetFORMIN (Eqv-Glucophage XR) 500 mg oral tablet, extended release 1 tablet = 500 mg, By Mouth, Daily, # 90 tablet, 3 Refills, Maintenance, 06/28/22 10:51:00 EDT, [facility] [id number], Partial fill upon patient request if the prescription is for a schedule II opioid drug., 175, cm, 06/28/22... Start Date: 06/28/22 Stop Date: 06/23/23 Status: Ordered omeprazole 20 mg oral enteric coated capsule See Instructions, TAKE 1 CAPSULE BY MOUTH ONCE DAILY, # 30 capsule, 5 Refills, Maintenance, 03/16/23 8:59:00 EST, [facility] [id number], 175, cm, 03/16/23 8:34:00 EST, Height, 161.2, [...] 05/31/23 15:45:00 EST, 05/03/23 15:45:00 EST, Solution, [facility] [id number], Partial fill upon patie... Start Date: 05/03/23 [...] 06/02/23 10:58:00 EST, 05/05/23 10:58:00 EST, Solution, [id number], Partial fill upon patient request if the p... Start Date: 05/05/23 Stop Date: 06/02/23 Status: Ordered Problem List Condition Confirmation Course Effective Dates Status Health St [facility] Informant ASCUS HPV+/ neg 16/18/45 1 Confirmed Active Bipolar disorder Confirmed Active [facility] residence life coordinator Hugo Hamilton [phone] Confirmed Active PTSD (post-traumatic stress disorder) Confirmed Active Severe obesity Confirmed Active 1Unable to fully visualize cervix with speculum available. Unable to complete colposcopy procedure. will refer to [facility] Social History Social History Type Response Tobacco Use: 4 or less cigar ettes(less than 1/4 pack)/day in last 30 days. Other: rarely. Sex Patient Care team information Care Team Personnel Name: Jayne Vee RN Position: [facility] RN Member Role: Primary Care Nurse Name: Jojo Cazares RN Position: [facility] RN Member Role: Primary Care Nurse Name: Vera Babcock MD Position: [facility] Physician - Primary Care Member Role: PCP Address: Address: [address] [place] [address]- [place] Care Team Related Persons Name: SKYE FELDER Address: home [address] [place] [address] Name: MONIQUE SIMPSON Name: LALA HILLS Address: home [address] [place] [id number] Name: KERI BROTHERS Address: home [address] [place] [address]
--- OUTSIDE RECORDS SUMMARY | 2023-06-27 08:05 | XMS_ITS | Continuity of Care Document ---
Author Name Unknown Organization [facility] Address [address] [place] [address]- Care Team Providers Care Apricot Washer Name Role Phone Vera Babcock MD Primary Care Physician [phone] Encounter [facility] [place] Date(s): 05/04/23 - 06/03/[address] [address]- Allergies, Adverse Reactions, Alerts No Known Allergies Immunizations Given and Recorded Vaccine Date Status Refusal Reason [id number] 12y+ bivalent booster vax 03/16/23 Given [id number] 12y+ bivalent booster vax 03/26/22 Given influenza virus vaccine, inactivated 03/16/23 Give n influenza virus vaccine, inactivated 03/26/22 Give n influenza virus vaccine, inactivated 12/08/19 Osvaldo rded influenza virus vaccine, inactivated 11/29/18 Osvaldo rded influenza virus vaccine, inactivated 12/06/08 Osvaldo rded tetanus/diphtheria/pertussis, acel(Tdap) 03/26/22 Given tetanus/diphtheria/pertussis, acel(Tdap) 01/03/09 Recorded SARS-CoV-2 mRNA (zmtfcek-trqo-zedko) vax 08/05/21 Recorded SARS-CoV-2 (COVID-19) mRNA BNT-162b2 [...] EST, Route to Pharmacy Electronically, [facility] [id number], Partial fill upon patient request if the [...] tablet, 11 Refills, Maintenance, 05/05/23 10:29:00 EST, [facility], 30, TAKE 1 TABLET BY MOUTH ONCE DAILY, 175, cm, 04/29/23 10:03:00 EST, Height, 161.2, kg, 11/26/22 13:41:00 EDT, Dry Weight Start Date: 05/05/23 Status: Ordered docusate sodium 100 mg oral capsule 1 capsule, By Mouth, 2 times a day, # 60 each, 5 Refills, Maintenance, 05/05/23 10:29:00 EST, [facility], 175, cm, 04/29/23 10:03:00 EST, Height, 161.2, kg, 11/26/22 13:41:00 EDT, Dry Weight Start Date: 05/05/23 Status: Ordered folic acid 0.8 mg oral tablet 1 tablet = 0.8 mg, By Mouth, Daily, # 30 tablet, 5 Refills, Maintenance, 03/16/23 8:59:00 EST, Tablet, [place], [place] - [id number], Partial fill upon patient request if the prescription is for a schedule II opioid drug., 175, cm, 12... Start Date: 03/16/23 Stop Date: 09/12/23 Status: Ordered MetFORMIN (Eqv-Glucophage XR) 500 mg oral tablet, extended release 1 tablet = 500 mg, By Mouth, Daily, # 90 tablet, 3 Refills, Maintenance, 06/28/22 10:51:00 EDT, [facility] [id number], Partial fill upon patient request if the prescription is for a schedule II opioid drug., 175, cm, 06/28/22... Start Date: 06/28/22 Stop Date: 06/23/23 Status: Ordered omeprazole 20 mg oral enteric coated capsule See Instructions, TAKE 1 CAPSULE BY MOUTH ONCE DAILY, # 30 capsule, 5 Refills, Maintenance, 03/16/23 8:59:00 EST, [facility] [id number], 175, cm, 03/16/23 8:34:00 EST, Height, 161.2, [...] 06/27/23 17:50:00 EDT, 05/30/23 17:50:00 EST, Solution, [facility][id number], Partial fill upon patient request if the [...] 1 Confirmed Active Bipolar disorder Confirmed Active pending sale to [employer] jewelry sales coordinator Hugo Hamilton [phone] Confirmed Active PTSD (post-traumatic stress disorder) Confirmed Active Severe obesity Confirmed Active 1Unable to fully visualize cervix with speculum available. Unable to complete colposcopy procedure. will refer to [facility] Social History Social History Type Response Tobacco Use: 4 or less cigar ettes(less than 1/4 pack)/day in last 30 days. Other: rarely. Sex Patient Care team information Care Team Personnel Name: Jayne Vee RN Position: [facility] RN Member Role: Primary Care Nurse Name: Jojo Cazares RN Position: [facility] RN Member Role: Primary Care Nurse Name: Vera Babcock MD Position: [facility] Physician - Primary Care Member Role: PCP Address: Address: [address] [place] [address]- Care Team Related Persons Name: SKYE FELDER Address: home [address] [place] [address] Name: MONIQUE SIMPSON Name: LALA HILLS Address: home [address] [place] [address] Name: KERI BROTHERS Address: home [address] [place] [address]
--- OUTSIDE RECORDS SUMMARY | 2023-06-27 08:05 | XMS_ITS | Continuity of Care Document ---
Author Name Unknown Organization [facility] Address [address] [place] [address]- Care Team Providers Care Peoplesoft Crm Developer Name Role Phone Vera Babcock MD Primary Care Physician [place] [facility] [place] Date(s): 04/25/23 - 05/25/[address] [address]- Allergies, Adverse Reactions, Alerts No Known Allergies Immunizations Given and Recorded Vaccine Date Status Refusal Reason [id number] 12y+ bivalent booster vax 03/16/23 Given [id number] 12y+ bivalent booster vax 03/26/22 Given influenza virus vaccine, inactivated 03/16/23 Give n influenza virus vaccine, inactivated 03/26/22 Give n influenza virus vaccine, inactivated 12/08/19 Osvaldo rded influenza virus vaccine, inactivated 11/29/18 Osvaldo rded influenza virus vaccine, inactivated 12/06/08 Osvaldo rded tetanus/diphtheria/pertussis, acel(Tdap) 03/26/22 Given tetanus/diphtheria/pertussis, acel(Tdap) 01/03/09 Recorded SARS-CoV-2 mRNA (vsxidij-stkn-mtiwq) vax 08/05/21 Recorded SARS-CoV-2 (COVID-19) mRNA BNT-162b2 [...] 03/26/22 14:44:00 EST, Route to Pharmacy Electronically, [place], [place] - [id number], Partial fill upon patient request if the [...] tablet, 11 Refills, Maintenance, 05/05/23 10:29:00 EST, [facility], 30, TAKE 1 TABLET BY MOUTH ONCE DAILY, 175, cm, 04/29/23 10:03:00 EST, Height, 161.2, kg, 11/26/22 13:41:00 EDT, Dry Weight Start Date: 05/05/23 Status: Ordered docusate sodium 100 mg oral capsule 1 capsule, By Mouth, 2 times a day, # 60 each, 5 Refills, Maintenance, 05/05/23 10:29:00 EST, [facility], 175, cm, 04/29/23 10:03:00 EST, Height, 161.2, kg, 11/26/22 13:41:00 EDT, Dry Weight Start Date: 05/05/23 Status: Ordered folic acid 0.8 mg oral tablet 1 tablet = 0.8 mg, By Mouth, Daily, # 30 tablet, 5 Refills, Maintenance, 03/16/23 8:59:00 EST, Tablet, [place], [place] - [id number], Partial fill upon patient request if the prescription is for a schedule II opioid drug., 175, cm, 12... Start Date: 03/16/23 Stop Date: 09/12/23 Status: Ordered MetFORMIN (Eqv-Glucophage XR) 500 mg oral tablet, extended release 1 tablet = 500 mg, By Mouth, Daily, # 90 tablet, 3 Refills, Maintenance, 06/28/22 10:51:00 EDT, [facility] [id number], Partial fill upon patient request if the prescription is for a schedule II opioid drug., 175, cm, 06/28/22... Start Date: 06/28/22 Stop Date: 06/23/23 Status: Ordered omeprazole 20 mg oral enteric coated capsule See Instructions, TAKE 1 CAPSULE BY MOUTH ONCE DAILY, # 30 capsule, 5 Refills, Maintenance, 03/16/23 8:59:00 EST, [facility] [id number], 175, cm, 03/16/23 8:34:00 EST, Height, 161.2, [...] 05/31/23 15:45:00 EST, 05/03/23 15:45:00 EST, Solution, [place], [place] - [id number], Partial fill upon patie... Start Date: 05/03/23 [...] 06/02/23 10:58:00 EST, 05/05/23 10:58:00 EST, Solution, [facility] #[id number], Partial fill upon patient request if the p... Start Date: 05/05/23 Stop Date: 06/02/23 Status: Ordered Problem List Condition Confirmation Course Effective Dates Status Health St [facility] Informant ASCUS HPV+/ neg 16/18/45 1 Confirmed Active Bipolar disorder Confirmed Active [facility] marketing program coordinator Hugo Hamilton [phone] Confirmed Active PTSD (post-traumatic stress disorder) Confirmed Active Severe obesity Confirmed Active 1Unable to fully visualize cervix with speculum available. Unable to complete colposcopy procedure. will refer to [facility] Social History Social History Type Response Tobacco Use: 4 or less cigar ettes(less than 1/4 pack)/day in last 30 days. Other: rarely. Sex Patient Care team information Care Team Personnel Name: Jayne Vee RN Position: [facility] RN Member Role: Primary Care Nurse Name: Jojo Cazares RN Position: [facility] RN Member Role: Primary Care Nurse Name: Vera Babcock MD Position: [facility] Physician - Primary Care Member Role: PCP Address: Address: [address] [place] [address]- Care Team Related Persons Name: SKYE FELDER Address: home [address] [place] [address] Name: MONIQUE SIMPSON Name: LALA HILLS Address: home [address] [place] [address] Name: KERI BROTHERS Address: [place] [address]
--- OUTSIDE RECORDS SUMMARY | 2023-06-27 08:06 | XMS_ITS | Continuity of Care Document ---
Author Name Unknown Organization [facility] Address [address] [place] [address]- Care Team Providers Care Patient Care Specialist Name Role Phone Vera Babcock MD Primary Care Physician Encounter [facility] [place] Date(s): 05/18/23 - 06/17/[address] [address]- Allergies, Adverse Reactions, Alerts No Known Allergies Immunizations Given and Recorded Vaccine Date Status Refusal Reason [id number] 12y+ bivalent booster vax 03/16/23 Given [id number] 12y+ bivalent booster vax 03/26/22 Given influenza virus vaccine, inactivated 03/16/23 Give n influenza virus vaccine, inactivated 03/26/22 Give n influenza virus vaccine, inactivated 12/08/19 Osvaldo rded influenza virus vaccine, inactivated 11/29/18 Osvaldo rded influenza virus vaccine, inactivated 12/06/08 Osvaldo rded tetanus/diphtheria/pertussis, acel(Tdap) 03/26/22 Given tetanus/diphtheria/pertussis, acel(Tdap) 01/03/09 Recorded SARS-CoV-2 mRNA (sudlkwx-zbie-slqyr) vax 08/05/21 Recorded SARS-CoV-2 (COVID-19) mRNA BNT-162b2 [...] 03/26/22 14:44:00 EST, Route to Pharmacy Electronically, [facility] [id number], Partial fill upon patient request if the [...] tablet, 11 Refills, Maintenance, 05/05/23 10:29:00 EST, [facility], 30, TAKE 1 TABLET BY MOUTH ONCE DAILY, 175, cm, 04/29/23 10:03:00 EST, Height, 161.2, kg, 11/26/22 13:41:00 EDT, Dry Weight Start Date: 05/05/23 Status: Ordered docusate sodium 100 mg oral capsule 1 capsule, By Mouth, 2 times a day, # 60 each, 5 Refills, Maintenance, 05/05/23 10:29:00 EST, [facility], 175, cm, 04/29/23 10:03:00 EST, Height, 161.2, kg, 11/26/22 13:41:00 EDT, Dry Weight Start Date: 05/05/23 Status: Ordered folic acid 0.8 mg oral tablet 1 tablet = 0.8 mg, By Mouth, Daily, # 30 tablet, 5 Refills, Maintenance, 03/16/23 8:59:00 EST, Tablet, [place], [place] - [id number], Partial fill upon patient request if the prescription is for a schedule II opioid drug., 175, cm, 12... Start Date: 03/16/23 Stop Date: 09/12/23 Status: Ordered MetFORMIN (Eqv-Glucophage XR) 500 mg oral tablet, extended release 1 tablet = 500 mg, By Mouth, Daily, # 90 tablet, 3 Refills, Maintenance, 06/28/22 10:51:00 EDT, [facility] [id number], Partial fill upon patient request if the prescription is for a schedule II opioid drug., 175, cm, 06/28/22... Start Date: 06/28/22 Stop Date: 06/23/23 Status: Ordered omeprazole 20 mg oral enteric coated capsule See Instructions, TAKE 1 CAPSULE BY MOUTH ONCE DAILY, # 30 capsule, 5 Refills, Maintenance, 03/16/23 8:59:00 EST, [facility] [id number], 175, cm, 03/16/23 8:34:00 EST, Height, 161.2, [...] 06/27/23 17:50:00 EDT, 05/30/23 17:50:00 EST, Solution, [facility][id number], Partial fill upon patient request if the [...] Active Bipolar disorder Confirmed Active [facility] photography coordinator Hugo Hamilton [phone] Confirmed Active PTSD (post-traumatic stress disorder) Confirmed Active Severe obesity Confirmed Active 1Unable to fully visualize cervix with speculum available. Unable to complete colposcopy procedure. will refer to [facility] Social History Social History Type Response Tobacco Use: 4 or less cigar ettes(less than 1/4 pack)/day in last 30 days. Other: rarely. Sex Patient Care team information Care Team Personnel Name: Jayne Vee RN Position: [facility] RN Member Role: Primary Care Nurse Name: Jojo Cazares RN Position: [facility] RN Member Role: Primary Care Nurse Name: Vera Babcock MD Position: [facility] Physician - Primary Care Member Role: PCP Address: Address: [address] [place] [address]- Care Team Related Persons Name: SKYE FELDER Address: home [address] [place] [address] Name: MONIQUE SIMPSON Name: LALA HILLS Address: home [address] [place] [address] Name: KERI BROTHERS Address: home [address] [place] [phone]
--- OUTSIDE RECORDS SUMMARY | 2023-06-27 08:06 | XMS_ITS | Continuity of Care Document ---
Author Name Unknown Organization [facility] Address [address] [place] [address]- Care Team Providers Care Instructor Kindergarten Name Role Phone Vera Babcock MD Primary Care Physician Encounter [facility] ACCT R [id number] Date(s): 04/19/23 - 05/19/[address] [address]- Attending Physician: Edith Mendoza Admitting Physician: Edith Mendoza Referring Physician: Edith Mendoza Allergies, Adverse Reactions, Alerts No Known Allergies Immunizations Given and Recorded Vaccine Date Status Refusal Reason [id number] 12y+ bivalent booster vax 03/16/23 Given [id number] 12y+ bivalent booster vax 03/26/22 Given influenza virus vaccine, inactivated 03/16/23 Give n influenza virus vaccine, inactivated 03/26/22 Give n influenza virus vaccine, inactivated 12/08/19 Osvaldo rded influenza virus vaccine, inactivated 11/29/18 Osvaldo rded influenza virus vaccine, inactivated 12/06/08 Osvaldo rded tetanus/diphtheria/pertussis, acel(Tdap) 03/26/22 Given tetanus/diphtheria/pertussis, acel(Tdap) 01/03/09 Recorded SARS-CoV-2 mRNA ([id number]) vax 08/05/21 Recorded SARS-CoV-2 (COVID-19) mRNA BNT-162b2 [...] 03/26/22 14:44:00 EST, Route to Pharmacy Electronically, [place], [place] - [id number], Partial fill upon patient request if the [...] tablet, 11 Refills, Maintenance, 05/05/23 10:29:00 EST, [facility], 30, TAKE 1 TABLET BY MOUTH ONCE DAILY, 175, cm, 04/29/23 10:03:00 EST, Height, 161.2, kg, 11/26/22 13:41:00 EDT, Dry Weight Start Date: 05/05/23 Status: Ordered docusate sodium 100 mg oral capsule 1 capsule, By Mouth, 2 times a day, # 60 each, 5 Refills, Maintenance, 05/05/23 10:29:00 EST, [facility], 175, cm, 04/29/23 10:03:00 EST, Height, 161.2, kg, 11/26/22 13:41:00 EDT, Dry Weight Start Date: 05/05/23 Status: Ordered folic acid 0.8 mg oral tablet 1 tablet = 0.8 mg, By Mouth, Daily, # 30 tablet, 5 Refills, Maintenance, 03/16/23 8:59:00 EST, Tablet, [facility], [place] - [id number], Partial fill upon patient request if the prescription is for a schedule II opioid drug., 175, cm, 12... Start Date: 03/16/23 Stop Date: 09/12/23 Status: Ordered MetFORMIN (Eqv-Glucophage XR) 500 mg oral tablet, extended release 1 tablet = 500 mg, By Mouth, Daily, # 90 tablet, 3 Refills, Maintenance, 06/28/22 10:51:00 EDT, [facility], [facility] [id number], Partial fill upon patient request if the prescription is for a schedule II opioid drug., 175, cm, 06/28/22... Start Date: 06/28/22 Stop Date: 06/23/23 Status: Ordered omeprazole 20 mg oral enteric coated capsule See Instructions, TAKE 1 CAPSULE BY MOUTH ONCE DAILY, # 30 capsule, 5 Refills, Maintenance, 03/16/23 8:59:00 EST, [facility], [facility] [id number], 175, cm, 03/16/23 8:34:00 EST, Height, 161.2, [...] 05/31/23 15:45:00 EST, 05/03/23 15:45:00 EST, Solution, [facility], [place] - [id number], Partial fill upon patie... Start Date: 05/03/23 [...] 06/02/23 10:58:00 EST, 05/05/23 10:58:00 EST, Solution, [facility] #[id number], Partial fill upon patient request if the p... Start Date: 05/05/23 Stop Date: 06/02/23 Status: Ordered Problem List Condition Confirmation Course Effective Dates Status Health St [facility] Informant ASCUS HPV+/ neg 16/18/45 1 Confirmed Active Bipolar disorder Confirmed Active [facility] medical review coordinator Hugo Alfonso [phone] Confirmed Active PTSD (post-traumatic stress disorder) Confirmed Active Severe obesity Confirmed Active 1Unable to fully visualize cervix with speculum available. Unable to complete colposcopy procedure. will refer to [facility] Social History Social History Type Response Tobacco Use: 4 or less cigar ettes(less than 1/4 pack)/day in last 30 days. Other: rarely. Sex Patient Care team information Care Team Personnel Name: Jayne Vee RN Position: [facility] RN Member Role: Primary Care Nurse Name: Jojo Cazares RN Position: [facility] RN Member Role: Primary Care Nurse Name: Vera Babcock MD Position: [facility] Physician - Primary Care Member Role: PCP Address: Address: [address] [place] [address]- Care Team Related Persons Name: ROB FELDERYL Address: home [address] [place] [address] Name: MONIQUE SIMPSON Name: LALA HILLS Address: home [address] [place] [id number] Name: KERI BROTHERS Address: home [address] [place] [address]
--- OUTSIDE RECORDS SUMMARY | 2023-06-27 08:06 | XMS_ITS | Continuity of Care Document ---
Author Name Unknown Organization [facility] Address [address] [place] [address]- Care Team Providers Care Key Operator Name Role Phone Vera Babcock MD Primary Care Physician [phone] Encounter [facility] Date(s): 05/04/23 - 06/03/[address] [address]- Allergies, Adverse Reactions, Alerts No Known Allergies Immunizations Given and Recorded Vaccine Date Status Refusal Reason [id number] 12y+ bivalent booster vax 03/16/23 Given [id number] 12y+ bivalent booster vax 03/26/22 Given influenza virus vaccine, inactivated 03/16/23 Give n influenza virus vaccine, inactivated 03/26/22 Give n influenza virus vaccine, inactivated 12/08/19 Osvaldo rded influenza virus vaccine, inactivated 11/29/18 Osvaldo rded influenza virus vaccine, inactivated 12/06/08 Osvaldo rded tetanus/diphtheria/pertussis, acel(Tdap) 03/26/22 Given tetanus/diphtheria/pertussis, acel(Tdap) 01/03/09 Recorded SARS-CoV-2 mRNA ([id number]-hmqh-xkwno) vax 08/05/21 Recorded SARS-CoV-2 (COVID-19) mRNA BNT-162b2 [...] 03/26/22 14:44:00 EST, Route to Pharmacy Electronically, [facility] [id number], Partial fill upon patient request if the [...] tablet, 11 Refills, Maintenance, 05/05/23 10:29:00 EST, [facility], 30, TAKE 1 TABLET BY MOUTH ONCE DAILY, 175, cm, 04/29/23 10:03:00 EST, Height, 161.2, kg, 11/26/22 13:41:00 EDT, Dry Weight Start Date: 05/05/23 Status: Ordered docusate sodium 100 mg oral capsule 1 capsule, By Mouth, 2 times a day, # 60 each, 5 Refills, Maintenance, 05/05/23 10:29:00 EST, [facility], 175, cm, 04/29/23 10:03:00 EST, Height, 161.2, kg, 11/26/22 13:41:00 EDT, Dry Weight Start Date: 05/05/23 Status: Ordered folic acid 0.8 mg oral tablet 1 tablet = 0.8 mg, By Mouth, Daily, # 30 tablet, 5 Refills, Maintenance, 03/16/23 8:59:00 EST, Tablet, [place], [place] - [id number], Partial fill upon patient request if the prescription is for a schedule II opioid drug., 175, cm, 12... Start Date: 03/16/23 Stop Date: 09/12/23 Status: Ordered MetFORMIN (Eqv-Glucophage XR) 500 mg oral tablet, extended release 1 tablet = 500 mg, By Mouth, Daily, # 90 tablet, 3 Refills, Maintenance, 06/28/22 10:51:00 EDT, [facility] [id number], Partial fill upon patient request if the prescription is for a schedule II opioid drug., 175, cm, 06/28/22... Start Date: 06/28/22 Stop Date: 06/23/23 Status: Ordered omeprazole 20 mg oral enteric coated capsule See Instructions, TAKE 1 CAPSULE BY MOUTH ONCE DAILY, # 30 capsule, 5 Refills, Maintenance, 03/16/23 8:59:00 EST, [facility] [id number], 175, cm, 03/16/23 8:34:00 EST, Height, 161.2, [...] 06/27/23 17:50:00 EDT, 05/30/23 17:50:00 EST, Solution, [facility][id number], Partial fill upon patient request if the [...] 1 Confirmed Active Bipolar disorder Confirmed Active [facility] accounts payable payroll coordinator Hugo Hamilton [phone] Confirmed Active PTSD (post-traumatic stress disorder) Confirmed Active Severe obesity Confirmed Active 1Unable to fully visualize cervix with speculum available. Unable to complete colposcopy procedure. will refer to [facility] Social History Social History Type Response Tobacco Use: 4 or less cigar ettes(less than 1/4 pack)/day in last 30 days. Other: rarely. Sex Patient Care team information Care Team Personnel Name: Jayne Vee RN Position: [facility] RN Member Role: Primary Care Nurse Name: Jojo Cazares RN Position: [facility] RN Member Role: Primary Care Nurse Name: Vera Babcock MD Position: [facility] Physician - Primary Care Member Role: PCP Address: Address: [address] [place] [address]- Care Team Related Persons Name: SKYE FELDER Address: home [address] [place] [address] Name: MONIQUE SIMPSON Name: LALA HILLS Address: home [address] [place] [id number] Name: KERI BROTHERS Address: home [address] [place] [id number]
--- OUTSIDE RECORDS SUMMARY | 2023-06-27 08:06 | XMS_ITS | Continuity of Care Document ---
Author Name Unknown Organization [facility] Address [address] [place] [address]- Care Team Providers Care Associate Store Director Name Role Phone Vera Babcock MD Primary Care Physician [phone] Encounter [facility] Date(s): 05/03/23 - 06/02/[address] [address]- Allergies, Adverse Reactions, Alerts No Known Allergies Immunizations Given and Recorded Vaccine Date Status Refusal Reason [id number] 12y+ bivalent booster vax 03/16/23 Given [id number] 12y+ bivalent booster vax 03/26/22 Given influenza virus vaccine, inactivated 03/16/23 Give n influenza virus vaccine, inactivated 03/26/22 Give n influenza virus vaccine, inactivated 12/08/19 Osvaldo rded influenza virus vaccine, inactivated 11/29/18 Osvaldo rded influenza virus vaccine, inactivated 12/06/08 Osvaldo rded tetanus/diphtheria/pertussis, acel(Tdap) 03/26/22 Given tetanus/diphtheria/pertussis, acel(Tdap) 01/03/09 Recorded SARS-CoV-2 mRNA ([id number]-qifp-zoawh) vax 08/05/21 Recorded SARS-CoV-2 (COVID-19) mRNA BNT-162b2 [...] 03/26/22 14:44:00 EST, Route to Pharmacy Electronically, [facility] [id number], Partial fill upon patient request if the [...] tablet, 11 Refills, Maintenance, 05/05/23 10:29:00 EST, [facility], 30, TAKE 1 TABLET BY MOUTH ONCE DAILY, 175, cm, 04/29/23 10:03:00 EST, Height, 161.2, kg, 11/26/22 13:41:00 EDT, Dry Weight Start Date: 05/05/23 Status: Ordered docusate sodium 100 mg oral capsule 1 capsule, By Mouth, 2 times a day, # 60 each, 5 Refills, Maintenance, 05/05/23 10:29:00 EST, [facility], 175, cm, 04/29/23 10:03:00 EST, Height, 161.2, kg, 11/26/22 13:41:00 EDT, Dry Weight Start Date: 05/05/23 Status: Ordered folic acid 0.8 mg oral tablet 1 tablet = 0.8 mg, By Mouth, Daily, # 30 tablet, 5 Refills, Maintenance, 03/16/23 8:59:00 EST, Tablet, [place], [place] - [id number], Partial fill upon patient request if the prescription is for a schedule II opioid drug., 175, cm, 12... Start Date: 03/16/23 Stop Date: 09/12/23 Status: Ordered MetFORMIN (Eqv-Glucophage XR) 500 mg oral tablet, extended release 1 tablet = 500 mg, By Mouth, Daily, # 90 tablet, 3 Refills, Maintenance, 06/28/22 10:51:00 EDT, [facility] [id number], Partial fill upon patient request if the prescription is for a schedule II opioid drug., 175, cm, 06/28/22... Start Date: 06/28/22 Stop Date: 06/23/23 Status: Ordered omeprazole 20 mg oral enteric coated capsule See Instructions, TAKE 1 CAPSULE BY MOUTH ONCE DAILY, # 30 capsule, 5 Refills, Maintenance, 03/16/23 8:59:00 EST, [facility] [id number], 175, cm, 03/16/23 8:34:00 EST, Height, 161.2, [...] 06/27/23 17:50:00 EDT, 05/30/23 17:50:00 EST, Solution, [facility]#[id number], Partial fill upon patient request if the [...] Confirmed Active Bipolar disorder Confirmed Active [facility] wellness coordinator Hugo Hamilton [phone] Confirmed Active PTSD (post-traumatic stress disorder) Confirmed Active Severe obesity Confirmed Active 1Unable to fully visualize cervix with speculum available. Unable to complete colposcopy procedure. will refer to [facility] Social History Social History Type Response Tobacco Use: 4 or less cigar ettes(less than 1/4 pack)/day in last 30 days. Other: rarely. Sex Patient Care team information Care Team Personnel Name: Jayne Vee RN Position: [facility] RN Member Role: Primary Care Nurse Name: Jojo Cazares RN Position: [facility] RN Member Role: Primary Care Nurse Name: Vera Babcock MD Position: [facility] Physician - Primary Care Member Role: PCP Address: Address: [address] [place] [address]- Care Team Related Persons Name: SKYE FELDER Address: [address] [place] [address] Name: MONIQUE SIMPSON Name: LALA HILLS Address: home [address] [place] [id number] Name: KERI BROTHERS Address: home [address] [place] [address]
--- NOTE | 2023-06-27 13:16 | A.OFFVIS_ITS ---
Intake VS Expanded 06/27/23 13:29 Height 5 ft 8 in Weight 358 lb 2 oz BMI 54.4 Body Fat % 49.3 Body Fat Mass 176.6 Fat Free Mass 181.4 Visceral Fat Rating 18 Body Water % 36.3 Body Water Mass 129.8 Basal Metabolic Rate/Score 2,664 Intake Visit Reasons: TV Re-Est SWL BMI 54.5 *SEE COMMENTS* Allergies No Known Allergies Allergy (Verified 06/27/23 13:16) Medication List - Last Reconciled 06/27/23 by Raoul Lugo MD carbamazepine ER (Tegretol XR) 300 mg (3 x 100 mg) PO BID 30 days clonidine HCl 0.1 mg See Protocol PO BID cyanocobalamin (vitamin B-12) (Vitamin B-12) 50 mcg PO DAILY [Daily-Kevin (with folic acid) 1 tab PO DAILY] docusate sodium 100 mg PO BID fluphenazine HCl 5 mg PO TID folic acid 0.8 mg PO DAILY hydroxyzine HCl 50 mg PO QID PRN omeprazole 20 mg PO DAILY@0630 omeprazole 20 mg PO DAILY semaglutide (weight loss) (Wegovy) mg subcut HPI TV Re-Est SWL BMI 54.5 *SEE COMMENTS* HPI Details Start time: 1.10pm, End time: 1.50pm ?I spent 35 minutes speaking with the patient on the phone plus an additional 5 minutes reviewing and updating records for a total of 40 minutes HPI Comments History of Present Illness Details Previous weight loss efforts: [facility] [place] with [place]. Stovall Wakes up: 9.30am, Sleeps: 10pm Breakfast: 9.30am (cereal, fruits) Lunch: 1pm (salad with chicken/salmon) Dinner: 5pm may skip (chicken, rice, vegetables) Snacks: 3-4pm (chips), 7pm (crackers) Exercise: none Fluids: Coffee: occasionally, tea: daily (plain), soda: none, juice: none, ETOH: none PFSH Medical History (Updated 06/27/23 @ 13:21 by Raoul Lugo MD) Hyperlipidemia GERD (gastroesophageal reflux disease) Schizophrenia Routine medical exam Hypertension Type 2 diabetes mellitus Back pain Morbid obesity due to excess calories Surgical History Hx of removal of cyst Family History Mother Chronic kidney disease Accelerated hypertension Pulmonary hypertension CHF (congestive heart failure) Coronary heart disease Father No problems noted. Brother Leukemia Brother No problems noted. Daughter No problems noted. Social History (Updated 10/03/20 @ 09:38 by Gayathri Arellano MD) Household Members: Family and Children Household Members Other:: patient was living with mother and her child/ not currently Housing: Apartment Housing Other:: APARTMENT IN MOTHER'S BASEMENT Do you presently have visiting nurse or other home services: No Alcohol intake: current Alcohol intake frequency: a few times a month Patient Tobacco Use Status: Never used Tobacco Substance Use Type: Tranquilizers service: No Sexual orientation: Straight/Heterosexual Assessment & Plan Assessment & Plan (1) Morbid obesity due to excess calories: Code(s): E66.01 - Morbid (severe) obesity due to excess calories Plan: 1.? Plan for lap sleeve gastrectomy. If diaphragmatic or ventral hernias are present at time of surgery, these will be repaired laparoscopically as well. Risks and complications were discussed in detail including possible conversion to an open procedure, anastomotic leak, bleeding requiring transfusion, small bowel obstruction, , DVT and pulmonary embolism, cardiac, or pulmonary complications, as long term care social worker complications such as anastomotic ulcer, insufficient weight loss and vitamin deficiencies. I emphasized the importance of close follow-up, adherence to instructions and good communication. 2. Nutritional counseling. Start with 2 CELEBRATE REBUILD protein (buy at hospital[facility] gift [facility]) shakes (TWO scoop EACH in 8oz low fat unsweetened almond milk each) at 10pm-12pm and 1pm-3pm, 2 protein bars (CELEBRATE protein bars, buy at [facility]) at 4pm-6pm, dinner at 7pm (12 forks of protein and 12 forks of salad/vegetables) AND one more protein bar after dinner at 8pm-10pm. So you do 2 protein shakes, 2 protein bars and one meal per day. Meal to include lean meat (beef, fish, pork, turkey, chicken), or yi yogurt, or egg whites, or beans with a salad with olive oil and fruits (berries, pears, apples, kiwi). Avoid salt, breads, potatoes, rice, pasta, desserts. 3. Each shake would be drunk slowly, like coffee in a period of 2 hours. 4. Cut each bar in 4 pieces and eat each piece in 30min ?to make each bar last 2 hours. 5. I emphasized the importance of measuring accurately the food portion and measure it when serving the food in plate 6. The meal portions include 12 full-size forks of meat and 12 full-size forks of salad. You always eat the meat portion but you can replace up to 6 forks for salad/vegetables with rice, potatoes or pasta, or a fruit ?if you like. The less you do it the better weight loss will be. 7. One full-size fork is what it can be scooped on the fork without falling aside and not what can be bit with the fork. Use regular forks like those you find in a typical restaurant. 8.? Please send me weight measurements as soon as possible and then once a week. Always include your diet and exercise plan. 10. The best choice would be to purchase a stationary bike, elliptical or treadmill at home that can track calories. Let me know if you do so I can give you an exercise plan. Start stationary bike at a resistance level of 4.0 Increase level by 1.0 every 3 min to a max level of 10.0. Stay at this level for 3 min and then return to level 4.0 and repeat same steps until 300 calories are burned. Goal is to burn 2000 calories per week on exercise. 11.?It is important of avoiding and for at least 18 months postoperatively and has been discussed at the infosession. 12. Goal is to lose at least 1.5-2lbs per week 13. Goal to lose 10% of your weight before surgery, which is about 36lbs. Ultimate weight goal: 322lbs before surgery 14. Please follow the diet plan exactly without any change. If you don't like something about the plan or you feel hungry you need to communicate with me so I can help you revise the plan. You should not change the plan yourself. Orders: Orders Hemoglobin A1c Today E11.9 - Type 2 diabetes mellitus without complications, E66.01 - Morbid (severe) obesity due to excess calories, E78.5 - Hyperlipidemia, unspecified, K21.9 - Gastro-esophageal reflux disease without esophagitis H Pylori Breath Test Today E11.9 - Type 2 diabetes mellitus without complications, E66.01 - Morbid (severe) obesity due to excess calories, E78.5 - Hyperlipidemia, unspecified, K21.9 - Gastro-esophageal reflux disease without esophagitis Lipid Panel Today E11.9 - Type 2 diabetes mellitus without complications, E66.01 - Morbid (severe) obesity due to excess calories, E78.5 - Hyperlipidemia, unspecified, K21.9 - Gastro-esophageal reflux disease without esophagitis IRON PROFILE Today E11.9 - Type 2 diabetes mellitus without complications, E66.01 - Morbid (severe) obesity due to excess calories, E78.5 - Hyperlipidemia, unspecified, K21.9 - Gastro-esophageal reflux disease without esophagitis Comprehensive Met. Panel Today E11.9 - Type 2 diabetes mellitus without complications, E66.01 - Morbid (severe) obesity due to excess calories, E78.5 - Hyperlipidemia, unspecified, K21.9 - Gastro-esophageal reflux disease without esophagitis Vitamin B12 and Folate Today E11.9 - Type 2 diabetes mellitus without complications, E66.01 - Morbid (severe) obesity due to excess calories, E78.5 - Hyperlipidemia, unspecified, K21.9 - Gastro-esophageal reflux disease without esophagitis Zinc Today E11.9 - Type 2 diabetes mellitus without complications, E66.01 - Morbid (severe) obesity due to excess calories, E78.5 - Hyperlipidemia, unspecified, K21.9 - Gastro-esophageal reflux disease without esophagitis C Reactive Protein Today E11.9 - Type 2 diabetes mellitus without complications, E66.01 - Morbid (severe) obesity due to excess calories, E78.5 - Hyperlipidemia, unspecified, K21.9 - Gastro-esophageal reflux disease without esophagitis Vitamin D 25-OH Total Today E11.9 - Type 2 diabetes mellitus without complications, E66.01 - Morbid (severe) obesity due to excess calories, E78.5 - Hyperlipidemia, unspecified, K21.9 - Gastro-esophageal reflux disease without esophagitis US abdomen comp w elastography Today E11.9 - Type 2 diabetes mellitus without complications, E66.01 - Morbid (severe) obesity due to excess calories, E78.5 - Hyperlipidemia, unspecified, K21.9 - Gastro-esophageal reflux disease without esophagitis ECG 12 lead EKG Today E11.9 - Type 2 diabetes mellitus without complications, E66.01 - Morbid (severe) obesity due to excess calories, E78.5 - Hyperlipidemia, unspecified, K21.9 - Gastro-esophageal reflux disease without esophagitis Insulin Today E11.9 - Type 2 diabetes mellitus without complications, E66.01 - Morbid (severe) obesity due to excess calories, E78.5 - Hyperlipidemia, unspecified, K21.9 - Gastro-esophageal reflux disease without esophagitis Complete Blood Count Auto Diff Today E11.9 - Type 2 diabetes mellitus without complications, E66.01 - Morbid (severe) obesity due to excess calories, E78.5 - Hyperlipidemia, unspecified, K21.9 - Gastro-esophageal reflux disease without esophagitis Vitamin B1 Today E11.9 - Type 2 diabetes mellitus without complications, E66.01 - Morbid (severe) obesity due to excess calories, E78.5 - Hyperlipidemia, unspecified, K21.9 - Gastro-esophageal reflux disease without esophagitis Vitamin A Today E11.9 - Type 2 diabetes mellitus without complications, E66.01 - Morbid (severe) obesity due to excess calories, E78.5 - Hyperlipidemia, unspecified, K21.9 - Gastro-esophageal reflux disease without esophagitis TSH reflex Free T4 Today E11.9 - Type 2 diabetes mellitus without complications, E66.01 - Morbid (severe) obesity due to excess calories, E78.5 - Hyperlipidemia, unspecified, K21.9 - Gastro-esophageal reflux disease without esophagitis Ferritin Today E11.9 - Type 2 diabetes mellitus without complications, E66.01 - Morbid (severe) obesity due to excess calories, E78.5 - Hyperlipidemia, unspecified, K21.9 - Gastro-esophageal reflux disease without esophagitis XR chest 2V Today E11.9 - Type 2 diabetes mellitus without complications, E66.01 - Morbid (severe) obesity due to excess calories, E78.5 - Hyperlipidemia, unspecified, K21.9 - Gastro-esophageal reflux disease without esophagitis FL upper GI w air Today E11.9 - Type 2 diabetes mellitus without complications, E66.01 - Morbid (severe) obesity due to excess calories, E78.5 - Hyperlipidemia, unspecified, K21.9 - Gastro-esophageal reflux disease without esophagitis Referrals Behavioral Health Referral E11.9 - Type 2 diabetes mellitus without complications, E66.01 - Morbid (severe) obesity due to excess calories, E78.5 - Hyperlipidemia, unspecified, K21.9 - Gastro-esophageal reflux disease without esophagitis Nutrition/Dietitian Referral E11.9 - Type 2 diabetes mellitus without complications, E66.01 - Morbid (severe) obesity due to excess calories, E78.5 - Hyperlipidemia, unspecified, K21.9 - Gastro-esophageal reflux disease without esophagitis Telehealth Telehealth Location of provider rendering services: practice address Location of patient: address on file Patient Identification confirmed using: Name, : Yes Telehealth method: voice only Patient verbally consented to treatment: Yes Patient verbally consented to billing insurance company: Yes Patient informed of any privacy concerns related to visit: Yes Minutes spent on Phone/Video with Pt.: 40 Coding Level of Care Code Tele [facility] Pt Level 3 (19168) Diagnoses Morbid obesity due to excess calories E66.01 Time Spent (min) 40
[2023-06-27 13:29] VITALS: BMI 54.4
== END 2023-06-27 13:50 | disposition home or self-care (01) ==
LOC: HO.HBS 08:02
PROVIDERS: PCP Internal Medicine; Visit Provider Surgery
DX: E66.01 Morbid (severe) obesity due to excess calories (principal)
CPT/HCPCS: 99203

== ENCOUNTER → 2023-06-27 08:02 | Outpatient (BNVA) | payer OTHER, SELFPAY | PROVIDERS: PCP Internal Medicine; Visit Provider Surgery ==

== ENCOUNTER 2023-07-08 09:40 | Outpatient (REF) | payer OTHER, SELFPAY ==
--- NOTE | ~2023-07-08 | XR_ITS ---
EXAMINATION: XR CHEST CLINICAL INFORMATION: Morbid, severe obesity due to excess calories. Patient states she is preoperative for bariatric surgery. COMPARISON: None available. TECHNIQUE: 2 views of the chest were obtained. Evaluation limited due to low lung volumes and body habitus. FINDINGS: Mild degenerative changes in the thoracic spine. There is no gross pneumothorax. Heart size is normal. No significant pleural effusion. Lung volumes are low. Linear opacity projecting over the left lung base may represent subsegmental atelectasis and correlation with clinical exam recommended to determine further management. Multiple wavy and nodular structures overlying the right neck/shoulder may be related to external structure such as hair and correlation with clinical exam recommended for confirmation. XR/XR chest 2V IMPRESSION: 1. Linear opacity projecting over the left lung base may represent subsegmental atelectasis and correlation with clinical exam recommended to determine further management. 2. Multiple wavy and nodular structures overlying the right neck/shoulder may be related to external structure such as hair and correlation with clinical exam recommended for confirmation.
--- NOTE | ~2023-07-08 | US_ITS ---
EXAMINATION: US COMPLETE ABDOMEN WITH LIVER ELASTOGRAPHY CLINICAL INFORMATION: Morbid obesity. COMPARISON: None available. TECHNIQUE: Real-time imaging of the abdominal viscera. Noninvasive ultrasound liver fibrosis assessment is performed using Raffi ElastPQ point quantification shear wave elastography (2D-SWE) with a C5-2 MHz transducer. Multiple elastography samples are obtained. FINDINGS: PANCREAS: Limited. The visualized pancreatic head and body are normal in appearance. The remainder of the pancreas is obscured from visualization by the overlying bowel gas. ABDOMINAL AORTA: The proximal, middle, and distal aortic segments are normal in caliber. INFERIOR VENA CAVA: Visualized portions are normal. LIVER: The liver demonstrates normal contour and generally increased echogenicity. No focal lesion or intrahepatic biliary duct dilatation. The right lobe measures 20.3 cm in length. The left lobe measures 13.6 cm in length. Portal flow is towards the liver (hepatopetal). Shear wave liver elastography median stiffness is 1.45 m/s (reference: normal median stiffness is 1.3 m/s or less). IQR/median stiffness to assess sampling precision is 0.10 (reference: good quality data set is IQR/median stiffness of 0.15 or less). GALLBLADDER: Normal. The gallbladder is physiologically distended without evidence of stones, sludge, polyps, wall thickening or pericholecystic fluid. COMMON BILE DUCT: Normal in caliber measuring 0.7 cm in diameter. RIGHT KIDNEY: Normal. No hydronephrosis. No renal calculi or focal parenchymal lesions. The kidney measures 12.1 cm in maximum dimension. LEFT KIDNEY: Normal. No hydronephrosis. No renal calculi or focal parenchymal lesions. The kidney measures 12.5 cm in maximum dimension. SPLEEN: Normal. The spleen measures 13.5 cm in maximum dimension. FREE FLUID: None. US/US abdomen comp w elastography IMPRESSION: 1. There is hepatosplenomegaly. 2. There is generalized increase in hepatic echotexture, consistent with fatty infiltration or hepatocellular disease. Please correlate clinically. No focal hepatic mass or intrahepatic biliary dilatation is seen. 3. Liver elastography: In the absence of other known clinical signs, measurements rule out compensated advanced chronic liver disease. If there are known clinical signs, further testing may be needed for confirmation. 4. Technically limited ultrasound examination of the pancreas. REFERENCE: Society of Radiologists in Ultrasound Liver Stiffness Thresholds (2020): LIVER STIFFNESS THRESHOLDS: *Liver Stiffness equal or less than 1.3 m/s: High probability of being normal. *Liver Stiffness less than 1.7 m/s: In the absence of other known clinical signs, rules out compensated advanced chronic liver disease. *Liver Stiffness 1.7-2.1 m/s: Suggestive of compensated advanced chronic liver disease but need further test for confirmation. *Liver Stiffness over 2.1 m/s: Rules in compensated advanced chronic liver disease. *Liver Stiffness over 2.4 m/s: Suggestive of clinically significant portal hypertension. QUALITY OF DATA SET: *IQR/Median value equal or less than 0.15 implies a quality data set. *IQR/Median value over 0.15 implies a poor quality data set. SIGNIFICANT CHANGE FROM PRIOR EXAM: Significant change if liver stiffness measurement is 10% or greater from prior exam. OTHER CONSIDERATIONS: The stage of liver fibrosis may be overestimated in the setting of acute hepatitis, liver inflammation, elevated liver function tests, hepatic vascular congestion, obstructive cholestasis, non-fasting state, and infiltrative diseases such as amyloidosis and lymphoma. In some patients with NAFLD, the liver stiffness thresholds for compensated advanced chronic liver disease may be lower. In causes other than viral hepatitis and NAFLD, liver stiffness thresholds are not well established.
--- NOTE | 2023-07-08 10:38 | ECG_ITS ---
Test Reason : OBESITY Blood Pressure : / mmHG Vent. Rate : 078 BPM Atrial Rate : 078 BPM P-R Int : 188 ms QRS Dur : 090 ms QT Int : 386 ms P-R-T Axes : 062 016 031 degrees QTc Int : 440 ms Normal sinus rhythm Normal ECG No previous ECGs available Referred By: Raoul Lugo Electronically Signed By:Tyson Ryder
[2023-07-08 10:46] LABS: MANUAL DIFF FLAG NO
[2023-07-08 12:21] LABS: Basophils Percent Auto 0.9 % (0-2); Eosinophils Absolute Auto 0.1 X10*3/uL (0.0-0.4); Hematocrit 35.1 % (37.0-47.0); Hemoglobin 12.2 g/dl (12.0-16.0); Imm Gran Abs Auto 0.01 X10*3/uL (0.00-0.03); Imm Gran Pct Auto 0.2 % (0.0-0.4); Lymphocytes Absolute Auto 1.8 X10*3/uL (1.2-4.9); Lymphocytes Percent Auto 38.4 % (20-40); Mean Corpuscular HGB Conc 34.8 g/dl (31.0-35.0); Mean Corpuscular Volume 89.3 fL (80.0-98.0); Mean Platelet Volume 11.2 fL (9.4-12.3); Monocytes Absolute Auto 0.3 X10*3/uL (0.1-1.2); Monocytes Percent Auto 5.9 % (2-11); Neutrophils Absolute Auto 2.4 x10*3/uL (2.0-8.3); Neutrophils Percent Auto 52.6 % (45-73); Platelet Count 184 X10*3/uL (160-400); Red Blood Count 3.93 X10*6/uL (4.20-5.50); Red Cell Distribution Width 12.4 % (11.0-16.0); White Blood Count 4.6 X10*3/uL (4.8-10.8)
[2023-07-08 13:14] LABS: Alanine Aminotransferase 29 U/L (0-31); Alkaline Phosphatase 94 U/L (39-117); Anion Gap 12 (12-20); Aspartate Amino Transferase 19 U/L (5-31); Bilirubin Total 0.3 mg/dL (0.0-1.0); Blood Urea Nitrogen 8 mg/dL (9-16); C Reactive Protein 1.57 mg/dL (< or = 0.50); Calcium 9.2 mg/dL (8.4-10.2); Carbon Dioxide 26 mmol/L (22-29); Chloride 105 mmol/L (96-108); Cholesterol 231 mg/dL (<200); Estimated Glomerular Filt Rate > 60; Glucose Random 82 mg/dL (60-115); HDL Cholesterol 49 mg/dL (>40); Iron 81 mcg/dL (30-160); LDL Cholesterol Calculated 156 mg/dL (<100); Percent Iron Saturation 33 % (15-50); Potassium 3.9 mmol/L (3.3-5.1); Sodium 139 mmol/L (135-145); Total Iron Binding Capacity 245 mcg/dL (228-428); Total Protein 7.2 g/dL (6.5-8.0); Triglycerides 133 mg/dL (<150); Unsaturated Iron Binding 164 ug/dL
[2023-07-08 13:15] LABS: Ferritin 91 ng/mL (10-122); Insulin 13 uU/mL (2-29); Vitamin D 25-OH Total 33.2 ng/mL (>30)
[2023-07-08 13:28] LABS: Folate 11.9 ng/mL (> or = 4.0); Vitamin B12 > 2000 pg/mL (200-900)
[2023-07-08 16:15] LABS: Estimated Average Glucose 111 mg/dL; Hemoglobin A1c % 5.5 % (<6.0)
[2023-07-12 12:13] LABS: Zinc 65 mcg/dL (60-130)
[2023-07-13 05:49] LABS: Vitamin A 59 mcg/dL (38-98)
[2023-07-14 16:23] LABS: Vitamin B1 20 nmol/L (8-30)
== END 2023-07-08 09:41 | disposition home or self-care (01) ==
LOC: HO.US 09:40
PROVIDERS: PCP Internal Medicine; Visit Provider Surgery
DX: E66.01 Morbid (severe) obesity due to excess calories (principal); K21.9 Gastro-esophageal reflux disease without esophagitis; E78.5 Hyperlipidemia, unspecified; E11.9 Type 2 diabetes mellitus without complications
CPT/HCPCS: 36415; 71046; 76700; 76981; 80053; 80061; 82306; 82607; 82728; 82746; 83036; 83525; 83540; 84425; 84443; 84590; 84630; 85025; 86140; 93005

== ENCOUNTER → 2023-07-08 10:38 | Outpatient (BNV) | payer OTHER, SELFPAY | PROVIDERS: PCP Internal Medicine; Visit Provider Internal Medicine Cardiovascular Disease | DX: E78.5 Hyperlipidemia, unspecified (principal); E66.01 Morbid (severe) obesity due to excess calories; E11.9 Type 2 diabetes mellitus without complications | CPT/HCPCS: 93010 ==

== ENCOUNTER → 2023-08-02 11:13 | Outpatient (REF) | payer OTHER, SELFPAY | LOC: HO.SL 11:13 | PROVIDERS: PCP Internal Medicine; Visit Provider Surgery | DX: Z13.89 Encounter for screening for other disorder (principal) ==

== ENCOUNTER 2023-08-05 08:11 | Outpatient (AMB) | payer OTHER, SELFPAY ==
--- OUTSIDE RECORDS SUMMARY | 2023-08-05 08:13 | XMS_ITS | Continuity of Care Document ---
Author Organization [facility] Address [address] [place] [address]- Care Team Providers Care It Security Engineer Name Role Phone Vera Babcock MD Primary Care Physician [phone] Encounter [facility] Date(s): 06/14/23 - 07/23/[address] [address]- Attending Physician: Jewel Cutler MD Admitting Physician: Jewel Cutler MD Allergies, Adverse Reactions, Alerts No Known Allergies Immunizations Given and Recorded Vaccine Date Status Refusal Reason [id number] 12y+ bivalent booster vax 03/16/23 Given [id number] 12y+ bivalent booster vax 03/26/22 Given influenza virus vaccine, inactivated 03/16/23 Give n influenza virus vaccine, inactivated 03/26/22 Give n influenza virus vaccine, inactivated 12/08/19 Osvaldo rded influenza virus vaccine, inactivated 11/29/18 Osvaldo rded influenza virus vaccine, inactivated 12/06/08 Osvaldo rded tetanus/diphtheria/pertussis, acel(Tdap) 03/26/22 Given tetanus/diphtheria/pertussis, acel(Tdap) 01/03/09 Recorded SARS-CoV-2 mRNA (hodprdj-mrge-hrfet) vax 08/05/21 Recorded SARS-CoV-2 (COVID-19) mRNA BNT-162b2 vac 01/14/21 Recorded SARS-CoV-2 (COVID-19) mRNA BNT-162b2 vac 11/25/20 Recorded Meningococcal Conjugate Vaccine 03/25/06 Recorded tetanus-diphtheria toxoids (Td) 02/15/02 Recorded Poliovirus Vaccine, Inactivated 02/15/02 Recorded Poliovirus Vaccine, Inactivated 01/15/93 Recorded Poliovirus Vaccine, Inactivated 01/16/88 Recorded Measles/Mumps/Rubella Virus Vaccine 01/15/93 Recor ded Measles/Mumps/Rubella Virus Vaccine 01/16/88 Recor ded Medications amLODIPine 5 mg oral tablet 1 tablet, By Mouth, Daily, # 30 tablet, 11 Refills, Maintenance, 07/17/23 15:54:00 EDT, [facility], 175, cm, 07/05/23 15:43:00 EDT, Height, 161.2, kg, 11/26/22 13:41:00 EDT, Dry Weight Start Date: 07/17/23 Status: Ordered cloNIDine 0.1 mg oral tablet 0.1 mg, By Mouth, 2 times a day, # 60 each, Refills 11, Tot. Refills 11, Maintenance, 03/26/22 14:44:00 EST, Route to Pharmacy Electronically, [place], [place] - [id number], Partial fill upon patient request if the [...] tablet, 11 Refills, Maintenance, 05/05/23 10:29:00 EST, [facility], 30, TAKE 1 TABLET BY MOUTH ONCE DAILY, 175, cm, 04/29/23 10:03:00 EST, Height, 161.2, kg, 11/26/22 13:41:00 EDT, Dry Weight Start Date: 05/05/23 Status: Ordered docusate sodium 100 mg oral capsule 1 capsule, By Mouth, 2 times a day, # 60 each, 5 Refills, Maintenance, 05/05/23 10:29:00 EST, [facility], 175, cm, 04/29/23 10:03:00 EST, Height, 161.2, kg, 11/26/22 13:41:00 EDT, Dry Weight Start Date: 05/05/23 Status: Ordered folic acid 0.8 mg oral tablet 1 tablet = 0.8 mg, By Mouth, Daily, # 30 tablet, 5 Refills, Maintenance, 03/16/23 8:59:00 EST, Tablet, [facility] [phone], Partial fill upon patient request if the prescription is for a schedule II opioid drug., 175, cm, 12... Start Date: 03/16/23 Stop Date: 09/12/23 Status: Ordered MetFORMIN (Eqv-Glucophage XR) 500 mg oral tablet, extended release See Instructions, TAKE 1 TABLET BY MOUTH ONCE DAILY, # 30 tablet, 5 Refills, Maintenance, 07/15/23 10:01:00 EDT, [place], [place] - [id number], 175, cm, 07/05/23 15:43:00 EDT, Height, 161.2, kg, 11/26/22 13:41:00 EDT, Dry Weight Start Date: 07/15/23 Status: Ordered MiraLax oral powder for reconstitution = 17 Gm, By Mouth, Daily, # 510 Gm, 0 Refills, Maintenance, 07/05/23 16:09:00 EDT, REC Powder, [facility] #[id number], Partial fill upon patient request if the prescription is for a schedule II opioid drug., 17 Gm By Mouth Daily, 175, cm, ... Start Date: 07/05/23 Status: Ordered omeprazole 20 mg oral enteric coated capsule See Instructions, TAKE 1 CAPSULE BY MOUTH ONCE DAILY, # 30 capsule, 5 Refills, Maintenance, 03/16/23 8:59:00 EST, [place], [place] - [id number], 175, cm, 03/16/23 8:34:00 EST, Height, 161.2, [...] opioid drug. Start Date: 04/03/23 Status: Ordered Vitamin B-12 100 mcg oral tablet 0.5, tablet, By Mouth, Daily, # 45 tablet, Refills 1, Maintenance, 07/18/23 11:24:00 EDT, Route to Pharmacy Electronically, [facility], 175, cm, 07/05/23 15:43:00 EDT, Height, 161.2, kg, 11/26/22 13:41:00 EDT, Dry Weight Start Date: 07/18/23 Status: Ordered Wegovy (0.5 mg dose) = 0.5 mg, Subcutaneous Infusion, 0 Refills, Maintenance, 07/05/23 15:43:00 EDT, Partial fill upon patient request if the prescription is for a schedule II opioid drug. Start Date: 07/05/23 Status: Ordered Wegovy (1 mg dose) subcutaneous solution = 1 mg, Subcutaneous Injection, Every week, for 4 week(s), in the abdomen, thigh, or upper arm, # 2mL, 0 Refills, Acute 08/04/23 17:07:00 EDT, 07/07/23 17:07:00 EDT, Solution, [facility] #[id number], Partial fill upon patient request if the pres... Start Date: 07/07/23 Stop Date: 08/04/23 Status: Ordered Problem List Condition Confirmation Course Effective Dates Status H ealth Status Informant ASCUS HPV+/ neg 16/18/45 1 Confirmed Active Bipolar disorder Confirmed Active [facility] [employer] community relations coordinator Hugo Hamilton [phone] Confirmed Active PTSD (post-traumatic stress disorder) Confirmed Active Schizoaffective disorder Confirmed Active Severe obesity Confirmed Active 1Unable to fully visualize cervix with speculum available. Unable to complete colposcopy procedure. will refer to [facility] Social History Social History Type Response Tobacco Use: 4 or less cigar ettes(less than 1/4 pack)/day in last 30 days. Other: rarely. Sex Patient Care team information Care Team Personnel Name: Jayne Vee RN Position: [facility] RN Member Role: Primary Care Nurse Name: Jojo Cazares RN Position: [facility] RN Member Role: Primary Care Nurse Name: Vera Babcock MD Position: [facility] Physician - Primary Care Member Role: PCP Address: Address: [address] [place] [address]- Care Team Related Persons Name: FELDER SKYE Address: [address] [place] [address] Name: MONIQUE SIMPSON Name: LALA HILLS Address: home [address] [place] [address] Name: KERI BROTHERS Address: home [address] [place] [address]
--- OUTSIDE RECORDS SUMMARY | 2023-08-05 08:13 | XMS_ITS | Continuity of Care Document ---
Author Organization [facility] Address [address] [place] [address]- Care Team Providers Care Psychological Stress Evaluator Name Role Phone Vera Babcock MD Primary Care Physician [phone] Encounter [facility] [place] Date(s): 06/27/23 - 07/27/[address] [address]- Allergies, Adverse Reactions, Alerts No Known Allergies Immunizations Given and Recorded Vaccine Date Status Refusal Reason [id number] 12y+ bivalent booster vax 03/16/23 Given [id number] 12y+ bivalent booster vax 03/26/22 Given influenza virus vaccine, inactivated 03/16/23 Give n influenza virus vaccine, inactivated 03/26/22 Give n influenza virus vaccine, inactivated 12/08/19 Osvaldo rded influenza virus vaccine, inactivated 11/29/18 Osvaldo rded influenza virus vaccine, inactivated 12/06/08 Osvaldo rded tetanus/diphtheria/pertussis, acel(Tdap) 03/26/22 Given tetanus/diphtheria/pertussis, acel(Tdap) 01/03/09 Recorded SARS-CoV-2 mRNA (znnpjcx-miap-tyoqx) vax 08/05/21 Recorded SARS-CoV-2 (COVID-19) mRNA BNT-162b2 [...] tablet, 11 Refills, Maintenance, 07/17/23 15:54:00 EDT, [facility], 175, cm, 07/05/23 15:43:00 EDT, Height, 161.2, kg, 11/26/22 13:41:00 EDT, Dry Weight Start Date: 07/17/23 Status: Ordered cloNIDine 0.1 mg oral tablet 0.1 mg, By Mouth, 2 times a day, # 60 each, Refills 11, Tot. Refills 11, Maintenance, 03/26/22 14:44:00 EST, Route to Pharmacy Electronically, [place], [place] - [id number], Partial fill upon patient request if the [...] tablet, 11 Refills, Maintenance, 05/05/23 10:29:00 EST, [facility], 30, TAKE 1 TABLET BY MOUTH ONCE DAILY, 175, cm, 04/29/23 10:03:00 EST, Height, 161.2, kg, 11/26/22 13:41:00 EDT, Dry Weight Start Date: 05/05/23 Status: Ordered docusate sodium 100 mg oral capsule 1 capsule, By Mouth, 2 times a day, # 60 each, 5 Refills, Maintenance, 05/05/23 10:29:00 EST, [facility], 175, cm, 04/29/23 10:03:00 EST, Height, 161.2, kg, 11/26/22 13:41:00 EDT, Dry Weight Start Date: 05/05/23 Status: Ordered folic acid 0.8 mg oral tablet 1 tablet = 0.8 mg, By Mouth, Daily, # 30 tablet, 5 Refills, Maintenance, 03/16/23 8:59:00 EST, Tablet, [facility] [id number], Partial fill upon patient request if the prescription is for a schedule II opioid drug., 175, cm, 12... Start Date: 03/16/23 Stop Date: 09/12/23 Status: Ordered MetFORMIN (Eqv-Glucophage XR) 500 mg oral tablet, extended release See Instructions, TAKE 1 TABLET BY MOUTH ONCE DAILY, # 30 tablet, 5 Refills, Maintenance, 07/15/23 10:01:00 EDT, [facility] [id number], 175, cm, 07/05/23 15:43:00 EDT, Height, 161.2, kg, 11/26/22 13:41:00 EDT, Dry Weight Start Date: 07/15/23 Status: Ordered MiraLax oral powder for reconstitution = 17 Gm, By Mouth, Daily, # 510 Gm, 0 Refills, Maintenance, 07/05/23 16:09:00 EDT, REC Powder, [facility] #[id number], Partial fill upon patient request if the prescription is for a schedule II opioid drug., 17 Gm By Mouth Daily, 175, cm, ... Start Date: 07/05/23 Status: Ordered omeprazole 20 mg oral enteric coated capsule See Instructions, TAKE 1 CAPSULE BY MOUTH ONCE DAILY, # 30 capsule, 5 Refills, Maintenance, 03/16/23 8:59:00 EST, [facility] [id number], 175, cm, 03/16/23 8:34:00 EST, Height, 161.2, [...] 07/18/23 11:24:00 EDT, Route to Pharmacy Electronically, [facility], 175, cm, 07/05/23 15:43:00 EDT, Height, [...] 08/04/23 17:07:00 EDT, 07/07/23 17:07:00 EDT, Solution, [facility] #[id number], Partial fill upon patient request if the pres... Start Date: 07/07/23 Stop Date: 08/04/23 Status: Ordered Problem List Condition Confirmation Course Effective Dates Status H ealth Status Informant ASCUS HPV+/ neg 16/18/45 1 Confirmed Active Bipolar disorder Confirmed Active [facility] academic coordinator Hugo Hamilton [phone] Confirmed Active PTSD (post-traumatic stress disorder) Confirmed Active Schizoaffective disorder Confirmed Active Severe obesity Confirmed Active 1Unable to fully visualize cervix with speculum available. Unable to complete colposcopy procedure. will refer to [facility] Social History Social History Type Response Tobacco Use: 4 or less cigar ettes(less than 1/4 pack)/day in last 30 days. Other: rarely. Sex Patient Care team information Care Team Personnel Name: Jayne Vee RN Position: [facility] RN Member Role: Primary Care Nurse Name: Jojo Cazares RN Position: [facility] RN Member Role: Primary Care Nurse Name: Vera Babcock MD Position: [facility] Physician - Primary Care Member Role: PCP Address: Address: [address] [place] [address]- Care Team Related Persons Name: SKYE FELDER Address: home [address] [place] [address] Name: MONIQUE SIMPSON Name: LALA HILLS Address: home [address] [place] [address] Name: KERI BROTHERS Address: home [address] [place] [address]
--- OUTSIDE RECORDS SUMMARY | 2023-08-05 08:14 | XMS_ITS | Continuity of Care Document ---
Author Organization [facility] Address [address] [place] [address]- Care Team Providers Care Early Learning Teacher Name Role Phone Vera Babcock MD Primary Care Physician Encounter [facility] R [id number] Date(s): 06/23/23 - 07/23/[address] [address]- Attending Physician: Edith Mendoza Admitting Physician: Edith Mendoza Referring Physician: Edith Mendoza Allergies, Adverse Reactions, Alerts No Known Allergies Immunizations Given and Recorded Vaccine Date Status Refusal Reason [id number] 12y+ bivalent booster vax 03/16/23 Given [id number] 12y+ bivalent booster vax 03/26/22 Given influenza virus vaccine, inactivated 03/16/23 Give n influenza virus vaccine, inactivated 03/26/22 Give n influenza virus vaccine, inactivated 12/08/19 Osvaldo rded influenza virus vaccine, inactivated 11/29/18 Osvaldo rded influenza virus vaccine, inactivated 12/06/08 Osvaldo rded tetanus/diphtheria/pertussis, acel(Tdap) 03/26/22 Given tetanus/diphtheria/pertussis, acel(Tdap) 01/03/09 Recorded SARS-CoV-2 mRNA (xgsyjeu-unbu-lfumz) vax 08/05/21 Recorded SARS-CoV-2 (COVID-19) mRNA BNT-162b2 [...] tablet, 11 Refills, Maintenance, 07/17/23 15:54:00 EDT, [facility], 175, cm, 07/05/23 15:43:00 EDT, Height, 161.2, kg, 11/26/22 13:41:00 EDT, Dry Weight Start Date: 07/17/23 Status: Ordered cloNIDine 0.1 mg oral tablet 0.1 mg, By Mouth, 2 times a day, # 60 each, Refills 11, Tot. Refills 11, Maintenance, 03/26/22 14:44:00 EST, Route to Pharmacy Electronically, [place], [place] - [id number], Partial fill upon patient request if the [...] tablet, 11 Refills, Maintenance, 05/05/23 10:29:00 EST, [facility], 30, TAKE 1 TABLET BY MOUTH ONCE DAILY, 175, cm, 04/29/23 10:03:00 EST, Height, 161.2, kg, 11/26/22 13:41:00 EDT, Dry Weight Start Date: 05/05/23 Status: Ordered docusate sodium 100 mg oral capsule 1 capsule, By Mouth, 2 times a day, # 60 each, 5 Refills, Maintenance, 05/05/23 10:29:00 EST, [facility], 175, cm, 04/29/23 10:03:00 EST, Height, 161.2, kg, 11/26/22 13:41:00 EDT, Dry Weight Start Date: 05/05/23 Status: Ordered folic acid 0.8 mg oral tablet 1 tablet = 0.8 mg, By Mouth, Daily, # 30 tablet, 5 Refills, Maintenance, 03/16/23 8:59:00 EST, Tablet, [facility] [id number], Partial fill upon patient request if the prescription is for a schedule II opioid drug., 175, cm, 12... Start Date: 03/16/23 Stop Date: 09/12/23 Status: Ordered MetFORMIN (Eqv-Glucophage XR) 500 mg oral tablet, extended release See Instructions, TAKE 1 TABLET BY MOUTH ONCE DAILY, # 30 tablet, 5 Refills, Maintenance, 07/15/23 10:01:00 EDT, [facility] [id number], 175, cm, 07/05/23 15:43:00 EDT, Height, 161.2, kg, 11/26/22 13:41:00 EDT, Dry Weight Start Date: 07/15/23 Status: Ordered MiraLax oral powder for reconstitution = 17 Gm, By Mouth, Daily, # 510 Gm, 0 Refills, Maintenance, 07/05/23 16:09:00 EDT, REC Powder, [facility] #[id number], Partial fill upon patient request if the prescription is for a schedule II opioid drug., 17 Gm By Mouth Daily, 175, cm, ... Start Date: 07/05/23 Status: Ordered omeprazole 20 mg oral enteric coated capsule See Instructions, TAKE 1 CAPSULE BY MOUTH ONCE DAILY, # 30 capsule, 5 Refills, Maintenance, 03/16/23 8:59:00 EST, [facility] [id number], 175, cm, 03/16/23 8:34:00 EST, Height, 161.2, [...] 07/18/23 11:24:00 EDT, Route to Pharmacy Electronically, [facility], 175, cm, 07/05/23 15:43:00 EDT, [...] 08/04/23 17:07:00 EDT, 07/07/23 17:07:00 EDT, Solution, [facility] #[id number], Partial fill upon patient request if the pres... Start Date: 07/07/23 Stop Date: 08/04/23 Status: Ordered Problem List Condition Confirmation Course Effective Dates Status H ealth Status Informant ASCUS HPV+/ neg 16/18/45 1 Confirmed Active Bipolar disorder Confirmed Active [facility] digital marketing coordinator Hugo Hamilton [phone] Confirmed Active PTSD (post-traumatic stress disorder) Confirmed Active Schizoaffective disorder Confirmed Active Severe obesity Confirmed Active 1Unable to fully visualize cervix with speculum available. Unable to complete colposcopy procedure. will refer to [facility] Social History Social History Type Response Tobacco Use: 4 or less cigar ettes(less than 1/4 pack)/day in last 30 days. Other: rarely. Sex Hospital Consult note * Event Display: Inpatient Consult Note, Non- Authored Date: Radiology * Event Display: X-Ray Chest, Non- Authored Date: * Event Display: Ultrasound Abdomen, Non- Authored Date: Patient Care team information Care Team Personnel Name: Jayne Vee RN Position: [facility] RN Member Role: Primary Care Nurse Name: Debora CORREA, Jojo Position: [facility] RN Member Role: Primary Care Nurse Name: Vera Babcock MD Position: [facility] Physician - Primary Care Member Role: PCP Address: Address: [address] [place] [address]- Care Team Related Persons Name: SKYE FELDER Address: home [address] [place] [address] Name: MONIQUE SIMPSON Name: LALA HILLS Address: home [address] [place] [address] Name: KERI BROTHERS Address: home [address] [place] [address]
--- OUTSIDE RECORDS SUMMARY | 2023-08-05 08:14 | XMS_ITS | Continuity of Care Document ---
Author Organization [facility] Address [address] [place] [address]- Care Team Providers Care Net Manager Name Role Phone Vera Babcock MD Primary Care Physician [facility] Date(s): 07/05/23 - 08/04/[address] [address] Attending Physician: Edith Mendoza Admitting Physician: Edith Mendoza Referring Physician: AdmtrEdith Allergies, Adverse Reactions, Alerts No Known Allergies Immunizations Given and Recorded Vaccine Date Status Refusal Reason [id number] 12y+ bivalent booster vax 03/16/23 Given [id number] 12y+ bivalent booster vax 03/26/22 Given influenza virus vaccine, inactivated 03/16/23 Give n influenza virus vaccine, inactivated 03/26/22 Give n influenza virus vaccine, inactivated 12/08/19 Osvaldo rded influenza virus vaccine, inactivated 11/29/18 Osvaldo rded influenza virus vaccine, inactivated 12/06/08 Osvaldo rded tetanus/diphtheria/pertussis, acel(Tdap) 03/26/22 Given tetanus/diphtheria/pertussis, acel(Tdap) 01/03/09 Recorded SARS-CoV-2 mRNA (vioewyn-yrbn-grfvs) vax 08/05/21 Recorded SARS-CoV-2 (COVID-19) mRNA BNT-162b2 [...] tablet, 11 Refills, Maintenance, 07/17/23 15:54:00 EDT, [facility], 175, cm, 07/05/23 15:43:00 EDT, Height, 161.2, kg, 11/26/22 13:41:00 EDT, Dry Weight Start Date: 07/17/23 Status: Ordered cloNIDine 0.1 mg oral tablet 0.1 mg, By Mouth, 2 times a day, # 60 each, Refills 11, Tot. Refills 11, Maintenance, 03/26/22 14:44:00 EST, Route to Pharmacy Electronically, [place], [place] - [id number], Partial fill upon patient request if the [...] tablet, 11 Refills, Maintenance, 05/05/23 10:29:00 EST, [facility], 30, TAKE 1 TABLET BY MOUTH ONCE DAILY, 175, cm, 04/29/23 10:03:00 EST, Height, 161.2, kg, 11/26/22 13:41:00 EDT, Dry Weight Start Date: 05/05/23 Status: Ordered docusate sodium 100 mg oral capsule 1 capsule, By Mouth, 2 times a day, # 60 each, 5 Refills, Maintenance, 05/05/23 10:29:00 EST, [facility], 175, cm, 04/29/23 10:03:00 EST, Height, 161.2, kg, 11/26/22 13:41:00 EDT, Dry Weight Start Date: 05/05/23 Status: Ordered folic acid 0.8 mg oral tablet 1 tablet = 0.8 mg, By Mouth, Daily, # 30 tablet, 5 Refills, Maintenance, 03/16/23 8:59:00 EST, Tablet, [facility], [place] - [id number], Partial fill upon patient request if the prescription is for a schedule II opioid drug., 175, cm, 12... Start Date: 03/16/23 Stop Date: 09/12/23 Status: Ordered hydrOXYzine hydrochloride 50 mg oral tablet 1 tablet = 50 mg, By Mouth, Daily, PRN anxiety, for 30 days, # 30 tablet, 4 Refills, Acute 12/28/2409:25:00 EDT, 08/01/23 10:25:00 EDT, Tablet, [place], [place] - [id number], Partial fill upon patient request if the prescription is f... Start Date: 08/01/23 Stop Date: 12/29/23 Status: Ordered MetFORMIN (Eqv-Glucophage XR) 500 mg oral tablet, extended release See Instructions, TAKE 1 TABLET BY MOUTH ONCE DAILY, # 30 tablet, 5 Refills, Maintenance, 07/15/23 10:01:00 EDT, [facility], [place] - [id number], 175, cm, 07/05/23 15:43:00 EDT, Height, 161.2, kg, 11/26/22 13:41:00 EDT, Dry Weight Start Date: 07/15/23 Status: Ordered MiraLax oral powder for reconstitution = 17 Gm, By Mouth, Daily, # 510 Gm, 0 Refills, Maintenance, 07/05/23 16:09:00 EDT, REC Powder, [facility] #[id number], Partial fill upon patient request if the prescription is for a schedule II opioid drug., 17 Gm By Mouth Daily, 175, cm, ... Start Date: 07/05/23 Status: Ordered omeprazole 20 mg oral enteric coated capsule See Instructions, TAKE 1 CAPSULE BY MOUTH ONCE DAILY, # 30 capsule, 5 Refills, Maintenance, 03/16/23 8:59:00 EST, [facility] [place], [place] - [id number], 175, cm, 03/16/23 8:34:00 EST, Height, 161.2, kg, 11/26/22 13:41:00 EDT, Dry Weight Start Date: 03/16/23 Status: Ordered Prolixin Tablet Rx'd per Psych 1mg in am, 5mg in pm, Refills 0, Maintenance, 04/03/23 10:28:00 EST, Partial fill upon patient request if the prescription is for a schedule II opioid drug. Start Date: 04/03/23 Status: Ordered TEGretol XR 100 mg oral tablet, extended release 300 mg, 3, tablet, By Mouth, 2 times a day, Rx'd per Psych, # 60 tablet, Refills 5, Maintenance, 04/03/23 10:28:00 EST, Partial fill upon patient request if the prescription is for a schedule II opioid drug. Start Date: 04/03/23 Status: Ordered Vitamin B-12 100 mcg oral tablet 0.5, tablet, By Mouth, Daily, # 45 tablet, Refills 1, Maintenance, 07/18/23 11:24:00 EDT, Route to Pharmacy Electronically, [facility], 175, cm, 07/05/23 15:43:00 EDT, Height, 161.2, kg, 11/26/22 13:41:00 EDT, Dry Weight Start Date: 07/18/23 Status: Ordered Wegovy (1.7 mg dose) subcutaneous solution = 1.7 mg, Subcutaneous Injection, Every week, for 4 week(s), in the abdomen, thigh, or upper arm start 1.7mg dose on 08/14, # 3 mL, 0 Refills, Acute 08/29/23 10:15:00 EDT, 08/01/23 10:15:00 EDT, [id number], 175, cm, 08/01/23... Start Date: 08/01/23 Stop Date: 08/29/23 Status: Ordered Problem List Condition Confirmation Course Effective Dates Status H ealth Status Informant ASCUS HPV+/ neg 16/18/45 1 Confirmed Active Bipolar disorder Confirmed Active [facility] department coordinator Hugo Hamilton [phone] Confirmed Active PTSD (post-traumatic stress disorder) Confirmed Active Schizoaffective disorder Confirmed Active Severe obesity Confirmed Active 1Unable to fully visualize cervix with speculum available. Unable to complete colposcopy procedure. will refer to [facility] Social History Social History Type Response Tobacco Use: 4 or less cigar ettes(less than 1/4 pack)/day in last 30 days. Other: rarely. Sex Patient Care team information Care Team Personnel Name: Jayne Vee RN Position: [facility] RN Member Role: Primary Care Nurse Name: Jojo Cazares RN Position: [facility] RN Member Role: Primary Care Nurse Name: Vera Babcock MD Position: [facility] Physician - Primary Care Member Role: PCP Address: Address: [address] [place] [address]- Care Team Related Persons Name: SKYE FELDER Address: home [address] [place] [address] Name: MONIQUE SIMPSON Name: LALA HILLS Address: home [address] [place] [address] Name: KERI BROTHERS Address: home [address] [place] [address]
--- OUTSIDE RECORDS SUMMARY | 2023-08-05 08:14 | XMS_ITS | Continuity of Care Document ---
Author Organization [facility] Address [address], [address] [place] [address]- Care Team Providers Care Rounding Machine Tender Name Role Phone Vera Babcock MD Primary Care Physician [phone] Encounter [facility] Date(s): 05/30/23 - 06/29/23 [facility] [place] [employer] [address] [place], [place] [address] Allergies, Adverse Reactions, Alerts No Known Allergies Immunizations Given and Recorded Vaccine Date Status Refusal Reason [id number] 12y+ bivalent booster vax 03/16/23 Given [id number] 12y+ bivalent booster vax 03/26/22 Given influenza virus vaccine, inactivated 03/16/23 Give n influenza virus vaccine, inactivated 03/26/22 Give n influenza virus vaccine, inactivated 12/08/19 Osvaldo rded influenza virus vaccine, inactivated 11/29/18 Osvaldo rded influenza virus vaccine, inactivated 12/06/08 Osvaldo rded tetanus/diphtheria/pertussis, acel(Tdap) 03/26/22 Given tetanus/diphtheria/pertussis, acel(Tdap) 01/03/09 Recorded SARS-CoV-2 mRNA (szbmjws-gkco-qvyiz) vax 08/05/21 Recorded SARS-CoV-2 (COVID-19) mRNA BNT-162b2 [...] 03/26/22 14:44:00 EST, Route to Pharmacy Electronically, [place], [place] - [id number], Partial fill upon patient request if the [...] tablet, 11 Refills, Maintenance, 05/05/23 10:29:00 EST, [facility], 30, TAKE 1 TABLET BY MOUTH ONCE DAILY, 175, cm, 04/29/23 10:03:00 EST, Height, 161.2, kg, 11/26/22 13:41:00 EDT, Dry Weight Start Date: 05/05/23 Status: Ordered docusate sodium 100 mg oral capsule 1 capsule, By Mouth, 2 times a day, # 60 each, 5 Refills, Maintenance, 05/05/23 10:29:00 EST, [facility], 175, cm, 04/29/23 10:03:00 EST, Height, 161.2, kg, 11/26/22 13:41:00 EDT, Dry Weight Start Date: 05/05/23 Status: Ordered folic acid 0.8 mg oral tablet 1 tablet = 0.8 mg, By Mouth, Daily, # 30 tablet, 5 Refills, Maintenance, 03/16/23 8:59:00 EST, Tablet, [facility] [id number], Partial fill upon patient request if the prescription is for a schedule II opioid drug., 175, cm, 12... Start Date: 03/16/23 Stop Date: 09/12/23 Status: Ordered MetFORMIN (Eqv-Glucophage XR) 500 mg oral tablet, extended release 1 tablet = 500 mg, By Mouth, Daily, # 90 tablet, 3 Refills, Maintenance, 06/28/22 10:51:00 EDT, [facility] [id number], Partial fill upon patient request if the prescription is for a schedule II opioid drug., 175, cm, 06/28/22... Start Date: 06/28/22 Stop Date: 06/23/23 Status: Ordered omeprazole 20 mg oral enteric coated capsule See Instructions, TAKE 1 CAPSULE BY MOUTH ONCE DAILY, # 30 capsule, 5 Refills, Maintenance, 03/16/23 8:59:00 EST, [facility] [id number], 175, cm, 03/16/23 8:34:00 EST, Height, 161.2, [...] 1 Confirmed Active Bipolar disorder Confirmed Active [facility] cardiology coordinator Hugo Hamilton [phone] Confirmed Active PTSD (post-traumatic stress disorder) Confirmed Active Schizoaffective disorder Confirmed Active Severe obesity Confirmed Active 1Unable to fully visualize cervix with speculum available. Unable to complete colposcopy procedure. will refer to [facility] Social History Social History Type Response Tobacco Use: 4 or less cigar ettes(less than 1/4 pack)/day in last 30 days. Other: rarely. Sex Patient Care team information Care Team Personnel Name: Jayne Vee RN Position: [facility] RN Member Role: Primary Care Nurse Name: Jojo Cazares RN Position: S RN Member Role: Primary Care Nurse Name: Vera Babcock MD Position: [facility] Physician - Primary Care Member Role: PCP Address: Address: [address] [place] [address]- [place] Care Team Related Persons Name: SKYE FELDER Address: [address] [place] [address] Name: MONIQUE SIMPSON Name: LALA HILLS Address: home [address] [place] [address] Name: KERI BROTHERS Address: home [address] [place] [address]
--- OUTSIDE RECORDS SUMMARY | 2023-08-05 08:14 | XMS_ITS | Continuity of Care Document ---
Author Organization [facility] Address [address] [place] [address]- Care Team Providers Care Pipe Cutter Name Role Phone Vera Babcock MD Primary Care Physician Encounter [facility] Date(s): 05/30/23 - 07/13/[address] [address]- Attending Physician: Ignacio Miller MD Admitting Physician: Ignacio Miller MD Allergies, Adverse Reactions, Alerts No Known Allergies Immunizations Given and Recorded Vaccine Date Status Refusal Reason [id number] 12y+ bivalent booster vax 03/16/23 Given [id number] 12y+ bivalent booster vax 03/26/22 Given influenza virus vaccine, inactivated 03/16/23 Give n influenza virus vaccine, inactivated 03/26/22 Give n influenza virus vaccine, inactivated 12/08/19 Osvaldo rded influenza virus vaccine, inactivated 11/29/18 Osvaldo rded influenza virus vaccine, inactivated 12/06/08 Osvaldo rded tetanus/diphtheria/pertussis, acel(Tdap) 03/26/22 Given tetanus/diphtheria/pertussis, acel(Tdap) 01/03/09 Recorded SARS-CoV-2 mRNA ([id number]-dbnfl) vax 08/05/21 Recorded SARS-CoV-2 (COVID-19) mRNA BNT-162b2 [...] 03/26/22 14:44:00 EST, Route to Pharmacy Electronically, [place], [place] - [id number], Partial fill upon patient request if the [...] tablet, 11 Refills, Maintenance, 05/05/23 10:29:00 EST, [facility], 30, TAKE 1 TABLET BY MOUTH ONCE DAILY, 175, cm, 04/29/23 10:03:00 EST, Height, 161.2, kg, 11/26/22 13:41:00 EDT, Dry Weight Start Date: 05/05/23 Status: Ordered docusate sodium 100 mg oral capsule 1 capsule, By Mouth, 2 times a day, # 60 each, 5 Refills, Maintenance, 05/05/23 10:29:00 EST, [facility], 175, cm, 04/29/23 10:03:00 EST, Height, 161.2, kg, 11/26/22 13:41:00 EDT, Dry Weight Start Date: 05/05/23 Status: Ordered folic acid 0.8 mg oral tablet 1 tablet = 0.8 mg, By Mouth, Daily, # 30 tablet, 5 Refills, Maintenance, 03/16/23 8:59:00 EST, Tablet, [place], [place] - [id number], Partial fill upon patient request if the prescription is for a schedule II opioid drug., 175, cm, 12... Start Date: 03/16/23 Stop Date: 09/12/23 Status: Ordered MetFORMIN (Eqv-Glucophage XR) 500 mg oral tablet, extended release 1 tablet = 500 mg, By Mouth, Daily, # 90 tablet, 3 Refills, Maintenance, 06/28/22 10:51:00 EDT, [facility] [id number], Partial fill upon patient request if the prescription is for a schedule II opioid drug., 175, cm, 06/28/22... Start Date: 06/28/22 Stop Date: 06/23/23 Status: Ordered MiraLax oral powder for reconstitution = 17 Gm, By Mouth, Daily, # 510 Gm, 0 Refills, Maintenance, 07/05/23 16:09:00 EDT, REC Powder, [facility] #[id number], Partial fill upon patient request if the prescription is for a schedule II opioid drug., 17 Gm By Mouth Daily, 175, cm, ... Start Date: 07/05/23 Status: Ordered omeprazole 20 mg oral enteric coated capsule See Instructions, TAKE 1 CAPSULE BY MOUTH ONCE DAILY, # 30 capsule, 5 Refills, Maintenance, 03/16/23 8:59:00 EST, [facility] [id number], 175, cm, 03/16/23 8:34:00 EST, Height, 161.2, [...] drug. Start Date: 04/03/23 Status: Ordered Wegovy (0.5 mg dose) = [...] 08/04/23 17:07:00 EDT, 07/07/23 17:07:00 EDT, Solution, [facility] #[id number], Partial fill upon patient request if the pres... Start Date: 07/07/23 Stop Date: 08/04/23 Status: Ordered Problem List Condition Confirmation Course Effective Dates Status H ealth Status Informant ASCUS HPV+/ neg 16/18/45 1 Confirmed Active Bipolar disorder Confirmed Active [facility] family resource coordinator Hugo Hamilton [phone] Confirmed Active PTSD (post-traumatic stress disorder) Confirmed Active Schizoaffective disorder Confirmed Active Severe obesity Confirmed Active 1Unable to fully visualize cervix with speculum available. Unable to complete colposcopy procedure. will refer to [facility] Social History Social History Type [...] MD Position: [facility] Physician - Primary Care Member Role: PCP Address: Address: [address] [place] [address]- Care Team Related Persons Name: SKYE FELDER Address: home [address] [place] [address] Name: MONIQUE SIMPSON Name: LALA HILLS Address: home [address] [place] [id number] Name: KERI BROTHERS Address: [address] [place] [address]
--- OUTSIDE RECORDS SUMMARY | 2023-08-05 08:14 | XMS_ITS | Continuity of Care Document ---
Author Organization [facility] Address [address] [place] [address]- Care Team Providers Care Senior Lead Software Engineer Name Role Phone Vera Babcock MD Primary Care Physician Encounter [facility] Date(s): 07/04/23 - 08/03/[address] [address]- Allergies, Adverse Reactions, Alerts No Known Allergies Immunizations Given and Recorded Vaccine Date Status Refusal Reason [id number] 12y+ bivalent booster vax 03/16/23 Given [id number] 12y+ bivalent booster vax 03/26/22 Given influenza virus vaccine, inactivated 03/16/23 Give n influenza virus vaccine, inactivated 03/26/22 Give n influenza virus vaccine, inactivated 12/08/19 Osvaldo rded influenza virus vaccine, inactivated 11/29/18 Osvaldo rded influenza virus vaccine, inactivated 12/06/08 Osvaldo rded tetanus/diphtheria/pertussis, acel(Tdap) 03/26/22 Given tetanus/diphtheria/pertussis, acel(Tdap) 01/03/09 Recorded SARS-CoV-2 mRNA ([id number]-zhti-jicdx) vax 08/05/21 Recorded SARS-CoV-2 (COVID-19) mRNA BNT-162b2 [...] tablet, 11 Refills, Maintenance, 07/17/23 15:54:00 EDT, [facility], 175, cm, 07/05/23 15:43:00 EDT, Height, 161.2, kg, 11/26/22 13:41:00 EDT, Dry Weight Start Date: 07/17/23 Status: Ordered cloNIDine 0.1 mg oral tablet 0.1 mg, By Mouth, 2 times a day, # 60 each, Refills 11, Tot. Refills 11, Maintenance, 03/26/22 14:44:00 EST, Route to Pharmacy Electronically, [place], [place] - [id number], Partial fill upon patient request if the [...] tablet, 11 Refills, Maintenance, 05/05/23 10:29:00 EST, [facility], 30, TAKE 1 TABLET BY MOUTH ONCE DAILY, 175, cm, 04/29/23 10:03:00 EST, Height, 161.2, kg, 11/26/22 13:41:00 EDT, Dry Weight Start Date: 05/05/23 Status: Ordered docusate sodium 100 mg oral capsule 1 capsule, By Mouth, 2 times a day, # 60 each, 5 Refills, Maintenance, 05/05/23 10:29:00 EST, [facility], 175, cm, 04/29/23 10:03:00 EST, Height, 161.2, kg, 11/26/22 13:41:00 EDT, Dry Weight Start Date: 05/05/23 Status: Ordered folic acid 0.8 mg oral tablet 1 tablet = 0.8 mg, By Mouth, Daily, # 30 tablet, 5 Refills, Maintenance, 03/16/23 8:59:00 EST, Tablet, [facility] [id number], Partial fill upon patient request if the prescription is for a schedule II opioid drug., 175, cm, 12... Start Date: 03/16/23 Stop Date: 09/12/23 Status: Ordered hydrOXYzine hydrochloride 50 mg oral tablet 1 tablet = 50 mg, By Mouth, Daily, PRN anxiety, for 30 days, # 30 tablet, 4 Refills, Acute 12/28/2409:25:00 EDT, 08/01/23 10:25:00 EDT, Tablet, [place], [place] - [id number], Partial fill upon patient request if the prescription is f... Start Date: 08/01/23 Stop Date: 12/29/23 Status: Ordered MetFORMIN (Eqv-Glucophage XR) 500 mg oral tablet, extended release See Instructions, TAKE 1 TABLET BY MOUTH ONCE DAILY, # 30 tablet, 5 Refills, Maintenance, 07/15/23 10:01:00 EDT, [facility], [place] - [id number], 175, cm, 07/05/23 15:43:00 EDT, Height, 161.2, kg, 11/26/22 13:41:00 EDT, Dry Weight Start Date: 07/15/23 Status: Ordered MiraLax oral powder for reconstitution = 17 Gm, By Mouth, Daily, # 510 Gm, 0 Refills, Maintenance, 07/05/23 16:09:00 EDT, REC Powder, [facility] #[id number], Partial fill upon patient request if the prescription is for a schedule II opioid drug., 17 Gm By Mouth Daily, 175, cm, 2... Start Date: 07/05/23 Status: Ordered omeprazole 20 mg oral enteric coated capsule See Instructions, TAKE 1 CAPSULE BY MOUTH ONCE DAILY, # 30 capsule, 5 Refills, Maintenance, 03/16/23 8:59:00 EST, [place], [place] - [id number], 175, cm, 03/16/23 8:34:00 EST, Height, 161.2, [...] 07/18/23 11:24:00 EDT, Route to Pharmacy Electronically, [facility], 175, cm, 07/05/23 15:43:00 EDT, Height, 161.2, [...] 08/04/23 17:07:00 EDT, 07/07/23 17:07:00 EDT, Solution, [facility] #[id number], Partial fill upon patient request if the pres... Start Date: 07/07/23 Stop Date: 08/04/23 Status: Ordered Wegovy (1.7 mg dose) subcutaneous solution = 1.7 mg, Subcutaneous Injection, Every week, for 4 week(s), in the abdomen, thigh, or upper arm start 1.7mg dose on 08/14, # 3 mL, 0 Refills, Acute 08/29/23 10:15:00 EDT, 08/01/23 10:15:00 EDT, Solution, [id number] #[id number], 175, cm, 08/01/23... Start Date: 08/01/23 Stop Date: 08/29/23 Status: Ordered Problem List Condition Confirmation Course Effective Dates Status H ealth Status Informant ASCUS HPV+/ neg 16/18/45 1 Confirmed Active Bipolar disorder Confirmed Active [facility] education coordinator Hugo Hamilton [phone] Confirmed Active PTSD (post-traumatic stress disorder) Confirmed Active Schizoaffective disorder Confirmed Active Severe obesity Confirmed Active 1Unable to fully visualize cervix with speculum available. Unable to complete colposcopy procedure. will refer to [facility] Social History Social History Type Response Tobacco Use: 4 or less cigar ettes(less than 1/4 pack)/day in last 30 days. Other: rarely. Sex Patient Care team information Care Team Personnel Name: Jayne Vee RN Position: [facility] RN Member Role: Primary Care Nurse Name: Jojo Cazares RN Position: [facility] RN Member Role: Primary Care Nurse Name: Vera Babcock MD Position: [facility] Physician - Primary Care Member Role: PCP Address: Address: [address] [place] [address]- Care Team Related Persons Name: SKYE FELDER Address: [address] [place] [address] Name: MONIQUE SIMPSON Name: LALA HILLS Address: home [address] [place] [id number] Name: KERI BROTHERS Address: home [address] [place] [address]
--- NOTE | 2023-08-05 11:38 | MHC.OFFVISWM ---
VS Expanded 08/05/23 11:42 Height 5 ft 8 in Weight 354 lb BMI 53.8 Intake Visit Reasons: TV Follow Up SWL - 1ST Allergies No Known Allergies Allergy (Verified 06/27/23 13:16) HPI HPI TV Follow Up SWL - 1ST: Details: Start time: 11.20am, End time: 11.50am ?I spent 25 minutes speaking with the patient on the phone plus an additional 5 minutes reviewing and updating records for a total of 30 minutes HPI Comments Details: Weight loss: 4lbs Is doing 2 CELEBRATE REBUILD protein (buy at [facility]) shakes (TWO scoop EACH in 8oz low fat unsweetened almond milk each) at 10pm-12pm and 1pm-3pm, 2 protein bars (CELEBRATE protein bars, buy at [facility] [employer]) at 4pm-6pm, dinner at 7pm (12 forks of protein and 12 forks of salad/vegetables) AND one more protein bar after dinner at 8pm-10pm. Exercise: Gym x3/week doing elliptical for 30min per session [facility] Medical History (Updated 07/05/23 @ 00:02 by Shaylee Porras) Hyperlipidemia GERD (gastroesophageal reflux disease) Schizophrenia Routine medical exam Hypertension Type 2 diabetes mellitus Back pain Morbid obesity due to excess calories Surgical History Hx of removal of cyst Family History Mother Chronic kidney disease Accelerated hypertension Pulmonary hypertension CHF (congestive heart failure) Coronary heart disease Father No problems noted. Brother Leukemia Brother No problems noted. Daughter No problems noted. Social History (Updated 10/03/20 @ 09:38 by Gayathri Arellano MD) Household Members: Family and Children Household Members Other:: patient was living with mother and her child/ not currently Housing: Apartment Housing Other:: APARTMENT IN MOTHER'S BASEMENT Do you presently have visiting nurse or other home services: No Alcohol intake: current Alcohol intake frequency: a few times a month Patient Tobacco Use Status: Never used Tobacco Substance Use Type: Tranquilizers service: No Sexual orientation: Straight/Heterosexual Telehealth Telehealth Telehealth Platform: Telephone Location of provider rendering services: practice address Location of patient: address on file Patient Identification confirmed using: Name, : Yes Telehealth method: voice only Patient verbally consented to treatment: Yes Patient verbally consented to billing insurance company: Yes Patient informed of any privacy concerns related to visit: Yes Minutes spent on Phone/Video with Pt.: 30 Assessment & Plan Assessment & Plan (1) Morbid obesity due to excess calories: Code(s): E66.01 - Morbid (severe) obesity due to excess calories Category: Medical Plan: 1. Continue same nutritional plan of 2 CELEBRATE REBUILD protein (buy at [facility]) shakes (TWO scoop EACH in 8oz low fat unsweetened almond milk each) at 10pm-12pm and 1pm-3pm, 2 protein bars (CELEBRATE protein bars, [facility]) at 4pm-6pm, dinner at 7pm (12 forks of protein and 12 forks of salad/vegetables) AND one more protein bar after dinner at 8pm-10pm. 2. Exercise: increase Gym to 5/week doing elliptical tracking calories for a goal of 400 calories per session. Goal is to burn 2000 calories per week 3. Please send me daily picture of your dinner plate after you measure it and before you eat it 4. Set up your body composition scale by Tuesday and send me measurements
[2023-08-05 11:42] VITALS: BMI 53.8
== END 2023-08-05 11:50 | disposition home or self-care (01) ==
LOC: HO.HBS 08:11
PROVIDERS: PCP Internal Medicine; Visit Provider Surgery
DX: E66.01 Morbid (severe) obesity due to excess calories (principal)
CPT/HCPCS: 99214

== ENCOUNTER → 2023-08-05 08:11 | Outpatient (BNVA) | payer OTHER, SELFPAY | PROVIDERS: PCP Internal Medicine; Visit Provider Surgery ==

== ENCOUNTER 2023-08-19 09:18 | Outpatient (REF) | payer OTHER, SELFPAY ==
--- NOTE | ~2023-08-19 | FL_ITS ---
EXAMINATION: XR FLUOROSCOPY UPPER GI WITH AIR CLINICAL INFORMATION: Preop evaluation prior to bariatric surgery COMPARISON: None TECHNIQUE: Fluoroscopic air contrast upper GI examination was performed utilizing standard techniques with thin and thick barium and effervescent granules. Numerous spot images were obtained. FINDINGS: Dual and single contrast images of the esophagus demonstrate normal caliber, contour, and mucosal pattern. No evidence of stricture, mass, or ulcerations identified. Esophageal peristalsis was normal. No evidence of hiatus hernia identified. No significant gastroesophageal reflux was seen during the course of the examination and on reflux views. Dual contrast and single contrast images of the stomach demonstrated normal contour and mucosal pattern without evidence of mass, ulceration, or other abnormality. Contrast freely passed into the gastric antrum and duodenal bulb without delay. Single and air-contrast images of the duodenal bulb demonstrate no abnormality. The duodenal sweep has a normal appearance, course, and mucosal fold appearance. The imaged proximal jejunum has a normal fold pattern and caliber. FLUOROSCOPY TIME: 2 minutes 57 seconds Number of Spot Images: 8 Number of Cine: 12 DOSE AREA PRODUCT: 3138 uGy-m2 (microgray-meter squared) FL/FL upper GI w air IMPRESSION: Unremarkable upper GI series This procedure was performed by Cheo Martínez PA-C, and supervised by Dr. Ferreira
== END 2023-08-19 09:19 | disposition home or self-care (01) ==
LOC: HO.XRAY 09:18
PROVIDERS: PCP Internal Medicine; Visit Provider Surgery
DX: E66.01 Morbid (severe) obesity due to excess calories (principal); K21.9 Gastro-esophageal reflux disease without esophagitis; E78.5 Hyperlipidemia, unspecified; E11.9 Type 2 diabetes mellitus without complications
CPT/HCPCS: 74246

== ENCOUNTER → 2023-08-19 09:19 | Outpatient (BNV) | payer OTHER, SELFPAY | PROVIDERS: PCP Internal Medicine; Visit Provider Physician Assistant Surgical | DX: K21.9 Gastro-esophageal reflux disease without esophagitis (principal); E66.01 Morbid (severe) obesity due to excess calories; Z01.818 Encounter for other preprocedural examination | CPT/HCPCS: 74246 ==

== ENCOUNTER → 2023-09-21 10:09 | Day surgery (SDC) | payer OTHER, SELFPAY ==
--- NOTE | 2023-09-19 15:31 | HO.ANESPROP2 ---
HPI - Anesthesia Eval Consult details Narrative: 38yo F for Upper Endoscopy Hx cocaine abuse, no previous tox screen Anesthesia Pre-Procedure Meds Is the patient on any of the following meds?: GLP1/DPP4 PMFSH Active Problems Active Problems: All Active Problems Hyperlipidemia (Acute) GERD (gastroesophageal reflux disease) (Acute) Type 2 diabetes mellitus (Acute) Schizophrenia (Acute) Cocaine abuse (Acute) Bipolar disorder (Acute) Adjustment disorder, unspecified (Acute) Morbid obesity due to excess calories (Acute) BMI 50.0-59.9, adult (Acute) Preoperative examination (Acute) Shortness of breath (Acute) Past Medical History Medical History (Updated 07/05/23 @ 00:02 by Shaylee Porras) Hyperlipidemia GERD (gastroesophageal reflux disease) Schizophrenia Routine medical exam Hypertension Type 2 diabetes mellitus Back pain Morbid obesity due to excess calories Family History Family History Mother Chronic kidney disease Accelerated hypertension Pulmonary hypertension CHF (congestive heart failure) Coronary heart disease Father No problems noted. Brother Leukemia Brother No problems noted. Daughter No problems noted. Surgical History Surgical History Hx of removal of cyst Social History Social History (Updated 10/03/20 @ 09:38 by Gayathri Arellano MD) Household Members: Family and Children Household Members Other:: patient was living with mother and her child/ not currently Housing: Apartment Housing Other:: APARTMENT IN MOTHER'S BASEMENT Do you presently have visiting nurse or other home services: No Alcohol intake: current Alcohol intake frequency: a few times a month Patient Tobacco Use Status: Never used Tobacco Substance Use Type: Tranquilizers service: No Sexual orientation: Straight/Heterosexual Meds Allergies Allergy/AdvReac Type Severity Reaction Status Date / Time No Known Allergies Allergy Verified 06/27/23 13:16 Home Medications ?Medication ?Instructions ?Recorded ?Confirmed ?Last Taken ?Type Daily-Kevin (with folic acid) 1 tab PO DAILY 03/05/23 06/27/23 Unknown History cyanocobalamin (vitamin B-12) 100 50 mcg PO DAILY 03/05/23 06/27/23 Unknown History mcg tablet (Vitamin B-12) docusate sodium 100 mg capsule 100 mg PO BID 03/05/23 06/27/23 Unknown History folic acid 0.8 mg capsule 0.8 mg PO DAILY 03/05/23 06/27/23 Unknown History semaglutide (weight loss) 0.25 mg subcut 05/25/23 06/27/23 Unknown History mg/0.5 mL subcutaneous pen injector (Abad) omeprazole 20 mg capsule,delayed 20 mg PO DAILY 06/27/23 06/27/23 Unknown History release Assessment and Plan Assessment Anesthesia Assessment: Chart Reviewed
[2023-09-21 10:27] VITALS: BMI 52.9
[2023-09-21 10:29] LABS: UPreg QC Valid YES; Urine Pregnancy NEGATIVE (NEGATIVE)
[2023-09-21 10:30] VITALS: BMI 53.5
--- NOTE | 2023-09-21 10:50 | PC.NURSE ---
patient took her ozempic, anesthesia and Dr. Sneed aware. procedure cancelled today.
--- OUTSIDE RECORDS SUMMARY | 2023-09-22 08:22 | XMS_ITS | Continuity of Care Document ---
Author Organization [facility] Address [address] [place] [address]- Care Team Providers Care Property Management Specialist Name Role Phone Vera Babcock MD Primary Care Physician [phone] Encounter [facility] Date(s): 08/19/23 - 09/18/[address] [address]- Allergies, Adverse Reactions, Alerts No Known Allergies Immunizations Given and Recorded Vaccine Date Status Refusal Reason [id number] 12y+ bivalent booster vax 03/16/23 Given [id number] 12y+ bivalent booster vax 03/26/22 Given influenza virus vaccine, inactivated 03/16/23 Give n influenza virus vaccine, inactivated 03/26/22 Give n influenza virus vaccine, inactivated 12/08/19 Osvaldo rded influenza virus vaccine, inactivated 11/29/18 Osvaldo rded influenza virus vaccine, inactivated 12/06/08 Osvaldo rded tetanus/diphtheria/pertussis, acel(Tdap) 03/26/22 Given tetanus/diphtheria/pertussis, acel(Tdap) 01/03/09 Recorded SARS-CoV-2 mRNA ([id number]-lsvj-cndfs) vax 08/05/21 Recorded SARS-CoV-2 (COVID-19) mRNA BNT-162b2 [...] tablet, 11 Refills, Maintenance, 07/17/23 15:54:00 EDT, [facility], 175, cm, 07/05/23 15:43:00 EDT, Height, 161.2, kg, 11/26/22 13:41:00 EDT, Dry Weight Start Date: 07/17/23 Status: Ordered cloNIDine 0.1 mg oral tablet 0.1 mg, By Mouth, 2 times a day, # 60 each, Refills 11, Tot. Refills 11, Maintenance, 03/26/22 14:44:00 EST, Route to Pharmacy Electronically, [place], [place] - [id number], Partial fill upon patient request if the [...] tablet, 11 Refills, Maintenance, 05/05/23 10:29:00 EST, [facility], 30, TAKE 1 TABLET BY MOUTH ONCE DAILY, 175, cm, 04/29/23 10:03:00 EST, Height, 161.2, kg, 11/26/22 13:41:00 EDT, Dry Weight Start Date: 05/05/23 Status: Ordered docusate sodium 100 mg oral capsule 1 capsule, By Mouth, 2 times a day, # 60 each, 5 Refills, Maintenance, 05/05/23 10:29:00 EST, [facility], 175, cm, 04/29/23 10:03:00 EST, Height, 161.2, kg, 11/26/22 13:41:00 EDT, Dry Weight Start Date: 05/05/23 Status: Ordered folic acid 0.8 mg oral tablet 1 tablet = 0.8 mg, By Mouth, Daily, # 30 tablet, 5 Refills, Maintenance, 03/16/23 8:59:00 EST, Tablet, [facility] [id number], Partial fill upon patient request if the prescription is for a schedule II opioid drug., 175, cm, 12... Start Date: 03/16/23 Stop Date: 09/12/23 Status: Ordered hydrOXYzine hydrochloride 50 mg oral tablet 1 tablet = 50 mg, By Mouth, Daily, PRN anxiety, for 30 days, # 30 tablet, 4 Refills, Acute 12/28/2409:25:00 EDT, 08/01/23 10:25:00 EDT, Tablet, [place], [place] - [id number], Partial fill upon patient request if the prescription is f... Start Date: 08/01/23 Stop Date: 12/29/23 Status: Ordered MetFORMIN (Eqv-Glucophage XR) 500 mg oral tablet, extended release See Instructions, TAKE 1 TABLET BY MOUTH ONCE DAILY, # 30 tablet, 5 Refills, Maintenance, 07/15/23 10:01:00 EDT, [facility], [place] - [id number], 175, cm, 07/05/23 15:43:00 EDT, Height, 161.2, kg, 11/26/22 13:41:00 EDT, Dry Weight Start Date: 07/15/23 Status: Ordered MiraLax oral powder for reconstitution = 17 Gm, By Mouth, Daily, # 510 Gm, 0 Refills, Maintenance, 07/05/23 16:09:00 EDT, REC Powder, [facility] #[id number], Partial fill upon patient request if the prescription is for a schedule II opioid drug., 17 Gm By Mouth Daily, 175, cm, 2... Start Date: 07/05/23 Status: Ordered omeprazole 20 mg oral enteric coated capsule See Instructions, TAKE 1 CAPSULE BY MOUTH ONCE DAILY, # 30 capsule, 5 Refills, Maintenance, 03/16/23 8:59:00 EST, [place], [place] - [id number], 175, cm, 03/16/23 8:34:00 EST, Height, 161.2, kg, 11/26/22 13:41:00 EDT, Dry Weight Start Date: 03/16/23 Status: Ordered Prolixin Tablet Rx'd per Psych 1mg in am, 5mg in pm, Refills 0, Maintenance, 04/03/23 10:28:00 EST, Partial fill upon patient request if the prescription is for a schedule II opioid drug. Start Date: 04/03/23 Status: Ordered semaglutide 1.7 mg/0.75 mL (1.7 mg dose) subcutaneous solution = 1.7 mg, Subcutaneous Infusion, Every week, for 4 week(s), # 4 each, 0 Refills, Acute 09/23/23 16:59:00 EDT, 08/26/23 16:59:00 EDT, [facility] #[id number], Partial fill upon patient request if the prescription is for a schedule II opioid drug. a... Start Date: 08/26/23 Stop Date: 09/23/23 Status: Ordered TEGretol XR 100 mg oral [...] 07/18/23 11:24:00 EDT, Route to Pharmacy Electronically, [facility], 175, cm, 07/05/23 15:43:00 EDT, Height, 161.2, kg, 11/26/22 13:41:00 EDT, Dry Weight Start Date: 07/18/23 Status: Ordered Problem List Condition Confirmation Course Effective Dates Status H ealth Status Informant ASCUS HPV+/ neg 16/18/45 1 Confirmed Active Bipolar disorder Confirmed Active [facility] sustainability coordinator Hugo Hamilton [phone] Confirmed Active PTSD (post-traumatic stress disorder) Confirmed Active Schizoaffective disorder Confirmed Active Severe obesity Confirmed Active 1Unable to fully visualize cervix with speculum available. Unable to complete colposcopy procedure. will refer to [facility] Social History Social History Type Response Tobacco Use: 4 or less cigar ettes(less than 1/4 pack)/day in last 30 days. Other: rarely. Sex Patient Care team information Care Team Personnel Name: Jayne Vee RN Position: [facility] RN Member Role: Primary Care Nurse Name: Jojo Cazares RN Position: [facility] RN Member Role: Primary Care Nurse Name: Vera Babcock MD Position: [facility] Physician - Primary Care Member Role: PCP Address: Address: [address] [place] [address]- [place] Care Team Related Persons Name: SKYE FELDER Address: [address] [place] [address] Name: MONIQUE SIMPSON Name: LALA HILLS Address: home [address] [place] [id number] Name: KERI BROTHERS Address: home [address] [place] [address]
--- OUTSIDE RECORDS SUMMARY | 2023-09-22 08:22 | XMS_ITS | Continuity of Care Document ---
Author Organization [facility] Address [address] [place] [address]- Care Team Providers Care Internal Control Specialist Name Role Phone Vera Babcock MD Primary Care Physician [phone] Encounter [facility] Date(s): 07/17/23 - 08/16/[address] [address]- Allergies, Adverse Reactions, Alerts No Known Allergies Immunizations Given and Recorded Vaccine Date Status Refusal Reason [id number] 12y+ bivalent booster vax 03/16/23 Given [id number] 12y+ bivalent booster vax 03/26/22 Given influenza virus vaccine, inactivated 03/16/23 Give n influenza virus vaccine, inactivated 03/26/22 Give n influenza virus vaccine, inactivated 12/08/19 Osvaldo rded influenza virus vaccine, inactivated 11/29/18 Osvaldo rded influenza virus vaccine, inactivated 12/06/08 Osvaldo rded tetanus/diphtheria/pertussis, acel(Tdap) 03/26/22 Given tetanus/diphtheria/pertussis, acel(Tdap) 01/03/09 Recorded SARS-CoV-2 mRNA ([id number]) vax 08/05/21 Recorded SARS-CoV-2 (COVID-19) mRNA BNT-162b2 [...] tablet, 11 Refills, Maintenance, 07/17/23 15:54:00 EDT, [facility], 175, cm, 07/05/23 15:43:00 EDT, Height, 161.2, kg, 11/26/22 13:41:00 EDT, Dry Weight Start Date: 07/17/23 Status: Ordered cloNIDine 0.1 mg oral tablet 0.1 mg, By Mouth, 2 times a day, # 60 each, Refills 11, Tot. Refills 11, Maintenance, 03/26/22 14:44:00 EST, Route to Pharmacy Electronically, [place], [place] - [id number], Partial fill upon patient request if the [...] tablet, 11 Refills, Maintenance, 05/05/23 10:29:00 EST, [facility], 30, TAKE 1 TABLET BY MOUTH ONCE DAILY, 175, cm, 04/29/23 10:03:00 EST, Height, 161.2, kg, 11/26/22 13:41:00 EDT, Dry Weight Start Date: 05/05/23 Status: Ordered docusate sodium 100 mg oral capsule 1 capsule, By Mouth, 2 times a day, # 60 each, 5 Refills, Maintenance, 05/05/23 10:29:00 EST, [facility], 175, cm, 04/29/23 10:03:00 EST, Height, 161.2, kg, 11/26/22 13:41:00 EDT, Dry Weight Start Date: 05/05/23 Status: Ordered folic acid 0.8 mg oral tablet 1 tablet = 0.8 mg, By Mouth, Daily, # 30 tablet, 5 Refills, Maintenance, 03/16/23 8:59:00 EST, Tablet, [facility] [id number], Partial fill upon patient request if the prescription is for a schedule II opioid drug., 175, cm, 12... Start Date: 03/16/23 Stop Date: 09/12/23 Status: Ordered hydrOXYzine hydrochloride 50 mg oral tablet 1 tablet = 50 mg, By Mouth, Daily, PRN anxiety, for 30 days, # 30 tablet, 4 Refills, Acute 12/28/2409:25:00 EDT, 08/01/23 10:25:00 EDT, Tablet, [facility] [id number], Partial fill upon patient request if the prescription is f... Start Date: 08/01/23 Stop Date: 12/29/23 Status: Ordered MetFORMIN (Eqv-Glucophage XR) 500 mg oral tablet, extended release See Instructions, TAKE 1 TABLET BY MOUTH ONCE DAILY, # 30 tablet, 5 Refills, Maintenance, 07/15/23 10:01:00 EDT, [facility], [facility] [id number], 175, cm, 07/05/23 15:43:00 EDT, Height, 161.2, kg, 11/26/22 13:41:00 EDT, Dry Weight Start Date: 07/15/23 Status: Ordered MiraLax oral powder for reconstitution = 17 Gm, By Mouth, Daily, # 510 Gm, 0 Refills, Maintenance, 07/05/23 16:09:00 EDT, [facility] Powder, [id number], Partial fill upon patient request if the prescription is for a schedule II opioid drug., 17 Gm By Mouth Daily, 175, cm, 2... Start Date: 07/05/23 Status: Ordered omeprazole 20 mg oral enteric coated capsule See Instructions, TAKE 1 CAPSULE BY MOUTH ONCE DAILY, # 30 capsule, 5 Refills, Maintenance, 03/16/23 8:59:00 EST, [place], [place] - [id number], 175, cm, 03/16/23 8:34:00 EST, Height, 161.2, [...] 07/18/23 11:24:00 EDT, Route to Pharmacy Electronically, [facility], 175, cm, 07/05/23 15:43:00 EDT, Height, 161.2, kg, 11/26/22 13:41:00 EDT, Dry Weight Start Date: 07/18/23 Status: Ordered Wegovy (1.7 mg dose) subcutaneous solution = 1.7 mg, Subcutaneous Injection, Every week, for 4 week(s), in the abdomen, thigh, or upper arm start 1.7mg dose on 08/14, # 3 mL, 0 Refills, Acute 08/29/23 10:15:00 EDT, 08/01/23 10:15:00 EDT, Solution, [facility] #[id number], 175, cm, 08/01/23... Start Date: 08/01/23 Stop Date: 08/29/23 Status: Ordered Problem List Condition Confirmation Course Effective Dates Status H ealth Status Informant ASCUS HPV+/ neg 16/18/45 1 Confirmed Active Bipolar disorder Confirmed Active [facility] [employer] safety program coordinator Hugo Hamilton [phone] Confirmed Active PTSD (post-traumatic stress disorder) Confirmed Active Schizoaffective disorder Confirmed Active Severe obesity Confirmed Active 1Unable to fully visualize cervix with speculum available. Unable to complete colposcopy procedure. will refer to [facility] Social History Social History Type Response [...] Care Member Role: PCP Address: Address: [address] [place] [address]- [place] Care Team Related Persons Name: SKYE FELDER Address: [address] [place] [address] Name: MONIQUE SIMPSON Name: LALA HILLS Address: home [address] [place] [id number] Name: KERI BROTHERS Address: home [address] [place] [address]
--- OUTSIDE RECORDS SUMMARY | 2023-09-22 08:22 | XMS_ITS | Continuity of Care Document ---
Author Organization [facility] Address [address] [place] [address]- Care Team Providers Care Matrix Bath Operator Name Role Phone Vera Babcock MD Primary Care Physician [phone] [place] [facility] [place]s): 07/15/23 - 08/14/[address] [address]- Allergies, Adverse Reactions, Alerts No Known Allergies Immunizations Given and Recorded Vaccine Date Status Refusal Reason [id number] 12y+ bivalent booster vax 03/16/23 Given [id number] 12y+ bivalent booster vax 03/26/22 Given influenza virus vaccine, inactivated 03/16/23 Give n influenza virus vaccine, inactivated 03/26/22 Give n influenza virus vaccine, inactivated 12/08/19 Osvaldo rded influenza virus vaccine, inactivated 11/29/18 Osvaldo rded influenza virus vaccine, inactivated 12/06/08 Osvaldo rded tetanus/diphtheria/pertussis, acel(Tdap) 03/26/22 Given tetanus/diphtheria/pertussis, acel(Tdap) 01/03/09 Recorded SARS-CoV-2 mRNA ([id number]-iptr-fcxif) vax 08/05/21 Recorded SARS-CoV-2 (COVID-19) mRNA BNT-162b2 [...] tablet, 11 Refills, Maintenance, 07/17/23 15:54:00 EDT, [facility], 175, cm, 07/05/23 15:43:00 EDT, Height, 161.2, kg, 11/26/22 13:41:00 EDT, Dry Weight Start Date: 07/17/23 Status: Ordered cloNIDine 0.1 mg oral tablet 0.1 mg, By Mouth, 2 times a day, # 60 each, Refills 11, Tot. Refills 11, Maintenance, 03/26/22 14:44:00 EST, Route to Pharmacy Electronically, [place], [place] - [id number], Partial fill upon patient request if the [...] tablet, 11 Refills, Maintenance, 05/05/23 10:29:00 EST, [facility], 30, TAKE 1 TABLET BY MOUTH ONCE DAILY, 175, cm, 04/29/23 10:03:00 EST, Height, 161.2, kg, 11/26/22 13:41:00 EDT, Dry Weight Start Date: 05/05/23 Status: Ordered docusate sodium 100 mg oral capsule 1 capsule, By Mouth, 2 times a day, # 60 each, 5 Refills, Maintenance, 05/05/23 10:29:00 EST, [facility], 175, cm, 04/29/23 10:03:00 EST, Height, 161.2, kg, 11/26/22 13:41:00 EDT, Dry Weight Start Date: 05/05/23 Status: Ordered folic acid 0.8 mg oral tablet 1 tablet = 0.8 mg, By Mouth, Daily, # 30 tablet, 5 Refills, Maintenance, 03/16/23 8:59:00 EST, Tablet, [facility] [id number], Partial fill upon patient request if the prescription is for a schedule II opioid drug., 175, cm, 12... Start Date: 03/16/23 Stop Date: 09/12/23 Status: Ordered hydrOXYzine hydrochloride 50 mg oral tablet 1 tablet = 50 mg, By Mouth, Daily, PRN anxiety, for 30 days, # 30 tablet, 4 Refills, Acute 12/28/2409:25:00 EDT, 08/01/23 10:25:00 EDT, Tablet, [place], [place] - [id number], Partial fill upon patient request if the prescription is f... Start Date: 08/01/23 Stop Date: 12/29/23 Status: Ordered MetFORMIN (Eqv-Glucophage XR) 500 mg oral tablet, extended release See Instructions, TAKE 1 TABLET BY MOUTH ONCE DAILY, # 30 tablet, 5 Refills, Maintenance, 07/15/23 10:01:00 EDT, [facility], [place] - [id number], 175, cm, 07/05/23 15:43:00 EDT, Height, 161.2, kg, 11/26/22 13:41:00 EDT, Dry Weight Start Date: 07/15/23 Status: Ordered MiraLax oral powder for reconstitution = 17 Gm, By Mouth, Daily, # 510 Gm, 0 Refills, Maintenance, 07/05/23 16:09:00 EDT, REC Powder, [facility] #[id number], Partial fill upon patient request if the prescription is for a schedule II opioid drug., 17 Gm By Mouth Daily, 175, cm, 2... Start Date: 07/05/23 Status: Ordered omeprazole 20 mg oral enteric coated capsule See Instructions, TAKE 1 CAPSULE BY MOUTH ONCE DAILY, # 30 capsule, 5 Refills, Maintenance, 03/16/23 8:59:00 EST, [place], [place] - [id number], 175, cm, 03/16/23 8:34:00 EST, Height, 161.2, [...] 07/18/23 11:24:00 EDT, Route to Pharmacy Electronically, [facility], 175, cm, 07/05/23 15:43:00 EDT, Height, 161.2, kg, 11/26/22 13:41:00 EDT, Dry Weight Start Date: 07/18/23 Status: Ordered Wegovy (1.7 mg dose) subcutaneous solution = 1.7 mg, Subcutaneous Injection, Every week, for 4 week(s), in the abdomen, thigh, or upper arm start 1.7mg dose on 08/14, # 3 mL, 0 Refills, Acute 08/29/23 10:15:00 EDT, 08/01/23 10:15:00 EDT, Solution, [facility] #[id number], 175, cm, 08/01/23... Start Date: 08/01/23 Stop Date: 08/29/23 Status: Ordered Problem List Condition Confirmation Course Effective Dates Status H ealth Status Informant ASCUS HPV+/ neg 16/18/45 1 Confirmed Active Bipolar disorder Confirmed Active [facility] instructional coordinator Hugo Hamilton [phone] Confirmed Active PTSD (post-traumatic stress disorder) Confirmed Active Schizoaffective disorder Confirmed Active Severe obesity Confirmed Active 1Unable to fully visualize cervix with speculum available. Unable to complete colposcopy procedure. will refer to [facility] Social History Social History Type Response Tobacco Use: 4 or less cigar ettes(less than 1/4 pack)/day in last 30 days. Other: rarely. Sex Patient Care team information Care Team Personnel Name: Jayne Vee RN Position: [facility] RN Member Role: Primary Care Nurse Name: Jojo Cazares RN Position: [facility] RN Member Role: Primary Care Nurse Name: Vera Babcock MD Position: [facility] Physician - Primary Care Member Role: PCP Address: Address: [address] [place] [address]- [place] Care Team Related Persons Name: SKYE FELDER Address: [address] [place] [address] Name: MONIQUE SIMPSON Name: LALA HILLS Address: home [address] [place] [id number] Name: KERI BROTHERS Address: [address] [place] [address]
== END ==
LOC: HO.SSS 10:10
PROVIDERS: Nurse Practitioner; PCP Internal Medicine; Visit Provider Surgery
DX: E66.01 Morbid (severe) obesity due to excess calories (principal); Z68.43 Body mass index [BMI] 50.0-59.9, adult; Z53.8 Procedure and treatment not carried out for other reasons; Z79.85 Long-term (current) use of injectable non-insulin antidiabetic drugs; I10 Essential (primary) hypertension; E11.9 Type 2 diabetes mellitus without complications
CPT/HCPCS: 81025

== ENCOUNTER 2023-09-26 14:51 | Outpatient (AMB) | payer OTHER, SELFPAY ==
--- NOTE | 2023-09-26 14:36 | A.OFFWM_ITS ---
Intake Intake Visit Reasons: TV BH Intake Allergies No Known Allergies Allergy (Verified 06/27/23 13:16) [facility] Medical History (Updated 07/05/23 @ 00:02 by Shaylee Porras) Hyperlipidemia GERD (gastroesophageal reflux disease) Schizophrenia Routine medical exam Hypertension Type 2 diabetes mellitus Back pain Morbid obesity due to excess calories Surgical History (Updated 09/21/23 @ 10:23 by Esthela Maya RN) Hx of tonsillectomy Hx of removal of cyst Family History Mother Chronic kidney disease Accelerated hypertension Pulmonary hypertension CHF (congestive heart failure) Coronary heart disease Father No problems noted. Brother Leukemia Brother No problems noted. Daughter No problems noted. Social History (Updated 10/03/20 @ 09:38 by Gayathri Arellano MD) Household Members: Family and Children Household Members Other:: patient was living with mother and her child/ not currently Housing: Apartment Housing Other:: APARTMENT IN MOTHER'S BASEMENT Do you presently have visiting nurse or other home services: No Alcohol intake: current Alcohol intake frequency: a few times a month Patient Tobacco Use Status: Never used Tobacco Substance Use Type: Tranquilizers service: No Sexual orientation: Straight/Heterosexual Behavioral Health Assessment Weight Management Therapy Therapy Notes Details Patient is looking to have weight loss surgery to [facility] from [facility] is her therapist she started seeing two weeks ago, also psychiat [facility] nurse perscriber Loree Borges. Apr she was admitted psychiatrically after being off her medications for two days having some issues she was admitted to [place] [id number]. Per hospital reports; Pt is a 37-year-old female with a PMH significant for?bvp-juxzest-czuuwlolf diabetes type 2, GERD, PTSD, schizophrenia, and bipolar disorder who is admitted to psychiatry unit for disorganized behavior. She apparently has been noncompliant with her medications at home and presented to a restaurant in the community behaving erratically. Medical consult for admission H&P. Presenting Concerns Referral Source provider Reason for referral weight loss surgery evaluation Precipitating Event obesity Living Situation Current Living Situation Relative's/Guardian's Esther At risk of losing current housing? No Satisfied with current living situation? Yes Comments Patient live with her 62 year old mother and 15 year old daughter. Food/Weight/Diet Expectations of change weight loss and maintenance History/Relationship with food emotional eater . She reported that she likes to eat sweets, starches, rice, large portions, eating when not hungry, skipping meals. History/Relationship with weight Patient is at her heaviest weight, she has struggled all her life since childhood. History/Relationship with dieting walking, exercise, 30lbs loss, eating salads. Binge Eating Do you frequently eat large amounts of food in short periods of time, not feeling physically hungry? Yes Do you feel out of control when you eat a large amount of food in a short period of time? No Do you eat large amounts of food rapidly and typically alone? Yes Night Eating Do you wake up at least once during the night to eat? No If you wake up in the night, do you find that it is necessary to eat something in order to fall back asleep? No Do you have little or no appetite in the morning and feel very hungry in the evening, often overeating between dinner and when you go to bed? Yes Social History Family history and relationship Pt lives with her mother and her 15 year old daughter. Parental/Familial sensitometrist obligations Pt stated that she helps care for her mother who has medical issues. Social support aunt, daughter Community support islam Spiritism/Spirituality Denominational Cultural/Ethnic information [place] Legal Involvement and History Current or historical involvement with the legal system? Pt stated that when she was off her medications recently, she fought with a friend who pressed charges and has an upcoming court date. Education Highest grade completed bachelors degree in social science Preferred learning style Auditory, Verbal, Written, Learn by doing and Visual Currently enrolled in educational program? No Interested in further educational program? No Educational Interests/Skills Currently not working and is on disability. Employment Employment Status Other Wants help to find employment? No Financial Situation Describe current financial situation Occasional struggle Financial assistance? SSDI Service Service? No Mental Health and Addiction Treatment Current/Past substance abuse? No Current/Past addictive behavior concerns? No Medical and Physical Health Summary Physical exam in the last year? Yes Pain Screening0 Current pain? No Pain in the last few months? No Medications Is the patient compliant with medications? No (recent non compliance with psychiatric medications which led to psychiatric admission due to disorganized, bizarre behavior. Pt has a history of non compliance with medications previously as well. ) Does the patient have [place] Guardian in place? No Does the patient use complimentary health approaches? No Trauma/Abuse History History of trauma? Yes Questionnaires PHQ-9 Over the last 2 weeks, how often have you been bothered by any of the following problems? 1. Little interest or pleasure in doing things: several days 2. Feeling down, depressed, or hopeless: several days 3. Trouble falling or staying asleep, or sleeping too much: several days 4. Feeling tired or having little energy: nearly every day 5. Poor appetite or overeating: more than half the days 6. Feeling bad about yourself - or that you are a failure or have let yourself or your family down: several days 7. Trouble concentrating on things, such as reading the newspaper or watching television: several days 8. Moving or speaking so slowly that other people could have noticed. Or the opposite - being so fidgety or restless that you have been moving around a lot more than usual: not at all 9. Thoughts that you would be better off or of hurting yourself in some way: not at all Total score: 10 Depression Screening Interpretation: Positive Depression Screening Done: Yes Source: Developed by Drs. Too Putnam, Jeana Taylor, Ankit Ross and colleagues, with an educational krysta from [employer]. Binge Eating Scale Group 1 A. I don't feel self-conscious about my wt. or body size when I'm with others. B. I feel concerned about how I look to others, but it normally does not make me fell disappointed with myself C. I do get self-conscious about my appearance and wt. which makes me feel disappointed in myself. D. I feel very self-conscious about my wt. and frequently I feel intense shame and disgust for myself. I try to avoid social contacts because of my self- consciousness. Response Group 1: C Group 2 A. I don't have any difficulty eating slowly in the proper manner. B. Although I seem to gobble down foods, I don't end up feeling stuffed because of eating to much. C. At times, I tend to eat quickly and then, I feel uncomfortably full afterwards. D. I have the habit of bolting down my food, without really chewing it. When this happens I usually feel uncomfortably stuffed because I've eaten to much. Response Group 2: C Group 3 A. I feel capable to control my eating urges when I want to. B. I feel like I have failed to control my eating more than the average person. C. I feel utterly helpless when it comes to feeling in control of my eating urges. D. Because I feel so helpless about controlling my eating I have become very desperate about trying to get control. Response Group 3: B Group 4 A. I don't have the habit of eating when I'm bored. B. I sometimes eat when I'm bored, but often I'm able to get busy and get my mind off food. C. I have a regular habit of eating when I'm bored, but occasionally, I can use some other activity to get my mind off eating. D. I have a strong habit of eating when I'm bored. Nothing seems to help me breath the habit. Response Group 4: C Group 5 A. I'm usually physically hungry when I eat something. B. Occasionally, I eat something on impulse even though I really am not hungry. C. I have the regular habit of eating foods, that I might not really enjoy, to satisfy a hungry feeling even though physically, I don't need the food. D. Although I'm not physically hungry, I get a hungry feeling in my mouth that only seems to be satisfied when I eat a food, like sandwich, that fills my mouth. Sometimes, when I eat the food to satisfy my mouth hunger, I then spit the food out so I won't gain weight. Response Group 5: B Group 6 A. I don't feel any guilt or self-hate after I overeat. B. After I overeat, occasionally I feel guilt or self-hate. C. Almost all the time I experience strong guilt or self-hate after I overeat. Response Group 6: B Group 7 A. I don't lose total control of my eating when dieting even after periods when I overeat. B. Sometimes when I eat a forbidden food on a diet, I feel like I blew it and eat even more. C. Frequently, I have the habit of saying to myself, I've blown it now, why not go all the way, when I overeat on a diet. When that happens I eat more. D. I have a regular habit of starting a strict diets for myself but I break the diets by going on an eating binge. My life seems to be either a feast or famine. Response Group 7: B Group 8 A. I rarely eat so much food that I feel uncomfortably stuffed afterwards. B. Usually about once a month, I each such a quantity of food, I end up feeling very stuffed. C. I have regular periods during the month when I eat large amounts of food, either at mealtime or at snacks. D. I eat so much food that I regularly feel quite uncomfortable after eating and sometimes a bit nauseous. Response Group 8: C Group 9 A. My level of calorie intake does not go up very high or go down very low on a regular basis. B. Sometimes after I overeat, I will try to reduce my caloric intake to almost nothing to compensate for the excess calories I've eaten. C. I have a regular habit of overeating during the night. It seems that my routine is not to be hungry in the morning but overeat in the evening. D. In my adult years, I have had week-long periods where I practically starve myself. This follows periods when I overeat. It seems I live a life of either feast or famine. Response Group 9: B Group 10 A. I usually am able to stop eating when I want to. I know when enough is enough. B. Every so often, I experience a compulsion to eat which I can't seem to control. C. Frequently, I experience strong urges to eat which I seem unable to control, but at other times I can control my eating urges. D. I feel incapable of controlling urges to eat. I have a fear of not being able to stop eating voluntarily. Response Group 10: B Group 11 A. I don't have any problem stopping eating when I feel full. B. I usually can stop eating when I feel full but occasionally overeat leaving me feeling uncomfortably stuffed. C. I have a problem stopping eating once I start and usually I feel uncomfortably stuffed after I eat a meal. D. Because I have a problem not being able to stop eating when I want, I sometimes have to induce vomiting to relieve my stuffed feeling. Response Group 11: B Group 12 A. I seem to eat just as much when I'm with others, Family social gatherings as when I'm by myself. B. Sometimes, when I'm with other persons, I don't eat as much as I want to eat because I'm self-conscious about my eating. C. Frequently, I eat only a small amount of food when others are present, becau se I'm very embarrassed about my eating. D. I feel so ashamed about overeating that I pick times to overeat when I know no one will see me. I feel like a closet eater. Response Group 12: B Group 13 A. I eat three meals a day with only an occasional between meal snack. B. I eat 3 meals a day, but I also normally snack between meals. C. When I am snacking heavily, I get in the habit of skipping regular meals. D. There are regular periods when I seem to be continually eating, with no planned meals. Response Group 13: B Group 14 A. I don't think much about trying to control unwanted eating urges. B. At least some of the time, I feel my thoughts are pre-occupied with trying to control my eating urges. C. I feel that frequently I spend much time thinking about how much I ate or about trying not to eat anymore. D. It seems to me that most of my waking hours are pre-occupied by thoughts about eating or not eating. I feel like I'm constantly struggling not to eat. Response Group 14: D Group 15 A. I don't think about food a great deal. B. I have strong craving for food but they last only for brief periods of time. C. I have days when I can't seem to think about anything else but food. D. Most of my days seem to be pre-occupied with thoughts about food. I feel like I live to eat. Response Group 15: D Group 16 A. I usually know whether or not I'm physically hungry. I take the right portion of food to satisfy me. B. Occasionally, I feel uncertain about knowing whether or not I'm physically hungry. A these times it's hard to know how much food I should take to satisfy me. C. Even though I might know how many calories I should eat, I don't have any idea what is a normal amount of food for me. Response Group 16: B Binge Eating Score: 24 Score less than 17 Minimal Risk Score between 18-26 Moderate Risk Score between 27-46 High Risk Assessment & Plan Assessment & Plan (1) Bipolar disorder: Code(s): F31.9 - Bipolar disorder, unspecified (2) Schizophrenia: Code(s): F20.9 - Schizophrenia, unspecified Plan Pt has a cocaine abuse diagnosis in chart however she denied any substance use. She was hospitalized. Apr of this year for psychosis after not taking her medications. She was informed that she needs a letter from [facility] that they are aware she is pursuing surgery and they have no concerns. Patient may not be appropriate due to her mental health needs. Telehealth Telehealth Telehealth Platform: Telephone Location of provider rendering services: practice address Location of patient: address on file Patient Identification confirmed using: Name, : Yes Telehealth method: voice only Patient verbally consented to treatment: Yes Patient verbally consented to billing insurance company: Yes Patient informed of any privacy concerns related to visit: Yes Minutes spent on Phone/Video with Pt.: 40 Coding Level of Care Code Tele Psy Diag Maggyal ([id number]) Diagnoses Bipolar disorder F31.9 Schizophrenia F20.9 Time Spent (min) 40
--- OUTSIDE RECORDS SUMMARY | 2023-09-26 14:55 | XMS_ITS | Continuity of Care Document ---
Author Organization [facility] Address [address] [place] [address]- Care Team Providers Care Claims Collector Name Role Phone Vera Babcock MD Primary Care Physician Encounter [facility] Date(s): 08/26/23 - 09/25/[address] [address]- Allergies, Adverse Reactions, Alerts No Known Allergies Immunizations Given and Recorded Vaccine Date Status Refusal Reason [id number] 12y+ bivalent booster vax 03/16/23 Given [id number] 12y+ bivalent booster vax 03/26/22 Given influenza virus vaccine, inactivated 03/16/23 Give n influenza virus vaccine, inactivated 03/26/22 Give n influenza virus vaccine, inactivated 12/08/19 Osvaldo rded influenza virus vaccine, inactivated 11/29/18 Osvaldo rded influenza virus vaccine, inactivated 12/06/08 Osvaldo rded tetanus/diphtheria/pertussis, acel(Tdap) 03/26/22 Given tetanus/diphtheria/pertussis, acel(Tdap) 01/03/09 Recorded SARS-CoV-2 mRNA ([id number]) vax 08/05/21 Recorded SARS-CoV-2 (COVID-19) mRNA BNT-162b2 [...] tablet, 11 Refills, Maintenance, 07/17/23 15:54:00 EDT, [facility], 175, cm, 07/05/23 15:43:00 EDT, Height, 161.2, kg, 11/26/22 13:41:00 EDT, Dry Weight Start Date: 07/17/23 Status: Ordered cloNIDine 0.1 mg oral tablet 0.1 mg, By Mouth, 2 times a day, # 60 each, Refills 11, Tot. Refills 11, Maintenance, 03/26/22 14:44:00 EST, Route to Pharmacy Electronically, [place], [place] - [id number], Partial fill upon patient request if the [...] Refills, Maintenance, 05/05/23 10:29:00 EST, [facility], 30, TAKE 1 TABLET BY MOUTH ONCE DAILY, 175, cm, 04/29/23 10:03:00 EST, Height, 161.2, kg, 11/26/22 13:41:00 EDT, Dry Weight Start Date: 05/05/23 Status: Ordered docusate sodium 100 mg oral capsule 1 capsule, By Mouth, 2 times a day, # 60 each, 5 Refills, Maintenance, 05/05/23 10:29:00 EST, [facility], 175, cm, 04/29/23 10:03:00 EST, Height, 161.2, kg, 11/26/22 13:41:00 EDT, Dry Weight Start Date: 05/05/23 Status: Ordered folic acid 0.8 mg oral tablet 1 tablet = 0.8 mg, By Mouth, Daily, # 30 tablet, 5 Refills, Maintenance, 03/16/23 8:59:00 EST, Tablet, [facility] [id number], Partial fill upon patient request if the prescription is for a schedule II opioid drug., 175, cm, 12... Start Date: 03/16/23 Stop Date: 09/12/23 Status: Ordered hydrOXYzine hydrochloride 50 mg oral tablet 1 tablet = 50 mg, By Mouth, Daily, PRN anxiety, for 30 days, # 30 tablet, 4 Refills, Acute 12/28/2409:25:00 EDT, 08/01/23 10:25:00 EDT, Tablet, [facility] [id number], Partial fill upon patient request if the prescription is f... Start Date: 08/01/23 Stop Date: 12/29/23 Status: Ordered MetFORMIN (Eqv-Glucophage XR) 500 mg oral tablet, extended release See Instructions, TAKE 1 TABLET BY MOUTH ONCE DAILY, # 30 tablet, 5 Refills, Maintenance, 07/15/23 10:01:00 EDT, [facility] [id number], 175, cm, 07/05/23 15:43:00 EDT, Height, 161.2, kg, 11/26/22 13:41:00 EDT, Dry Weight Start Date: 07/15/23 Status: Ordered MiraLax oral powder for reconstitution = 17 Gm, By Mouth, Daily, # 510 Gm, 0 Refills, Maintenance, 07/05/23 16:09:00 EDT, REC Powder, [id number], Partial fill upon patient request if the prescription is for a schedule II opioid drug., 17 Gm By Mouth Daily, 175, cm, 2... Start Date: 07/05/23 Status: Ordered omeprazole 20 mg oral enteric coated capsule See Instructions, TAKE 1 CAPSULE BY MOUTH ONCE DAILY, # 30 capsule, 5 Refills, Maintenance, 03/16/23 8:59:00 EST, [place], [place] - [id number], 175, cm, 03/16/23 8:34:00 EST, Height, 161.2, kg, 11/26/22 13:41:00 EDT, Dry Weight Start Date: 03/16/23 Status: Ordered Prolixin Tablet Rx'd per Psych 1mg in am, 5mg in pm, Refills 0, Maintenance, 04/03/23 10:28:00 EST, Partial fill upon patient request if the prescription is for a schedule II opioid drug. Start Date: 04/03/23 Status: Ordered semaglutide 2.4 mg/0.75 mL (2.4 mg dose) subcutaneous solution = 2.4 mg, Subcutaneous Infusion, Every week, # 4 each, 11 Refills, Maintenance, 09/20/23 15:24:00 EDT, [facility] #[id number], Partial fill upon patient request if the prescription is for a schedule II opioid drug., 175, cm, 08/01/23 10:02:00 EDT... Start Date: 09/20/23 Stop Date: 08/21/24 Status: Ordered TEGretol XR 100 mg oral [...] 1 Confirmed Active Bipolar disorder Confirmed Active [facility] telehealth coordinator Hugo Hamilton [phone] Confirmed Active PTSD (post-traumatic stress disorder) Confirmed Active Schizoaffective disorder Confirmed Active Severe obesity Confirmed Active 1Unable to fully visualize cervix with speculum available. Unable to complete colposcopy procedure. will refer to [facility] Social History Social History Type Response Tobacco Use: 4 or less cigar ettes(less than 1/4 pack)/day in last 30 days. Other: rarely. Sex Patient Care team information Care Team Personnel Name: Jayne Vee RN Position: [facility] RN Member Role: Primary Care Nurse Name: Jojo Cazares RN Position: [facility] RN Member Role: Primary Care Nurse Name: Vera Babcock MD Position: [facility] Physician - Primary Care Member Role: PCP Address: Address: [address] [place] [address]- [place] Care Team Related Persons Name: SKYE FELDER Address: [address] [address] Name: MONIQUE SIMPSON Name: LALA HILLS Address: [address] [address] Name: KERI BROTHERS Address: home [address] [place] [id number]
== END 2023-09-26 14:58 | disposition home or self-care (01) ==
LOC: HO.HBST 14:51
PROVIDERS: PCP Internal Medicine; Visit Provider Counselor Mental Health
DX: F31.9 Bipolar disorder, unspecified (principal); F20.9 Schizophrenia, unspecified
CPT/HCPCS: 90791

== ENCOUNTER → 2023-09-26 14:51 | Outpatient (BNVA) | payer OTHER, SELFPAY | PROVIDERS: PCP Internal Medicine; Visit Provider Counselor Mental Health ==